=== PATIENT | male | born 1990 | race American Indian/Alaskan Native ===

== ENCOUNTER 2018-12-31 11:19 | Emergency (ER) | payer OTHER ==
[2018-12-31] MEDS ORDERED: SODIUM CHLORIDE 0.9% 1,000 ML IV STA (11:54)
[2018-12-31] MEDS ORDERED: ONDANSETRON 4 MG/2 ML VIAL IVP STA (11:54)
[2018-12-31] MEDS ORDERED: SODIUM CHLORIDE 0.9% 2,000 ML IV STA (11:54)
[2018-12-31] MEDS ORDERED: PANTOPRAZOLE 40 MG/10 ML VIAL IVP STA (11:54)
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
[2018-12-31 12:15] LABS: Basophils # (A) 0.1 k/uL (0-0.2); Basophils % (A) 1 %; Eosinophils # (A) 0.1 k/uL (0-0.7); Eosinophils % (A) 2 %; HCT 49.6 % (39.0-53.0); HGB 16.7 gm/dL (13.0-17.5); Lymphocytes # (A) 1.3 k/uL (1.0-4.8); Lymphocytes % (A) 17 %; MCH 32.1 pg (25.0-35.0); MCHC 33.6 g/dL (31.0-37.0); MCV 95.6 fL (80.0-100.0); Mean Platelet Volume 6.8; Monocytes # (A) 0.5 k/uL (0-1.0); Monocytes % (A) 7 %; Neutrophils # (A) 5.1 k/uL (1.3-7.7); Neutrophils % (A) 71 %; Platelet Count 261 k/uL (150-450); RBC 5.19 m/uL (4.30-5.90); WBC 7.3 k/uL (3.8-10.6)
[2018-12-31 12:21] LABS: Partial Thromboplastin Time 25.6 sec (22.0-30.0); Prothrombin Time 10.4 sec (9.0-12.0)
[2018-12-31 12:23] LABS: ALT 57 U/L (21-72); AST 43 U/L (17-59); Albumin 4.8 g/dL (3.5-5.0); Alcohol <10 mg/dL; Alkaline Phosphatase 64 U/L (38-126); Amylase 46 U/L (30-110); Anion Gap 12 mmol/L; Blood Urea Nitrogen 14 mg/dL (9-20); Calcium 9.8 mg/dL (8.4-10.2); Carbon Dioxide 24 mmol/L (22-30); Chloride 101 mmol/L (98-107); Glucose 81 mg/dL (74-99); Lipase 81 U/L (23-300); Potassium 4.6 mmol/L (3.5-5.1); Sodium 137 mmol/L (137-145); Total Protein 7.8 g/dL (6.3-8.2)
[2018-12-31] MEDS ORDERED: KETOROLAC 30 MG/ML 1 ML VIAL IVP STA (13:21)
[2018-12-31 13:35] LABS: Appearance,Urine Clear (Clear); Bilirubin,Urine Negative (Negative); Blood,Urine Negative (Negative); Color,Urine Light Yellow; Glucose,Urine (UA) Negative (Negative); Ketones,Urine 2+ (Negative); Leukocyte Esterase,Urine Negative (Negative); Nitrite,Urine Negative (Negative); PH, Urine 6.5 (5.0-8.0); Protein,Urine Negative (Negative); Specific Gravity,Urine 1.004 (1.001-1.035); Urobilinogen,Urine <2.0 mg/dL (<2.0)
[2018-12-31 13:44] LABS: Amphetamine Screen,Urine Detected (NotDetected); Barbiturate Screen,Urine Not Detected (NotDetected); Benzodiazepines Screen,Urine Not Detected (NotDetected); Cocaine Screen,Urine Not Detected (NotDetected); Methadone Screen, Urine Not Detected (NotDetected); Opiate Screen,Urine Not Detected (NotDetected); Oxycodone Screen, Urine Not Detected (NotDetected); Phencyclidine Screen,Urine Not Detected (NotDetected); Tricyclic Antidepressant,Urine Not Detected (NotDetected); Urn Cannabinoid Scrn Not Detected (NotDetected)
[2018-12-31] MEDS ORDERED: ACETAMINOPHEN TAB 500 MG TAB PO STA (14:23)
[2018-12-31] MEDS ORDERED: LORazepam 1 MG TAB PO STA (14:26)
[2018-12-31] MEDS ORDERED: chlordiazePOXIDE 25 MG CAP PO STA (14:26)
[2018-12-31 15:15] VITALS: BP 149/87; PULSE 85; RESP 25
[2018-12-31 15:26] VITALS: TEMP 98.7
== END 2018-12-31 15:27 | disposition home or self-care (01) ==
LOC: EC 11:19
DX: F10.10 Alcohol abuse, uncomplicated (principal); R11.2 Nausea with vomiting, unspecified; R82.5 Elevated urine levels of drugs, medicaments and biological substances; R10.9 Unspecified abdominal pain; F17.200 Nicotine dependence, unspecified, uncomplicated
CPT/HCPCS: 36415; 93005; 80053; 82150; 83690; 85025; 85610; 85730; 81003; 80306; 99284; 96374; 96375 ×2; 96361 ×3; G0480; J2405; J1885; C9113; 80320

== ENCOUNTER 2019-07-12 06:30 | Inpatient (IN) | payer OTHER ==
[2019-07-12] MEDS ORDERED: SODIUM CHLORIDE 0.9% 2,000 ML IV STA (06:50)
[2019-07-12] MEDS ORDERED: LORazepam 2 MG/ML INJ IV STA ×4 (06:55→09:15)
--- NOTE | 2019-07-12 06:56 | ED ---
Overdose HPI - General Source: patient, RN notes reviewed, old records reviewed Mode of arrival: ambulatory Limitations: no limitations <Kristine Bauer - Last Filed: 07/12/19 18:22> <Geovani Joy - Last Filed: 07/13/19 00:02> <Tomer Marie - Last Filed: 07/14/19 13:07> - General Chief Complaint: Overdose Stated Complaint: dizziness Time Seen by Provider: 07/12/19 06:41 - History of Present Illness Initial Comments: Patient is a 28-year-old male presents emergency department today with drug overdose and complaining of right-sided abdominal pain. Patient states she does not know exactly what drug he took possibly about results. Urine to emergency department today complaining of some dizziness as well. Patient reports that his right side abdominal pain started one hour ago. He does report that he is a chronic occult drinker. Patient states that he has had no recent fevers or chills. Patient is quite uncooperative, difficult for for complete medical history. (Kristine Bauer) - Related Data Home Medications Medication Instructions Recorded Confirmed No Known Home Medications 07/12/19 07/12/19 Allergies Allergy/AdvReac Type Severity Reaction Status Date / Time No Known Allergies Allergy Verified 07/12/19 07:52 Review of Systems ROS Other: All systems not noted in ROS Statement are negative. <Kristine Bauer - Last Filed: 07/12/19 18:22> ROS Other: All systems not noted in ROS Statement are negative. <Geovani Joy - Last Filed: 07/13/19 00:02> ROS Other: All systems not noted in ROS Statement are negative. <Tomer Marie - Last Filed: 07/14/19 13:07> ROS Statement: Those systems with pertinent positive or pertinent negative responses have been documented in the HPI. Past Medical History Past Medical History: Asthma History of Any Multi-Drug Resistant Organisms: None Reported Past Surgical History: No Surgical Hx Reported Past Psychological History: Anxiety, Depression Smoking Status: Current every day smoker Past Alcohol Use History: Abuse, Daily Past Drug Use History: Cocaine, Heroin, Marijuana, Methamphetamine, Prescription Drug Abuse <Kristine Bauer - Last Filed: 07/12/19 18:22> General Exam Limitations: no limitations General appearance: alert, in no apparent distress Head exam: Present: atraumatic, normocephalic, normal inspection Eye exam: Present: normal appearance, PERRL, EOMI. Absent: scleral icterus, conjunctival injection, periorbital swelling ENT exam: Present: normal exam, mucous membranes moist Neck exam: Present: normal inspection. Absent: tenderness, meningismus, lymphadenopathy Respiratory exam: Present: normal lung sounds bilaterally. Absent: respiratory distress, wheezes, rales, rhonchi, stridor Cardiovascular Exam: Present: regular rate, normal rhythm, normal heart sounds. Absent: systolic murmur, diastolic murmur, rubs, gallop, clicks GI/Abdominal exam: Present: soft, tenderness ( Pt reports Right upper quadrant tenderness, abdomen soft. Tenderness is distractable.), normal bowel sounds. Absent: distended, guarding, rebound, rigid Extremities exam: Present: normal inspection, full ROM, normal capillary refill, other (ankle tether noticed. ). Absent: tenderness, pedal edema, joint swelling, calf tenderness Back exam: Present: normal inspection Psychiatric exam: Present: normal mood, other (Patient is hallucinating, stating that he is talking to [place] in [place] people that are not room.). Absent: normal affect Skin exam: Present: warm, dry, intact, normal color. Absent: rash <Kristine Bauer - Last Filed: 07/12/19 18:22> - General Exam Comments Initial Comments: 28-year-old male, altered mental. (Kristine Bauer) Course <Kristine Bauer - Last Filed: 07/12/19 18:22> <Geovani Joy - Last Filed: 07/13/19 00:02> <Tomer Marie - Last Filed: 07/14/19 13:07> Vital Signs 07/12/19 07/12/19 07/12/19 06:36 16:12 23:43 Temperature 97.9 F 98.7 F Pulse Rate 89 98 79 Respiratory 20 16 18 Rate Blood Pressure 146/90 147/106 123/81 O2 Sat by Pulse 99 98 97 Oximetry 07/13/19 07/13/19 07/13/19 01:27 02:00 04:00 Temperature Pulse Rate 80 74 75 Respiratory 18 18 19 Rate Blood Pressure 116/71 125/91 137/89 O2 Sat by Pulse 97 98 99 Oximetry 07/13/19 07/13/19 07/13/19 05:58 08:05 19:45 Temperature 98.6 F 98.0 F Pulse Rate 76 92 89 Respiratory 18 16 16 Rate Blood Pressure 133/89 137/78 122/87 O2 Sat by Pulse 98 100 98 Oximetry 07/14/19 07:20 Temperature 97.9 F Pulse Rate 79 Respiratory 16 Rate Blood Pressure 109/74 O2 Sat by Pulse 98 Oximetry - Reevaluation(s) Reevaluation #1: 07/12/19 08:52 Patient is becoming increasingly agitated. Don't 0 floor. Up-and-down from bed. Fall risk. Patient will be sedated at this time with Benadryl and Haldol Ativan. (Kristine Bauer) 07/13/19 00:06 Patient is still awaiting psychiatric placement at this time. Patient remains alert and breathing comfortably in the ED. Patient was endorsed to Dr. Bowens secondary to ED shift change. Dr. Bowens to follow up on the patient's disposition. (Geovani Joy) Reevaluation #2: 07/12/19 08:54 Patient continues to hallucinate stating that his family members are here and talking about him. (Kristine Bauer) Reevaluation #3: 07/12/19 09:22 Patient is medically sedated this time. Belongings are placed in storage. Patient will be evaluated by EPS due to persistent hallucinations, erratic behavior. (Kristine Bauer) Reevaluation #4: 07/12/19 18:22 Patient is having was evaluated by EPS and he did state that it was an intentional overdose he plans to harm himself and feels hopeless. We'll admit the Patient to psych facility Patient will be held in the ER until transferred. (Kristine Bauer) Reevaluation #5: 07/14/19 13:04 The patient was resting comfortably throughout the morning. He was here because of overdose and depression and suicidal ideation. Patient voluntarily is signing in for inpatient treatment. (Tomer Marie) Medical Decision Making - Lab Data Result diagrams: 07/12/19 06:45 07/12/19 06:45 <Kristine Bauer - Last Filed: 07/12/19 18:22> - Lab Data Result diagrams: 07/12/19 06:45 07/12/19 06:45 <Geovani Joy - Last Filed: 07/13/19 00:02> - Lab Data Result diagrams: 07/12/19 06:45 07/12/19 06:45 <Tomer Marie - Last Filed: 07/14/19 13:07> - Medical Decision Making Patient is a 28-year-old male presents emergency department today he stated some right-sided abdominal pain, complaint of dizziness. Is difficult to obtain a history due to his mental state and hallucinations and agitation.. Patient was hallucinating in exam room stating that his family members are they're talking about him and nobody is here. Patient was given IV fluids labwork obtained. Patient's labwork was reviewed and unremarkable. Urine drug screen is positive for methamphetamines amphetamines and opiates. Patient is given 2 L bolus. Patient was in ER immediately increasingly agitated one point threatening states staff and concerned that he would be a fall risk. Patient was medically sedated given Ativan and Benadryl Haldol. He then was resting. Patient's case discussed with the EPS to evaluate the Patient Patient is more alert. Patient has been emergency department for 11 hours to 2 cm after medical sedation. Patient was evaluated by EPS and final disposition will be completed by Dr. Lino. (Kristine Bauer) 20:55- I (Dr. Geovani Joy) have seen and examined the patient myself, and I agree with ED KACEY Bauer' assessment and plan. Patient is now alert and responsive. Patient has reported to myself and the EPS nurse that he intentionally overdosed on illicit drugs early this morning in a suicidal attempt. Patient will not tell me exactly which drugs he took. Patient has been observed in the ED for over 14 hours now. Patient's EKG was reviewed and is unremarkable. Patient's labs are fairly unremarkable, other than a urine drug screen which is positive for opiates, methamphetamines and amphetamines. Patient has been medically cleared. A clinical certificate of commitment was completed myself. EPS nurse is searching for psychiatric placement for the patient at this time. (Geovani Joy) - Lab Data Lab Results 09/14/19 09/14/19 09/14/19 Range/Units 06:45 06:45 06:45 WBC 8.6 (3.8-10.6) k/uL RBC 5.58 (4.30-5.90) m/uL Hgb 17.2 (13.0-17.5) gm/dL Hct 49.5 (39.0-53.0) % MCV 88.8 (80.0-100.0) fL MCH 30.7 (25.0-35.0) pg MCHC 34.6 (31.0-37.0) g/dL RDW 14.9 (11.5-15.5) % Plt Count 321 (150-450) k/uL Neutrophils % 72 % Lymphocytes % 16 % Monocytes % 5 % Eosinophils % 5 % Basophils % 1 % Neutrophils # 6.2 (1.3-7.7) k/uL Lymphocytes # 1.4 (1.0-4.8) k/uL Monocytes # 0.4 (0-1.0) k/uL Eosinophils # 0.4 (0-0.7) k/uL Basophils # 0.1 (0-0.2) k/uL Sodium 138 (137-145) mmol/L Potassium 4.1 (3.5-5.1) mmol/L Chloride 99 (98-107) mmol/L Carbon Dioxide 27 (22-30) mmol/L Anion Gap 12 mmol/L BUN 14 (9-20) mg/dL Creatinine 0.79 (0.66-1.25) mg/dL Est GFR (CKD-EPI)AfAm >90 (>60 ml/min/1.73 sqM) Est GFR (CKD-EPI)NonAf >90 (>60 ml/min/1.73 sqM) Glucose 88 (74-99) mg/dL Calcium 9.5 (8.4-10.2) mg/dL Total Bilirubin 0.7 (0.2-1.3) mg/dL AST 24 (17-59) U/L ALT 18 L (21-72) U/L Alkaline Phosphatase 41 (38-126) U/L Total Protein 8.0 (6.3-8.2) g/dL Albumin 4.8 (3.5-5.0) g/dL Amylase 32 (30-110) U/L Lipase 74 (23-300) U/L Urine Color Light Yellow Urine Appearance Clear (Clear) Urine pH 6.5 (5.0-8.0) Ur Specific [place] 1.004 (1.001-1.035) Urine Protein Negative (Negative) Urine Glucose (UA) Negative (Negative) Urine Ketones Negative (Negative) Urine Blood Negative (Negative) Urine Nitrite Negative (Negative) Urine Bilirubin Negative (Negative) Urine Urobilinogen <2.0 (<2.0) mg/dL Ur Leukocyte Esterase Negative (Negative) Salicylates <1.0 mg/dL Urine Opiates Screen Detected H (NotDetected) Ur Oxycodone Screen Not Detected (NotDetected) Urine Methadone Screen Not Detected (NotDetected) Ur Propoxyphene Screen Not Detected (NotDetected) Acetaminophen <10.0 ug/mL Ur Barbiturates Screen Not Detected (NotDetected) U Tricyclic Antidepress Not Detected (NotDetected) Ur Phencyclidine Scrn Not Detected (NotDetected) Ur Amphetamines Screen Detected H (NotDetected) U Methamphetamines Scrn Detected H (NotDetected) U Benzodiazepines Scrn Not Detected (NotDetected) Urine Cocaine Screen Not Detected (NotDetected) U Marijuana (THC) Screen Not Detected (NotDetected) Serum Alcohol <10 mg/dL 07/12/19 06:57 EKG performed at 6:47 AM shows normal sinus rhythm rightward axis, borderline EKG. Ventricular rate of 71 bpm. TX interval is 126 ms. QRS duration is 88 ms. (Kristine Bauer) Disposition <Kristine Bauer - Last Filed: 07/12/19 18:22> <Geovani Joy - Last Filed: 07/13/19 00:02> <Tomer Marie - Last Filed: 07/14/19 13:07> Clinical Impression: Positive urine drug screen, Hallucination, Drug overdose, Depression Disposition: TRANSFER TO PSYCH HOSP/UNIT Condition: Stable Referrals: None,Stated [Primary Care Provider] - 1-2 days
[2019-07-12 07:03] LABS: Appearance,Urine Clear (Clear); Basophils # (A) 0.1 k/uL (0-0.2); Basophils % (A) 1 %; Bilirubin,Urine Negative (Negative); Blood,Urine Negative (Negative); Color,Urine Light Yellow; Eosinophils # (A) 0.4 k/uL (0-0.7); Eosinophils % (A) 5 %; Glucose,Urine (UA) Negative (Negative); HCT 49.5 % (39.0-53.0); HGB 17.2 gm/dL (13.0-17.5); Ketones,Urine Negative (Negative); Leukocyte Esterase,Urine Negative (Negative); Lymphocytes # (A) 1.4 k/uL (1.0-4.8); Lymphocytes % (A) 16 %; MCH 30.7 pg (25.0-35.0); MCHC 34.6 g/dL (31.0-37.0); MCV 88.8 fL (80.0-100.0); Mean Platelet Volume 6.9; Monocytes # (A) 0.4 k/uL (0-1.0); Monocytes % (A) 5 %; Neutrophils # (A) 6.2 k/uL (1.3-7.7); Neutrophils % (A) 72 %; Nitrite,Urine Negative (Negative); PH, Urine 6.5 (5.0-8.0); Platelet Count 321 k/uL (150-450); Protein,Urine Negative (Negative); RBC 5.58 m/uL (4.30-5.90); RDW 14.9 % (11.5-15.5); Specific Gravity,Urine 1.004 (1.001-1.035); Urobilinogen,Urine <2.0 mg/dL (<2.0); WBC 8.6 k/uL (3.8-10.6)
[2019-07-12 07:12] LABS: Acetaminophen <10.0 ug/mL; African American GFR (CKD) >90 (>60 ml/min/1.73 sqM); Albumin 4.8 g/dL (3.5-5.0); Alcohol <10 mg/dL; Amylase 32 U/L (30-110); Anion Gap 12 mmol/L; Calcium 9.5 mg/dL (8.4-10.2); Carbon Dioxide 27 mmol/L (22-30); Chloride 99 mmol/L (98-107); Glucose 88 mg/dL (74-99); Salicylate <1.0 mg/dL; Sodium 138 mmol/L (137-145); Total Bilirubin 0.7 mg/dL (0.2-1.3)
[2019-07-12 07:13] LABS: Potassium 4.1 mmol/L (3.5-5.1)
[2019-07-12 07:14] LABS: ALT 18 U/L (21-72); AST 24 U/L (17-59); Alkaline Phosphatase 41 U/L (38-126); Blood Urea Nitrogen 14 mg/dL (9-20)
[2019-07-12 07:26] LABS: Amphetamine Screen,Urine Detected (NotDetected); Barbiturate Screen,Urine Not Detected (NotDetected); Benzodiazepines Screen,Urine Not Detected (NotDetected); Cocaine Screen,Urine Not Detected (NotDetected); Methadone Screen, Urine Not Detected (NotDetected); Opiate Screen,Urine Detected (NotDetected); Oxycodone Screen, Urine Not Detected (NotDetected); Phencyclidine Screen,Urine Not Detected (NotDetected); Tricyclic Antidepressant,Urine Not Detected (NotDetected); Urn Cannabinoid Scrn Not Detected (NotDetected)
[2019-07-12] MEDS ORDERED: diphenhydrAMINE 50 MG/ML 1 ML VIAL IVP STA (08:49)
[2019-07-12] MEDS ORDERED: HALOPERIDOL LACTATE 5 MG/ML 1 ML VIAL IM STA (08:49)
[2019-07-13] MEDS ORDERED: IBUPROFEN 400 MG TAB PO STA (18:47)
[2019-07-14 16:09] VITALS: BMI 24.3
[2019-07-14] MEDS ORDERED: MAG HYDROX/AL HYDROX/SIMETH 30 ML CUP PO PRN (17:49)
[2019-07-14] MEDS ORDERED: ZIPRASIDONE 20 MG VIAL IM PRN (17:49)
[2019-07-14] MEDS ORDERED: MAGNESIUM HYDROXIDE 2,400 MG/10 ML CUP PO PRN (17:49)
[2019-07-14] MEDS ORDERED: ACETAMINOPHEN TAB 325 MG TAB PO PRN (17:49)
[2019-07-14] MEDS ORDERED: LORazepam 1 MG TAB PO PRN (17:49)
[2019-07-14] MEDS ORDERED: LORazepam 2 MG/ML INJ IM PRN (17:52)
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
[2019-07-14] MEDS ORDERED: ALBUTEROL NEBULIZED 2.5 MG/3 ML INHALATION PRN (22:47)
[2019-07-15 07:00] VITALS: BP 109/65; PULSE 66; RESP 18; TEMP 98.3
[2019-07-15] MEDS ORDERED: NICOTINE 14MG/24HR PATCH TRANSDERM SCH (09:00)
[2019-07-15] MEDS: LORATADINE 10 MG TAB PO SCH ×2 (09:40→09:41)
[2019-07-15] MEDS ORDERED: ALBUTEROL INHALER 60 PUFF/8 GM INHALER INHALATION PRN (10:18)
--- NOTE | 2019-07-15 11:40 | P.DS ---
Providers Date of admission: 07/14/19 14:21 Expected date of discharge: 07/15/19 Attending physician: Amilcar Arciniega Consults: 07/14/19 17:49 Consult Physician Routine Consulting Provider: Jenna Greene Consult Reason/Comments: H&P and medical Do you want consulting provider notified?: Yes Primary care physician: Stated None - Discharge Diagnosis(es) (1) Depression Current Visit: Yes Status: Acute Priority: Medium (2) Alcohol use disorder Current Visit: Yes Status: Acute Priority: Medium Hospital Course: IDENTIFYING DATA: This patient is a 28-year-old single male who was admitted to the mental health unit through the emergency room for suicidal ideation. HPI: Patient presented to the hospital July 12 reporting thoughts of wanting to harm himself and reported he had overdosed with illicit drugs. He was seen by the emergency room staff as well as a psychiatric nurse. A determination was made that he needed to be admitted to a mental health unit. The patient was not able to be transferred out of the hospital and this unit had no available beds. He was admitted to the mental health unit yesterday once a bed became available. Upon presentation this morning the patient states adamantly that he was never suicidal. He indicates in any statements that he made were because he was under the influence of substances. He presented with a drug screen positive for amphetamines, methamphetamines, opiates. He indicated that he was hallucinating and not thinking clearly. He reports no symptoms of depression. He indicates that they gave him Remeron in halfway for sleep but he doesn't really needs an antidepressant. He endorses no significant anxiety he is reporting no panic attacks. He is concerned about being in the hospital as he is supposed to be working and is supposed to meet with his chief analytics officer. He describes several examples of future oriented thinking. He indicates he will be staying with his aunt. He states that his children were temporarily taken away from their mother and his children are with his parents. He states he needs to maintain employment get his own place and participate in the care of his children. He reports no auditory or visual hallucinations or any specific delusions. He reports no history of hypomanic or manic episodes. He reports no ownership of firearms. PAST PSYCHIATRIC HISTORY: He indicates this is his first inpatient psychiatric admission, no history of suicide attempts. He states he's only been on Remeron in the past and trazodone for sleep. He is ordered to work with [employer] and sees a therapist weekly as part of his parole. PMH: None reported other than asthma which is controlled ALLERGIES: no Known drug ALLERGIES MEDICATIONS: None other than Remeron at bedtime in halfway CHEMICAL DEPENDENCY HISTORY: He has a history of alcohol use disorder he states he has been sober for over 6 months, as noted his urine drug screen was positive for opiates, amphetamine, methamphetamine, he indicates he was using marijuana as well. He is never been in inpatient chemical dependency treatment. After he was released from halfway he violated and went back to halfway for 6 more months and participated in chemical dependency treatment there. FAMILY PSYCHIATRIC HISTORY: Acute several family members have mental health symptoms but provides no diagnoses, no suicides in the family. FAMILY CHEMICAL DEPENDENCY HISTORY: Several family members known to have substance use issues he believes some distant family members via unintentional overdose SOCIAL HISTORY: The patient is 28 years old he single he has 2 children ages 7 and 9, a son and daughter respectively. His children are currently splitting the time between his mother and his parents. He indicates CPS is involved in evaluating their mother's ability to care for them. 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 He went as far as 10th grade and later earned a GED. He endorses no history of special education classes. No history of service. He has 2 brothers. He is originally from this area. Legal history includes incarceration for 5 years for assault and battery and also a DUI arrest he is on parole until September. Abuse history none reported. MENTAL STATUS EXAM: The patient is a male appearing his stated age. He has short dark hair is dressed in hospital gown. He has visible tattoos on his upper extremities. Eye contact is appropriate speech is fluent spontaneous nonpressured. He indicates his mood is good but he is anxious to get out of the hospital as he needs to return to work. He reports no suicidal ideation intent or plan he reports that he is not hopeless. He indicates he needs to complete his parole maintain employment and get his own residence. He reports no homicidal ideation intent or plan. He is reporting no auditory or visual hallucinations or any specific delusions. There is no observed evidence of psychosis. Thought process can be circumstantial but he demonstrates no tangential thinking loose associations or flight of ideas. He does not appear hypomanic or manic. Insight and judgment grossly intact. Affect appropriately expressive. He demonstrates no verbal or physical aggressiveness. He demonstrates no involuntary repetitive movements. He is oriented to person place and date. He is able to name the days of the week backwards. STRENGTHS/WEAKNESSES: His: Housing, employment weaknesses: Ongoing substance use INTELLECTUAL FUNCTIONING: Below average IMPRESSIONS: [] 1. Depression and specified rule out major depressive disorder, alcohol use disorder, rule out methamphetamine and opioid use disorders PLAN: The patient will be discharged mental health unit today. He has been in the hospital now since the . It appears his presenting symptoms were mediated by the use of methamphetamine opiates and possibly marijuana. At this time he reports no symptoms of psychosis he reports no suicidal or homicidal ideation he does not appear hypomanic or manic and he does not appear psychotic. He is able to attend to his activities of daily living and is following direc tion. He is demonstrating no agitated behavior. Social work will contact his family to gain collateral information. If they feel the patient is safe to return home we will discharge him today. He does not wish to have any medications prescribed today. We discussed using naltrexone to maintain sobriety from alcohol and opiates he does not wish to have that prescribed. He does not wish to be referred to inpatient chemical dependency treatment. He is instructed to abstain from any use of alcohol marijuana or illicit drugs a computed tomography scan precipitate mood and psychotic symptoms and elevate his safety risk. At this time there is no imminent safety risk he is appropriate for transition to outpatient care which will be arranged by social work. He is instructed to return to the hospital with any acute safety concerns. Patient Condition at Discharge: Stable Plan - Discharge Summary Discharge Rx Participant: No New Discharge Prescriptions: New Loratadine [Claritin] 5 mg PO DAILY tab Albuterol Inhaler [Ventolin Hfa Inhaler] 2 puff INHALATION RT-QID PRN puff PRN Reason: Shortness Of Breath Or Wheezing Discontinued Mirtazapine [Remeron] 30 mg PO HS Discharge Medication List Albuterol Inhaler [Ventolin Hfa Inhaler] 2 puff INHALATION RT-QID PRN puff 07/15/19 [Rx] Loratadine [Claritin] 5 mg PO DAILY tab 07/15/19 [Rx] Follow up Appointment(s)/Referral(s): None,Stated [Primary Care Provider] - 1-2 days
[2019-07-15 14:28] LABS: Hemoglobin A1C 5.6 % (4.0-6.0)
== END 2019-07-15 13:55 | disposition home or self-care (01) | DRG 881 ==
LOC: EC 06:30 → 3MHU 07-14 14:21
PROVIDERS: ADMIT Psychiatry & Neurology Psychiatry; ATTEND Psychiatry & Neurology Psychiatry
DX: F32.9 Major depressive disorder, single episode, unspecified (principal); J30.2 Other seasonal allergic rhinitis; R10.31 Right lower quadrant pain; F12.90 Cannabis use, unspecified, uncomplicated; F10.10 Alcohol abuse, uncomplicated; F14.11 Cocaine abuse, in remission; F15.90 Other stimulant use, unspecified, uncomplicated; F11.11 Opioid abuse, in remission; F19.11 Other psychoactive substance abuse, in remission; J45.20 Mild intermittent asthma, uncomplicated; T50.902A Poisoning by unspecified drugs, medicaments and biological substances, intentional self-harm, initial encounter; F41.9 Anxiety disorder, unspecified; F17.210 Nicotine dependence, cigarettes, uncomplicated; Z71.6 Tobacco abuse counseling; Z81.4 Family history of other substance abuse and dependence
CPT/HCPCS: 36415; 80053; 80061; 80306; 80320; 80329; 81003; 82075; 82150; 83036; 83520; 83690; 84443; 85025; 93005; 96361; 96372; 96374; 96375; 96376; 99285

== ENCOUNTER 2020-03-24 14:09 | Emergency (ER) | payer OTHER ==
[2020-03-24 14:28] VITALS: TEMP 98.7
[2020-03-24] MEDS ORDERED: SODIUM CHLORIDE 0.9% 1,000 ML IV ONE (14:31)
[2020-03-24] MEDS ORDERED: LORazepam 2 MG/ML INJ IV STA (14:32)
[2020-03-24] MEDS ORDERED: SODIUM CHLORIDE 0.9% 1,000 ML IV SCH (14:45)
[2020-03-24 14:50] LABS: Glucose,Whole Blood 84 mg/dL (75-99)
--- NOTE | 2020-03-24 15:03 | ED ---
Overdose HPI - General Chief Complaint: Overdose Stated Complaint: ETOH/overdose Time Seen by Provider: 03/24/20 14:16 Source: EMS Mode of arrival: EMS Limitations: altered mental status - History of Present Illness Initial Comments: 29-year-old male presents today for chief complaint of possible overdose. Patient states that he took acid today and smoked marijuana he states he is unsure if it was laced with something he states that he became very anxious paranoid and attempted to take Benadryl in order to reverse the symptoms of the acid. He states that he took 6, what he believes 25mg tablets of benadryl. Patient states he has had some vomiting. He states his heart was racing from the stuff he took and he became anxious and presented to the ER for evaluation, called EMS. Patient states he is just hungover and did drugs. He states he wants to go home. Patient denies trauma or known falls, assault. Pt slightly aggitated on arrival. HR elevated, BP stable. His pupils are found to be dilated, skin warm/dry. No active vomiting. Denies suicidal and homicidal ideations or plan. States it was recreational drug use. - Related Data Previous Rx's Medication Instructions Recorded Albuterol Inhaler (Mhu) [Ventolin 2 puff INHALATION RT-QID PRN puff 07/15/19 Hfa Inhaler (Mhu)] Loratadine [Claritin] 5 mg PO DAILY tab 07/15/19 Allergies Allergy/AdvReac Type Severity Reaction Status Date / Time No Known Allergies Allergy Verified 07/14/19 16:17 Review of Systems ROS Statement: Those systems with pertinent positive or pertinent negative responses have been documented in the HPI. ROS Other: All systems not noted in ROS Statement are negative. Past Medical History Past Medical History: Asthma History of Any Multi-Drug Resistant Organisms: None Reported Past Surgical History: No Surgical Hx Reported Past Anesthesia/Blood Transfusion Reactions: No Reported Reaction Past Psychological History: Anxiety, Depression Smoking Status: Current every day smoker Past Alcohol Use History: Abuse, Daily Past Drug Use History: Cocaine, Heroin, Marijuana, Methamphetamine, Prescription Drug Abuse General Exam - General Exam Comments Initial Comments: General: The patient is awake and alert, in no distress Eye: +5mm pupils are equal, round and reactive to light, extra-ocular movements are intact. No nystagmus. There is normal conjunctiva bilaterally. No signs of icterus. Ears, nose, mouth and throat: There are moist mucous membranes and no oral le sions. Neck: The neck is supple, there is no tenderness or JVD. Cardiovascular: There is a regular rate and rhythm. No murmur, rub or gallop is appreciated. Respiratory: Lungs are clear to auscultation, respirations are non-labored, breath sounds are equal. No wheezes, stridor, rales, or rhonchi. Gastrointestinal: Soft, non-distended, non-tender abdomen without masses or organomegaly noted. There is no rebound or guarding present. Musculoskeletal: Normal ROM, no tenderness. Strength 5/5. Sensation intact. Radial pulses equal bilaterally 2+. Neurological: A&O x 3. CN II-XII intact. There are no obvious motor or sensory deficits. Coordination appears grossly intact. Speech is normal. Skin: Skin is warm and dry and no rashes or lesions are noted. Psychiatric: Cooperative, slightly agitated does not appears altered, answering questions appropriately. Limitations: altered mental status Course Vital Signs 03/24/20 03/24/20 03/24/20 14:14 15:02 16:44 Temperature 98.7 F Pulse Rate 120 H 126 H 125 H Respiratory 17 18 18 Rate Blood Pressure 138/88 151/91 151/89 O2 Sat by Pulse 94 L 98 98 Oximetry - Reevaluation(s) Reevaluation #1: Patient walking halls without staggering, he is calmly asking to be discharged stating he was just high. He has no complaints. He refuses to stay. Given patient alcohol level increased, although he does not appears acutely intoxicated/altered a cab will be provided.. i discussed at length that patient should stay in the hospital he continues to refused. He is leaving against medical advice. 03/24/20 16:50 Reevaluation #2: Discussed case with Dr. Luu who witnessed patient walking [place] who is not staggering, calm, answering questions appropriately, requseting discharge he is agreeable to pt signing out AMA. 03/24/20 Medical Decision Making - Lab Data Result diagrams: 03/24/20 14:40 03/24/20 14:40 Lab Results 03/24/20 03/24/20 03/24/20 Range/Units 14:40 14:40 14:40 WBC 6.6 (3.8-10.6) k/uL RBC 4.95 (4.30-5.90) m/uL Hgb 16.3 (13.0-17.5) gm/dL Hct 48.2 (39.0-53.0) % MCV 97.4 (80.0-100.0) fL MCH 32.9 (25.0-35.0) pg MCHC 33.8 (31.0-37.0) g/dL RDW 14.1 (11.5-15.5) % Plt Count 295 (150-450) k/uL Neutrophils % 62 % Lymphocytes % 27 % Monocytes % 6 % Eosinophils % 3 % Basophils % 0 % Neutrophils # 4.1 (1.3-7.7) k/uL Lymphocytes # 1.8 (1.0-4.8) k/uL Monocytes # 0.4 (0-1.0) k/uL Eosinophils # 0.2 (0-0.7) k/uL Basophils # 0.0 (0-0.2) k/uL PT 11.3 (9.0-12.0) sec INR 1.1 (<1.2) APTT 22.6 (22.0-30.0) sec Sodium 137 (137-145) mmol/L Potassium 4.0 (3.5-5.1) mmol/L Chloride 103 (98-107) mmol/L Carbon Dioxide 19 L (22-30) mmol/L Anion Gap 15 mmol/L BUN 8 L (9-20) mg/dL Creatinine 0.90 (0.66-1.25) mg/dL Est GFR (CKD-EPI)AfAm >90 (>60 ml/min/1.73 sqM) Est GFR (CKD-EPI)NonAf >90 (>60 ml/min/1.73 sqM) Glucose 83 (74-99) mg/dL POC Glucose (mg/dL) (75-99) mg/dL POC Glu Pet Handler ID Calcium 8.7 (8.4-10.2) mg/dL Total Bilirubin 0.6 (0.2-1.3) mg/dL AST 45 (17-59) U/L ALT 46 (4-49) U/L Alkaline Phosphatase 68 (38-126) U/L Creatine Kinase 232 H (55-170) U/L Troponin I (0.000-0.034) ng/mL Total Protein 7.6 (6.3-8.2) g/dL Albumin 4.6 (3.5-5.0) g/dL Urine Color Urine Appearance (Clear) Urine pH (5.0-8.0) Ur Specific [place] (1.001-1.035) Urine Protein (Negative) Urine Glucose (UA) (Negative) Urine Ketones (Negative) Urine Blood (Negative) Urine Nitrite (Negative) Urine Bilirubin (Negative) Urine Urobilinogen (<2.0) mg/dL Ur Leukocyte Esterase (Negative) Urine RBC (0-5) /hpf Urine WBC (0-5) /hpf Hyaline Casts (0-2) /lpf Urine Mucus (None) /hpf Urine Opiates Screen (NotDetected) Ur Oxycodone Screen (NotDetected) Urine Methadone Screen (NotDetected) Ur Propoxyphene Screen (NotDetected) Ur Barbiturates Screen (NotDetected) U Tricyclic Antidepress (NotDetected) Ur Phencyclidine Scrn (NotDetected) Ur Amphetamines Screen (NotDetected) U Methamphetamines Scrn (NotDetected) U Benzodiazepines Scrn (NotDetected) Urine Cocaine Screen (NotDetected) U Marijuana (THC) Screen (NotDetected) Serum Alcohol 136 mg/dL 03/24/20 03/24/20 03/24/20 Range/Units 14:40 14:49 15:58 WBC (3.8-10.6) k/uL RBC (4.30-5.90) m/uL Hgb (13.0-17.5) gm/dL Hct (39.0-53.0) % MCV (80.0-100.0) fL MCH (25.0-35.0) pg MCHC (31.0-37.0) g/dL RDW (11.5-15.5) % Plt Count (150-450) k/uL Neutrophils % % Lymphocytes % % Monocytes % % Eosinophils % % Basophils % % Neutrophils # (1.3-7.7) k/uL Lymphocytes # (1.0-4.8) k/uL Monocytes # (0-1.0) k/uL Eosinophils # (0-0.7) k/uL Basophils # (0-0.2) k/uL PT (9.0-12.0) sec INR (<1.2) APTT (22.0-30.0) sec Sodium (137-145) mmol/L Potassium (3.5-5.1) mmol/L Chloride (98-107) mmol/L Carbon Dioxide (22-30) mmol/L Anion Gap mmol/L BUN (9-20) mg/dL Creatinine (0.66-1.25) mg/dL Est GFR (CKD-EPI)AfAm (>60 ml/min/1.73 sqM) Est GFR (CKD-EPI)NonAf (>60 ml/min/1.73 sqM) Glucose (74-99) mg/dL POC Glucose (mg/dL) 84 (75-99) mg/dL POC Glu Pet Handler ID Nori Mansfield Calcium (8.4-10.2) mg/dL Total Bilirubin (0.2-1.3) mg/dL AST (17-59) U/L ALT (4-49) U/L Alkaline Phosphatase (38-126) U/L Creatine Kinase (55-170) U/L Troponin I <0.012 (0.000-0.034) ng/mL Total Protein (6.3-8.2) g/dL Albumin (3.5-5.0) g/dL Urine Color Yellow Urine Appearance Clear (Clear) Urine pH 6.0 (5.0-8.0) Ur Specific [place] 1.025 (1.001-1.035) Urine Protein 1+ H (Negative) Urine Glucose (UA) Negative (Negative) Urine Ketones 2+ H (Negative) Urine Blood Negative (Negative) Urine Nitrite Negative (Negative) Urine Bilirubin Negative (Negative) Urine Urobilinogen 2.0 (<2.0) mg/dL Ur Leukocyte Esterase Negative (Negative) Urine RBC <1 (0-5) /hpf Urine WBC 1 (0-5) /hpf Hyaline Casts 6 H (0-2) /lpf Urine Mucus Occasional H (None) /hpf Urine Opiates Screen Not Detected (NotDetected) Ur Oxycodone Screen Not Detected (NotDetected) Urine Methadone Screen Not Detected (NotDetected) Ur Propoxyphene Screen Not Detected (NotDetected) Ur Barbiturates Screen Not Detected (NotDetected) U Tricyclic Antidepress Not Detected (NotDetected) Ur Phencyclidine Scrn Not Detected (NotDetected) Ur Amphetamines Screen Detected H (NotDetected) U Methamphetamines Scrn Not Detected (NotDetected) U Benzodiazepines Scrn Detected H (NotDetected) Urine Cocaine Screen Not Detected (NotDetected) U Marijuana (THC) Screen Detected H (NotDetected) Serum Alcohol mg/dL Disposition Clinical Impression: Drug abuse, Alcohol use Disposition: Left Against Medical Advice Condition: Undetermined Instructions (If sedation given, give patient instructions): Adult Overdose (ED) Additional Instructions: Please use medication as discussed. Please follow-up with family doctor in the next 2 days. Please return to emergency room if the symptoms increase or worsen or for any other concerns. Is patient prescribed a controlled substance at d/c from ED?: No Referrals: None,Stated [Primary Care Provider] - 1-2 days [facility] [NON-STAFF] - 1-2 days Time of Disposition: 16:30
[2020-03-24 15:04] VITALS: RESP 18
[2020-03-24 15:17] LABS: Basophils % (A) 0 %; Eosinophils # (A) 0.2 k/uL (0-0.7); Eosinophils % (A) 3 %; HCT 48.2 % (39.0-53.0); HGB 16.3 gm/dL (13.0-17.5); Lymphocytes # (A) 1.8 k/uL (1.0-4.8); Lymphocytes % (A) 27 %; MCH 32.9 pg (25.0-35.0); MCHC 33.8 g/dL (31.0-37.0); MCV 97.4 fL (80.0-100.0); Mean Platelet Volume 6.7; Monocytes # (A) 0.4 k/uL (0-1.0); Monocytes % (A) 6 %; Neutrophils # (A) 4.1 k/uL (1.3-7.7); Neutrophils % (A) 62 %; Platelet Count 295 k/uL (150-450); RBC 4.95 m/uL (4.30-5.90); RDW 14.1 % (11.5-15.5); WBC 6.6 k/uL (3.8-10.6)
[2020-03-24 15:22] LABS: ALT 46 U/L (4-49); AST 45 U/L (17-59); African American GFR (CKD) >90 (>60 ml/min/1.73 sqM); Albumin 4.6 g/dL (3.5-5.0); Alkaline Phosphatase 68 U/L (38-126); Anion Gap 15 mmol/L; Blood Urea Nitrogen 8 mg/dL (9-20); Calcium 8.7 mg/dL (8.4-10.2); Carbon Dioxide 19 mmol/L (22-30); Chloride 103 mmol/L (98-107); Creatine Kinase 232 U/L (55-170); Glucose 83 mg/dL (74-99); Non-African American GFR(CKD) >90 (>60 ml/min/1.73 sqM); Sodium 137 mmol/L (137-145); Total Bilirubin 0.6 mg/dL (0.2-1.3); Total Protein 7.6 g/dL (6.3-8.2)
[2020-03-24 15:24] LABS: Alcohol 136 mg/dL; INR 1.1 (<1.2); Partial Thromboplastin Time 22.6 sec (22.0-30.0); Prothrombin Time 11.3 sec (9.0-12.0)
--- NOTE | 2020-03-24 15:45 | CT ---
EXAMINATION TYPE: CT brain gabriele zhang DATE OF EXAM: 03/24/2020 COMPARISON: None HISTORY: overdose, ams CT DLP: 1455.[address] Brain: Unenhanced CT of the brain was performed. The ventricles, basal cisterns and sulci overlying the cerebral convexities demonstrate a normal appe arance. There is no evidence for intracranial hemorrhage or sulcal effacement. No mass effects are seen. If symptoms persist consider MRI. Osseous calvarium is intact. IMPRESSION: No acute intracranial process CT Cervical Spine: Unenhanced CT of the cervical spine was performed with bone and soft tissue window settings submitted . Coronal and sagittal reconstruction is obtained. There is normal alignment and prevertebral soft tissues. I do not see evidence for fracture or sublu xation. No significant degenerative changes are present. The lung apices are clear. IMPRESSION: No evidence for acute fracture or subluxation of the cervical spine.
[2020-03-24 16:20] LABS: Appearance,Urine Clear (Clear); Bilirubin,Urine Negative (Negative); Blood,Urine Negative (Negative); Color,Urine Yellow; Glucose,Urine (UA) Negative (Negative); Hyaline Casts,Urine 6 /lpf (0-2); Ketones,Urine 2+ (Negative); Leukocyte Esterase,Urine Negative (Negative); Mucus,Urine Occasional /hpf; Nitrite,Urine Negative (Negative); Protein,Urine 1+ (Negative); RBC,Urine <1 /hpf (0-5); Specific Gravity,Urine 1.025 (1.001-1.035); WBC,Urine 1 /hpf (0-5)
--- NOTE | 2020-03-24 16:22 | XR ---
EXAMINATION TYPE: XR chest 2V DATE OF EXAM: 03/24/2020 COMPARISON: 05/11/2006 HISTORY: Chest pain TECHNIQUE: Frontal and lateral views of the chest are obtained. FINDINGS: There is no focal air space opacity. No evidence for pneumothorax. No pleural effusion. The cardiac silhouette size is within normal limits. The osseous structures are grossly intact. IMPRESSION: 1. No acute cardiopulmonary process.
[2020-03-24 16:27] LABS: Amphetamine Screen,Urine Detected (NotDetected); Barbiturate Screen,Urine Not Detected (NotDetected); Benzodiazepines Screen,Urine Detected (NotDetected); Cocaine Screen,Urine Not Detected (NotDetected); Methadone Screen, Urine Not Detected (NotDetected); Opiate Screen,Urine Not Detected (NotDetected); Phencyclidine Screen,Urine Not Detected (NotDetected); Tricyclic Antidepressant,Urine Not Detected (NotDetected); Urn Cannabinoid Scrn Detected (NotDetected)
[2020-03-24 16:28] LABS: Oxycodone Screen, Urine Not Detected (NotDetected)
[2020-03-24 16:45] VITALS: BP 151/89; PULSE 125
== END 2020-03-24 17:04 | disposition left against medical advice (07) ==
LOC: EC 14:09
DX: F19.10 Other psychoactive substance abuse, uncomplicated (principal); F10.10 Alcohol abuse, uncomplicated; F12.90 Cannabis use, unspecified, uncomplicated; T45.0X1A Poisoning by antiallergic and antiemetic drugs, accidental (unintentional), initial encounter; Y90.9 Presence of alcohol in blood, level not specified; F17.200 Nicotine dependence, unspecified, uncomplicated
CPT/HCPCS: 36415; 93005; 80053; 82550; 84484; 85025; 85610; 85730; 81001; 80306; 71046; 72125; 70450; 99285; 96374; 96361; G0480; J2060; 80320

== ENCOUNTER 2020-08-01 16:44 | Emergency (ER) | payer OTHER ==
[2020-08-01 16:51] VITALS: TEMP 98.3
[2020-08-01] MEDS ORDERED: SODIUM CHLORIDE 0.9% 1,000 ML IV ONE ×2 (16:58)
[2020-08-01] MEDS ORDERED: SODIUM CHLORIDE 0.9% 1,000 ML IV STA (16:58)
--- NOTE | 2020-08-01 17:00 | ED ---
General Adult HPI - General Chief complaint: Overdose Stated complaint: unconscious Time Seen by Provider: 08/01/20 16:50 Source: EMS Mode of arrival: EMS - History of Present Illness Initial comments: Patient is a 29-year-old male with unknown past medical history presents emerg ency department unresponsive. According to EMS the patient was found unresponsive at a house where there was on number of people around. No one could provide a history. The patient had been reportedly drinking. Unknown if there is any drug use. He was found down on the ground. EMS gave the patient 2 mg of intranasal Narcan and the patient began to have spontaneous respirations at 4/m. They've been obtained and IV and gave him an additional 1 mg approximately 2 minutes before bringing him into the emergency department. There is no signs of trauma. Patient cannot provide a history - Related Data Previous Rx's Medication Instructions Recorded Albuterol Inhaler (Mhu) [Ventolin 2 puff INHALATION RT-QID PRN puff 07/15/19 Hfa Inhaler (Mhu)] Loratadine [Claritin] 5 mg PO DAILY tab 07/15/19 Allergies Allergy/AdvReac Type Severity Reaction Status Date / Time No Known Allergies Allergy Verified 07/14/19 16:17 Review of Systems ROS Statement: Those systems with pertinent positive or pertinent negative responses have been documented in the HPI. ROS Other: All systems not noted in ROS Statement are negative. Past Medical History Past Medical History: Asthma History of Any Multi-Drug Resistant Organisms: None Reported Past Surgical History: No Surgical Hx Reported Past Anesthesia/Blood Transfusion Reactions: No Reported Reaction Past Psychological History: Anxiety, Depression Past Alcohol Use History: Abuse, Daily Past Drug Use History: Cocaine, Heroin, Marijuana, Methamphetamine, Prescription Drug Abuse General Exam General appearance: obtunded Head exam: Present: other (swelling to the left side of the patients face - left cheek and lip. No bruising or ecchymosis. ) Eye exam: Present: normal appearance, EOMI. Absent: scleral icterus, conjunctival injection, periorbital swelling Pupils: Present: miosis (2 mm, minimally responsive upon presentation) ENT exam: Present: normal exam, mucous membranes moist Neck exam: Present: normal inspection. Absent: tenderness, meningismus, lymphadenopathy Respiratory exam: Present: normal lung sounds bilaterally. Absent: respiratory distress, wheezes, rales, rhonchi, stridor Cardiovascular Exam: Present: normal rhythm, tachycardia GI/Abdominal exam: Present: soft, normal bowel sounds. Absent: distended, tenderness, guarding, rebound, rigid Neurological exam: Present: altered Skin exam: Present: warm, diaphoretic Course Vital Signs 08/01/20 08/01/20 16:47 17:02 Temperature 98.3 F Pulse Rate 124 H 118 H Respiratory 12 14 Rate Blood Pressure 140/100 146/97 O2 Sat by Pulse 97 99 Oximetry EKG Findings - EKG Comments: EKG Findings:: EKG demonstrates a sinus tachycardia with a ventricular rate of 125. AK interval 132. QRS 86. QTC of 47. No acute ST segment elevations or depressions concerning for ischemic changes. Medical Decision Making - Medical Decision Making Upon arrival the patient is placed into trauma bay 2. A thorough physical exam was performed. The patient does become arousable. He does have swelling noted to the left side of his face. Patient reports that he got drunk and fell. Reports to drinking daily. Denies using any other drugs. Peripheral IV is established care patient was given a 2 L bolus of normal saline. Patient sent for CT of his brain, cervical spine and facial bones. Chest x-rays performed. Laboratory studies are remarkable for an elevated AST and ALP. CK is 388. Urinalysis is positive for amphetamines and methamphetamines. Serum alcohol [address] demonstrates nondisplaced fracture right side of the nasal bone with soft tissue swelling. Head and cervical spine CT demonstrates normal unenhanced head CT. Negative CT of the cervical spine chest x-ray demonstrates no active cardiac coronary disease. The patient is reevaluated. He does become arousable. He ambulates around the room with difficulty. Patient refuses to answer most quesioning. States he got drunk and passed out. He denies any pain. Patient's and does present to the emergency room. He is demanding to leave at this time. I discussed the risks of leaving with alcohol intoxication and head trauma. Patient is argumentative and requesting to leave. His aunt does agreed to take responsibility of the patient being discharged home. I instructed that someone stay with him to ensure he does not become sedated again. He understood this. Patient is to stop drinking alcohol and abusing drugs. Return to the emergency room for any new or worsening symptoms. patient was discharged home in stable condition - Lab Data Result diagrams: 08/01/20 17:01 10/04/20 17:01 Lab Results 08/01/20 08/01/20 08/01/20 Range/Units 17:01 17:01 17:01 WBC 7.3 (3.8-10.6) k/uL RBC 5.48 (4.30-5.90) m/uL Hgb 17.3 (13.0-17.5) gm/dL Hct 53.7 H (39.0-53.0) % MCV 98.0 (80.0-100.0) fL MCH 31.6 (25.0-35.0) pg MCHC 32.2 (31.0-37.0) g/dL RDW 12.6 (11.5-15.5) % Plt Count 309 (150-450) k/uL Neutrophils % 43 % Lymphocytes % 42 % Monocytes % 5 % Eosinophils % 6 % Basophils % 2 % Neutrophils # 3.2 (1.3-7.7) k/uL Lymphocytes # 3.1 (1.0-4.8) k/uL Monocytes # 0.4 (0-1.0) k/uL Eosinophils # 0.4 (0-0.7) k/uL Basophils # 0.1 (0-0.2) k/uL PT 10.5 (9.0-12.0) sec INR 1.0 (<1.2) APTT 23.3 (22.0-30.0) sec Sodium (137-145) mmol/L Potassium (3.5-5.1) mmol/L Chloride (98-107) mmol/L Carbon Dioxide (22-30) mmol/L Anion Gap mmol/L BUN (9-20) mg/dL Creatinine (0.66-1.25) mg/dL Est GFR (CKD-EPI)AfAm (>60 ml/min/1.73 sqM) Est GFR (CKD-EPI)NonAf (>60 ml/min/1.73 sqM) Glucose (74-99) mg/dL Calcium (8.4-10.2) mg/dL Total Bilirubin (0.2-1.3) mg/dL AST (17-59) U/L ALT (4-49) U/L Alkaline Phosphatase (38-126) U/L Creatine Kinase (55-170) U/L Total Protein (6.3-8.2) g/dL Albumin (3.5-5.0) g/dL Urine Color Light Yellow Urine Appearance Clear (Clear) Urine pH 6.5 (5.0-8.0) Ur Specific [place] 1.004 (1.001-1.035) Urine Protein Trace H (Negative) Urine Glucose (UA) Negative (Negative) Urine Ketones Negative (Negative) Urine Blood Negative (Negative) Urine Nitrite Negative (Negative) Urine Bilirubin Negative (Negative) Urine Urobilinogen <2.0 (<2.0) mg/dL Ur Leukocyte Esterase Negative (Negative) Salicylates mg/dL Urine Opiates Screen Not Detected (NotDetected) Ur Oxycodone Screen Not Detected (NotDetected) Urine Methadone Screen Not Detected (NotDetected) Ur Propoxyphene Screen Not Detected (NotDetected) Acetaminophen ug/mL Ur Barbiturates Screen Not Detected (NotDetected) U Tricyclic Antidepress Not Detected (NotDetected) Ur Phencyclidine Scrn Not Detected (NotDetected) Ur Amphetamines Screen Detected H (NotDetected) U Methamphetamines Scrn Detected H (NotDetected) U Benzodiazepines Scrn Not Detected (NotDetected) Urine Cocaine Screen Not Detected (NotDetected) U Marijuana (THC) Screen Not Detected (NotDetected) Serum Alcohol mg/dL 08/01/20 Range/Units 17:01 WBC (3.8-10.6) k/uL RBC (4.30-5.90) m/uL Hgb (13.0-17.5) gm/dL Hct (39.0-53.0) % MCV (80.0-100.0) fL MCH (25.0-35.0) pg MCHC (31.0-37.0) g/dL RDW (11.5-15.5) % Plt Count (150-450) k/uL Neutrophils % % Lymphocytes % % Monocytes % % Eosinophils % % Basophils % % Neutrophils # (1.3-7.7) k/uL Lymphocytes # (1.0-4.8) k/uL Monocytes # (0-1.0) k/uL Eosinophils # (0-0.7) k/uL Basophils # (0-0.2) k/uL PT (9.0-12.0) sec INR (<1.2) APTT (22.0-30.0) sec Sodium 137 (137-145) mmol/L Potassium 3.8 (3.5-5.1) mmol/L Chloride 101 (98-107) mmol/L Carbon Dioxide 23 (22-30) mmol/L Anion Gap 13 mmol/L BUN 7 L (9-20) mg/dL Creatinine 1.15 (0.66-1.25) mg/dL Est GFR (CKD-EPI)AfAm >90 (>60 ml/min/1.73 sqM) Est GFR (CKD-EPI)NonAf 87 (>60 ml/min/1.73 sqM) Glucose 205 H (74-99) mg/dL Calcium 8.6 (8.4-10.2) mg/dL Total Bilirubin 0.6 (0.2-1.3) mg/dL AST 234 H (17-59) U/L ALT 166 H (4-49) U/L Alkaline Phosphatase 76 (38-126) U/L Creatine Kinase 388 H (55-170) U/L Total Protein 7.9 (6.3-8.2) g/dL Albumin 4.9 (3.5-5.0) g/dL Urine Color Urine Appearance (Clear) Urine pH (5.0-8.0) Ur Specific [place] (1.001-1.035) Urine Protein (Negative) Urine Glucose (UA) (Negative) Urine Ketones (Negative) Urine Blood (Negative) Urine Nitrite (Negative) Urine Bilirubin (Negative) Urine Urobilinogen (<2.0) mg/dL Ur Leukocyte Esterase (Negative) Salicylates <1.0 mg/dL Urine Opiates Screen (NotDetected) Ur Oxycodone Screen (NotDetected) Urine Methadone Screen (NotDetected) Ur Propoxyphene Screen (NotDetected) Acetaminophen <10.0 ug/mL Ur Barbiturates Screen (NotDetected) U Tricyclic Antidepress (NotDetected) Ur Phencyclidine Scrn (NotDetected) Ur Amphetamines Screen (NotDetected) U Methamphetamines Scrn (NotDetected) U Benzodiazepines Scrn (NotDetected) Urine Cocaine Screen (NotDetected) U Marijuana (THC) Screen (NotDetected) Serum Alcohol 220 H* mg/dL Disposition Clinical Impression: Positive urine drug screen, Drug overdose, Alcohol use disorder, Nasal bone fracture Disposition: HOME SELF-CARE Condition: Stable Instructions (If sedation given, give patient instructions): Alcohol Intoxication (ED), Adult Overdose (ED) Additional Instructions: We recommend you stop taking alcohol. Return to the emergency room for any new or worsening symptoms Is patient prescribed a controlled substance at d/c from ED?: No Referrals: None,Stated [Primary Care Provider] - 1-2 days Time of Disposition: 18:30
[2020-08-01 17:03] VITALS: BP 146/97; PULSE 118; RESP 14
[2020-08-01 17:18] LABS: Basophils # (A) 0.1 k/uL (0-0.2); Basophils % (A) 2 %; Eosinophils # (A) 0.4 k/uL (0-0.7); Eosinophils % (A) 6 %; HCT 53.7 % (39.0-53.0); HGB 17.3 gm/dL (13.0-17.5); Lymphocytes # (A) 3.1 k/uL (1.0-4.8); Lymphocytes % (A) 42 %; MCH 31.6 pg (25.0-35.0); MCHC 32.2 g/dL (31.0-37.0); Mean Platelet Volume 6.8; Monocytes # (A) 0.4 k/uL (0-1.0); Monocytes % (A) 5 %; Neutrophils # (A) 3.2 k/uL (1.3-7.7); Neutrophils % (A) 43 %; Platelet Count 309 k/uL (150-450); RBC 5.48 m/uL (4.30-5.90); RDW 12.6 % (11.5-15.5); WBC 7.3 k/uL (3.8-10.6)
[2020-08-01 17:25] LABS: ALT 166 U/L (4-49); AST 234 U/L (17-59); Acetaminophen <10.0 ug/mL; African American GFR (CKD) >90 (>60 ml/min/1.73 sqM); Albumin 4.9 g/dL (3.5-5.0); Alkaline Phosphatase 76 U/L (38-126); Anion Gap 13 mmol/L; Blood Urea Nitrogen 7 mg/dL (9-20); Calcium 8.6 mg/dL (8.4-10.2); Carbon Dioxide 23 mmol/L (22-30); Chloride 101 mmol/L (98-107); Creatine Kinase 388 U/L (55-170); Glucose 205 mg/dL (74-99); Non-African American GFR(CKD) 87 (>60 ml/min/1.73 sqM); Potassium 3.8 mmol/L (3.5-5.1); Salicylate <1.0 mg/dL; Sodium 137 mmol/L (137-145); Total Bilirubin 0.6 mg/dL (0.2-1.3); Total Protein 7.9 g/dL (6.3-8.2)
[2020-08-01 17:28] LABS: Partial Thromboplastin Time 23.3 sec (22.0-30.0); Prothrombin Time 10.5 sec (9.0-12.0)
[2020-08-01 17:29] LABS: Alcohol 220 mg/dL
--- NOTE | 2020-08-01 17:43 | XR ---
EXAMINATION TYPE: XR chest 1V portable DATE OF EXAM: 08/01/2020 COMPARISON: 03/24/2020 HISTORY: Altered mental status TECHNIQUE: FINDINGS: There is no heart failure nor confluent pneumonic infiltrate. Heart is normal. Costophrenic angles are clear. Bony thorax is intact. IMPRESSION: No active cardiopulmonary disease. No change.
[2020-08-01 17:44] LABS: Appearance,Urine Clear (Clear); Bilirubin,Urine Negative (Negative); Blood,Urine Negative (Negative); Color,Urine Light Yellow; Glucose,Urine (UA) Negative (Negative); Ketones,Urine Negative (Negative); Leukocyte Esterase,Urine Negative (Negative); Nitrite,Urine Negative (Negative); PH, Urine 6.5 (5.0-8.0); Protein,Urine Trace (Negative); Specific Gravity,Urine 1.004 (1.001-1.035); Urobilinogen,Urine <2.0 mg/dL (<2.0)
[2020-08-01 17:55] LABS: Amphetamine Screen,Urine Detected (NotDetected); Barbiturate Screen,Urine Not Detected (NotDetected); Benzodiazepines Screen,Urine Not Detected (NotDetected); Cocaine Screen,Urine Not Detected (NotDetected); Methadone Screen, Urine Not Detected (NotDetected); Opiate Screen,Urine Not Detected (NotDetected); Oxycodone Screen, Urine Not Detected (NotDetected); Phencyclidine Screen,Urine Not Detected (NotDetected); Tricyclic Antidepressant,Urine Not Detected (NotDetected); Urn Cannabinoid Scrn Not Detected (NotDetected)
--- NOTE | 2020-08-01 18:15 | CT ---
EXAMINATION TYPE: CT brain cspine wo con DATE OF EXAM: 08/01/2020 COMPARISON: 03/24/2020 HISTORY: Left sided facial swelling. CT DLP: 1250.8 mGycm Automated exposure control for dose reduction was used. Ventricles and sulci appear normal. There is no mass effect nor midline shift. There is no sign of in tracranial hemorrhage. There is no evidence of cerebral edema. Cervical vertebra show some mild straightening. Posterior elements are intact. Disc spaces are normal . Facet joints appear normal. Prevertebral soft tissues appear normal. There is normal aeration of th e mastoid sinuses. Occipital bone is intact. There is no evidence of cervical spine fracture. IMPRESSION: Normal unenhanced head CT scan. No change. Negative cervical spine CT scan. No change.
--- NOTE | 2020-08-01 18:18 | CT ---
EXAMINATION TYPE: CT facial bones wo con DATE OF EXAM: 08/01/2020 COMPARISON: None HISTORY: Left sided facial swelling. CT DLP: 1250.8 mGycm Automated exposure control for dose reduction was used. Images were obtained from the bottom of the mandible to the top of the frontal sinuses with no contra st. The mandibular ring is intact. Temporomandibular joints appear normal. Zygomatic arches appear normal . There is mild mucosal thickening in the right maxillary sinus. The maxilla is intact. There is step deformity of the nasal bone on the right lateral aspect. There is mild soft tissue swelling anterior to the right side of the nasal bone. There is no evidence of a blowout fracture. There is no evidenc e of retro-orbital mass. Orbital margins are intact. The globes are symmetric. IMPRESSION: Nondisplaced fracture right side of the nasal bone with soft tissue swelling. Mild mucosal thickening right maxillary sinus probably due to sinusitis.
== END 2020-08-01 18:48 | disposition home or self-care (01) ==
LOC: EC 16:44
DX: S02.2XXA Fracture of nasal bones, initial encounter for closed fracture (principal); R00.0 Tachycardia, unspecified; H57.03 Miosis; F10.10 Alcohol abuse, uncomplicated; F19.10 Other psychoactive substance abuse, uncomplicated; Y90.8 Blood alcohol level of 240 mg/100 ml or more
CPT/HCPCS: 36415; 93005; 80053; 82550; 85025; 85610; 85730; 81003; 80306; 83520; 71045; 72125; 70486; 70450; 99285; 96360; G0480 ×2; 80320; 80329

== ENCOUNTER 2020-08-07 17:09 | Observation (INO) | payer OTHER ==
[2020-08-07] MEDS ORDERED: SODIUM CHLORIDE 0.9% 1,000 ML IV STA (17:47)
[2020-08-07] MEDS ORDERED: LORazepam 2 MG/ML INJ IV STA (18:25)
[2020-08-07 18:31] LABS: Basophils # (A) 0.1 k/uL (0-0.2); Basophils % (A) 1 %; Eosinophils # (A) 0.3 k/uL (0-0.7); Eosinophils % (A) 4 %; HCT 53.7 % (39.0-53.0); HGB 18.1 gm/dL (13.0-17.5); Lymphocytes # (A) 1.9 k/uL (1.0-4.8); Lymphocytes % (A) 28 %; MCH 33.6 pg (25.0-35.0); MCHC 33.7 g/dL (31.0-37.0); MCV 99.7 fL (80.0-100.0); Mean Platelet Volume 6.8; Monocytes # (A) 0.5 k/uL (0-1.0); Monocytes % (A) 7 %; Neutrophils # (A) 3.9 k/uL (1.3-7.7); Neutrophils % (A) 58 %; Platelet Count 266 k/uL (150-450); RBC 5.39 m/uL (4.30-5.90); RDW 12.5 % (11.5-15.5); WBC 6.9 k/uL (3.8-10.6)
[2020-08-07 18:32] LABS: Appearance,Urine Clear (Clear); Bilirubin,Urine Negative (Negative); Blood,Urine Negative (Negative); Color,Urine Colorless; Glucose,Urine (UA) Negative (Negative); Ketones,Urine Negative (Negative); Leukocyte Esterase,Urine Negative (Negative); Nitrite,Urine Negative (Negative); Protein,Urine Negative (Negative); Specific Gravity,Urine 1.001 (1.001-1.035); Urobilinogen,Urine <2.0 mg/dL (<2.0)
[2020-08-07 18:40] LABS: Amphetamine Screen,Urine Not Detected (NotDetected); Barbiturate Screen,Urine Not Detected (NotDetected); Benzodiazepines Screen,Urine Not Detected (NotDetected); Cocaine Screen,Urine Not Detected (NotDetected); Methadone Screen, Urine Not Detected (NotDetected); Opiate Screen,Urine Not Detected (NotDetected); Oxycodone Screen, Urine Not Detected (NotDetected); Phencyclidine Screen,Urine Not Detected (NotDetected); Tricyclic Antidepressant,Urine Not Detected (NotDetected); Urn Cannabinoid Scrn Not Detected (NotDetected)
[2020-08-07 19:10] LABS: ALT 123 U/L (4-49); AST 88 U/L (17-59); African American GFR (CKD) >90 (>60 ml/min/1.73 sqM); Albumin 4.6 g/dL (3.5-5.0); Alkaline Phosphatase 68 U/L (38-126); Anion Gap 16 mmol/L; Blood Urea Nitrogen 8 mg/dL (9-20); Calcium 9.2 mg/dL (8.4-10.2); Carbon Dioxide 20 mmol/L (22-30); Chloride 106 mmol/L (98-107); Glucose 90 mg/dL (74-99); Magnesium 2.5 mg/dL (1.6-2.3); Non-African American GFR(CKD) >90 (>60 ml/min/1.73 sqM); Sodium 142 mmol/L (137-145); Total Bilirubin 0.8 mg/dL (0.2-1.3); Total Protein 7.7 g/dL (6.3-8.2)
[2020-08-07 19:21] LABS: Alcohol 354 mg/dL
[2020-08-07] MEDS ORDERED: NALOXONE 0.4 MG/ML 1 ML VIAL IV PRN (19:37)
--- NOTE | 2020-08-07 19:37 | ED ---
Alcohol HPI - General Chief Complaint: Alcohol Stated Complaint: ETOH Time Seen by Provider: 08/07/20 17:10 Source: patient, police Mode of arrival: ambulatory Limitations: no limitations - History of Present Illness Initial Comments: 29-year-old male with past history of daily alcohol abuse and polysubstance abuse who presents to the emergency department accompanied by [place] police for alcohol intoxication. The patient was at a neighbor's house. He was being disruptive and belligerence. [place] were called to the house to picker packer the patient where they found him minimally responsive secondary to alcohol intoxication. Patient does have a known history of daily alcohol abuse. He does arrive to our facility visibly intoxicated. Denies sustaining any trauma. Denies using any drugs today. It is reporting to left distal clavicular pain. Denies drink alcohol in an attempt to harm himself. States he drinks daily because he is an alcoholic. The remainder of the HPI is limited because the patient's current condition - Related Data Previous Rx's Medication Instructions Recorded Albuterol Inhaler [Ventolin Hfa 2 puff INHALATION RT-QID PRN #1 08/09/20 Inhaler] inhaler Budesonide-Formot 160-4.5 Mcg 2 puff INHALATION RT-BID #1 inhaler 08/09/20 [Symbicort 160-4.5 Mcg Inhaler] Thiamine [Vitamin B-1] 100 mg PO BID-W/MEALS #30 tab 08/09/20 chlordiazePOXIDE HCl [Librium] 25 mg PO QID 3 Days #12 capsule 08/09/20 Allergies Allergy/AdvReac Type Severity Reaction Status Date / Time No Known Allergies Allergy Verified 08/08/20 16:56 Review of Systems ROS Statement: Those systems with pertinent positive or pertinent negative responses have been documented in the HPI. ROS Other: All systems not noted in ROS Statement are negative. Past Medical History Past Medical History: Asthma History of Any Multi-Drug Resistant Organisms: None Reported Past Surgical History: No Surgical Hx Reported Past Anesthesia/Blood Transfusion Reactions: No Reported Reaction Past Psychological History: Anxiety, Depression Smoking Status: Current every day smoker Past Alcohol Use History: Abuse, Daily Past Drug Use History: Cocaine, Heroin, Marijuana, Methamphetamine, Prescription Drug Abuse General Exam Limitations: no limitations General appearance: alert, appears intoxicated Head exam: Present: atraumatic, normocephalic, normal inspection Eye exam: Present: normal appearance, PERRL, EOMI. Absent: scleral icterus, conjunctival injection, periorbital swelling ENT exam: Present: normal exam, mucous membranes moist Neck exam: Present: normal inspection. Absent: tenderness, meningismus, lymphadenopathy Respiratory exam: Present: normal lung sounds bilaterally. Absent: respiratory distress, wheezes, rales, rhonchi, stridor Cardiovascular Exam: Present: regular rate, normal rhythm, normal heart sounds. Absent: systolic murmur, diastolic murmur, rubs, gallop, clicks GI/Abdominal exam: Present: soft, normal bowel sounds. Absent: distended, tenderness, guarding, rebound, rigid Extremities exam: Present: normal inspection, full ROM, normal capillary refill. Absent: tenderness, pedal edema, joint swelling, calf tenderness Back exam: Present: normal inspection Neurological exam: Present: alert, altered, CN II-XII intact Psychiatric exam: Present: normal affect, normal mood Skin exam: Present: warm, dry, intact, normal color. Absent: rash Course Vital Signs 08/07/20 08/07/20 08/07/20 17:12 18:15 20:16 Temperature 97.7 F Pulse Rate 93 99 Respiratory 16 18 16 Rate Blood Pressure 134/91 124/89 O2 Sat by Pulse 100 100 Oximetry Medical Decision Making - Medical Decision Making On arrival the patient is placed into room 13. A thorough history and physical exam was performed. Peripheral IV is established the patient is given a liter bolus of normal saline followed by 150 mL per hour. After he says were conducted. Alcohol is elevated at 354. Urine drug screen is negative. Patient did go for an x-ray of his left shoulder and clavicle because of his reported pain which some streaks no acute fractures. Because of the patient's significant alcohol intoxication I did recommend overnight observation for which the patient did agree to. I discussed the case with Héctor from [facility] accepted admission. Patient was then transferred to floor in stable condition - Lab Data Result diagrams: 08/07/20 18:08/09/20 06:06 Lab Results 08/07/20 08/07/20 08/07/20 Range/Units 18:22 18:22 18:22 WBC 6.9 (3.8-10.6) k/uL RBC 5.39 (4.30-5.90) m/uL Hgb 18.1 H (13.0-17.5) gm/dL Hct 53.7 H (39.0-53.0) % MCV 99.7 (80.0-100.0) fL MCH 33.6 (25.0-35.0) pg MCHC 33.7 (31.0-37.0) g/dL RDW 12.5 (11.5-15.5) % Plt Count 266 (150-450) k/uL Neutrophils % 58 % Lymphocytes % 28 % Monocytes % 7 % Eosinophils % 4 % Basophils % 1 % Neutrophils # 3.9 (1.3-7.7) k/uL Lymphocytes # 1.9 (1.0-4.8) k/uL Monocytes # 0.5 (0-1.0) k/uL Eosinophils # 0.3 (0-0.7) k/uL Basophils # 0.1 (0-0.2) k/uL Sodium 142 (137-145) mmol/L Potassium 4.0 (3.5-5.1) mmol/L Chloride 106 (98-107) mmol/L Carbon Dioxide 20 L (22-30) mmol/L Anion Gap 16 mmol/L BUN 8 L (9-20) mg/dL Creatinine 0.69 (0.66-1.25) mg/dL Est GFR (CKD-EPI)AfAm >90 (>60 ml/min/1.73 sqM) Est GFR (CKD-EPI)NonAf >90 (>60 ml/min/1.73 sqM) Glucose 90 (74-99) mg/dL Calcium 9.2 (8.4-10.2) mg/dL Magnesium 2.5 H (1.6-2.3) mg/dL Total Bilirubin 0.8 (0.2-1.3) mg/dL AST 88 H (17-59) U/L ALT 123 H (4-49) U/L Alkaline Phosphatase 68 (38-126) U/L Total Protein 7.7 (6.3-8.2) g/dL Albumin 4.6 (3.5-5.0) g/dL Urine Color Colorless Urine Appearance Clear (Clear) Urine pH 6.0 (5.0-8.0) Ur Specific [place] 1.001 (1.001-1.035) Urine Protein Negative (Negative) Urine Glucose (UA) Negative (Negative) Urine Ketones Negative (Negative) Urine Blood Negative (Negative) Urine Nitrite Negative (Negative) Urine Bilirubin Negative (Negative) Urine Urobilinogen <2.0 (<2.0) mg/dL Ur Leukocyte Esterase Negative (Negative) Urine Opiates Screen Not Detected (NotDetected) Ur Oxycodone Screen Not Detected (NotDetected) Urine Methadone Screen Not Detected (NotDetected) Ur Propoxyphene Screen Not Detected (NotDetected) Ur Barbiturates Screen Not Detected (NotDetected) U Tricyclic Antidepress Not Detected (NotDetected) Ur Phencyclidine Scrn Not Detected (NotDetected) Ur Amphetamines Screen Not Detected (NotDetected) U Methamphetamines Scrn Not Detected (NotDetected) U Benzodiazepines Scrn Not Detected (NotDetected) Urine Cocaine Screen Not Detected (NotDetected) U Marijuana (THC) Screen Not Detected (NotDetected) Serum Alcohol 354 H* mg/dL Disposition Clinical Impression: Alcoholic intoxication Disposition: [facility] Condition: Serious Is patient prescribed a controlled substance at d/c from ED?: No Decision to Admit Reason: Admit from EC Decision Date: 08/07/20 Decision Time: 19:37
[2020-08-07] MEDS ORDERED: THIAMINE 100 MG/ML 2 ML VIAL IM STA (19:38)
[2020-08-07] MEDS ORDERED: LORazepam 2 MG/ML INJ IV PRN ×2 (19:38)
[2020-08-07] MEDS: SODIUM CHLORIDE 0.9% 1,000 ML IV SCH ×2 (20:12→23:30)
--- NOTE | 2020-08-07 20:47 | XR ---
EXAMINATION TYPE: XR clavicle LT DATE OF EXAM: 08/07/2020 COMPARISON: NONE HISTORY: Pain TECHNIQUE: 2 views FINDINGS: I see no fracture nor dislocation. Left clavicle is intact. IMPRESSION: Negative left clavicle exam.
--- NOTE | 2020-08-07 20:48 | XR ---
EXAMINATION TYPE: XR shoulder complete LT DATE OF EXAM: 08/07/2020 COMPARISON: NONE HISTORY: Pain TECHNIQUE: 3 views FINDINGS: The glenohumeral joint is intact. I see no fracture nor dislocation. Joint spaces are sheryl l. IMPRESSION: Negative left shoulder exam.
[2020-08-08] MEDS: THIAMINE 100 MG TAB PO SCH ×2 (09:30→17:28)
[2020-08-08] MEDS: SODIUM CHLORIDE 0.9% 1,000 ML IV SCH ×2 (09:34→12:08)
[2020-08-08] MEDS: LORazepam 2 MG/ML INJ IV PRN ×3 (09:35→17:28)
[2020-08-08 11:54] LABS: African American GFR (CKD) 135.2 (60.0-200.0); Albumin 4.3 g/dL (3.80-4.90); Albumin/Globulin Ratio 1.72 (1.60-3.17); BUN/Creat Ratio 12.22 Ratio (12.00-20.00); Calcium 9.1 mg/dL (8.7-10.3); Globulin 2.5 g/dL (1.6-3.3); Non-African American GFR(CKD) 116.6 (60.0-200.0); Potassium 4.3 mmol/L (3.5-5.5); Total Protein 6.8 g/dL (6.2-8.2)
[2020-08-08] MEDS: IPRATROPIUM-ALBUTEROL 3 ML NEB INHALATION SCH ×3 (12:05→19:41)
[2020-08-08] MEDS: PANTOPRAZOLE 40 MG/10 ML VIAL IVP SCH (12:07)
--- NOTE | 2020-08-08 12:27 | P.HPIM ---
History of Present Illness H&P Date: 08/08/20 29-year-old male with known history of alcohol abuse, polysubstance abuse brought to the emergency room after he was found to be minimally responsive, emergency services were called and patient was brought to Hospital significantly intoxicated. Patient does admit to daily alcohol use, states he drinks average 10 beers a day and liquor on top of that sometimes. Urine drug screen was obtained, no other substances other than alcohol, denies drug use. Does have elevated transaminases, denies history of IV drug abuse or hepatitis. Left clavicle x-ray was obtained she is complaining of pain, this was negative for fracture. On evaluation today patient is alert, oriented and appropriate. Patient states that he does want to stop drinking, and is willing to stay in the hospital to go through withdrawals And then go to rehab. Patient denies suicidal or homicidal ideation, in his current capacity there is no indication that he is a danger to himself or others. His a pack per day smoker, history of asthma, bilateral expiratory wheezing noted physical exam, and he reports productive cough with yellow sputum production. Review of Systems Review Of Systems: Constitutional: No fever, no chills, no night sweats. EENT: No headache. No blurred vision or double vision, No epistaxis. No sore throat. Lungs: Cough with yellow sputum production, wheeze Cardiovascular: No chest pain, no lower extremity edema. No palpitations. Abdominal: No abdominal pain. No nausea, vomiting. Genitourinary: No dysuria, increased frequency, urgency. No urinary retention. Musculoskeletal: No myalgias. No muscle weakness, Integumentary: No wounds, no lesions. No rash or pruritus. No unusual bruising. Neurologic: No aphasia. No facial droop. No change in mentation. . Psychiatric: No suicidal ideation Past Medical History Past Medical History: Asthma History of Any Multi-Drug Resistant Organisms: None Reported Past Surgical History: No Surgical Hx Reported Past Anesthesia/Blood Transfusion Reactions: No Reported Reaction Past Psychological History: Anxiety, Depression Smoking Status: Current every day smoker Past Alcohol Use History: Abuse, Daily Past Drug Use History: Cocaine, Heroin, Marijuana, Methamphetamine, Prescription Drug Abuse Medications and Allergies Home Medications Medication Instructions Recorded Confirmed Type Albuterol Inhaler (Mhu) [Ventolin 2 puff INHALATION RT-QID PRN puff 07/15/19 Rx Hfa Inhaler (Mhu)] Loratadine [Claritin] 5 mg PO DAILY tab 07/15/19 Rx Allergies Allergy/AdvReac Type Severity Reaction Status Date / Time No Known Allergies Allergy Verified 08/07/20 17:15 Physical Exam Vitals: Vital Signs Temp Pulse Pulse Resp BP BP Pulse Ox 08/08/20 00:20 98.8 F 93 20 114/63 96 08/07/20 21:05 98.5 F 84 16 104/57 96 08/07/20 20:16 99 16 124/89 100 08/07/20 18:15 18 08/07/20 17:12 97.7 F 93 16 134/91 100 Intake and Output 08/07/20 08/08/20 08/08/20 22:59 06:59 14:59 Other: # Voids 0 1 Weight 77.111 kg Gen: This is a [ ] HEENT: Head is atraumatic, normocephalic. Pupils equal, round. Sclerae is anicteric. NECK: Supple. No JVD. No lymphadenopathy. No thyromegaly. LUNGS: Good air entry, expiratory wheeze to auscultation bilaterally No intercostal retractions. HEART: Regular rate and rhythm. No murmur. ABDOMEN: Soft. Bowel sounds are present. No masses. No tenderness. EXTREMITIES: No pedal edema. No calf tenderness. NEUROLOGICAL: Patient is awake, alert and oriented x3. Cranial nerves 2 through 12 are grossly intact. Results CBC & Chem 7: 08/07/20 18:22 08/08/20 08:11 Labs: Abnormal Lab Results - Last 24 Hours (Table) 08/07/20 08/07/20 08/08/20 Range/Units 18:22 18:22 08:11 Hgb 18.1 H (13.0-17.5) gm/dL Hct 53.7 H (39.0-53.0) % Carbon Dioxide 20 L (22-30) mmol/L BUN 8 L (9-20) mg/dL Glucose 119 H (70-110) mg/dL Magnesium 2.5 H (1.6-2.3) mg/dL AST 88 H 93 H (17-59) U/L ALT 123 H 113 H (4-49) U/L Serum Alcohol 354 H* mg/dL Thrombosis Risk Factor Assmnt - Choose All That Apply Any of the Below Risk Factors Present?: No Other Risk Factors: No Other congenital or acquired thrombophilia - If yes, enter type in comment: No Thrombosis Risk Factor Assessment Level: Very Low Risk Assessment and Plan Assessment: -Alcohol abuse with acute alcohol intoxication: Patient is currently alert and oriented, verbalized wishes to stop drinking and attend rehab, he is agreeable to stay in Hospital to go through withdrawals with plan to go to rehab. [place] Protocol. Given patient's young age is possible that he may not go through alcohol withdrawals, if no symptoms of withdrawal next 24 hours he can be discharged and go to alcohol rehab. Denies Suicidal or homicidal ideation, his mentation is intact and he may leave on his own accord if he so chooses History of polysubstance abuse: UDA negative for substance other than alcohol, denies use of other substance -Transaminitis: Possible alcoholic hepatitis, Denies history of IV drug abuse, we'll check hepatitis panel. -Asthma exacerbation: DuoNeb and Pulmicort inhalations -Nicotine dependence: Smoking cessation counseling provided
[2020-08-08 13:57] LABS: Hepatitis B Core IgM Non-Reactive (Non-Reactive)
[2020-08-08 13:58] LABS: Hepatitis A Antibody IgM Non-Reactive (Non-Reactive); Hepatitis B Surface Antigen Non-Reactive (Non-Reactive); Hepatitis C IgG Antibody Non-Reactive (Non-Reactive)
[2020-08-08] MEDS: SYMBICORT 160-4.5 MCG INHALER INHALATION SCH (19:41)
[2020-08-09] MEDS: SODIUM CHLORIDE 0.9% 1,000 ML IV SCH ×2 (00:41→12:19)
[2020-08-09] MEDS: THIAMINE 100 MG TAB PO SCH (07:51)
[2020-08-09] MEDS: PANTOPRAZOLE 40 MG/10 ML VIAL IVP SCH (07:51)
[2020-08-09] MEDS: LORazepam 2 MG/ML INJ IV PRN (07:56)
[2020-08-09] MEDS: IPRATROPIUM-ALBUTEROL 3 ML NEB INHALATION SCH ×3 (08:29→15:50)
[2020-08-09] MEDS: SYMBICORT 160-4.5 MCG INHALER INHALATION SCH (08:29)
[2020-08-09 10:55] LABS: African American GFR (CKD) 141.9 (60.0-200.0); Albumin 4.3 g/dL (3.80-4.90); Albumin/Globulin Ratio 1.79 (1.60-3.17); Anion Gap 6.2 mmol/L (4.00-12.00); Calcium 9.5 mg/dL (8.7-10.3); Carbon Dioxide 25.8 mmol/L (21.6-31.8); Globulin 2.4 g/dL (1.6-3.3); Non-African American GFR(CKD) 122.4 (60.0-200.0); Total Bilirubin 1.4 mg/dL (0.2-1.2); Total Protein 6.7 g/dL (6.2-8.2)
[2020-08-09 14:51] VITALS: BP 128/78; PULSE 67; RESP 18; TEMP 98.1
--- NOTE | 2020-08-09 16:02 | P.DS ---
Providers Date of admission: 08/07/20 19:37 Expected date of discharge: 08/09/20 Attending physician: Mariana Venegas Primary care physician: [facility] Hospital Course: 29-year-old male with known history of alcohol abuse, polysubstance abuse brought to the emergency room after he was found to be minimally responsive, emergency services were called and patient was brought to Hospital significantly intoxicated. Patient does admit to daily alcohol use, states he drinks average 10 beers a day and liquor on top of that sometimes. Urine drug screen was obtained, no other substances other than alcohol, denies drug use. Does have elevated transaminases, denies history of IV drug abuse or hepatitis. Left clavicle x-ray was obtained she is complaining of pain, this was negative for fracture. On evaluation today patient is alert, oriented and appropriate. Patient states that he does want to stop drinking, and is willing to stay in the hospital to go through withdrawals And then go to rehab. Patient denies suicidal or homicidal ideation, in his current capacity there is no indication that he is a danger to himself or others. His a pack per day smoker, history of asthma, bilateral expiratory wheezing noted physical exam, and he reports productive cough with yellow sputum production. 08/09/2020 patient seen on follow-up, having only minimal withdrawal symptoms. Patient states he plans on going to [place] for alcohol withdrawal. He received 1 dose of Ativan today. Patient will be discharged due to his only minimal withdrawal symptoms, he'll be given prescription for Librium for withdrawal symptoms. Review Of Systems: Constitutional: No fever, no chills, no night sweats. EENT: No headache. No blurred vision or double vision, No epistaxis. No sore throat. Lungs: Cough with yellow sputum production, wheeze Cardiovascular: No chest pain, no lower extremity edema. No palpitations. Abdominal: No abdominal pain. No nausea, vomiting. Musculoskeletal: No myalgias. No muscle weakness, Neurologic: No aphasia. No facial droop. No change in mentation. . HEENT: Head is atraumatic, normocephalic. Pupils equal, round. Sclerae is anicteric. NECK: Supple. No JVD. No lymphadenopathy. No thyromegaly. LUNGS: Good air entry, expiratory wheeze to auscultation bilaterally No intercostal retractions. HEART: Regular rate and rhythm. No murmur. ABDOMEN: Soft. Bowel sounds are present. No masses. No tenderness. EXTREMITIES: No pedal edema. No calf tenderness. NEUROLOGICAL: Patient is awake, alert and oriented x3. Cranial nerves 2 through 12 are grossly intact. Assessment: -Alcohol abuse with acute alcohol intoxication: having only minimal alcohol withdrawal symptoms, required 1 dose of IV Ativan today, otherwise doing well, plans to go to alcohol rehab upon discharge. He'll be given prescription for Librium for withdrawal symptoms, patient took Crees to not use Librium and drinks simultaneously. History of polysubstance abuse: UDA negative for substance other than alcohol, denies use of other substance -Transaminitis: Possible alcoholic hepatitis. Viral hepatitis panel negative -Asthma exacerbation: DuoNeb and Pulmicort inhalations -Nicotine dependence: Smoking cessation counseling provided Patient Condition at Discharge: Serious Plan - Discharge Summary Discharge Rx Participant: No New Discharge Prescriptions: New chlordiazePOXIDE HCl [Librium] 25 mg PO QID 3 Days #12 capsule Budesonide-Formot 160-4.5 Mcg [Symbicort 160-4.5 Mcg Inhaler] 2 puff INHALATION RT-BID #1 inhaler Thiamine [Vitamin B-1] 100 mg PO BID-W/MEALS #30 tab Albuterol Inhaler [Ventolin Hfa Inhaler] 2 puff INHALATION RT-QID PRN #1 inhaler PRN Reason: Shortness Of Breath Or Wheezing Discharge Medication List Albuterol Inhaler [Ventolin Hfa Inhaler] 2 puff INHALATION RT-QID PRN #1 inhaler 08/09/20 [Rx] Budesonide-Formot 160-4.5 Mcg [Symbicort 160-4.5 Mcg Inhaler] 2 puff INHALATION RT-BID #1 inhaler 08/09/20 [Rx] Thiamine [Vitamin B-1] 100 mg PO BID-W/MEALS #30 tab 08/09/20 [Rx] chlordiazePOXIDE HCl [Librium] 25 mg PO QID 3 Days #12 capsule 08/09/20 [Rx] Follow up Appointment(s)/Referral(s): Tomer Morales MD [Primary Care Provider] - 3 Days (Office closed at time of discharge. Please call to schedule appointment ) Patient Instructions/Handouts: Alcohol Intoxication (DC), Abuse of Alcohol (DC), Alcohol Withdrawal (DC) Activity/Diet/Wound Care/Special Instructions: [facility] access line: [phone] Call for phone screen for treatment. Discharge Disposition: HOME SELF-CARE
[2020-08-10] MEDS ORDERED: PANTOPRAZOLE 40 MG TABLET PO SCH (09:00)
== END 2020-08-09 16:16 | disposition home or self-care (01) ==
LOC: EC 17:09 → 4SSUR 19:37
PROVIDERS: ADMIT Hospitalist; ATTEND Hospitalist
DX: F10.229 Alcohol dependence with intoxication, unspecified (principal); F10.239 Alcohol dependence with withdrawal, unspecified; Y90.8 Blood alcohol level of 240 mg/100 ml or more; F19.21 Other psychoactive substance dependence, in remission; R74.01 Elevation of levels of liver transaminase levels; F17.210 Nicotine dependence, cigarettes, uncomplicated; J45.909 Unspecified asthma, uncomplicated; Z79.51 Long term (current) use of inhaled steroids; F41.9 Anxiety disorder, unspecified; F32.9 Major depressive disorder, single episode, unspecified; Z79.899 Other long term (current) drug therapy
CPT/HCPCS: 96376 ×2; 96361 ×4; 96375; 82075; 96372; 96374; 99285; 36415; 80053 ×3; 80074; 83735; 85025; 81003; 80306; 73030; 73000; G0378 ×3; G0480; J2060 ×3; J3411; C9113 ×2; 80320

== ENCOUNTER 2020-09-08 05:16 | Inpatient (IN) | payer OTHER ==
--- NOTE | 2020-09-08 05:35 | ED ---
Overdose HPI - General Stated Complaint: Overdose Time Seen by Provider: 09/08/20 05:32 - History of Present Illness Initial Comments: this patient is 30-year-old man brought to have evaluation for suspected overdose. The patient states that tonight he was trying to get high and he took3 boxes of Coricidin cough medication. He states that he has previously used dextromethorphan because it causes some hallucinations. Patient states also that he is a daily drinker usually over 12 drinks per day. He has had withdrawalpreviously when he has tried to quit. Patient denies having any trauma tonight. He is feeling shaky and sweaty currently. MD Complaint: accidental overdose -: hour(s) Context: Accidental Overdose: wanted to get high Associated Symptoms: hallucinations Treatments Prior to Arrival: none - Related Data Previous Rx's Medication Instructions Recorded Albuterol Inhaler [Ventolin Hfa 2 puff INHALATION RT-QID PRN #1 08/09/20 Inhaler] inhaler Budesonide-Formot 160-4.5 Mcg 2 puff INHALATION RT-BID #1 inhaler 08/09/20 [Symbicort 160-4.5 Mcg Inhaler] Thiamine [Vitamin B-1] 100 mg PO BID-W/MEALS #30 tab 08/09/20 chlordiazePOXIDE HCl [Librium] 25 mg PO QID 3 Days #12 capsule 08/09/20 Allergies Allergy/AdvReac Type Severity Reaction Status Date / Time No Known Allergies Allergy Verified 09/08/20 05:35 Review of Systems ROS Statement: Those systems with pertinent positive or pertinent negative responses have been documented in the HPI. ROS Other: All systems not noted in ROS Statement are negative. Constitutional: Denies: fever, chills Respiratory: Denies: cough, dyspnea Cardiovascular: Reports: chest pain, palpitations. Denies: orthopnea, edema, syncope Gastrointestinal: Reports: nausea. Denies: abdominal pain, vomiting, diarrhea Genitourinary: Denies: dysuria, hematuria Musculoskeletal: Denies: back pain Skin: Denies: rash Neurological: Denies: headache Past Medical History Past Medical History: Asthma History of Any Multi-Drug Resistant Organisms: None Reported Past Surgical History: No Surgical Hx Reported Past Anesthesia/Blood Transfusion Reactions: No Reported Reaction Past Psychological History: Anxiety, Depression Smoking Status: Current every day smoker Past Alcohol Use History: Abuse, Daily Past Drug Use History: Cocaine, Heroin, Marijuana, Methamphetamine, Prescription Drug Abuse General Exam General appearance: alert, in no apparent distress Head exam: Present: atraumatic, normocephalic Eye exam: Present: normal appearance. Absent: scleral icterus, conjunctival injection ENT exam: Present: normal oropharynx Neck exam: Present: normal inspection Respiratory exam: Present: normal lung sounds bilaterally. Absent: respiratory distress, wheezes, rales, rhonchi, stridor Cardiovascular Exam: Present: regular rate, normal rhythm, normal heart sounds. Absent: systolic murmur, diastolic murmur, rubs, gallop GI/Abdominal exam: Present: soft. Absent: distended, tenderness, guarding, rebound, rigid, mass Extremities exam: Present: normal inspection, normal capillary refill. Absent: pedal edema, calf tenderness Back exam: Present: normal inspection. Absent: CVA tenderness (R), CVA tenderness (L) Neurological exam: Present: alert, oriented X3. Absent: motor sensory deficit Psychiatric exam: Absent: depressed, suicidal ideation Skin exam: Present: warm, intact, normal color, diaphoretic. Absent: rash Course Vital Signs 09/08/20 09/08/20 09/08/20 05:24 06:34 07:50 Temperature 98.4 F Pulse Rate 75 82 80 Respiratory 18 18 16 Rate Blood Pressure 169/105 166/98 149/90 O2 Sat by Pulse 98 95 97 Oximetry Medical Decision Making - Lab Data Result diagrams: 09/08/20 05:48 09/08/20 05:48 Lab Results 09/08/20 09/08/20 Range/Units 05:48 05:48 WBC 9.3 (3.8-10.6) k/uL RBC 5.03 (4.30-5.90) m/uL Hgb 16.8 (13.0-17.5) gm/dL Hct 48.7 (39.0-53.0) % MCV 96.9 (80.0-100.0) fL MCH 33.4 (25.0-35.0) pg MCHC 34.4 (31.0-37.0) g/dL RDW 12.5 (11.5-15.5) % Plt Count 262 (150-450) k/uL MPV 6.8 Neutrophils % 82 % Lymphocytes % 11 % Monocytes % 4 % Eosinophils % 2 % Basophils % 0 % Neutrophils # 7.7 (1.3-7.7) k/uL Lymphocytes # 1.0 (1.0-4.8) k/uL Monocytes # 0.3 (0-1.0) k/uL Eosinophils # 0.1 (0-0.7) k/uL Basophils # 0.0 (0-0.2) k/uL Sodium 137 (137-145) mmol/L Potassium 3.7 (3.5-5.1) mmol/L Chloride 103 (98-107) mmol/L Carbon Dioxide 23 (22-30) mmol/L Anion Gap 11 mmol/L BUN 9 (9-20) mg/dL Creatinine 0.71 (0.66-1.25) mg/dL Est GFR (CKD-EPI)AfAm >90 (>60 ml/min/1.73 sqM) Est GFR (CKD-EPI)NonAf >90 (>60 ml/min/1.73 sqM) Glucose 103 H (74-99) mg/dL Calcium 8.8 (8.4-10.2) mg/dL Total Bilirubin 0.7 (0.2-1.3) mg/dL AST 66 H (17-59) U/L ALT 85 H (4-49) U/L Alkaline Phosphatase 66 (38-126) U/L Total Protein 7.5 (6.3-8.2) g/dL Albumin 4.4 (3.5-5.0) g/dL Salicylates <1.0 mg/dL Acetaminophen <10.0 ug/mL Serum Alcohol 15 mg/dL - EKG Data -: EKG Interpreted by Ri EKG shows normal: sinus rhythm, axis (normal), intervals (normal), QRS complexes (normal), ST-T waves (normal) Rate: normal (ate 75 bpm) Disposition Clinical Impression: Drug overdose, Alcohol withdrawal Disposition: ADMITTED IP TO THIS [facility] Condition: Fair Referrals: Tomer Morales MD [Primary Care Provider] - 1-2 days
[2020-09-08] MEDS ORDERED: SODIUM CHLORIDE 0.9% 1,000 ML IV ONE (05:53)
[2020-09-08] MEDS ORDERED: THIAMINE 100 MG/ML 2 ML VIAL IM STA (05:57)
[2020-09-08] MEDS ORDERED: LORazepam 2 MG/ML INJ IV PRN (05:57)
[2020-09-08 06:06] LABS: Basophils % (A) 0 %; Eosinophils # (A) 0.1 k/uL (0-0.7); Eosinophils % (A) 2 %; HCT 48.7 % (39.0-53.0); HGB 16.8 gm/dL (13.0-17.5); Lymphocytes % (A) 11 %; MCH 33.4 pg (25.0-35.0); MCHC 34.4 g/dL (31.0-37.0); MCV 96.9 fL (80.0-100.0); Mean Platelet Volume 6.8; Monocytes # (A) 0.3 k/uL (0-1.0); Monocytes % (A) 4 %; Neutrophils # (A) 7.7 k/uL (1.3-7.7); Neutrophils % (A) 82 %; Platelet Count 262 k/uL (150-450); RBC 5.03 m/uL (4.30-5.90); RDW 12.5 % (11.5-15.5); WBC 9.3 k/uL (3.8-10.6)
[2020-09-08 06:14] LABS: ALT 85 U/L (4-49); AST 66 U/L (17-59); Acetaminophen <10.0 ug/mL; African American GFR (CKD) >90 (>60 ml/min/1.73 sqM); Albumin 4.4 g/dL (3.5-5.0); Alcohol 15 mg/dL; Alkaline Phosphatase 66 U/L (38-126); Anion Gap 11 mmol/L; Blood Urea Nitrogen 9 mg/dL (9-20); Calcium 8.8 mg/dL (8.4-10.2); Carbon Dioxide 23 mmol/L (22-30); Chloride 103 mmol/L (98-107); Glucose 103 mg/dL (74-99); Non-African American GFR(CKD) >90 (>60 ml/min/1.73 sqM); Potassium 3.7 mmol/L (3.5-5.1); Salicylate <1.0 mg/dL; Sodium 137 mmol/L (137-145); Total Bilirubin 0.7 mg/dL (0.2-1.3); Total Protein 7.5 g/dL (6.3-8.2)
[2020-09-08] MEDS: LORazepam 2 MG/ML INJ IV PRN ×6 (06:33→20:44)
[2020-09-08] MEDS ORDERED: SODIUM CHLORIDE 0.9% 1,000 ML IV STA (06:35)
[2020-09-08] MEDS: SODIUM CHLORIDE 0.9% 1,000 ML IV SCH ×3 (06:36→18:13)
[2020-09-08 07:51] VITALS: RESP 16
[2020-09-08] MEDS ORDERED: ONDANSETRON 4 MG/2 ML VIAL IVP PRN (07:58)
[2020-09-08] MEDS ORDERED: NALOXONE 0.4 MG/ML 1 ML VIAL IV PRN (07:58)
[2020-09-08 08:01] LABS: Amphetamine Screen,Urine Not Detected (NotDetected); Barbiturate Screen,Urine Not Detected (NotDetected); Benzodiazepines Screen,Urine Not Detected (NotDetected); Cocaine Screen,Urine Not Detected (NotDetected); Methadone Screen, Urine Not Detected (NotDetected); Opiate Screen,Urine Not Detected (NotDetected); Oxycodone Screen, Urine Not Detected (NotDetected); Phencyclidine Screen,Urine Not Detected (NotDetected); Tricyclic Antidepressant,Urine Not Detected (NotDetected); Urn Cannabinoid Scrn Not Detected (NotDetected)
[2020-09-08] MEDS ORDERED: ALBUTEROL NEBULIZED 2.5 MG/3 ML INHALATION PRN (13:29)
[2020-09-08 14:25] VITALS: TEMP 98.1
[2020-09-08] MEDS ORDERED: predniSONE 20 MG TAB PO STA (14:43)
--- NOTE | 2020-09-08 14:45 | P.HPIM ---
History of Present Illness 30-year-old man brought to have evaluation for suspected overdose. The patient states that tonight he was trying to get high and he took3 boxes of Coricidin cough medication which has chlorpheniramine which is and anticollagen medi cations patient took over 15 pills. He states that he has previously used dextromethorphan because it causes some hallucinations. Patient states also that he is a daily drinker usually over 12 drinks per day. He has had withdrawalpreviously when he has tried to quit. Patient denies having any tr auma tonight. Patient is clinically doing well now is complaining of lightheadedness. Patient the doesn't have any QT prolongation. Patient can use to drink alcohol was admitted in the past for alcohol withdrawals. Patient sees this time his going to quit alcohol. A she denied any depression or suicidal ideation patient states he took this medication to get high. Review of Systems REVIEW OF SYSTEMS: CONSTITUTIONAL: No fever, no malaise, no fatigue. HEENT: No recent visual problems or hearing problems. Denied any sore throat. CARDIOVASCULAR: No chest pain, orthopnea, PND, no palpitations, no syncope. PULMONARY: No shortness of breath, no cough, no hemoptysis. GASTROINTESTINAL: No diarrhea, no nausea, no vomiting, no abdominal pain. NEUROLOGICAL: No headaches, no weakness, no numbness. HEMATOLOGICAL: Denies any bleeding or petechiae. GENITOURINARY: Denies any burning micturition, frequency, or urgency. MUSCULOSKELETAL/RHEUMATOLOGICAL: Denies any joint pain, swelling, or any muscle pain. ENDOCRINE: Denies any polyuria or polydipsia. The rest of the 14-point review of systems is negative. Past Medical History Past Medical History: Asthma Additional Past Medical History / Comment(s): ALCOHOLIC History of Any Multi-Drug Resistant Organisms: None Reported Past Surgical History: No Surgical Hx Reported Past Anesthesia/Blood Transfusion Reactions: No Reported Reaction Past Psychological History: Anxiety, Depression Smoking Status: Current every day smoker Past Alcohol Use History: Abuse, Daily Past Drug Use History: Cocaine, Heroin, Marijuana, Methamphetamine, Prescription Drug Abuse Medications and Allergies Home Medications Medication Instructions Recorded Confirmed Type Albuterol Inhaler [Ventolin Hfa 2 puff INHALATION RT-QID PRN #1 08/09/20 09/08/20 Rx Inhaler] inhaler Budesonide-Formot 160-4.5 Mcg 2 puff INHALATION RT-BID #1 inhaler 08/09/20 09/08/20 Rx [Symbicort 160-4.5 Mcg Inhaler] Thiamine [Vitamin B-1] 100 mg PO BID-W/MEALS #30 tab 08/09/20 09/08/20 Rx chlordiazePOXIDE HCl [Librium] See Taper PO DAILY 09/08/20 09/08/20 History Allergies Allergy/AdvReac Type Severity Reaction Status Date / Time No Known Allergies Allergy Verified 09/08/20 09:24 Physical Exam Vitals: Vital Signs Temp Pulse Resp BP Pulse Ox 09/08/20 14:24 98.1 F 79 16 154/84 97 09/08/20 10:23 75 16 150/98 96 09/08/20 07:50 80 16 149/90 97 09/08/20 06:34 82 18 166/98 95 09/08/20 05:24 98.4 F 75 18 169/105 98 Intake and Output 09/07/20 09/08/20 09/08/20 22:59 06:59 14:59 Other: Weight 77.111 kg PHYSICAL EXAMINATION: GENERAL: The patient is alert and oriented x3, not in any acute distress. Well developed, well nourished. HEENT: Pupils are round and equally reacting to light. EOMI. No scleral icterus. No conjunctival pallor. Normocephalic, atraumatic. No pharyngeal erythema. No thyromegaly. CARDIOVASCULAR: S1 and S2 present. No murmurs, rubs, or gallops. PULMONARY: Significant expiratory wheezing on exam ABDOMEN: Soft, nontender, nondistended, normoactive bowel sounds. No palpable organomegaly. MUSCULOSKELETAL: No joint swelling or deformity. EXTREMITIES: No cyanosis, clubbing, or pedal edema. NEUROLOGICAL: Gross neurological examination did not reveal any focal deficits. SKIN: No rashes. Results CBC & Chem 7: 09/08/20 05:48 09/08/20 05:48 Labs: Abnormal Lab Results - Last 24 Hours (Table) 09/08/20 Range/Units 05:48 Glucose 103 H (74-99) mg/dL AST 66 H (17-59) U/L ALT 85 H (4-49) U/L Assessment and Plan Plan: Overdose on anticholinergic medication: Patient will be monitored on telemetry for any cardiotoxicity on neurotoxicity overnight. Patient is bit lightheaded at this time. -Asthma/COPD with acute exacerbation patient will be started given 1 dose of low-dose of oral prednisone along with inhalational treatments with albuterol and inhaled steroids. -Nicotine abuse: Counseling was provided Alcohol abuse patient is presently on Ativan all call withdrawal precautions can you with thiamine multivitamin supplementation -History of polysubstance abuse in the past DVT prophylaxis: Early ambulation. GI prophylaxis Protonix
[2020-09-08] MEDS ORDERED: THIAMINE 100 MG TAB PO SCH ×2 (17:30)
[2020-09-08 18:22] VITALS: BP 151/87; PULSE 73
[2020-09-08] MEDS ORDERED: SYMBICORT 160-4.5 MCG INHALER INHALATION SCH (20:00)
== END 2020-09-09 03:33 | disposition left against medical advice (07) | DRG 918 ==
LOC: EC 05:16 → 4SSUR 07:58
PROVIDERS: ADMIT Hospitalist; ATTEND Hospitalist
DX: T44.3X1A Poisoning by other parasympatholytics [anticholinergics and antimuscarinics] and spasmolytics, accidental (unintentional), initial encounter (principal); R44.3 Hallucinations, unspecified; F10.239 Alcohol dependence with withdrawal, unspecified; J44.1 Chronic obstructive pulmonary disease with (acute) exacerbation; Z71.6 Tobacco abuse counseling; F17.210 Nicotine dependence, cigarettes, uncomplicated; F32.9 Major depressive disorder, single episode, unspecified; F41.9 Anxiety disorder, unspecified; Z79.51 Long term (current) use of inhaled steroids; Z79.899 Other long term (current) drug therapy; J45.909 Unspecified asthma, uncomplicated; F15.11 Other stimulant abuse, in remission; F11.11 Opioid abuse, in remission; F12.11 Cannabis abuse, in remission; F14.11 Cocaine abuse, in remission
CPT/HCPCS: 36415; 80053; 80306; 80320; 80329; 82075; 83520; 85025; 93005; 94640; 96361; 96372; 96374; 99285

== ENCOUNTER 2020-10-06 07:31 | Emergency (ER) | payer OTHER ==
[2020-10-06 07:36] VITALS: RESP 18
[2020-10-06] MEDS ORDERED: DIPH,PERTUS(ACELL)TETVAC-LF 0.5 ML VIAL IM ONE (08:01)
[2020-10-06 08:28] LABS: Basophils # (A) 0.1 k/uL (0-0.2); Basophils % (A) 1 %; Eosinophils # (A) 0.4 k/uL (0-0.7); Eosinophils % (A) 6 %; HCT 51.7 % (39.0-53.0); HGB 17.9 gm/dL (13.0-17.5); Lymphocytes # (A) 1.9 k/uL (1.0-4.8); Lymphocytes % (A) 31 %; MCH 33.7 pg (25.0-35.0); MCHC 34.7 g/dL (31.0-37.0); MCV 97.1 fL (80.0-100.0); Mean Platelet Volume 6.8; Monocytes # (A) 0.4 k/uL (0-1.0); Monocytes % (A) 6 %; Neutrophils # (A) 3.4 k/uL (1.3-7.7); Neutrophils % (A) 54 %; Platelet Count 270 k/uL (150-450); RBC 5.32 m/uL (4.30-5.90); RDW 12.9 % (11.5-15.5); WBC 6.2 k/uL (3.8-10.6)
[2020-10-06] MEDS ORDERED: HYDROmorphone 1 MG/ML 1 ML SYRINGE IVP STA (08:34)
[2020-10-06 08:36] LABS: ALT 68 U/L (4-49); AST 57 U/L (17-59); African American GFR (CKD) >90 (>60 ml/min/1.73 sqM); Albumin 4.5 g/dL (3.5-5.0); Alkaline Phosphatase 70 U/L (38-126); Anion Gap 12 mmol/L; Blood Urea Nitrogen 7 mg/dL (9-20); Calcium 8.9 mg/dL (8.4-10.2); Carbon Dioxide 26 mmol/L (22-30); Chloride 104 mmol/L (98-107); Creatine Kinase 151 U/L (55-170); Glucose 126 mg/dL (74-99); Non-African American GFR(CKD) >90 (>60 ml/min/1.73 sqM); Potassium 3.9 mmol/L (3.5-5.1); Sodium 142 mmol/L (137-145); Total Bilirubin 0.6 mg/dL (0.2-1.3); Total Protein 7.7 g/dL (6.3-8.2)
[2020-10-06] MEDS ORDERED: IPRATROPIUM-ALBUTEROL 3 ML NEB INHALATION STA (08:38)
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
[2020-10-06 08:41] LABS: Alcohol 155 mg/dL
[2020-10-06 08:58] LABS: INR 0.9 (<1.2); Partial Thromboplastin Time 24.7 sec (22.0-30.0); Prothrombin Time 9.9 sec (9.0-12.0)
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
[2020-10-06 09:26] LABS: Appearance,Urine Clear (Clear); Bilirubin,Urine Negative (Negative); Blood,Urine Negative (Negative); Color,Urine Yellow; Glucose,Urine (UA) Negative (Negative); Ketones,Urine Negative (Negative); Leukocyte Esterase,Urine Negative (Negative); Mucus,Urine Moderate /hpf; Nitrite,Urine Negative (Negative); Protein,Urine 1+ (Negative); RBC,Urine 1 /hpf (0-5); Specific Gravity,Urine 1.018 (1.001-1.035); WBC,Urine 1 /hpf (0-5)
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
[2020-10-06 09:33] LABS: Amphetamine Screen,Urine Not Detected (NotDetected); Barbiturate Screen,Urine Not Detected (NotDetected); Benzodiazepines Screen,Urine Not Detected (NotDetected); Cocaine Screen,Urine Not Detected (NotDetected); Methadone Screen, Urine Not Detected (NotDetected); Opiate Screen,Urine Not Detected (NotDetected); Oxycodone Screen, Urine Not Detected (NotDetected); Phencyclidine Screen,Urine Not Detected (NotDetected); Tricyclic Antidepressant,Urine Not Detected (NotDetected); Urn Cannabinoid Scrn Detected (NotDetected)
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
[2020-10-06] MEDS ORDERED: KETOROLAC 15 MG/ML 1 ML VIAL IVP STA (10:44)
[2020-10-06] MEDS ORDERED: ORPHENADRINE 30 MG/ML 2 ML VIAL IVP STA (10:45)
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
[2020-10-06 11:25] VITALS: BP 134/86; PULSE 92; TEMP 98.5
== END 2020-10-06 11:25 | disposition home or self-care (01) ==
LOC: EC 07:31
DX: S20.211A Contusion of right front wall of thorax, initial encounter (principal); S01.81XA Laceration without foreign body of other part of head, initial encounter; S01.01XA Laceration without foreign body of scalp, initial encounter; J45.901 Unspecified asthma with (acute) exacerbation; F10.129 Alcohol abuse with intoxication, unspecified; M94.0 Chondrocostal junction syndrome [Tietze]; Y90.9 Presence of alcohol in blood, level not specified; F17.200 Nicotine dependence, unspecified, uncomplicated; Z23 Encounter for immunization; Y04.8XXA Assault by other bodily force, initial encounter
CPT/HCPCS: 36415; 94640; 93005; 86900; 86901; 80053; 82550; 83605; 84484; 85025; 85610; 85730; 86850; 81001; 80306; 71045; 72125; 70450; 71260; 74177; 90715; 99284; 96374; 96375 ×2; 90471; G0480; J2360; J1170; J1885; Q9967; 80320

== ENCOUNTER 2021-01-28 12:10 | Inpatient (IN) | payer MEDICAID, OTHER ==
--- NOTE | 2021-01-28 13:09 | ED ---
Psych HPI - General Chief Complaint: Psychiatric Symptoms Stated Complaint: Mental Health Time Seen by Provider: 01/28/21 12:37 Source: patient Mode of arrival: ambulatory - History of Present Illness Initial Comments: 30-year-old male presents to the emergency department for psychiatric evaluation. Patient reports suicidal ideation with no exact plan. Patient states he is a daily drinker of about 10 drinks per day. States he drank last night and smoke meth. Patient reports he "does not feel right". Patient states he needs medication to calm down. Patient states she has been evaluated in this emergency department and been admitted before. Denies other complaints. - Related Data Home Medications Medication Instructions Recorded Confirmed No Known Home Medications 01/28/21 01/28/21 Allergies Allergy/AdvReac Type Severity Reaction Status Date / Time No Known Allergies Allergy Verified 01/28/21 13:56 Review of Systems ROS Statement: Those systems with pertinent positive or pertinent negative responses have been documented in the HPI. ROS Other: All systems not noted in ROS Statement are negative. Past Medical History Past Medical History: Asthma Additional Past Medical History / Comment(s): ALCOHOLIC History of Any Multi-Drug Resistant Organisms: None Reported Past Surgical History: No Surgical Hx Reported Past Anesthesia/Blood Transfusion Reactions: No Reported Reaction Past Psychological History: Anxiety, Depression Smoking Status: Current every day smoker Past Alcohol Use History: Abuse, Daily Past Drug Use History: Cocaine, Heroin, Marijuana, Methamphetamine, Prescription Drug Abuse General Exam Limitations: no limitations General appearance: alert, in no apparent distress Head exam: Present: atraumatic, normocephalic, normal inspection Eye exam: Present: normal appearance, PERRL, EOMI Pupils: Present: normal accommodation ENT exam: Present: normal exam, normal oropharynx, mucous membranes moist Neck exam: Present: normal inspection, full ROM. Absent: tenderness Respiratory exam: Present: normal lung sounds bilaterally. Absent: respiratory distress Cardiovascular Exam: Present: regular rate, normal rhythm, normal heart sounds GI/Abdominal exam: Present: soft. Absent: distended, tenderness, guarding, rebound Extremities exam: Present: normal inspection, full ROM, normal capillary refill. Absent: tenderness, pedal edema, joint swelling Back exam: Present: normal inspection, full ROM. Absent: tenderness Neurological exam: Present: alert, oriented X3 Psychiatric exam: Present: anxious, flat affect, suicidal ideation Skin exam: Present: warm, dry, intact, normal color Course Vital Signs 01/28/21 12:29 Temperature 98.4 F Pulse Rate 95 Respiratory 16 Rate Blood Pressure 152/101 O2 Sat by Pulse 99 Oximetry Medical Decision Making - Medical Decision Making 30-year-old male presents to emergency department for psychiatric evaluation. Patient is having suicidal ideations with no plans. Urine drug screen positive for amphetamines. Breath alcohol is 0. Patient was given Ativan and Benadryl here. He was nauseous given Zofran as well. EPS evaluation patient will be admitted for further psychiatric management. Case discussed with Dr. Marie. - Lab Data Lab Results 01/28/21 Range/Units 13:07 Urine Opiates Screen Not Detected (NotDetected) Ur Oxycodone Screen Not Detected (NotDetected) Urine Methadone Screen Not Detected (NotDetected) Ur Propoxyphene Screen Not Detected (NotDetected) Ur Barbiturates Screen Not Detected (NotDetected) U Tricyclic Antidepress Not Detected (NotDetected) Ur Phencyclidine Scrn Not Detected (NotDetected) Ur Amphetamines Screen Detected H (NotDetected) U Methamphetamines Scrn Not Detected (NotDetected) U Benzodiazepines Scrn Not Detected (NotDetected) Urine Cocaine Screen Not Detected (NotDetected) U Marijuana (THC) Screen Not Detected (NotDetected) Disposition Clinical Impression: Adjustment reaction of adult life Disposition: ADMITTED IP TO THIS [facility] Condition: Fair Is patient prescribed a controlled substance at d/c from ED?: No Referrals: None,Stated [Primary Care Provider] - 1-2 days Time of Disposition: 17:02
[2021-01-28] MEDS ORDERED: LORazepam 1 MG TAB PO STA (13:25)
[2021-01-28 13:45] LABS: Amphetamine Screen,Urine Detected (NotDetected); Barbiturate Screen,Urine Not Detected (NotDetected); Benzodiazepines Screen,Urine Not Detected (NotDetected); Cocaine Screen,Urine Not Detected (NotDetected); Methadone Screen, Urine Not Detected (NotDetected); Opiate Screen,Urine Not Detected (NotDetected); Oxycodone Screen, Urine Not Detected (NotDetected); Phencyclidine Screen,Urine Not Detected (NotDetected); Tricyclic Antidepressant,Urine Not Detected (NotDetected); Urn Cannabinoid Scrn Not Detected (NotDetected)
[2021-01-28] MEDS ORDERED: ONDANSETRON 4 MG/2 ML VIAL IM STA (14:39)
[2021-01-28] MEDS ORDERED: diphenhydrAMINE 50 MG/ML 1 ML VIAL IM STA (14:39)
[2021-01-28] MEDS ORDERED: MAG HYDROX/AL HYDROX/SIMETH 30 ML CUP PO PRN (17:38)
[2021-01-28] MEDS ORDERED: ACETAMINOPHEN TAB 325 MG TAB PO PRN (17:38)
[2021-01-28] MEDS ORDERED: MAGNESIUM HYDROXIDE 2,400 MG/10 ML CUP PO PRN (17:38)
[2021-01-28] MEDS ORDERED: LORazepam 2 MG/ML INJ IM PRN (17:44)
[2021-01-28] MEDS ORDERED: HALOPERIDOL LACTATE 5 MG/ML 1 ML VIAL IM PRN (17:58)
[2021-01-28] MEDS: LORazepam 1 MG TAB PO PRN (18:58)
[2021-01-28] MEDS: chlordiazePOXIDE 25 MG CAP PO PRN (18:59)
[2021-01-28] MEDS ORDERED: HALOPERIDOL LACTATE 5 MG/ML 1 ML VIAL IM SCH (22:00)
--- NOTE | 2021-01-29 02:25 | P.PN ---
Progress Note - Text Progress Note Date: 01/28/21 notified of consultation , however, patient heavily medicated and has been sleeping since 193 please notify sound when patient more awake and appropriate for evaluation
[2021-01-29] MEDS: NICOTINE 14MG/24HR PATCH TRANSDERM SCH (08:52)
[2021-01-29] MEDS: THIAMINE 100 MG TAB PO SCH (08:52)
[2021-01-29] MEDS: chlordiazePOXIDE 25 MG CAP PO PRN (08:52)
[2021-01-29 12:00] LABS: Basophils % (A) 1 %; Eosinophils # (A) 0.4 k/uL (0-0.7); Eosinophils % (A) 5 %; HCT 52.5 % (39.0-53.0); HGB 18.3 gm/dL (13.0-17.5); Lymphocytes # (A) 1.4 k/uL (1.0-4.8); Lymphocytes % (A) 21 %; MCH 32.6 pg (25.0-35.0); MCHC 34.9 g/dL (31.0-37.0); MCV 93.6 fL (80.0-100.0); Monocytes # (A) 0.3 k/uL (0-1.0); Monocytes % (A) 5 %; Neutrophils # (A) 4.6 k/uL (1.3-7.7); Neutrophils % (A) 67 %; Platelet Count 259 k/uL (150-450); RBC 5.61 m/uL (4.30-5.90); RDW 12.2 % (11.5-15.5); WBC 6.8 k/uL (3.8-10.6)
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
[2021-01-29] MEDS: LORazepam 1 MG TAB PO PRN (13:36)
[2021-01-29 19:21] LABS: Hemoglobin A1C 5.7 % (4.0-6.0)
[2021-01-30] MEDS: LORazepam 1 MG TAB PO PRN ×3 (08:06→21:00)
[2021-01-30] MEDS: ARIPiprazole 10 MG TAB PO SCH (08:06)
[2021-01-30] MEDS: THIAMINE 100 MG TAB PO SCH (08:06)
[2021-01-30] MEDS: ESCITALOPRAM 10 MG TAB PO SCH (08:06)
[2021-01-30] MEDS: NICOTINE 14MG/24HR PATCH TRANSDERM SCH (08:06)
[2021-01-30 09:02] LABS: ALT 26 U/L (4-49); AST 31 U/L (17-59); African American GFR (CKD) >90 (>60 ml/min/1.73 sqM); Albumin 4.3 g/dL (3.5-5.0); Alkaline Phosphatase 50 U/L (38-126); Anion Gap 9 mmol/L; Blood Urea Nitrogen 24 mg/dL (9-20); Calcium 9.5 mg/dL (8.4-10.2); Carbon Dioxide 26 mmol/L (22-30); Chloride 105 mmol/L (98-107); Cholesterol 186 mg/dL (<200); Glucose 99 mg/dL (74-99); HDL Cholesterol 39 mg/dL (40-60); LDL Cholesterol,Calculated 131 mg/dL (0-99); Non-African American GFR(CKD) >90 (>60 ml/min/1.73 sqM); Potassium 4.8 mmol/L (3.5-5.1); Sodium 140 mmol/L (137-145); Total Protein 7.4 g/dL (6.3-8.2); Triglycerides 78 mg/dL (<150)
[2021-01-30 11:25] VITALS: BP 130/91; PULSE 95; RESP 16
--- NOTE | 2021-01-30 12:31 | P.PN ---
Progress Note - Text Progress Note Date: 01/30/21 At the time of admission this patient stated he had a bad relapse with alcohol and drugs. He stated he was drinking too much and he needs to go to rehab. He did not name any drugs that he was abusing.This patient stated he has depression and anxiety. He stated when he is depressed he feels sad, doesn't want to do anything, feels tired, cannot sleep and he just lays around and drinks alcohol. He stated that when he has anxiety attacks he would start sweating and panicking and cannot talk straight. I met with this patient again today in his room. He is still laying in the bed and does not want to wake up. He is covered under his sheets. He has been taking his medication but has not been participating in unit activities. This patient has not shown much of any progress as yet. He will be maintained in the milieu and will continue to be encouraged to participate in unit activities.
[2021-01-30 14:21] VITALS: TEMP 97.3
[2021-01-30] MEDS: chlordiazePOXIDE 25 MG CAP PO PRN (21:00)
[2021-01-31] MEDS ORDERED: ESCITALOPRAM 10 MG TAB PO STA ×2 (09:25→09:43)
[2021-01-31] MEDS: ESCITALOPRAM 10 MG TAB PO SCH (09:31)
[2021-01-31] MEDS: ARIPiprazole 10 MG TAB PO SCH (09:32)
[2021-01-31] MEDS: THIAMINE 100 MG TAB PO SCH (09:32)
[2021-01-31] MEDS: NICOTINE 14MG/24HR PATCH TRANSDERM SCH (09:32)
[2021-01-31] MEDS: LORazepam 1 MG TAB PO PRN (09:33)
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
== END 2021-01-31 11:50 | disposition home or self-care (01) | DRG 881 ==
LOC: EC 12:10 → 3MHU 17:19
PROVIDERS: ADMIT Psychiatry & Neurology Psychiatry; ATTEND Psychiatry & Neurology Psychiatry
DX: F32.9 Major depressive disorder, single episode, unspecified (principal); F10.239 Alcohol dependence with withdrawal, unspecified; F43.20 Adjustment disorder, unspecified; F17.200 Nicotine dependence, unspecified, uncomplicated; F29 Unspecified psychosis not due to a substance or known physiological condition; F15.90 Other stimulant use, unspecified, uncomplicated; F41.0 Panic disorder [episodic paroxysmal anxiety]; F41.1 Generalized anxiety disorder; F43.10 Post-traumatic stress disorder, unspecified; J45.909 Unspecified asthma, uncomplicated; Z79.899 Other long term (current) drug therapy
CPT/HCPCS: 80053; 80061; 80306; 82075; 83036; 84443; 85025; 87635; 96372; 99285

== ENCOUNTER 2022-09-09 10:05 | Observation (INO) | payer OTHER ==
[2022-09-09] MEDS ORDERED: LORazepam 2 MG/ML INJ IV STA (10:47)
[2022-09-09] MEDS ORDERED: SODIUM CHLORIDE 0.9% 1,000 ML IV STA (10:47)
[2022-09-09] MEDS ORDERED: THIAMINE 100 MG/ML 2 ML VIAL IM STA (10:47)
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
[2022-09-09 11:21] LABS: Basophils % (A) 0 %; Eosinophils # (A) 0.1 k/uL (0-0.7); Eosinophils % (A) 2 %; HCT 50.9 % (39.0-53.0); HGB 17.9 gm/dL (13.0-17.5); Lymphocytes # (A) 0.9 k/uL (1.0-4.8); Lymphocytes % (A) 21 %; MCH 33.5 pg (25.0-35.0); MCHC 35.1 g/dL (31.0-37.0); MCV 95.4 fL (80.0-100.0); Mean Platelet Volume 7.5; Monocytes # (A) 0.3 k/uL (0-1.0); Monocytes % (A) 7 %; Neutrophils % (A) 68 %; Platelet Count 168 k/uL (150-450); RBC 5.33 m/uL (4.30-5.90); RDW 12.1 % (11.5-15.5); WBC 4.4 k/uL (3.8-10.6)
[2022-09-09 11:32] LABS: ALT 79 U/L (4-49); AST 91 U/L (17-59); African American GFR (CKD) >90 (>60 ml/min/1.73 sqM); Albumin 5.1 g/dL (3.5-5.0); Alcohol <10 mg/dL; Alkaline Phosphatase 66 U/L (38-126); Anion Gap 14 mmol/L; Blood Urea Nitrogen 10 mg/dL (9-20); Calcium 9.3 mg/dL (8.4-10.2); Carbon Dioxide 25 mmol/L (22-30); Chloride 95 mmol/L (98-107); Glucose 89 mg/dL (74-99); Magnesium 1.9 mg/dL (1.6-2.3); Non-African American GFR(CKD) >90 (>60 ml/min/1.73 sqM); Potassium 3.7 mmol/L (3.5-5.1); Sodium 134 mmol/L (137-145); Total Bilirubin 1.3 mg/dL (0.2-1.3)
[2022-09-09 12:04] LABS: Amphetamine Screen,Urine Not Detected (NotDetected); Barbiturate Screen,Urine Not Detected (NotDetected); Benzodiazepines Screen,Urine Not Detected (NotDetected); Cocaine Screen,Urine Not Detected (NotDetected); Methadone Screen, Urine Not Detected (NotDetected); Opiate Screen,Urine Not Detected (NotDetected); Oxycodone Screen, Urine Not Detected (NotDetected); Phencyclidine Screen,Urine Not Detected (NotDetected); Tricyclic Antidepressant,Urine Not Detected (NotDetected); Urn Cannabinoid Scrn Detected (NotDetected)
[2022-09-09] MEDS ORDERED: LORazepam 1 MG TAB PO PRN ×2 (12:59)
[2022-09-09] MEDS ORDERED: LORazepam 2 MG/ML INJ IV PRN ×4 (12:59)
[2022-09-09] MEDS ORDERED: LORazepam 0.5 MG TAB PO PRN (12:59)
[2022-09-09] MEDS ORDERED: NALOXONE 0.4 MG/ML 1 ML VIAL IV PRN (13:01)
[2022-09-09] MEDS ORDERED: ONDANSETRON 4 MG/2 ML VIAL IVP PRN (13:01)
[2022-09-09 14:23] VITALS: RESP 16
--- NOTE | 2022-09-09 14:39 | XR ---
EXAMINATION TYPE: XR chest 2V DATE OF EXAM: 09/09/2022 COMPARISON: 10/06/2020 HISTORY: Chest pain TECHNIQUE: 2 views FINDINGS: Heart and mediastinum are normal. Lungs are clear. Diaphragm is normal. Bony thorax appears normal. There are chest leads. IMPRESSION: Normal chest. No change.
[2022-09-09] MEDS: SODIUM CHLORIDE 0.9% 1,000 ML IV SCH (14:50)
[2022-09-09 15:46] LABS: Appearance,Urine Clear (Clear); Bilirubin,Urine Negative (Negative); Blood,Urine Negative (Negative); Color,Urine Light Yellow; Glucose,Urine (UA) Negative (Negative); Ketones,Urine 1+ (Negative); Leukocyte Esterase,Urine Negative (Negative); Nitrite,Urine Negative (Negative); Protein,Urine Negative (Negative); Specific Gravity,Urine 1.007 (1.001-1.035); Urobilinogen,Urine <2.0 mg/dL (<2.0)
--- NOTE | 2022-09-09 15:59 | P.HPIM ---
History of Present Illness H&P Date: 09/09/22 Patient is a 32-year-old male with a history of alcohol abuse, illicit drug use, and tobacco dependency who presented to the hospital with complaints of depression and alcohol withdrawal. In the ER he underwent an extensive evaluation. He was mildly hypertensive on arrival with a blood pressure of 160/105. Initial laboratory analysis was remarkable for an AST of 91, ALT 79, albumin 5.1, sodium 134, and marijuana in his urine drug screen. His initial CIWA was 17 requiring IV Ativan. Arrangements were made for observation. Patient seen and examined at bedside. He reports that he has been drinking 1/5+10 beers daily for the last several months. He stopped drinking approx imately 1.5 days ago. He reports he presented to the hospital because he was slightly nauseated and tremulous as well as feeling anxious and depressed. He reports he tried to stop drinking once in the past and had a withdrawal seizure began drinking again. He never sought medical attention for that seizure. He reports that 2 days ago he was seen at [facility] for an overdose requiring CPR. That is when he decided to stop drinking. He states he was doing a lot of what he thought was cocaine but it was fentanyl and that led to the overdose. He does complain of some rib pain from the CPR. He states that his nausea and tremulousness are better but he is still feeling anxious. He is requesting to talk to somebody from the mental health unit. Pertinent positives and negatives as discussed in HPI, a complete review of systems was performed and all other systems are negative. Vital signs reviewed General: nontoxic, no distress, appears at stated age Derm: warm, dry Head: atraumatic, normocephalic, symmetric Eyes: EOMI, no lid lag, anicteric sclera, pupils equal round reactive to light ENT: Nose and ears atraumatic, no thrush, no pharyngeal erythema Neck: No thyromegaly, no cervical lymphadenopathy, trachea midline, supple Mouth: no lip lesion, mucus membranes moist Cardiovascular: S1S2 reg, no murmur, positive posterior tibial pulse bilateral, no edema, capillary refill less than 2 seconds, chest wall tender to palpation Lungs: clear to auscultation bilateral, no rhonchi, no rales, no wheeze, no accessory muscle use Abdominal: soft, nontender to palpation, no guarding, no appreciable organomegaly, normal bowel sounds Ext: no gross muscle atrophy, muscle strength 5 out of 5 in all 4 extremities, no contractures Neuro: CN II-XII grossly intact, light touch intact all 4 extremities, finger to nose within normal limits, Psych: Alert, oriented, appropriate affect Assessment/Plan: Alcohol withdrawal Illicit drug use - CIWA - Librium - Thiamine - Folic acid - seizure precautions Depression - psych consult in AM if ETOH withdraw symptoms are stable Rib pain due to recent CPR Transaminitis - likely du to ETOH - repeat in AM Attempt to get records from [facility] due to recent overdose requiring CPR. The patient is admitted with an anticipated less than 2 midnight stay for evaluation of ETOH abuse. CODE STATUS:full by default DVT prophylaxis: scds Discussed with: patient, nursing Anticipated discharge date: in AM Anticipated discharge place: home vs MHU A total of 45 minutes was spent on the care of this complex patient more than 50% of the time was spent in counseling and care coordination. Past Medical History Past Medical History: Asthma Additional Past Medical History / Comment(s): ALCOHOLIC History of Any Multi-Drug Resistant Organisms: None Reported Past Surgical History: No Surgical Hx Reported Past Anesthesia/Blood Transfusion Reactions: No Reported Reaction Past Psychological History: Anxiety, Depression Smoking Status: Current every day smoker Past Alcohol Use History: Abuse, Daily Past Drug Use History: Cocaine, Heroin, Marijuana, Methamphetamine, Prescription Drug Abuse - Past Family History family Additional Family Medical History / Comment(s): no family hx of coronary artery disease Medications and Allergies Home Medications Medication Instructions Recorded Confirmed Type Albuterol Inhaler [Ventolin Hfa 1 - 2 puff INHALATION RT-Q6H PRN 09/09/22 09/09/22 History Inhaler] Allergies Allergy/AdvReac Type Severity Reaction Status Date / Time No Known Allergies Allergy Verified 09/09/22 15:09 Physical Exam Osteopathic Statement: *. No significant issues noted on an osteopathic structural exam other than those noted in the History and Physical/Consult. Vitals: Vital Signs Temp Pulse Resp BP Pulse Ox 09/09/22 15:39 86 16 150/89 98 09/09/22 15:00 69 20 150/89 98 09/09/22 14:00 70 16 158/96 99 09/09/22 13:00 68 16 155/90 99 09/09/22 11:33 72 18 152/92 98 09/09/22 11:07 86 16 165/110 97 09/09/22 10:13 98 F 74 20 160/105 99 Intake and Output 09/09/22 09/09/22 09/09/22 06:59 14:59 22:59 Other: Weight 74.843 kg Results CBC & Chem 7: 09/09/22 11:00 09/09/22 11:00 Labs: Abnormal Lab Results - Last 24 Hours (Table) 09/09/22 09/09/22 09/09/22 Range/Units 11:00 11:00 11:00 Hgb 17.9 H (13.0-17.5) gm/dL Lymphocytes # 0.9 L (1.0-4.8) k/uL Sodium 134 L (137-145) mmol/L Chloride 95 L (98-107) mmol/L AST 91 H (17-59) U/L ALT 79 H (4-49) U/L Albumin 5.1 H (3.5-5.0) g/dL Urine Ketones (Negative) U Marijuana (THC) Screen Detected H (NotDetected) 09/09/22 Range/Units 11:34 Hgb (13.0-17.5) gm/dL Lymphocytes # (1.0-4.8) k/uL Sodium (137-145) mmol/L Chloride (98-107) mmol/L AST (17-59) U/L ALT (4-49) U/L Albumin (3.5-5.0) g/dL Urine Ketones 1+ H (Negative) U Marijuana (THC) Screen (NotDetected)
[2022-09-09] MEDS: chlordiazePOXIDE 25 MG CAP PO SCH ×2 (16:31→22:19)
[2022-09-09] MEDS ORDERED: LORazepam 1 MG/0.5 ML VIAL IV PRN ×4 (18:48→18:49)
[2022-09-09] MEDS: FAMOTIDINE 20 MG TAB PO SCH (20:39)
[2022-09-09] MEDS ORDERED: IPRATROPIUM-ALBUTEROL 3 ML NEB INHALATION PRN (22:53)
[2022-09-09] MEDS ORDERED: BENZONATATE 100 MG CAP PO PRN (22:53)
[2022-09-10] MEDS: NICOTINE 21MG/24HR PATCH TRANSDERM SCH ×2 (04:50→08:43)
[2022-09-10] MEDS: SODIUM CHLORIDE 0.9% 1,000 ML IV SCH (06:49)
[2022-09-10] MEDS: FAMOTIDINE 20 MG TAB PO SCH (08:43)
[2022-09-10] MEDS: chlordiazePOXIDE 25 MG CAP PO SCH (08:43)
[2022-09-10 08:57] VITALS: BP 138/90; PULSE 75; TEMP 97.7
[2022-09-10] MEDS ORDERED: FOLIC ACID 1 MG TAB PO SCH (09:00)
[2022-09-10] MEDS ORDERED: THIAMINE 100 MG TAB PO SCH (09:00)
[2022-09-10] MEDS ORDERED: MULTIVITAMINS, THERA 1 EACH TAB PO SCH (09:00)
--- NOTE | 2022-09-10 14:10 | P.PN ---
Subjective Progress Note Date: 09/10/22 Patient is a 32-year-old male with a history of alcohol abuse, illicit drug use, and tobacco dependency who presented to the hospital with complaints of depression and alcohol withdrawal. In the ER he underwent an extensive evaluation. He was mildly hypertensive on arrival with a blood pressure of 160/105. Initial laboratory analysis was remarkable for an AST of 91, ALT 79, albumin 5.1, sodium 134, and marijuana in his urine drug screen. His initial CIWA was 17 requiring IV Ativan. Arrangements were made for observation. He reports that 2 days ago he was seen at [facility] for an overdose requiring CPR. He states he was doing a lot of what he thought was cocaine but it was fentanyl and that led to the overdose. Apparently, he told psychiatry that he was actively suicidal. Patient was seen and examined. No acute events overnight. Patient states that he wants to go home. He denies any suicidal or homicidal ideation. He denies any auditory or visual hallucinations. He reports a productive cough that is chronic in nature. General: nontoxic, no distress, appears at stated age Derm: warm, dry Head: atraumatic, normocephalic, symmetric Eyes: EOMI, no lid lag, anicteric sclera ENT: Nose and ears atraumatic, no thrush, no pharyngeal erythema Neck: No thyromegaly, no cervical lymphadenopathy, trachea midline, supple Mouth: no lip lesion, mucus membranes moist Cardiovascular: S1S2 reg, no murmur, no edema, capillary refill less than 2 seconds Lungs: clear to auscultation bilateral, no rhonchi, no rales, no wheeze, no accessory muscle use Ext: no gross muscle atrophy, muscle strength 5 out of 5 in all 4 extremities, no contractures Neuro: No focal neurologic deficits Psych: Alert, oriented, appropriate affect #Alcohol withdrawal #Illicit drug use - CIWA protocol with Ativan as needed - Librium - Thiamine - Folic acid - Seizure precautions #Depression #Suicidal ideation - One-to-one sitter in place - Suicide precaution - Psychiatry consulted #Transaminitis - Likely due to ETOH - Continue to monitor Objective - Vital Signs Vital signs: Vital Signs Temp 97.7 F 09/10/22 07:35 Pulse 75 09/10/22 08:00 Resp 16 09/10/22 08:00 BP 138/90 09/10/22 07:35 Pulse Ox 98 09/10/22 07:35 FiO2 Intake & Output 09/09/22 09/10/22 09/10/22 18:59 06:59 18:59 Intake Total 1805 700 Balance 1805 700 Weight 74.843 kg Intake: Oral 1805 700 Other: # Voids 2 - Labs CBC & Chem 7: 09/09/22 11:00 09/09/22 11:00 Labs: Abnormal Lab Results - Last 24 Hours (Table) 09/09/22 Range/Units 11:34 Urine Ketones 1+ H (Negative)
--- NOTE | 2022-09-10 15:22 | P.DS ---
Providers Date of admission: 09/09/22 13:01 Expected date of discharge: 09/10/22 Attending physician: Jocelyn Goode MD Consults: 09/09/22 13:01 Consult Physician Routine Consulting Provider: Maria Isabel Garcia Consult Reason/Comments: Depression and suicidal ideation Do you want consulting provider notified?: Yes Primary care physician: Stated None Hospital Course: Patient is a 32-year-old male with a history of alcohol abuse, illicit drug use, and tobacco dependency who presented to the hospital with complaints of depression and alcohol withdrawal. In the ER he underwent an extensive evaluation. He was mildly hypertensive on arrival with a blood pressure of 160/105. Initial laboratory analysis was remarkable for an AST of 91, ALT 79, albumin 5.1, sodium 134, and marijuana in his urine drug screen. His initial CIWA was 17 requiring IV Ativan. Arrangements were made for observation. He reports that 2 days ago he was seen at [facility] for an overdose requiring CPR. He states he was doing a lot of what he thought was cocaine but it was fentanyl and that led to the overdose. Apparently, he told psychiatry that he was actively suicidal. Patient was seen and examined. No acute events overnight. Patient states that he wants to go home. He denies any suicidal or homicidal ideation. He denies any auditory or visual hallucinations. He reports a productive cough that is chronic in nature. EPS nurse evaluated the patient and cleared the patient for discharge. He will be prescribed Remron and Effexor on discharge. Patient advised to quit drinking alcohol and illicit substances. He is to follow up with [facility] in the outpatient setting. Pertinent studies include CXR. General: nontoxic, no distress, appears at stated age Derm: warm, dry Head: atraumatic, normocephalic, symmetric Eyes: EOMI, no lid lag, anicteric sclera ENT: Nose and ears atraumatic, no thrush, no pharyngeal erythema Neck: No thyromegaly, no cervical lymphadenopathy, trachea midline, supple Mouth: no lip lesion, mucus membranes moist Cardiovascular: S1S2 reg, no murmur, no edema, capillary refill less than 2 seconds Lungs: clear to auscultation bilateral, no rhonchi, no rales, no wheeze, no accessory muscle use Ext: no gross muscle atrophy, muscle strength 5 out of 5 in all 4 extremities, no contractures Neuro: No focal neurologic deficits Psych: Alert, oriented, appropriate affect Discharge Diagnosis: #Alcohol withdrawal #Illicit drug use #Depression #Suicidal ideation #Transaminitis Patient Condition at Discharge: Stable Plan - Discharge Summary Discharge Rx Participant: No New Discharge Prescriptions: New Venlafaxine HCl ER [Effexor XR] 37.5 mg PO DAILY #30 cap Famotidine [Pepcid] 20 mg PO BID tab Mirtazapine [Remeron] 15 mg PO HS #30 tab Thiamine [Vitamin B-1] 100 mg PO DAILY tab Folic Acid 1 mg PO DAILY tab Continue Albuterol Inhaler [Ventolin Hfa Inhaler] 1 - 2 puff INHALATION RT-Q6H PRN #1 each PRN Reason: Shortness Of Breath Discharge Medication List Albuterol Inhaler [Ventolin Hfa Inhaler] 1 - 2 puff INHALATION RT-Q6H PRN #1 each 09/10/22 [Rx] Famotidine [Pepcid] 20 mg PO BID tab 09/10/22 [Rx] Folic Acid 1 mg PO DAILY tab 09/10/22 [Rx] Mirtazapine [Remeron] 15 mg PO HS #30 tab 09/10/22 [Rx] Thiamine [Vitamin B-1] 100 mg PO DAILY tab 09/10/22 [Rx] Venlafaxine HCl ER [Effexor XR] 37.5 mg PO DAILY #30 cap 09/10/22 [Rx] Follow up Appointment(s)/Referral(s): None,Stated [Primary Care Provider] - 1-2 days
[2022-09-10] MEDS ORDERED: MIRTAZAPINE 15 MG TAB PO SCH (21:00)
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
[2022-09-11] MEDS ORDERED: VENLAFAXINE HCL ER 37.5 MG CAP PO SCH (09:00)
== END 2022-09-10 15:55 | disposition home or self-care (01) ==
LOC: EC 10:05 → 5NMEDONC 13:01 → 4SSUR 13:11 → 6NMEDSUR 14:27
PROVIDERS: ADMIT Family Medicine; ATTEND Family Medicine
DX: F10.239 Alcohol dependence with withdrawal, unspecified (principal); F32.A Depression, unspecified; R07.89 Other chest pain; R74.01 Elevation of levels of liver transaminase levels; F14.10 Cocaine abuse, uncomplicated; F11.10 Opioid abuse, uncomplicated; F12.10 Cannabis abuse, uncomplicated; F41.0 Panic disorder [episodic paroxysmal anxiety]; F43.10 Post-traumatic stress disorder, unspecified; F15.10 Other stimulant abuse, uncomplicated; J45.909 Unspecified asthma, uncomplicated; F17.200 Nicotine dependence, unspecified, uncomplicated; Z20.822 Contact with and (suspected) exposure to COVID-19; Z79.899 Other long term (current) drug therapy; Z91.51 Personal history of suicidal behavior; Y90.0 Blood alcohol level of less than 20 mg/100 ml
CPT/HCPCS: 82075; 96361; 96372; 96374; 99285; 36415; 94640; 80053; 83735; 85025; 85610; 81003; 80306; 87635; 71046; G0378 ×3; G0480; S4990; J2060; J3411; 80320

== ENCOUNTER 2022-10-11 08:57 | Emergency (ER) | payer OTHER ==
[2022-10-11 09:02] VITALS: TEMP 98.9
--- NOTE | 2022-10-11 10:27 | XR ---
EXAMINATION TYPE: XR chest 2V DATE OF EXAM: 10/11/2022 COMPARISON: Chest x-ray September 09, 2022 HISTORY: Cough. TECHNIQUE: Frontal and lateral views of the chest are obtained. FINDINGS: There is no suspicious focal air space opacity, pleural effusion, or pneumothorax seen. T he cardiac silhouette size is stable and within normal limits. The osseous structures are intact. IMPRESSION: No acute pulmonary process.
[2022-10-11] MEDS ORDERED: dexAMETHasone 4 MG TAB PO STA (10:49)
[2022-10-11] MEDS ORDERED: KETOROLAC 15 MG/ML 1 ML VIAL IVP STA (10:49)
--- NOTE | 2022-10-11 10:52 | ED ---
General Adult HPI - General Chief complaint: Upper Respiratory Infection Stated complaint: SOB Time Seen by Provider: 10/11/22 10:40 Source: patient, RN notes reviewed, old records reviewed Mode of arrival: ambulatory Limitations: no limitations - History of Present Illness Initial comments: Patient is a 32-year-old male who presents emergency Department complaining of upper respiratory illness symptoms for the last 5-7 days. He has been having cough, congestion, generalized body aches. Endorses subjective fevers. He currently is at [facility] for alcohol rehab. States others at the facility have similar complaints. Unknown what is causing it. Presents for further evaluation at this time. Denies chest pain, nausea, vomiting, diarrhea. No other acute complaints at this time. - Related Data Previous Rx's Medication Instructions Recorded Albuterol Inhaler [Ventolin Hfa 1 - 2 puff INHALATION RT-Q6H PRN 09/10/22 Inhaler] #1 each Famotidine [Pepcid] 20 mg PO BID tab 09/10/22 Folic Acid 1 mg PO DAILY tab 09/10/22 Mirtazapine [Remeron] 15 mg PO HS #30 tab 09/10/22 Thiamine [Vitamin B-1] 100 mg PO DAILY tab 09/10/22 Venlafaxine HCl ER [Effexor XR] 37.5 mg PO DAILY #30 cap 09/10/22 dexAMETHasone [Decadron] 4 mg PO DAILY 3 Days #3 tab 10/11/22 guaiFENesin 400 mg PO BID 14 Days #7 tab 10/11/22 Allergies Allergy/AdvReac Type Severity Reaction Status Date / Time No Known Allergies Allergy Verified 10/11/22 09:02 Review of Systems ROS Statement: Those systems with pertinent positive or pertinent negative responses have been documented in the HPI. Review of Systems: CONST: Denies fever EYES: Denies blurry vision ENT: Endorses nasal congestion C/V: Denies Chest pain RESP: Endorses cough GI: Denies abdominal pain : Denies dysuria SKIN: Denies rash. MSK: Denies joint pain. NEURO: Denies headache ROS Other: All systems not noted in ROS Statement are negative. Past Medical History Past Medical History: Asthma Additional Past Medical History / Comment(s): ALCOHOLIC History of Any Multi-Drug Resistant Organisms: None Reported Past Surgical History: No Surgical Hx Reported Past Anesthesia/Blood Transfusion Reactions: No Reported Reaction Past Psychological History: Anxiety, Depression Smoking Status: Current every day smoker Past Alcohol Use History: Abuse, Daily Past Drug Use History: Cocaine, Heroin, Marijuana, Methamphetamine, Prescription Drug Abuse - Past Family History family Additional Family Medical History / Comment(s): no family hx of coronary artery disease General Exam - General Exam Comments Initial Comments: General: Appears in no acute distress. HEAD: Normal with no signs of head trauma. EYES: EOMI, Conjunctiva normal. ENT: Hearing grossly intact. Moist mucous membranes. RESPIRATORY: Clear breath sounds bilaterally. No wheezes, rales, or rhonchi. No hypoxia. No increased work of breathing. C/V: Regular rate and rhythm. Peripheral pulses 2+ intact throughout. S1 and S2 auscultated. ABD: Nondistended EXT: No obvious deformity. SKIN: No rashes or lesions observed on exposed skin. NEURO: Alert and oriented 4. Limitations: no limitations Course Vital Signs 10/11/22 09:01 Temperature 98.9 F Pulse Rate 90 Respiratory 20 Rate Blood Pressure 97/65 O2 Sat by Pulse 97 Oximetry Medical Decision Making - Medical Decision Making Based on the patient's presentation and physical exam, I'm concerned for upper respiratory infection for the patient. Vital signs are within acceptable limits. Workup was started in triage which includes viral swabs, chest x-ray. This was remarkable for positive influenza A, negative for influenza B, RSV, Covid. Chest x-ray as interpreted by myself reveals no evidence of acute cardiopulmonary process, infiltrate. At this point, I evaluated the patient. I treated him of the results of his workup. He expressed understanding. He'll be symptomatically treated with Decadron as well as a home prescription for guaifenesin. He was in agreement this plan. He is not a candidate for Tamiflu at this time as he is symptomatic for the last 5-7 days. He expressed understanding. Does not appear dehydrated. Patient will be discharged home at this time.Discussed attempts at quarantine until 24 hours fever free. I will provide the patient with a prescription for guaifenesin, . I instructed the patient to follow up with their PCP in the next 1-3 days. I explained that the patient should return to the emergency department if they experience any worsening symptoms. Strict return precautions were discussed with the patient. The patient expressed understanding of these instructions. I answered all questions that the patient had. The patient was discharged home in good condition with their prescriptions and follow up information. - Lab Data Lab Results 10/11/22 Range/Units 09:05 Influenza Type A (PCR) Detected A (Not Detectd) Influenza Type B (PCR) Not Detected (Not Detectd) RSV (PCR) Not Detected (Not Detectd) SARS-CoV-2 (PCR) Not Detected (Not Detectd) Disposition Clinical Impression: Influenza A Disposition: HOME SELF-CARE Condition: Good Instructions (If sedation given, give patient instructions): Influenza (DC) Prescriptions: dexAMETHasone [Decadron] 4 mg PO DAILY 3 Days #3 tab guaiFENesin 400 mg PO BID 14 Days #7 tab Is patient prescribed a controlled substance at d/c from ED?: No Referrals: None,Stated [Primary Care Provider] - 1-2 days Time of Disposition: 10:50
[2022-10-11 11:33] VITALS: BP 108/67; PULSE 89; RESP 18
== END 2022-10-11 11:36 | disposition home or self-care (01) ==
LOC: EC 08:57
DX: J10.1 Influenza due to other identified influenza virus with other respiratory manifestations (principal); J45.909 Unspecified asthma, uncomplicated; F41.9 Anxiety disorder, unspecified; F32.A Depression, unspecified; F12.90 Cannabis use, unspecified, uncomplicated; F11.90 Opioid use, unspecified, uncomplicated; F14.90 Cocaine use, unspecified, uncomplicated; F15.10 Other stimulant abuse, uncomplicated; F17.200 Nicotine dependence, unspecified, uncomplicated; Z79.899 Other long term (current) drug therapy; Z20.822 Contact with and (suspected) exposure to COVID-19
CPT/HCPCS: 87636; 71046; 99285; 96374; J8540; J1885

== ENCOUNTER 2023-02-19 11:04 | Observation (INO) | payer OTHER ==
--- NOTE | 2023-02-19 11:42 | ED ---
Alcohol HPI - General Chief Complaint: Nausea/Vomiting/Diarrhea Stated Complaint: Alcohol WD/Chest Pain Time Seen by Provider: 02/19/23 11:30 Source: patient, police, RN notes reviewed Mode of arrival: ambulatory Limitations: no limitations - History of Present Illness Initial Comments: Patient is a 32-year-old male presenting to the emergency room with aoc director combat plans officer escort for nausea and vomiting along with pins and needles concerning for beginning signs of alcohol withdrawal. He has history of known EtOH abuse with previous alcohol withdrawal seizures. He drinks approximately two 5ths per day with his last drink just prior to his police black pickler around noon yesterday, 02/18/23. He also reports some occasional shortness of breath and pleuritic chest pain. He denies any typical chest pain, headache, dizziness, fevers or chills. In addition to his EtOH abuse he has a past medical history significant for asthma. - Related Data Home Medications Medication Instructions Recorded Confirmed No Known Home Medications 02/19/23 02/19/23 Allergies Allergy/AdvReac Type Severity Reaction Status Date / Time No Known Allergies Allergy Verified 02/19/23 13:31 Review of Systems ROS Statement: Those systems with pertinent positive or pertinent negative responses have been documented in the HPI. ROS Other: All systems not noted in ROS Statement are negative. Past Medical History Past Medical History: Asthma Additional Past Medical History / Comment(s): ALCOHOLIC, withdrawal seizures History of Any Multi-Drug Resistant Organisms: None Reported Past Surgical History: No Surgical Hx Reported Past Anesthesia/Blood Transfusion Reactions: No Reported Reaction Past Psychological History: Anxiety, Depression Smoking Status: Current every day smoker Past Alcohol Use History: Abuse, Daily Past Drug Use History: Cocaine, Heroin, Marijuana, Methamphetamine, Prescription Drug Abuse - Past Family History family Additional Family Medical History / Comment(s): no family hx of coronary artery disease General Exam - General Exam Comments Initial Comments: GENERAL: No acute distress, well developed, well nourished. HEENT: Normocephalic, atraumatic. Pupils equal, round, reactive to light. Moist mucous membranes. LUNGS: No respiratory distress. Clear to auscultation, no adventitious sounds, no use of accessory muscles. HEART: Regular rate and rhythm without murmur, rub, or gallop. ABDOMEN: Normal bowel sounds. Soft, non-tender, non-distended. BACK: Normal inspection. EXTREMITIES: No edema. No tenderness. Moves all extremities. NEUROLOGIC: Alert & oriented x 3. CN II-XII grossly intact. No evidence of trem or noted. PSYCHIATRIC: Normal affect and behavior. DERMATOLOGIC: Skin intact, without rashes or lesions noted. Limitations: no limitations Course Vital Signs 02/19/23 11:25 Temperature 99.6 F Pulse Rate 72 Respiratory 20 Rate Blood Pressure 172/94 O2 Sat by Pulse 100 Oximetry Medical Decision Making - Medical Decision Making Was pt. sent in by a medical professional or institution (KACEY Sharpe, TAX ACCOUNTING MANAGER, urgent care, hospital, or custodial...) When possible be specific @ -Yes, [facility] Did you speak to anyone other than the patient for history (EMS, parent, family, police, friend...)? What history was obtained from this source @ -Yes, aoc director combat plans officer escorting him for care availability at long term. Did you review nursing and triage notes (agree or disagree)? Why? @ -I reviewed and agree with nursing and triage notes Were old charts reviewed (outside hosp., previous admission, EMS record, old EKG, old radiological studies, urgent care reports/EKG's, custodial records)? Report findings @ -Yes, records sent with patient from [facility] reviewed Differential Diagnosis (chest pain, altered mental status, abdominal pain women, abdominal pain men, vaginal bleeding, weakness, fever, dyspnea, syncope, headache, dizziness, GI bleed, back pain, seizure, CVA, palpatations, mental health, musculoskeletal)? @ -not applicable EKG interpreted by me (3pts min.). @ -None done X-rays interpreted by me (1pt min.). @ -None done CT interpreted by me (1pt min.). @ -None done U/S interpreted by me (1pt. min.). @ -None done What testing was considered but not performed or refused? (CT, X-rays, U/S, labs)? Why? @ -None What meds were considered but not given or refused? Why? @ -None Did you discuss the management of the patient with other professionals (professionals i.e. KACEY Sharpe, TAX ACCOUNTING MANAGER, lab, RT, psych nurse, pediatric social worker, business services associate, teacher, motorized squad commanding officer, leather case finisher)? Give summary @ -No Was smoking cessation discussed for >3mins.? @ -No Was critical care preformed (if so, how long)? @ -No Were there social determinants of health that impacted care today? How? (Homelessness, low income, unemployed, alcoholism, drug addiction, transportation, low edu. Level, literacy, decrease access to med. care, long term, rehab)? @ -Currently in long term with known alcoholism. Was there de-escalation of care discussed even if they declined (Discuss DNR or withdrawal of care, Hospice)? DNR status @ -No What co-morbidities impacted this encounter? (DM, HTN, Smoking, COPD, CAD, Cancer, CVA, ARF, Chemo, Hep., AIDS, mental health diagnosis, sleep apnea, morbid obesity)? @ -EtOH Was patient admitted / discharged? Hospital course, mention meds given and route, prescriptions, significant lab abnormalities, going to OR and other pertinent info. @ -32-year-old male presenting to the emergency room with aoc director combat plans officer escort for nausea and vomiting along with pins and needles concerning for beginning signs of alcohol withdrawal. Known EtOH abuse with previous alcohol withdrawal seizures drinks approximately 2 5ths per day. Will start EtOH workup with urine drug screen, serum alcohol level, CBC, CMP, magnesium and phosphorus levels. Will give IV fluids, obtain Ciwa scale and place ciwa protocol. Discussed with patient and aoc director combat plans officer at bedtime given amount of drinking last drink timeframe and previous severe withdrawal symptoms will probably admit patient for alcohol withdrawal. Laboratory study results show normal CBC, INR elevated 1.2, PT normal. CMP demonstrates Low 7 creatinine 0.62, calcium, magnesium, phosphorus and potassium are normal, bilirubin elevated at 2.0, AST elevated 116, ALT elevated 95 amylase and lipase normal, alkaline phosphatase normal chloride and sodium both low sodium 130. Chloride 95 urine drug screen positive for amphetamines and methamphetamines serum alcohol level negative. Symptoms of jitteriness, pins and needles and nausea improved with IV Ativan. Repeat ciwa scale remains elevated at 10. With his previous seizures with alcohol withdrawals and current CIWA will plan for alcohol withdrawal admission. Spoke with Dr. Piper with [facility] regarding patient's presentation and workup. She is accepting of admission for alcohol withdrawal. Will admit patient in stable condition to the medical surgical unit for [facility] for further evaluation and treatment of alcohol. Undiagnosed new problem with uncertain prognosis? @ -No Drug Therapy requiring intensive monitoring for toxicity (Heparin, Nitro, Insulin, Cardizem)? @ -No Were any procedures done? @ -No Diagnosis/symptom? @ -Alcohol withdrawal Acute, or Chronic, or Acute on Chronic? @ -Acute Uncomplicated (without systemic symptoms) or Complicated (systemic symptoms)? @ -Complicated Side effects of treatment? @ -No Exacerbation, Progression, or Severe Exacerbation? @ -No Poses a threat to life or bodily function? How? (Chest pain, [place], [place], pneumonia, PE, COPD, DKA, ARF, appy, cholecystitis, CVA, Diverticulitis, Homicidal, Suicidal, threat to staff... and all critical care pts) @ -Yes, risk for electrolyte imbalance and seizures. Case discussed with Dr. Salazar. - Lab Data Result diagrams: 02/19/23 11:51 02/19/23 11:51 Lab Results 02/19/23 02/19/23 02/19/23 Range/Units 11:51 11:51 11:51 WBC 6.8 (3.8-10.6) k/uL RBC 4.87 (4.30-5.90) m/uL Hgb 16.6 (13.0-17.5) gm/dL Hct 48.6 (39.0-53.0) % MCV 99.8 (80.0-100.0) fL MCH 34.1 (25.0-35.0) pg MCHC 34.2 (31.0-37.0) g/dL RDW 12.2 (11.5-15.5) % Plt Count 241 (150-450) k/uL MPV 7.2 Neutrophils % 65 % Lymphocytes % 19 % Monocytes % 7 % Eosinophils % 6 % Basophils % 1 % Neutrophils # 4.4 (1.3-7.7) k/uL Lymphocytes # 1.3 (1.0-4.8) k/uL Monocytes # 0.5 (0-1.0) k/uL Eosinophils # 0.4 (0-0.7) k/uL Basophils # 0.0 (0-0.2) k/uL PT 11.9 (9.0-12.0) sec INR 1.2 H (<1.2) Sodium (137-145) mmol/L Potassium (3.5-5.1) mmol/L Chloride (98-107) mmol/L Carbon Dioxide (22-30) mmol/L Anion Gap mmol/L BUN (9-20) mg/dL Creatinine (0.66-1.25) mg/dL Est GFR (CKD-EPI)AfAm (>60 ml/min/1.73 sqM) Est GFR (CKD-EPI)NonAf (>60 ml/min/1.73 sqM) Glucose (74-99) mg/dL Calcium (8.4-10.2) mg/dL Phosphorus (2.5-4.5) mg/dL Magnesium (1.6-2.3) mg/dL Total Bilirubin (0.2-1.3) mg/dL AST (17-59) U/L ALT (4-49) U/L Alkaline Phosphatase (38-126) U/L Total Protein (6.3-8.2) g/dL Albumin (3.5-5.0) g/dL Amylase (30-110) U/L Lipase (23-300) U/L Urine Opiates Screen Not Detected (NotDetected) Ur Oxycodone Screen Not Detected (NotDetected) Urine Methadone Screen Not Detected (NotDetected) Ur Propoxyphene Screen Not Detected (NotDetected) Ur Barbiturates Screen Not Detected (NotDetected) U Tricyclic Antidepress Not Detected (NotDetected) Ur Phencyclidine Scrn Not Detected (NotDetected) Ur Amphetamines Screen Detected H (NotDetected) U Methamphetamines Scrn Detected H (NotDetected) U Benzodiazepines Scrn Not Detected (NotDetected) Urine Cocaine Screen Not Detected (NotDetected) U Marijuana (THC) Screen Not Detected (NotDetected) Serum Alcohol mg/dL 02/19/23 Range/Units 11:51 WBC (3.8-10.6) k/uL RBC (4.30-5.90) m/uL Hgb (13.0-17.5) gm/dL Hct (39.0-53.0) % MCV (80.0-100.0) fL MCH (25.0-35.0) pg MCHC (31.0-37.0) g/dL RDW (11.5-15.5) % Plt Count (150-450) k/uL MPV Neutrophils % % Lymphocytes % % Monocytes % % Eosinophils % % Basophils % % Neutrophils # (1.3-7.7) k/uL Lymphocytes # (1.0-4.8) k/uL Monocytes # (0-1.0) k/uL Eosinophils # (0-0.7) k/uL Basophils # (0-0.2) k/uL PT (9.0-12.0) sec INR (<1.2) Sodium 133 L (137-145) mmol/L Potassium 4.1 (3.5-5.1) mmol/L Chloride 95 L (98-107) mmol/L Carbon Dioxide 22 (22-30) mmol/L Anion Gap 16 mmol/L BUN 7 L (9-20) mg/dL Creatinine 0.62 L (0.66-1.25) mg/dL Est GFR (CKD-EPI)AfAm >90 (>60 ml/min/1.73 sqM) Est GFR (CKD-EPI)NonAf >90 (>60 ml/min/1.73 sqM) Glucose 78 (74-99) mg/dL Calcium 9.4 (8.4-10.2) mg/dL Phosphorus 4.3 (2.5-4.5) mg/dL Magnesium 2.1 (1.6-2.3) mg/dL Total Bilirubin 2.0 H (0.2-1.3) mg/dL AST 116 H (17-59) U/L ALT 95 H (4-49) U/L Alkaline Phosphatase 71 (38-126) U/L Total Protein 8.1 (6.3-8.2) g/dL Albumin 4.9 (3.5-5.0) g/dL Amylase 67 (30-110) U/L Lipase 265 (23-300) U/L Urine Opiates Screen (NotDetected) Ur Oxycodone Screen (NotDetected) Urine Methadone Screen (NotDetected) Ur Propoxyphene Screen (NotDetected) Ur Barbiturates Screen (NotDetected) U Tricyclic Antidepress (NotDetected) Ur Phencyclidine Scrn (NotDetected) Ur Amphetamines Screen (NotDetected) U Methamphetamines Scrn (NotDetected) U Benzodiazepines Scrn (NotDetected) Urine Cocaine Screen (NotDetected) U Marijuana (THC) Screen (NotDetected) Serum Alcohol <10 mg/dL Disposition Clinical Impression: Alcohol withdrawal Disposition: ADMITTED IP TO THIS HOSP Condition: Stable Referrals: None,Stated [Primary Care Provider] - 1-2 days Time of Disposition: 15:25
[2023-02-19] MEDS ORDERED: SODIUM CHLORIDE 0.9% 1,000 ML IV STA (12:01)
[2023-02-19] MEDS ORDERED: THIAMINE 100 MG/ML 2 ML VIAL IM STA (12:02)
[2023-02-19 12:11] LABS: Basophils % (A) 1 %; Eosinophils # (A) 0.4 k/uL (0-0.7); Eosinophils % (A) 6 %; HCT 48.6 % (39.0-53.0); HGB 16.6 gm/dL (13.0-17.5); Lymphocytes # (A) 1.3 k/uL (1.0-4.8); Lymphocytes % (A) 19 %; MCH 34.1 pg (25.0-35.0); MCHC 34.2 g/dL (31.0-37.0); MCV 99.8 fL (80.0-100.0); Mean Platelet Volume 7.2; Monocytes # (A) 0.5 k/uL (0-1.0); Monocytes % (A) 7 %; Neutrophils # (A) 4.4 k/uL (1.3-7.7); Neutrophils % (A) 65 %; Platelet Count 241 k/uL (150-450); RBC 4.87 m/uL (4.30-5.90); RDW 12.2 % (11.5-15.5); WBC 6.8 k/uL (3.8-10.6)
[2023-02-19 12:16] LABS: INR 1.2 (<1.2); Prothrombin Time 11.9 sec (9.0-12.0)
[2023-02-19] MEDS: LORazepam 2 MG/ML INJ IV PRN ×2 (12:19→14:37)
[2023-02-19 12:34] LABS: Amphetamine Screen,Urine Detected (NotDetected); Barbiturate Screen,Urine Not Detected (NotDetected); Benzodiazepines Screen,Urine Not Detected (NotDetected); Cocaine Screen,Urine Not Detected (NotDetected); Methadone Screen, Urine Not Detected (NotDetected); Opiate Screen,Urine Not Detected (NotDetected); Oxycodone Screen, Urine Not Detected (NotDetected); Phencyclidine Screen,Urine Not Detected (NotDetected); Tricyclic Antidepressant,Urine Not Detected (NotDetected); Urn Cannabinoid Scrn Not Detected (NotDetected)
[2023-02-19 12:40] LABS: ALT 95 U/L (4-49); AST 116 U/L (17-59); African American GFR (CKD) >90 (>60 ml/min/1.73 sqM); Albumin 4.9 g/dL (3.5-5.0); Alcohol <10 mg/dL; Alkaline Phosphatase 71 U/L (38-126); Amylase 67 U/L (30-110); Anion Gap 16 mmol/L; Blood Urea Nitrogen 7 mg/dL (9-20); Calcium 9.4 mg/dL (8.4-10.2); Carbon Dioxide 22 mmol/L (22-30); Chloride 95 mmol/L (98-107); Glucose 78 mg/dL (74-99); Lipase 265 U/L (23-300); Magnesium 2.1 mg/dL (1.6-2.3); Non-African American GFR(CKD) >90 (>60 ml/min/1.73 sqM); Phosphorus 4.3 mg/dL (2.5-4.5); Potassium 4.1 mmol/L (3.5-5.1); Sodium 133 mmol/L (137-145); Total Protein 8.1 g/dL (6.3-8.2)
[2023-02-19] MEDS ORDERED: NALOXONE 0.4 MG/ML 1 ML VIAL IV PRN (15:48)
[2023-02-19] MEDS ORDERED: bisacodyL 5 MG TABLET.DR PO PRN (16:27)
[2023-02-19] MEDS ORDERED: IBUPROFEN 400 MG TAB PO PRN (16:27)
[2023-02-19] MEDS ORDERED: CALCIUM CARBONATE 500 MG CHEWABLE PO PRN (16:27)
[2023-02-19] MEDS ORDERED: NICOTINE GUM (POLACRILEX) 2 MG GUM BUCCAL PRN (16:27)
[2023-02-19] MEDS ORDERED: ACETAMINOPHEN TAB 325 MG TAB PO PRN (16:27)
[2023-02-19] MEDS ORDERED: MELATONIN 3 MG TABLET PO PRN (16:27)
[2023-02-19] MEDS ORDERED: ONDANSETRON 4 MG/2 ML VIAL IVP PRN (16:27)
[2023-02-19] MEDS ORDERED: ALBUTEROL NEBULIZED 2.5 MG/3 ML INHALATION PRN (16:29)
--- NOTE | 2023-02-19 16:41 | P.HPIM ---
History of Present Illness H&P Date: 02/19/23 Chief Complaint: alcohol withdrawal Patient is a 32-year-old male with a history of alcohol dependency, tobacco abuse, asthma, and possible prior seizure withdrawal who [facility] due to concerns of alcohol withdrawal. [facility] is [facility] and was having some signs of alcohol withdrawal and there were unable to obtain Valium and therefore sent him to the emergency department. On arrival to the ER he was slightly hypertensive with a blood pressure of 172/94. Laboratory analysis was remarkable for INR 1.2, sodium 133, total bilirubin 2, AST 116, ALT 95, urine drug screen was positive for methamphetamines. His CIWA score was 10 and due to the [facility] not being able to obtain Valium and arrangements were made for observation. Patient seen and examined at bedside. He reports that his last drink was probably 24-48 hours ago. He has been incarcerated since that time. He reports that he was drinking 2/5 daily prior to incarceration. He reports that he was nauseated yesterday and having some vomiting but that has since resolved. He does report that he feels tremulous, hot, diaphoretic. He reports that he isn't drinking for quite some time about stopping. I last admitted him in August 2022 for this same complaint and he reports that he has been drinking as much if not more since that time. He also had reported history of alcohol withdrawal seizure, however he did not medical attention when he felt he had a seizure the last time. He just suspects he had a seizure. He initially denied illicit substance abuse, when I told him his urine was positive for methamphetamine he states he might have done that last week but d oes not do methamphetamine on a regular basis. Vital signs reviewed General: nontoxic, no distress, appears at stated age Derm: warm, dry Eyes: EOMI, no lid lag, anicteric sclera, pupils equal round reactive to light ENT: Nose and ears atraumatic, no thrush, no pharyngeal erythema Cardiovascular: S1S2 reg, no murmur, positive posterior tibial pulse bilateral, no edema, capillary refill less than 2 seconds Lungs: clear to auscultation bilateral, no rhonchi, no rales, no wheeze, no accessory muscle use Abdominal: soft, nontender to palpation, no guarding, no appreciable organomegaly, normal bowel sounds Ext: no gross muscle atrophy, no contractures Neuro: CN II-XII grossly intact, No focal neuro deficits Psych: Alert, oriented, appropriate affect Assessment: Alcohol dependency with withdrawal Tobacco dependency Transaminitis with elevated bili and INR, likely related to ETOH Mild intermittent asthma without exacerbation Imaging: None obtained Data Review: On arrival to the ER he was slightly hypertensive with a blood pressure of 172/94. Laboratory analysis was remarkable for INR 1.2, sodium 133, total bilirubin 2, AST 116, ALT 95, urine drug screen was positive for methamphetamines. Plan:- - PLace patient in observation on general medical floor with tele - CIWA protocol, Thiamine 100 mg twice daily, folic acid 1 mg daily, add valium 5 mg TID oral - Nicotine patch 21 mg and nicotine gum 2 mg q 2 hours prn nicotine withdrawal - fall precuations - seizure precautions - Repeat CMP and INR in the morning. - outpatient follow-up for possible hepartic steatosis or cirrhosis related to drinking The patient is placed in observation with an anticipated less than 2 midnight stay for evaluation of Alcohol withdrawal. DVT prophylaxis: SCDs Anticipated discharge date: Pending clinical course Anticipated discharge place: Pending clinical course This dictation was prepared using [employer] voice recognition software. Though every attempt is made to correct errors during during dictation some may still exist. Past Medical History Past Medical History: Asthma Additional Past Medical History / Comment(s): ALCOHOLIC, withdrawal seizures History of Any Multi-Drug Resistant Organisms: None Reported Past Surgical History: No Surgical Hx Reported Past Anesthesia/Blood Transfusion Reactions: No Reported Reaction Past Psychological History: Anxiety, Depression Smoking Status: Current every day smoker Past Alcohol Use History: Abuse, Daily Past Drug Use History: Cocaine, Heroin, Marijuana, Methamphetamine, Prescription Drug Abuse - Past Family History family Additional Family Medical History / Comment(s): no family hx of coronary artery disease Medications and Allergies Home Medications Medication Instructions Recorded Confirmed Type No Known Home Medications 02/19/23 02/19/23 History Allergies Allergy/AdvReac Type Severity Reaction Status Date / Time No Known Allergies Allergy Verified 02/19/23 13:31 Physical Exam Osteopathic Statement: *. No significant issues noted on an osteopathic structural exam other than those noted in the History and Physical/Consult. Vitals: Vital Signs Temp Pulse Resp BP Pulse Ox 02/19/23 11:25 99.6 F 72 20 172/94 100 Intake and Output 02/19/23 02/19/2302/19/23 06:59 14:59 22:59 Other: Weight 77.111 kg Results CBC & Chem 7: 02/19/23 11:51 02/19/23 11:51 Labs: Abnormal Lab Results - Last 24 Hours (Table) 02/19/23 02/19/23 02/19/23 Range/Units 11:51 11:51 11:51 INR 1.2 H (<1.2) Sodium 133 L (137-145) mmol/L Chloride 95 L (98-107) mmol/L BUN 7 L (9-20) mg/dL Creatinine 0.62 L (0.66-1.25) mg/dL Total Bilirubin 2.0 H (0.2-1.3) mg/dL AST 116 H (17-59) U/L ALT 95 H (4-49) U/L Ur Amphetamines Screen Detected H (NotDetected) U Methamphetamines Scrn Detected H (NotDetected)
[2023-02-19] MEDS: NICOTINE 21MG/24HR PATCH TRANSDERM SCH ×2 (18:16→18:30)
[2023-02-19] MEDS: diazePAM 5 MG TAB PO SCH ×2 (18:16→22:05)
[2023-02-19] MEDS: SODIUM CHLORIDE 0.9% 1,000 ML IV SCH (18:36)
[2023-02-20] MEDS: SODIUM CHLORIDE 0.9% 1,000 ML IV SCH (06:03)
[2023-02-20] MEDS: NICOTINE 21MG/24HR PATCH TRANSDERM SCH (07:23)
[2023-02-20 07:53] VITALS: RESP 22
[2023-02-20] MEDS ORDERED: LORazepam 2 MG/ML INJ IV PRN ×2 (07:54)
[2023-02-20] MEDS: diazePAM 5 MG TAB PO SCH (08:07)
[2023-02-20] MEDS ORDERED: THIAMINE 100 MG TAB PO SCH (09:00)
[2023-02-20] MEDS ORDERED: FOLIC ACID 1 MG TAB PO SCH (09:00)
[2023-02-20 11:03] LABS: HCT 43.9 % (39.6-50.0); HGB 14.9 g/dL (13.0-17.0); MCH 33.7 pg (27.0-32.0); MCHC 33.9 g/dL (32.0-37.0); MCV 99.3 fL (80.0-97.0); Mean Platelet Volume 9.2 fL (9.5-12.2); NRBC Per 100 WBC 0 /100 WBCS (0.0-0.0); Platelet Count 201 X 10*3/uL (140-440); RBC 4.42 X 10*6/uL (4.40-5.60); RDW 12.3 % (11.5-14.5)
[2023-02-20 11:25] LABS: INR 0.95 (0.90-1.11); Prothrombin Time 10.8 sec (9.9-11.9)
[2023-02-20 11:31] LABS: African American GFR (CKD) 134.9 (60.0-200.0); Albumin 3.9 g/dL (3.8-4.9); Albumin/Globulin Ratio 1.75 (1.60-3.17); Anion Gap 9.1 mmol/L (10.00-18.00); BUN/Creat Ratio 12.79 Ratio (12.00-20.00); Calcium 8.8 mg/dL (8.7-10.3); Carbon Dioxide 26.7 mmol/L (20.0-27.5); Globulin 2.2 g/dL (1.6-3.3); Non-African American GFR(CKD) 116.4 (60.0-200.0); Potassium 4.5 mmol/L (3.5-5.5); Total Bilirubin 0.7 mg/dL (0.30-1.20); Total Protein 6.2 g/dL (6.2-8.2)
[2023-02-20 12:00] VITALS: BP 119/69; PULSE 70; TEMP 98
--- NOTE | 2023-02-20 13:01 | P.DS ---
Providers Date of admission: 02/19/23 15:42 Expected date of discharge: 02/20/23 Attending physician: Rachel Alexandra DO Primary care physician: Stated None Hospital Course: Discharge Diagnosis: Alcohol dependency with withdrawal Tobacco dependency Transaminitis with elevated bili and INR, likely related to ETOH Mild intermittent asthma without exacerbation Chest pain, non cardiac Hospital Course: Patient is a 32-year-old male with a history of alcohol dependency, tobacco abuse, asthma, and possible prior seizure withdrawal who presented from the [facility] living due to concerns of alcohol withdrawal. [facility] is [facility] and was having some signs of alcohol withdrawal and there were unable to obtain Valium and therefore sent him to the emergency department. On arrival to the ER he was slightly hypertensive with a blood pressure of 172/94. Laboratory analysis was remarkable for INR 1.2, sodium 133, total bilirubin 2, AST 116, ALT 95, urine drug screen was positive for methamphetamines. His CIWA score was 10 and due to the senior living not being able to obtain Valium and arrangements were made for observation. After Valium was started he required 1 dose of IV Ativan. He did not require any IV Ativan greater than 24 hours. He was determined stable for discharge. He then started complaining of some chest pain with radiation down his left arm. EKG was obtained which was nonischemic. He had a troponin that was negative, repeat troponin 3 hours later remained negative. He was determined stable for discharge back to senior living. Patient seen and examined at bedside. Complains of some left-sided chest pain with numbness down his left arm. He states that he is overall feeling better his nausea, diaphoresis, and other symptoms have improved significantly. Vital signs reviewed and stable. General: nontoxic, no distress, appears at stated age Derm: warm, dry Head: atraumatic, normocephalic, symmetric Eyes: EOMI, no lid lag, anicteric sclera Mouth: no lip lesion, mucus membranes moist Cardiovascular: S1S2 reg, no murmur, positive posterior tibial pulse bilateral, Lungs: CTA bilateral, no rhonchi, no rales , no accessory muscle use Abdominal: soft, nontender to palpation, no guarding, no appreciable organomegaly Ext: no gross muscle atrophy, no edema, no contractures Neuro: CN II-XI grossly intact, no focal neuro deficits Psych: Alert, oriented, appropriate affect A total of 37 minutes of time were spent preparing this complex discharge summary. Patient was discharged on 02/20/23. This dictation was prepared using [employer] voice recognition software. Though every attempt is made to correct errors during during dictation some may still exist. Patient Condition at Discharge: Stable Plan - Discharge Summary Discharge Rx Participant: No New Discharge Prescriptions: New Folic Acid 1 mg PO DAILY tab diazePAM [Valium] 5 mg PO DIRECTED tab Albuterol Nebulized [Ventolin Nebulized] 2.5 mg INHALATION RT-QID PRN ml PRN Reason: Shortness Of Breath Or Wheezing Thiamine [Vitamin B-1] 100 mg PO DAILY tab Discharge Medication List Albuterol Nebulized [Ventolin Nebulized] 2.5 mg INHALATION RT-QID PRN ml 02/20/23 [Rx] Folic Acid 1 mg PO DAILY tab 02/20/23 [Rx] Thiamine [Vitamin B-1] 100 mg PO DAILY tab 02/20/23 [Rx] diazePAM [Valium] 5 mg PO DIRECTED tab 02/20/23 [Rx] Follow up Appointment(s)/Referral(s): None,Stated [Primary Care Provider] - 1-2 days Patient Instructions/Handouts: Seizure/Epilepsy Discharge Instructions & Follow-Up Discharge/Stand Alone Forms: AA Meetings [place] Resources, Outpatient Counseling, Inp Substance Abuse Facilities Discharge Disposition: DC/TRANSFER COURT/LAW
== END 2023-02-20 15:07 | disposition home or self-care (01) ==
LOC: EC 11:04 → INTOOBSV 15:42 → 5NMEDONC 15:42
PROVIDERS: ADMIT Internal Medicine; ATTEND Internal Medicine
DX: F10.239 Alcohol dependence with withdrawal, unspecified (principal); R07.89 Other chest pain; J45.20 Mild intermittent asthma, uncomplicated; R20.2 Paresthesia of skin; R74.01 Elevation of levels of liver transaminase levels; R03.0 Elevated blood-pressure reading, without diagnosis of hypertension; F32.A Depression, unspecified; F41.9 Anxiety disorder, unspecified; F17.200 Nicotine dependence, unspecified, uncomplicated; Z87.898 Personal history of other specified conditions; Z86.69 Personal history of other diseases of the nervous system and sense organs
CPT/HCPCS: 96361 ×2; 96376; 96372; 96374; 99285; 36415; 80053 ×2; 82150; 83690; 83735; 84100; 84484; 85025; 85027; 85610 ×2; 80306; 80320; G0378 ×2; J2060; J3411

== ENCOUNTER 2023-12-26 14:53 | Inpatient (IN) | payer OTHER ==
--- NOTE | 2023-12-26 15:06 | ED ---
Chest Pain HPI - General Source: patient, RN notes reviewed Mode of arrival: ambulatory Limitations: no limitations <Nic Almanzar - Last Filed: 12/26/23 15:05> <Joel Saez - Last Filed: 01/02/24 09:24> - General Chief Complaint: Chest Pain Stated Complaint: chest pain Time Seen by Provider: 12/26/23 15:01 - History of Present Illness Initial Comments: 33-year-old male presents emergency department chief complaint of chest pain. Patient states he had severe chest pain this morning which has resolved now be cause he states he drank a large amount of beer and liquor. He states he is an alcoholic and drinks at least 6-12 beers a day along with 1/5 of alcohol. Patient states he has severe withdrawal symptoms when he does withdrawal. He states he has to drink most of the day so he does not withdraw denies any abdominal pain. Patient has no shortness of breath no fevers or chills. (Nic Almanzar) - Related Data Previous Rx's Medication Instructions Recorded Metoprolol Tartrate [Lopressor] 12.5 mg PO TID tab 12/28/23 Nicotine 21Mg/24Hr Patch [Habitrol] 1 patch TRANSDERM DAILY patch 12/28/23 Pantoprazole [Protonix] 40 mg PO AC-BID tab 12/28/23 Thiamine [Vitamin B-1] 100 mg PO DAILY tab 12/28/23 diazePAM [Valium] 2 mg PO Q8HR 1 Days #3 tab 12/28/23 diazePAM [Valium] 3 mg PO Q8H #2 tab 12/28/23 Allergies Allergy/AdvReac Type Severity Reaction Status Date / Time No Known Allergies Allergy Verified 12/28/23 21:07 Review of Systems ROS Other: All systems not noted in ROS Statement are negative. <Nic Almanzar - Last Filed: 12/26/23 15:05> ROS Other: All systems not noted in ROS Statement are negative. Constitutional: Denies: fever, chills Respiratory: Denies: cough, dyspnea Cardiovascular: Denies: chest pain, palpitations, edema Gastrointestinal: Reports: nausea, vomiting (Yesterday). Denies: diarrhea, melena, hematochezia Genitourinary: Denies: dysuria, hematuria Musculoskeletal: Denies: back pain Skin: Denies: rash Neurological: Denies: headache, weakness Psychiatric: Reports: anxiety, homicidal thoughts, suicidal thoughts <NadjaJoel - Last Filed: 01/02/24 09:24> ROS Statement: Those systems with pertinent positive or pertinent negative responses have been documented in the HPI. Past Medical History Past Medical History: Asthma, Seizure Disorder Additional Past Medical History / Comment(s): ALCOHOLIC, withdrawal seizures History of Any Multi-Drug Resistant Organisms: None Reported Past Surgical History: No Surgical Hx Reported Past Anesthesia/Blood Transfusion Reactions: No Reported Reaction Past Psychological History: Anxiety, Depression Smoking Status: Current every day smoker Past Alcohol Use History: Abuse, Daily Past Drug Use History: Cocaine, Heroin, Marijuana, Methamphetamine, Prescription Drug Abuse - Past Family History family Additional Family Medical History / Comment(s): no family hx of coronary artery disease <Nic Almanzar Chanelle - Last Filed: 12/26/23 15:05> General Exam Limitations: no limitations <Nic Almanzar Chanelle - Last Filed: 12/26/23 15:05> Limitations: no limitations General appearance: alert, in no apparent distress Head exam: Present: atraumatic, normocephalic Eye exam: Present: normal appearance. Absent: scleral icterus, conjunctival injection Neck exam: Present: normal inspection Respiratory exam: Present: normal lung sounds bilaterally. Absent: respiratory distress, wheezes, rales, rhonchi, stridor, accessory muscle use Cardiovascular Exam: Present: normal rhythm, tachycardia, normal heart sounds. Absent: systolic murmur, diastolic murmur, rubs, gallop GI/Abdominal exam: Present: soft. Absent: distended, tenderness, guarding, rebound, rigid, mass Extremities exam: Present: normal inspection, normal capillary refill. Absent: pedal edema, calf tenderness Back exam: Present: normal inspection. Absent: CVA tenderness (R), CVA ten derness (L) Neurological exam: Present: alert Skin exam: Present: warm, dry, intact, normal color. Absent: rash <NadjaJoel - Last Filed: 01/02/24 09:24> - General Exam Comments Initial Comments: Visual Physical Exam Vital signs reviewed General: Well-appearing, nontoxic, no acute distress. Head: Normocephalic, atraumatic Eyes: PERRLA, EOMI ENT: Airway patent Chest: Nonlabored breathing Skin: No visual rash, normal skin tone Neuro: Alert and oriented 3 Musculoskeletal: No gross abnormalities (Nic Almanzar) Course Vital Signs 12/26/23 12/26/23 12/26/23 14:56 17:39 18:02 Temperature 98.4 F Pulse Rate 102 H 101 H Pulse Rate [ 90 Fiber Locking Supervisor ] Respiratory 18 18 Rate Blood Pressure 145/102 O2 Sat by Pulse 98 Oximetry 12/26/23 21:42 Temperature 98 F Pulse Rate 122 H Pulse Rate [ Fiber Locking Supervisor ] Respiratory 20 Rate Blood Pressure 142/75 O2 Sat by Pulse 97 Oximetry Chest Pain MDM <Nic Almanzar - Last Filed: 12/26/23 15:05> <Joel Saez - Last Filed: 01/02/24 09:24> - MDM I completed the quick note portion of this chart signed Nic Almanzar PA-C (Nic Almanzar) Was pt. sent in by a medical professional or institution (KACEY Sharpe, CORRESPONDENCE COORDINATOR, urgent care, hospital, or jail...) When possible be specific @ -[No] Did you speak to anyone other than the patient for history (EMS, parent, family, police, friend...)? What history was obtained from this source @ -[No] Did you review nursing and triage notes (agree or disagree)? Why? @ -[I reviewed and agree with nursing and triage notes] Were old charts reviewed (outside hosp., previous admission, EMS record, old EKG, old radiological studies, urgent care reports/EKG's, jail records)? Report findings @ -[No old charts were reviewed] Differential Diagnosis (chest pain, altered mental status, abdominal pain women, abdominal pain men, vaginal bleeding, weakness, fever, dyspnea, syncope, headache, dizziness, GI bleed, back pain, seizure, CVA, palpatations, mental health, musculoskeletal)? @ -Differential Mental Health Depression, anxiety, bipolar, psychosis, schizophrenia, borderline personality, situational depression, adjustment disorder, behavioral disorder, brain tumor, malingering, substance abuse, encephalopathy, medication reaction, dementia, hypothyroidism, degenerative neurologic disorder, lupus.... This is not meant to be all-inclusive list EKG interpreted by me (3pts min.). @ -[As above] X-rays interpreted by me (1pt min.). @ -[None done] CT interpreted by me (1pt min.). @ -[None done] U/S interpreted by me (1pt. min.). @ -[None done] What testing was considered but not performed or refused? (CT, X-rays, U/S, labs)? Why? @ -[None] What meds were considered but not given or refused? Why? @ -[None] Did you discuss the management of the patient with other professionals (professionals i.e. , PA, CORRESPONDENCE COORDINATOR, lab, RT, psych nurse, director social service, security system administrator, teacher, defence force senior officer, mattress spring encaser)? Give summary @ -[Case D/W admitting physician, will have admission for CIWA coverage. Was smoking cessation discussed for >3mins.? @ -[No] Was critical care preformed (if so, how long)? @ -[No] Were there social determinants of health that impacted care today? How? (Homelessness, low income, unemployed, alcoholism, drug addiction, transportation, low edu. Level, literacy, decrease access to med. care, longterm, rehab)? @ -[No] Was there de-escalation of care discussed even if they declined (Discuss DNR or withdrawal of care, Hospice)? DNR status @ -[No] What co-morbidities impacted this encounter? (DM, HTN, Smoking, COPD, CAD, Cancer, CVA, ARF, Chemo, Hep., AIDS, mental health diagnosis, sleep apnea, morbid obesity)? @ -[None] Was patient admitted / discharged? Hospital course, mention meds given and route, prescriptions, significant lab abnormalities, going to OR and other pertinent info. @ -As above Undiagnosed new problem with uncertain prognosis? @ -[No] Drug Therapy requiring intensive monitoring for toxicity (Heparin, Nitro, Insulin, Cardizem)? @ -[No] Were any procedures done? @ -[No] Diagnosis/symptom? @ -[Acute alcohol withdrawal Acute, or Chronic, or Acute on Chronic? @ -[acute Uncomplicated (without systemic symptoms) or Complicated (systemic symptoms)? @ -[uncomplicated Side effects of treatment? @ -[No] Exacerbation, Progression, or Severe Exacerbation? @ -[No] Poses a threat to life or bodily function? How? (Chest pain, [place], [place], pneumonia, PE, COPD, DKA, ARF, appy, cholecystitis, CVA, Diverticulitis, Homicidal, Suicidal, threat to staff... and all critical care pts) @ -[yes (Joel Saez) Disposition <Nic Almanzar - Last Filed: 12/26/23 15:05> Is patient prescribed a controlled substance at d/c from ED?: No <Joel Saez - Last Filed: 01/02/24 09:24> Clinical Impression: Alcoholic intoxication, Alcohol withdrawal Disposition: ADMITTED IP TO THIS HOSP Condition: Serious
[2023-12-26 15:30] LABS: Basophils # (A) 0.1 k/uL (0-0.2); Basophils % (A) 1 %; Eosinophils # (A) 0.1 k/uL (0-0.7); Eosinophils % (A) 1 %; HCT 53.4 % (39.0-53.0); HGB 17.5 gm/dL (13.0-17.5); Lymphocytes # (A) 2.8 k/uL (1.0-4.8); Lymphocytes % (A) 32 %; MCH 32.5 pg (25.0-35.0); MCHC 32.7 g/dL (31.0-37.0); MCV 99.1 fL (80.0-100.0); Mean Platelet Volume 7.1; Monocytes # (A) 0.6 k/uL (0-1.0); Monocytes % (A) 6 %; Neutrophils # (A) 4.9 k/uL (1.3-7.7); Neutrophils % (A) 57 %; Platelet Count 217 k/uL (150-450); RBC 5.39 m/uL (4.30-5.90); RDW 12.7 % (11.5-15.5); WBC 8.6 k/uL (3.8-10.6)
[2023-12-26 15:35] LABS: INR 0.9 (<1.2); Partial Thromboplastin Time 24.5 sec (22.0-30.0); Prothrombin Time 10.4 sec (10.0-12.5)
[2023-12-26 15:49] LABS: ALT 57 U/L (4-49); AST 65 U/L (17-59); African American GFR (CKD) >90 (>60 ml/min/1.73 sqM); Albumin 4.4 g/dL (3.5-5.0); Alkaline Phosphatase 66 U/L (38-126); Anion Gap 13 mmol/L; Blood Urea Nitrogen 9 mg/dL (9-20); Calcium 8.5 mg/dL (8.4-10.2); Carbon Dioxide 20 mmol/L (22-30); Chloride 102 mmol/L (98-107); Glucose 106 mg/dL (74-99); Lipase 227 U/L (23-300); Magnesium 2.1 mg/dL (1.6-2.3); Non-African American GFR(CKD) >90 (>60 ml/min/1.73 sqM); Potassium 4.1 mmol/L (3.5-5.1); Sodium 135 mmol/L (137-145); Total Protein 6.8 g/dL (6.3-8.2)
[2023-12-26 16:00] LABS: Alcohol 337 mg/dL
--- NOTE | 2023-12-26 16:04 | XR ---
EXAMINATION TYPE: XR chest 2V DATE OF EXAM: 12/26/2023 COMPARISON: 10/11/2022 INDICATION: Chest pain TECHNIQUE: Frontal and lateral views of the chest are obtained. FINDINGS: The heart size is normal. The pulmonary vasculature is normal. The lungs are clear. IMPRESSION: 1. No acute pulmonary process.
[2023-12-26] MEDS: SODIUM CHLORIDE 0.9% 1,000 ML IV ONE (18:00)
[2023-12-26] MEDS: LORazepam 2 MG/ML INJ IV STA (18:00)
[2023-12-26] MEDS: chlordiazePOXIDE 25 MG CAP PO STA (18:01)
[2023-12-26] MEDS ORDERED: MAG HYDROX/AL HYDROX/SIMETH 30 ML CUP PO PRN (18:52)
[2023-12-26] MEDS ORDERED: NALOXONE 0.4 MG/ML 1 ML VIAL IV PRN (18:52)
[2023-12-26] MEDS: chlordiazePOXIDE 25 MG CAP PO PRN (19:55)
[2023-12-26] MEDS ORDERED: LORazepam 2 MG/ML INJ IV PRN ×2 (20:55)
[2023-12-26] MEDS: THIAMINE 100 MG/ML 2 ML VIAL IM STA (21:47)
[2023-12-26] MEDS: FAMOTIDINE 20 MG TAB PO SCH (21:47)
[2023-12-26] MEDS: SODIUM CHLORIDE 0.9% 1,000 ML IV SCH (21:50)
[2023-12-26] MEDS: LORazepam 2 MG/ML INJ IV PRN (22:43)
[2023-12-27] MEDS: METOPROLOL TARTRATE 12.5 MG TAB PO SCH (00:18)
[2023-12-27] MEDS: ONDANSETRON 4 MG/2 ML VIAL IVP PRN (00:18)
[2023-12-27] MEDS: LORazepam 2 MG/ML INJ IV PRN (05:28)
[2023-12-27] MEDS: THIAMINE 100 MG TAB PO SCH (08:05)
--- NOTE | 2023-12-27 09:15 | P.CRDCN ---
History of Present Illness History of present illness: HISTORY OF PRESENT ILLNESS: This is a 33-year-old male with a past medical history significant for asthma, alcohol abuse, anxiety, depression, nicotine dependence, and former polysubstanc e abuse. Patient does not follow with a global vp creative + content marketing. We have been asked to see the patient in consultation for chest pain. Patient examined at the bedside. Patient states yesterday he began to have pain in the middle of his chest with radiation into his left arm. He denied any shortness of breath. He states that he started drinking due to the pain. The patient presented to the hospital for further evaluation. He was found to be acutely intoxicated with a serum alcohol level of 337. The patient reports that he does not follow with a PCP or global vp creative + content marketing. He states that he is currently homeless. He reports daily alcohol use. He also reports nicotine dependence and occasional marijuana use. He denies any other drug use at this time. DIAGNOSTICS: - EKG reveals sinus mechanism with no signs of acute ischemia. - Chest xray negative for acute process. - Laboratory data: WBC 8.6. Hemoglobin 17.5. Platelet count 217. Sodium 135. Potassium 4.1. BUN 9. Creatinine 0.70. Magnesium 2.1. AST 65. ALT 57. Troponin negative x 1. Serum alcohol 337. - Current home cardiac medications include none. REVIEW OF SYSTEMS: At the time of my exam: CONSTITUTIONAL: Denies fever or chills. HEENT: Denies blurred vision, vision changes, or eye pain. Denies hemoptysis CARDIOVASCULAR: Denies chest pain. Denies orthopnea. Denies PND. Denies palpitations RESPIRATORY: Denies shortness of breath. GASTROINTESTINAL: Denies abdominal pain. Denies nausea or vomiting. HEMATOLOGIC: Denies bleeding disorders. GENITOURINARY: Denies any blood in urine. SKIN: Denies pruitis. Denies rash. PHYSICAL EXAM: VITAL SIGNS: Reviewed. GENERAL: Well-developed in no acute distress. HEENT: Head is normocephalic. Pupils are equal, round. Sclerae anicteric. Mucous membranes of the mouth are moist. Neck supple. No JVD or thyromegaly LUNGS: Respirations even and unlabored. Lungs with mild wheezing noted HEART: Regular rate and rhythm. S1 and S2 heard. ABDOMEN: Soft. Nondistended. Nontender. EXTREMITIES: Normal range of motion. No clubbing or cyanosis. Peripheral pulses intact. No lower extremity edema NEUROLOGIC: Awake and alert. Oriented x 3. ASSESSMENT: Chest pain, atypical, troponin negative x 1 Acute alcohol intoxication History of alcohol abuse History of asthma Anxiety Depression Nicotine dependence Marijuana use Former polysubstance abuse Homelessness PLAN: Obtain an additional troponin level Obtain 2D echo to assess cardiac structure and function No plans for inpatient stress testing at this time We will plan for outpatient stress testing when patient is sober Recommend smoking cessation Abstinence from alcohol and marijuana recommended Further recommendations pending patient course Nurse practitioner note has been reviewed by physician. Signing provider agrees with the documented findings, assessment, and plan of care documented by SHOT LIGHTER as a scribe. Past Medical History Past Medical History: Asthma, Seizure Disorder Additional Past Medical History / Comment(s): ALCOHOLIC, withdrawal seizures History of Any Multi-Drug Resistant Organisms: None Reported Past Surgical History: No Surgical Hx Reported Past Anesthesia/Blood Transfusion Reactions: No Reported Reaction Past Psychological History: Anxiety, Depression Smoking Status: Current every day smoker Past Alcohol Use History: Abuse, Daily Additional Past Alcohol Use History / Comment(s): Patient states he drinks a couple beers a day. Past Drug Use History: Cocaine, Heroin, Marijuana, Methamphetamine, Prescription Drug Abuse Additional Drug Use History / Comment(s): . - Past Family History family Additional Family Medical History / Comment(s): no family hx of coronary artery disease Medications and Allergies Home Medications Medication Instructions Recorded Confirmed Type No Known Home Medications 12/26/23 12/26/23 History Allergies Allergy/AdvReac Type Severity Reaction Status Date / Time No Known Allergies Allergy Verified 12/26/23 17:55 Physical Exam Vitals: Vital Signs Temp Pulse Pulse Pulse Resp BP BP 12/27/23 07:38 98.4 F 87 19 115/70 12/27/23 02:00 98.4 F 90 16 133/77 12/26/23 22:45 98.2 F 125 H 20 120/70 12/26/23 21:42 98 F 122 H 20 142/75 12/26/23 18:02 101 H 18 12/26/23 17:39 90 12/26/23 14:56 98.4 F 102 H 18 145/102 Pulse Ox 12/27/23 07:38 97 12/27/23 02:00 93 L 12/26/23 22:45 93 L 12/26/23 21:42 97 12/26/23 18:02 12/26/23 17:39 12/26/23 14:56 98 Intake and Output 12/26/23 12/27/23 12/27/23 22:59 06:59 14:59 Other: # Voids 1 Weight 88.451 kg Results 12/26/23 15:10 12/26/23 15:10 Cardiac Enzymes 12/26/23 12/26/23 Range/Units 15:10 15:10 AST 65 H (17-59) U/L Troponin I <0.012 (0.000-0.034) ng/mL Coagulation 12/26/23 Range/Units 15:10 PT 10.4 (10.0-12.5) sec APTT 24.5 (22.0-30.0) sec CBC 12/26/23 Range/Units 15:10 WBC 8.6 (3.8-10.6) k/uL RBC 5.39 (4.30-5.90) m/uL Hgb 17.5 (13.0-17.5) gm/dL Hct 53.4 H (39.0-53.0) % Plt Count 217 (150-450) k/uL Comprehensive Metabolic Panel 12/26/23 Range/Units 15:10 Sodium 135 L (137-145) mmol/L Potassium 4.1 (3.5-5.1) mmol/L Chloride 102 (98-107) mmol/L Carbon Dioxide 20 L (22-30) mmol/L BUN 9 (9-20) mg/dL Creatinine 0.70 (0.66-1.25) mg/dL Glucose 106 H (74-99) mg/dL Calcium 8.5 (8.4-10.2) mg/dL AST 65 H (17-59) U/L ALT 57 H (4-49) U/L Alkaline Phosphatase 66 (38-126) U/L Total Protein 6.8 (6.3-8.2) g/dL Albumin 4.4 (3.5-5.0) g/dL Current Medications Generic Name Dose Route Start Last Admin Trade Name Freq PRN Reason Stop Dose Admin Al Hydroxide/Mg Hydroxide 15 ml 12/26/23 18:52 Mag Hydrox/Al Hydrox/Simeth 30 Ml Cup PO Q6HR PRN Indigestion Chlordiazepoxide HCl 50 mg 12/26/23 20:55 12/27/23 02:01 Chlordiazepoxide 25 Mg Cap PO 50 mg Q4HR PRN Administration Ciwa 6 To 7 Famotidine 20 mg 12/26/23 21:00 12/27/23 08:05 Famotidine 20 Mg Tab PO 20 mg BID RUSSEL Administration Sodium Chloride 1,000 mls @ 75 mls/hr 12/26/23 19:00 12/27/23 08:06 Saline 0.9% IV 75 mls/hr .[id number] RUSSEL Administration Lorazepam 2 mg 12/26/23 20:55 Lorazepam 2 Mg/Ml Inj IV 12/28/23 20:55 Q10M PRN CIWA 16 or higher Lorazepam 1 mg 12/26/23 20:55 12/27/23 08:05 Lorazepam 2 Mg/Ml Inj IV 1 mg Q2HR PRN Administration CIWA 8 or 9 Lorazepam 1 mg 12/26/23 20:55 12/26/23 22:43 Lorazepam 2 Mg/Ml Inj IV 1 mg Q1HR PRN Administration CIWA 10 to 15 Lorazepam 2 mg 12/26/23 20:55 Lorazepam 2 Mg/Ml Inj IV Q6HR PRN Seizures Metoprolol Tartrate 12.5 mg 12/26/23 23:45 12/27/23 08:05 Metoprolol Tartrate 12.5 Mg Tab PO 12.5 mg TID RUSSEL Administration Naloxone HCl 0.2 mg 12/26/23 18:52 Naloxone 0.4 Mg/Ml 1 Ml Vial IV Q2M PRN Opioid Reversal Ondansetron HCl 4 mg 12/26/23 23:31 12/27/23 05:29 Ondansetron 4 Mg/2 Ml Vial IVP 4 mg Q6HR PRN Administration Nausea And Vomiting Thiamine HCl 100 mg 12/27/23 09:00 12/27/23 08:05 Thiamine 100 Mg Tab PO 100 mg DAILY RUSSEL Administration Intake and Output 12/26/23 12/27/23 12/27/23 22:59 06:59 14:59 Other: # Voids 1 Weight 88.451 kg 12/26/23 15:10 12/26/23 15:10
--- NOTE | 2023-12-27 10:57 | CA ---
Transthoracic Echo Report Name: Beau Morrow Age: 33 Gender: M : 1990 Exam Date: 12/27/2023 09:27 Exam Location: [place] [facility] Ht (in): 70 Wt (lb): 195 Ordering Physician: Shasha Montano Attending/Referring Phys: [id number], Dusty Mobile Home Servicer Ana Loera RCS Procedure CPT: Indications: LV function, CP Cardiac Hx: Technical Quality: Fair Contrast 1: Total Dose (mL): Contrast 2: Total Dose (mL): MEASUREMENTS (Male / Female) Normal Values 2D ECHO LV Diastolic Diameter PLAX 5.6 cm 4.2 - 5.9 / 3.9 - 5.3 cm LV Systolic Diameter PLAX 4.4 cm IVS Diastolic Thickness 0.7 cm 0.6 - 1.0 / 0.6 - 0.9 cm LVPW Diastolic Thickness 0.6 cm 0.6 - 1.0 / 0.6 - 0.9 cm LV Relative Wall Thickness 0.2 LVOT Diameter 2.4 cm Aortic Root Diameter 3.1 cm LV Diastolic Volume MOD BP 103.7 cm??? 67 - 155 / 56 - 104 cm??? LV Systolic Volume MOD BP 42.8 cm??? 22 - 58 / 19 - 49 cm??? LV Ejection Fraction MOD BP 58.8 % >= 55 % LV Cardiac Index MOD BP 2314.1 cm???/min???m??? LV Diastolic Volume MOD 4C 101.3 cm??? LV Systolic Volume MOD 4C 36.0 cm??? LV Ejection Fraction MOD 4C 64.5 % LV Cardiac Index MOD 4C 2478.8 cm???/min???m??? LV Diastolic Length 4C 9.3 cm LV Systolic Length 4C 7.5 cm LV Diastolic Volume MOD 2C 101.6 cm??? LV Systolic Volume MOD 2C 48.4 cm??? LV Ejection Fraction MOD 2C 52.4 % LV Cardiac Index MOD 2C 2022.3 cm???/min???m??? LV Diastolic Length 2C 9.8 cm LV Systolic Length 2C 7.9 cm Ascending Aorta Diameter 3.0 cm DOPPLER AV Peak Velocity 146.5 cm/s AV Peak Gradient 8.6 mmHg AV Mean Velocity 94.6 cm/s AV Mean Gradient 4.1 mmHg AV Velocity Time Integral 25.3 cm LVOT Peak Velocity 107.9 cm/s LVOT Peak Gradient 4.7 mmHg LVOT Velocity Time Integral 21.1 cm LVOT Stroke Volume 94.8 cm??? LVOT Stroke Volume Index 45.9 ml/m??? LVOT Cardiac Index 3597.9 cm???/min???m??? AV Area Cont Eq vti 3.7 cm??? AV Area Cont Eq pk 3.3 cm??? Mitral E Point Velocity 71.8 cm/s Mitral A Point Velocity 55.9 cm/s Mitral E to A Ratio 1.3 MV Deceleration Time 229.7 ms MV E' Velocity 8.9 cm/s Mitral E to MV E' Ratio 8.0 PV Peak Velocity 88.7 cm/s PV Peak Gradient 3.1 mmHg FINDINGS Left Ventricle Left ventricular ejection fraction is estimated at 55-60 %. Left ventricular cavity size normal. Left ventricular wall thickness normal. No obvious regional wall motion abnormalities. Right Ventricle Normal right ventricular size and function. Unable to determine right ventricular systolic pressure. Right Atrium Normal right atrial size. Left Atrium Normal left atrial size. Mitral Valve Structurally normal mitral valve. No mitral stenosis, regurgitation or prolapse. Aortic Valve Trileaflet aortic valve. No aortic valve stenosis or regurgitation. Tricuspid Valve Structurally normal tricuspid valve. No tricuspid stenosis, regurgitation or prolapse. Pulmonic Valve Structurally normal pulmonic valve. No pulmonic stenosis. No pulmonic regurgitation. Pericardium No pericardial effusion. Aorta Normal size aortic root and proximal ascending aorta. CONCLUSIONS Normal LV systolic function Previewed by: Dr. Kolton Ortiz MD (Electronically Signed) Final Date: 27 December 2023 10:56
[2023-12-27] MEDS: NICOTINE 21MG/24HR PATCH TRANSDERM SCH (12:36)
[2023-12-27] MEDS: diazePAM 5 MG TAB PO SCH (12:36)
[2023-12-27] MEDS: ENOXAPARIN 40 MG/0.4 ML SYRINGE SQ SCH (12:36)
--- NOTE | 2023-12-27 15:01 | P.HPIM ---
History of Present Illness H&P Date: 12/27/23 Chief Complaint: Chest pain This is a 33-year-old patient, who was following with Dr. Tomer Morales. Has not seen him for some time. Patient drinks 1/5 of alcohol a day. For several years. Also smokes a pack a day. Lives with friends. Currently not employed. Patient's last drink was yesterday. He started complaining of plain across the chest. Also started having withdrawals. Tremors anxiety. This morning vomited x 5. Also patient feels depressed suicidal. Put on a CIWA scale. Admitted. Has a sitter. Still feels depressed Review of systems: GEN.: Tired EYES: None HEENT: None NECK: None RESPIRATORY: None CARDIOVASCULAR: As above e GASTROINTESTINAL: N vomited x 5 GENITOURINARY: None MUSCULOSKELETAL: None LYMPHATICS: None HEMATOLOGICAL: None PSYCHIATRY: Depressed suicidal e NEUROLOGICAL: Tremors e Protonix Social history: Lives with friends. Smokes a pack a day for a long time. Average drinks about 1/5 of alcohol a day. Used to previously work in a factory. Physical examination: VITAL SIGNS: 98.4, 87, 19, 1 one 5 x 70, 97% room air GENERAL: [BMI 28, sitting on bed awake very anxious. EYES: Pupils equal. Conjunctiva sheryl l. HEENT: External appearance of nose and ears normal, oral cavity grossly normal. NECK: JVD not raised; masses not palpable. HEART: First and second heart sounds are normal; no edema. LUNGS: Respiratory rate normal; decreased breath sounds some wheezing n. ABDOMEN: Soft, nontender, liver spleen not palpable, no masses palpable. PSYCH: Alert and oriented x3; mood and affect anxious l. MUSCULOSKELETAL:No Clubbing/cyanosis;muscles-grossly intact NEUROLOGICAL: Cranial nerves grossly intact; no facial asymmetry, power and sensation grossly intact. Some tremors LYMPHATICS: No lymph nodes palpable in the axilla and neck INVESTIGATIONS, reviewed in the clinical context: December 26: White count 8.6 hemoglobin 17.5 platelets 217 sodium 135 potassium 4.1 creatinine 0.7 AST 65 ALT 57 Troponin I less than 0.012 Serum alcohol 337 EKG tracing personally reviewed by me-normal sinus rhythm Chest x-ray film personally reviewed by me-no infiltrates Assessment and plan: -Acute alcohol withdrawal syndrome Patient's last drink was yesterday. Valium 5 mg every 8. Lopressor 12.5 p.o. 3 times daily to cut back on sympathetic drive -Alcohol use disorder Thiamine -Alcoholic hepatitis -Anterior chest wall pain. Cardiology consulted -Patient vomited 3-4 times this morning. Possibly acute on chronic gastritis from alcohol PPI -Chronic nicotine dependence cigarette smoker Nicotine patch -Depression and anxiety with suicidal ideation Sitter Consult psychiatry Past Medical History Past Medical History: Asthma, Seizure Disorder Additional Past Medical History / Comment(s): ALCOHOLIC, withdrawal seizures History of Any Multi-Drug Resistant Organisms: None Reported Past Surgical History: No Surgical Hx Reported Past Anesthesia/Blood Transfusion Reactions: No Reported Reaction Past Psychological History: Anxiety, Depression Smoking Status: Current every day smoker Past Alcohol Use History: Abuse, Daily Additional Past Alcohol Use History / Comment(s): Patient states he drinks a couple beers a day. Past Drug Use History: Cocaine, Heroin, Marijuana, Methamphetamine, Prescription Drug Abuse Additional Drug Use History / Comment(s): . - Past Family History family Additional Family Medical History / Comment(s): no family hx of coronary artery disease Medications and Allergies Home Medications Medication Instructions Recorded Confirmed Type No Known Home Medications 12/26/23 12/26/23 History Allergies Allergy/AdvReac Type Severity Reaction Status Date / Time No Known Allergies Allergy Verified 12/26/23 17:55 Physical Exam Vitals: Vital Signs Temp Pulse Pulse Pulse Resp BP BP 12/27/23 07:38 98.4 F 87 19 115/70 12/27/23 02:00 98.4 F 90 16 133/77 12/26/23 22:45 98.2 F 125 H 20 120/70 12/26/23 21:42 98 F 122 H 20 142/75 12/26/23 18:02 101 H 18 12/26/23 17:39 90 12/26/23 14:56 98.4 F 102 H 18 145/102 Pulse Ox 12/27/23 07:38 97 12/27/23 02:00 93 L 12/26/23 22:45 93 L 12/26/23 21:42 97 12/26/23 18:02 12/26/23 17:39 12/26/23 14:56 98 Intake and Output 12/26/23 12/27/23 12/27/23 22:59 06:59 14:59 Other: # Voids 1 Weight 88.451 kg Results CBC & Chem 7: 12/26/23 15:10 12/26/23 15:10 Labs: Abnormal Lab Results - Last 24 Hours (Table) 12/26/23 12/26/23 Range/Units 15:10 15:10 Hct 53.4 H (39.0-53.0) % Sodium 135 L (137-145) mmol/L Carbon Dioxide 20 L (22-30) mmol/L Glucose 106 H (74-99) mg/dL AST 65 H (17-59) U/L ALT 57 H (4-49) U/L Serum Alcohol 337 H* mg/dL Thrombosis Risk Factor Assmnt - Choose All That Apply Any of the Below Risk Factors Present?: Yes Each Factor Represents 1 point: Obesity (BMI >25) Thrombosis Risk Factor Assessment Total Risk Factor Score: 1 Thrombosis Risk Factor Assessment Level: Low Risk
[2023-12-27] MEDS: PANTOPRAZOLE 40 MG TABLET PO SCH (16:54)
[2023-12-28] MEDS: diazePAM 2 MG TAB PO SCH (11:52)
--- NOTE | 2023-12-28 13:49 | PN ---
PROGRESS NOTE SUBJECTIVE: This is a 33-year-old gentleman who is admitted to hospital with alcohol intoxication. We were consulted for chest pain. Chest pain was atypical. The patient yesterday was going through alcohol withdrawal. This morning, he appears better, more alert, awake, he is able to get around. Echocardiogram shows normal LV function. OBJECTIVE: GENERAL: Today, comfortable at rest. VITAL SIGNS: Stable. CHEST: Reveals good air entry bilaterally. HEART: Reveals first and second heart sounds. No gallop, no murmur. EXTREMITIES: Did not reveal any edema. Peripheral pulses are felt. ASSESSMENT AND PLAN: 1. Atypical chest pain. 2. Alcohol intoxication. No further cardiac workup at this time. We are going to see him on a p.r.n. basis. He will follow up with us in the office once he is sober and we may consider an outpatient stress test. NATALIIA / ALEXSANDER: [id number] /
--- NOTE | 2023-12-28 13:58 | P.CN ---
Psychiatric Consult - . Consult date: 12/28/23 Consult:: 12/28/23 13:32 IDENTIFYING DATA: This patient is a 33-year-old male, is currently homeless, staying with friends at times, he is unemployed, single and has 2 kids. REASON FOR REFERRAL: Psychiatry was consulted for suicidal ideations and depression HISTORY OF PRESENT ILLNESS: The patient presented to the hospital on 12/26 complaining of chest pain, also claims that he was drinking significant amount of alcohol including beer and liquor. His blood alcohol level was 337. Patient's LFTs were mildly elevated. He claims that he had a history of severe withdrawals, was having tremors and anxiety. Patient was endorsing suicidal ideations, he has a sitter. Patient was seen today by financial underwriter at the bedside. Patient claims that he recently got out [facility] about 1 and half months ago. States that he has been struggling with homelessness and also has been drinking more heavily recently. States that he has been drinking over 1/5 of liquor a day plus several beers. States that he does have a severe history of withdrawa ls. Claims that he was charged with an assault and also attempting to witnessed hamper. He states that he was in [facility] about 1-1/2 months. States that he has been feeling more depressed and anxious lately. Claims that he ran out of his medications previously. States that he has been having on and off troubles with sleep, poor appetite. Claims that he is having suicidal thoughts or thoughts, was fairly vague about his plan and claims that he may have thoughts of hurting others that might come after him. At this time he is denying any current auditory or visual hallucinations. denies any paranoia or delusions. Patients admits to using alcohol as noted above, smokes cigarettes. PAST PSYCHIATRIC HISTORY: Patient has a a history of depression, anxiety, alcohol abuse. Patient was previously on Lexapro 20 mg daily and Abilify 10 mg daily for mood stabilization. Patient was last psychiatrically hospitalized in January 2021 on the mental health unit. Patient denies any psychiatric outpatient follow-up. Claims that he has had multiple suicide attempts and self harming behaviors in the past. States that he attempted to overdose on drugs several times. Past Medical History: Asthma, Seizure Disorder Additional Past Medical History / Comment(s): ALCOHOLIC, withdrawal seizures History of Any Multi-Drug Resistant Organisms: None Reported Past Surgical History: No Surgical Hx Reported Past Anesthesia/Blood Transfusion Reactions: No Reported Reaction Past Psychological History: Anxiety, Depression Smoking Status: Current every day smoker Past Alcohol Use History: Abuse, Daily Past Drug Use History: Cocaine, Heroin, Marijuana, Methamphetamine, Prescription Drug Abuse ALLERGIES: as per EMR. CHEMICAL DEPENDENCY HISTORY: as per HPI. FAMILY PSYCHIATRIC/SUBSTANCE USE HISTORY: Claims that both of his parents have some form of mental illness his mother has depression and he knows. SOCIAL HISTORY: Patient was born and raised in [place]. Claims that he completed his GED. 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 Currently unemployed. He was just [facility] about 1-[facility]/2 months ago. He is currently single, homeless, has 2 kids. MENTAL STATUS EXAM: General Appearance: Patient appears to be have several tattoos, disheveled appearance, stated age is alert, attempts to be cooperative. Patient appears to have poor hygiene and grooming wearing hospital gown with poor eye contact. Behavior: Patient is calmly lying in bed without any agitated behavior. Vague, evasive Speech: Patient's speech is fluent and nonpressured. [place], soft tone Mood/Affect: Patient reports their mood is "depressed and anxious", affect is congruent and constricted Suicidality/Homicidality: Patient denies having any suicidal or homicidal ideation intent or plan. Perceptions: Patient denies any visual hallucinations and denies any auditory hallucinations Though content/process: There is no evidence of any delusional thought content and thought process is linear and goal-directed. [place], focused on his symptoms. Hopeless. Memory and concentration: AOX3, grossly intact for the purposes of this session. Can spell "WORLD" backwards Judgment and insight: Poor IMPRESSIONS: Major depressive disorder, severe without psychotic features Alcohol use disorder, currently in withdrawal Nicotine dependence PLAN: -At this time patient DOES meet criteria for inpatient psychiatric admission. -Would recommend the following medication changes/additions: Can continue Valium every 8 hours with plan to taper for alcohol withdrawal. Will start low-dose of Lexapro 5 mg daily for mood/anxiety with plan to titrate up, Abilify 5 mg daily with plan to increase for mood stabilization, trazodone 100 mg nightly as needed for insomnia. -CIWA protocol with PRN Ativan for alcohol withdrawal. Continue to monitor vital signs. -Continue 1:1 sitter for safety until patient is safely transferred to the mental health unit -Cannot leave AMA at this time. Patient will need a petition and certification if attempting to leave AMA. -When medically stable, patient is eligible for transfer to a psych bed when available. -Communicated plan to patient's nurse -Psychiatry will sign off at this time -Please contact with any questions. 12/28/23 13:52
[2023-12-28] MEDS ORDERED: traZODone HCL 100 MG TAB PO PRN (14:15)
[2023-12-28 15:22] VITALS: BP 124/73; PULSE 69; RESP 16; TEMP 98.7
--- NOTE | 2023-12-28 22:00 | P.DS ---
Providers Date of admission: 12/26/23 18:53 Expected date of discharge: 12/28/23 Attending physician: Darrius Mahmood MD Consults: 12/27/23 06:00 Consult Physician Routine Consulting Provider: Darron Singleton Consult Reason/Comments: chest pain. Do you want consulting provider notified?: Yes, Notify in am 12/27/23 12:15 Consult Physician Routine Consulting Provider: Darrius Mahmood Consult Reason/Comments: suicidal, depressed Do you want consulting provider notified?: Yes Primary care physician: [facility] Course: Chief Complaint: Chest pain This is a 33-year-old patient, who was following with Dr. Tomer Morales. Has not seen him for some time. Patient drinks 1/5 of alcohol a day. For several years. Also smokes a pack a day. Lives with friends. Currently not employed. Patient's last drink was yesterday. He started complaining of plain across the chest. Also started having withdrawals. Tremors anxiety. This morning vomited x 5. Also patient feels depressed suicidal. Put on a CIWA scale. Admitted. Has a sitter. Still feels depressed December 27: Patient doing much better. Did tolerate breakfast and lunch. Sitter at the bedside. Valium cut back to 3 mg every 8 for today. Will get 2 mg every [address] Mahmood from psychiatry. Patient be accepted to psychiatry floor 3 W. No nausea vomiting. Discussed with patient. Social history: Lives with friends. Smokes a pack a day for a long time. Average drinks about 1/5 of alcohol a day. Used to previously work in a factory. Physical examination: VITAL SIGNS: 98.7, 69, 16, 124 x 73, 98% room air GENERAL: [BMI 28, doing much better EYES: Pupils equal. Conjunctiva sheryl l. HEENT: External appearance of nose and ears normal, oral cavity grossly normal. NECK: JVD not raised; masses not palpable. HEART: First and second heart sounds are normal; no edema. LUNGS: Respiratory rate normal; decreased breath sounds some wheezing n. ABDOMEN: Soft, nontender, liver spleen not palpable, no masses palpable. PSYCH: Alert and oriented x3; mood and affect anxious l. NEUROLOGICAL: Cranial nerves grossly intact; no facial asymmetry, power and sensation grossly intact. Tremors better INVESTIGATIONS, reviewed in the clinical context: COVID-19: Not detected December 26: White count 8.6 hemoglobin 17.5 platelets 217 sodium 135 potassium 4.1 creatinine 0.7 AST 65 ALT 57 Troponin I less than 0.012 Serum alcohol 337 EKG tracing personally reviewed by me-normal sinus rhythm Chest x-ray film personally reviewed by me-no infiltrates Assessment and plan: -Acute alcohol withdrawal syndrome: Better Patient's last drink was today before coming in. Add back Valium 3 mg every 8 for today then 2 mg 3 times a day for 1 more day.. Lopressor 12.5 p.o. 3 times daily to cut back on sympathetic drive -Alcohol use disorder Thiamine -Alcoholic hepatitis -Anterior chest wall pain. Cardiology consulted - acute on chronic gastritis from alcohol PPI -Chronic nicotine dependence cigarette smoker Nicotine patch -Depression and anxiety with suicidal ideation Sitter Excepted to 3 [address]. psychiatry floor Disposition: Patient stable to be transferred to for psychiatry floor Past Medical History Past Medical History: Asthma, Seizure Disorder Additional Past Medical History / Comment(s): ALCOHOLIC, withdrawal seizures History of Any Multi-Drug Resistant Organisms: None Reported Past Surgical History: No Surgical Hx Reported Past Anesthesia/Blood Transfusion Reactions: No Reported Reaction Past Psychological History: Anxiety, Depression Smoking Status: Current every day smoker Past Alcohol Use History: Abuse, Daily Additional Past Alcohol Use History / Comment(s): Patient states he drinks a couple beers a day. Past Drug Use History: Cocaine, Heroin, Marijuana, Methamphetamine, Prescription Drug Abuse Additional Drug Use History / Comment(s): . Plan - Discharge Summary New Discharge Prescriptions: New Metoprolol Tartrate [Lopressor] 12.5 mg PO TID tab Pantoprazole [Protonix] 40 mg PO AC-BID tab diazePAM [Valium] 3 mg PO Q8H #2 tab Thiamine [Vitamin B-1] 100 mg PO DAILY tab Nicotine 21Mg/24Hr Patch [Habitrol] 1 patch TRANSDERM DAILY patch diazePAM [Valium] 2 mg PO Q8HR 1 Days #3 tab Discharge Medication List Metoprolol Tartrate [Lopressor] 12.5 mg PO TID tab 12/28/23 [Rx] Nicotine 21Mg/24Hr Patch [Habitrol] 1 patch TRANSDERM DAILY patch 12/28/23 [Rx] Pantoprazole [Protonix] 40 mg PO AC-BID tab 12/28/23 [Rx] Thiamine [Vitamin B-1] 100 mg PO DAILY tab 12/28/23 [Rx] diazePAM [Valium] 2 mg PO Q8HR 1 Days #3 tab 12/28/23 [Rx] diazePAM [Valium] 3 mg PO Q8H #2 tab 12/28/23 [Rx] Follow up Appointment(s)/Referral(s): Tomer Morales MD [Primary Care Provider] - 1-2 days Kolton Ortiz MD [STAFF PHYSICIAN] - 2 Weeks Discharge/Stand Alone Forms: AA Meetings [facility], Outpatient Counseling, Inp Substance Abuse Facilities Discharge Disposition: TRANSFER TO PSYCH HOSP/UNIT
[2023-12-29] MEDS ORDERED: ESCITALOPRAM 10 MG TAB PO SCH (09:00)
[2023-12-29] MEDS ORDERED: ARIPiprazole 5 MG TAB PO SCH (09:00)
== END 2023-12-28 22:26 | DRG 773 ==
LOC: EC 14:53 → 4SSUR 18:53 → 3MHU 12-28 21:01 → 4SSUR 12-28 21:04
PROVIDERS: ADMIT Hospitalist; ATTEND Psychiatry & Neurology Psychiatry
DX: F10.229 Alcohol dependence with intoxication, unspecified (principal); R45.851 Suicidal ideations; F32.2 Major depressive disorder, single episode, severe without psychotic features; K70.10 Alcoholic hepatitis without ascites; F11.11 Opioid abuse, in remission; F10.239 Alcohol dependence with withdrawal, unspecified; F14.11 Cocaine abuse, in remission; F15.11 Other stimulant abuse, in remission; K29.20 Alcoholic gastritis without bleeding; J45.909 Unspecified asthma, uncomplicated; Z11.52 Encounter for screening for COVID-19; Y90.8 Blood alcohol level of 240 mg/100 ml or more; R07.89 Other chest pain; F41.9 Anxiety disorder, unspecified; R25.1 Tremor, unspecified; F17.210 Nicotine dependence, cigarettes, uncomplicated; Z71.6 Tobacco abuse counseling; Z56.0 Unemployment, unspecified; Z59.00 Homelessness unspecified; Z71.51 Drug abuse counseling and surveillance of drug abuser; Z71.41 Alcohol abuse counseling and surveillance of alcoholic
CPT/HCPCS: 36415; 71046; 80053; 80320; 83690; 83735; 84484; 85025; 85610; 85730; 87635; 93005; 93306; 96361; 96372; 96374; 99285

== ENCOUNTER 2023-12-28 21:00 | Inpatient (IN) | payer MEDICAID, OTHER ==
[2023-12-28] MEDS ORDERED: LORazepam 2 MG/ML INJ IM PRN (21:07)
[2023-12-28] MEDS ORDERED: ACETAMINOPHEN TAB 325 MG TAB PO PRN (21:07)
[2023-12-28] MEDS ORDERED: MAG HYDROX/AL HYDROX/SIMETH 355 ML BOTTLE PO PRN (21:07)
[2023-12-28] MEDS ORDERED: HALOPERIDOL LACTATE 5 MG/ML 1 ML VIAL IM PRN (21:07)
[2023-12-28] MEDS ORDERED: MAGNESIUM HYDROXIDE 2,400 MG/30 ML CUP PO PRN (21:07)
[2023-12-28] MEDS ORDERED: diazePAM 5 MG TAB PO SCH (22:00)
[2023-12-28] MEDS: METOPROLOL TARTRATE 12.5 MG TAB PO SCH (22:49)
[2023-12-28] MEDS: diazePAM 2 MG TAB PO SCH (22:49)
[2023-12-28] MEDS: LORazepam 1 MG TAB PO PRN (23:10)
[2023-12-29] MEDS: LORazepam 1 MG TAB PO PRN (03:01)
[2023-12-29] MEDS: PANTOPRAZOLE 40 MG TABLET PO SCH (08:27)
[2023-12-29] MEDS: FOLIC ACID 1 MG TAB PO SCH (08:27)
[2023-12-29] MEDS: NICOTINE 21MG/24HR PATCH TRANSDERM SCH (08:27)
[2023-12-29] MEDS: THIAMINE 100 MG TAB PO SCH (08:27)
[2023-12-29] MEDS: MULTIVITAMINS, THERA 1 EACH TAB PO SCH (08:27)
[2023-12-29] MEDS ORDERED: NICOTINE 21MG/24HR PATCH TRANSDERM SCH (09:00)
[2023-12-29] MEDS ORDERED: THIAMINE 100 MG TAB PO SCH (09:00)
[2023-12-29] MEDS: diazePAM 2 MG TAB PO SCH (12:56)
[2023-12-29 13:11] LABS: ALT 77 U/L (4-49); AST 90 U/L (17-59); Albumin 4.4 g/dL (3.5-5.0); Alkaline Phosphatase 54 U/L (38-126); Bilirubin, Delta 0.2 mg/dL (0.0-0.2); Bilirubin,Unconjugated 0.9 mg/dL (0.0-1.1); Total Bilirubin 1.1 mg/dL (0.2-1.3); Total Protein 6.9 g/dL (6.3-8.2)
--- NOTE | 2023-12-29 14:41 | P.CONS ---
History of Present Illness - Reason for Consult Consult date: 12/29/23 Medical management Requesting physician: Darrius Mahmood - Chief Complaint Depression - History of Present Illness This is a 33-year-old patient, who was following with Dr. Tomer Morales. Has not seen him for some time. Patient drinks 1/5 of alcohol a day. For several years. Also smokes a pack a day. Lives with friends. Currently not employed. Admitted to the medical floor on December 26. With alcohol withdrawals. Vomiting. Gastritis. Depression. Was treated with Valium CIWA scale PPIs. Seen by psychiatry. Accepted to psychiatry floor. Today patient is feeling much better. Did take a shower. Did tolerate a diet. No nausea vomiting. On tapering dose of Valium. Review of systems: GEN.: Less tired EYES: None HEENT: None NECK: None RESPIRATORY: None CARDIOVASCULAR: None GASTROINTESTINAL: None GENITOURINARY: None MUSCULOSKELETAL: None LYMPHATICS: None HEMATOLOGICAL: None PSYCHIATRY: Depressed NEUROLOGICAL: Tremors improved Social history: Lives with friends. Smokes a pack a day for a long time. Average drinks about 1/5 of alcohol a day. Used to previously work in a factory. Physical examination: VITAL SIGNS: 98.1, 896, 18, 11/26/1977, 98% room air GENERAL: 26.6, more comfortable EYES: Pupils equal. Conjunctiva sheryl l. HEENT: External appearance of nose and ears normal, oral cavity grossly normal. NECK: JVD not raised; masses not palpable. HEART: First and second heart sounds are normal; no edema. LUNGS: Respiratory rate normal; decreased breath sounds ABDOMEN: Soft, nontender, liver spleen not palpable, no masses palpable. PSYCH: Alert and oriented x3; mood and affect less anxious MUSCULOSKELETAL:No Clubbing/cyanosis;muscles-grossly intact NEUROLOGICAL: Cranial nerves grossly intact; no facial asymmetry, power and sensation grossly intact. Tremors improved LYMPHATICS: No lymph nodes palpable in the axilla and neck INVESTIGATIONS, reviewed in the clinical context: December 28: AST 90 ALT 77 COVID-19: Not detected December 26: White count 8.6 hemoglobin 17.5 platelets 217 sodium 135 potassium 4.1 creatinine 0.7 AST 65 ALT 57 Troponin I less than 0.012 Serum alcohol 337 EKG tracing personally reviewed by me-normal sinus rhythm Chest x-ray film personally reviewed by me-no infiltrates Assessment and plan: -Acute alcohol withdrawal syndrome: Improving Patient's last drink was today before coming in. Valium 2 mg 3 times a day today. And 1 mg 3 times a day for tomorrow then stop. . Lopressor 12.5 p.o. 3 times daily to cut back on sympathetic drive-DC after tomorrow -Alcohol use disorder Thiamine -Alcoholic hepatitis -Anterior chest wall pain. Cardiology consulted - acute on chronic gastritis from alcohol PPI -Chronic nicotine dependence cigarette smoker Nicotine patch -Depression and anxiety with suicidal ideation Being followed by psychiatry -Full code Discussed at length with the patient. Counseled. Thank you Past Medical History Past Medical History: Asthma, Seizure Disorder Additional Past Medical History / Comment(s): alcohol withdrawal seizures History of Any Multi-Drug Resistant Organisms: None Reported Past Surgical History: No Surgical Hx Reported Past Anesthesia/Blood Transfusion Reactions: No Reported Reaction Smoking Status: Current every day smoker - Past Family History Mother History Unknown: Yes family Additional Family Medical History / Comment(s): no family hx of coronary artery disease Medications and Allergies Home Medications Medication Instructions Recorded Confirmed Type Metoprolol Tartrate [Lopressor] 12.5 mg PO TID tab 12/28/23 12/28/23 Rx Nicotine 21Mg/24Hr Patch [Habitrol] 1 patch TRANSDERM DAILY patch 12/28/23 12/28/23 Rx Pantoprazole [Protonix] 40 mg PO AC-BID tab 12/28/23 12/28/23 Rx Thiamine [Vitamin B-1] 100 mg PO DAILY tab 12/28/23 12/28/23 Rx diazePAM [Valium] 2 mg PO Q8HR 1 Days #3 tab 12/28/23 12/28/23 Rx diazePAM [Valium] 3 mg PO Q8H #2 tab 12/28/23 12/28/23 Rx Allergies Allergy/AdvReac Type Severity Reaction Status Date / Time No Known Allergies Allergy Verified 12/28/23 21:07 Physical Exam Vitals: Vital Signs Temp Pulse Resp BP Pulse Ox 12/29/23 08:29 96 129/80 12/28/23 23:34 98.1 F 72 18 126/89 98 Intake and Output 12/28/23 12/29/23 12/29/23 22:59 06:59 14:59 Other: Weight 84.056 kg 84.056 kg Results Labs: Abnormal Lab Results - Last 24 Hours (Table) 12/29/23 Range/Units 12:30 AST 90 H (17-59) U/L ALT 77 H (4-49) U/L
--- NOTE | 2023-12-29 20:20 | P.HP ---
Psychiatric H&P - . H&P Date: 12/29/23 History & Physical: IDENTIFYING DATA: Patient is a 33 year old male with history of depression and severe alcohol use disorder. HPI: Patient presented to the hospital on 12/26/23 and was admitted to the medical floor with alcohol withdrawal and treated with a Valium taper. He was seen by Dr. Mahmood as a psychiatry consult on 12/28/23. Per Dr. Mahmood's note from 12/28/23: "he patient presented to the hospital on 12/26 complaining of chest pain, also claims that he was drinking significant amount of alcohol including beer and liquor. His blood alcohol level was 337. Patient's LFTs were mildly elevated. He claims that he had a history of severe withdrawals, was having tremors and anxiety. Patient was endorsing suicidal ideations, he has a sitter. Patient was seen today by proposal writer at the bedside. Patient claims that he recently got out of [facility] about 1 and half months ago. States that he has been struggling with homelessness and also has been drinking more heavily recently. States that he has been drinking over 1/5 of liquor a day plus several beers. States that he does have a severe history of withdrawals. Claims that he was charged with an assault and also attempting to witnessed hamper. He states that he was in [facility] for about 1-1/2 months. States that he has been feeling more depressed and anxious lately. Claims that he ran out of his medications previously. States that he has been having on and off troubles with sleep, poor appetite. Claims that he is having suicidal thoughts or thoughts, was fairly vague about his plan and claims that he may have thoughts of hurting others that might come after him. At this time he is denying any current auditory or visual hallucinations. denies any paranoia or delusions. Patients admits to using alcohol as noted above, smokes cigarettes." Per Dr. Mahmood consult note from 12/28/23, patient was to start low-dose of Lexapro 5 mg daily for mood/anxiety with plan to titrate up, Abilify 5 mg daily with plan to increase for mood stabilization, trazodone 100 mg nightly as needed for insomnia, yesterday however it appears these medications were not started while on the medical floor so will start these today. On my assessment today, he reports feeling tired/grawgy from the withdrawl and Valium taper. He reports depressed mood, anxiety, racing thoughts, restless sleep. He reports he was having thoughts of suicide on admission to the [facility] unit but not currently.He reports poor quality sleep, variable appetite, anhedonia, excessive guilt, low concentration. He denies any suicidal or homicidal ideation, intent or plan. At this time, he reports hearing voices, feels the government implanted a chip in his brain "I know it because I can hear those fuckers". He reports he has heard voices on/off for years. No overt features of brenda observed. Patient admits to using to using substances as above. PAST PSYCHIATRIC HISTORY: Patient has a a history of depression, anxiety, alcohol abuse. Patient was previously on Lexapro 20 mg daily and Abilify 10 mg daily for mood stabilization. Patient was last psychiatrically hospitalized in January 2021 on the [facility]. Patient denies any psychiatric outpatient follow-up. Claims that he has had multiple suicide attempts and self harming behaviors in the past. States that he attempted to overdose on drugs several times. PMH: Past Medical History: Asthma, Seizure Disorder Additional Past Medical History / Comment(s): ALCOHOLIC, withdrawal seizures History of Any Multi-Drug Resistant Organisms: None Reported Past Surgical History: No Surgical Hx Reported Past Anesthesia/Blood Transfusion Reactions: No Reported Reaction Past Psychological History: Anxiety, Depression Smoking Status: Current every day smoker Past Alcohol Use History: Abuse, Daily Past Drug Use History: Cocaine, Heroin, Marijuana, Methamphetamine, Prescription Drug Abuse ALLERGIES: as per EMR CHEMICAL DEPENDENCY HISTORY: as per HPI FAMILY PSYCHIATRIC/SUBSTANCE USE HISTORY: Claims that both of his parents have some form of mental illness his mother has depression and he knows. SOCIAL HISTORY: Patient was born and raised in [place]. Claims that he completed his GED. 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 Currently unemployed. He was just released from [facility] about 1-1/2 months ago. He is currently single, homeless, has 2 kids. MENTAL STATUS EXAM: General Appearance: Patient appears to be stated age, dressed in casual attire, unshaven, fair hygiene and grooming. Behavior: Patient is seated without any agitated behavior, somewhat restless. Speech: Patient's speech is fluent and non-pressured. Mood/Affect: Patient reports their mood is depressed/anxious, affect is congruent and constricted. Suicidality/Homicidality: Patient denies having any homicidal ideation intent or plan. Denies any suicidal ideations intent or plan currently. Perceptions: Patient denies any visual hallucinations. Reports auditory hallucinations. Though content/process: There is evidence of paranoid/bizarre delusional thought content and thought process is linear. Memory and concentration: AOX3, grossly intact for the purposes of this session. Judgment and insight: poor STRENGTHS/WEAKNESSES: strength is that patient is resilient. Weakness is that patient has poor judgment and is impulsive. INTELLECT: Average IMPRESSIONS: Major depressive disorder, recurrent, severe with psychotic features Rule out Schizoaffective disorder, depressive type Rule out substance-induced psychosis Alcohol use disorder, severe Alcohol withdrawal - resolving Tobacco use disorder PLAN: -Patient is admitted under voluntary status to [facility] for stabilization of psychiatric symptoms and safety. Patient has signed adult voluntary form and is placed in patient's chart. -Medications: Start Lexapro 10 mg daily for depression/anxiety. Start Abilify 5 mg daily for psychosis. Start Trazodone 100 mg QHS PRN for insomnia. Continue Valium taper as ordered. -Ativan and Haldol PRN for agitation/aggression -Started thiamine, MVM for etoh use -CIWA protocol with Ativan PRN for ETOH withdrawal -Patient was counselled on substance abuse and desired to cut back on use. He wants to return to [facility] on discharge. -Patient was informed of the risks, benefits and side effects of the medication and patient verbally consented to taking the medications. Patient signed med consent form and was placed in chart. -Internal Medicine consult to perform medical evaluation and physical. -NRT - nicotine patch -SW on board for discharge planning. Encourage patient to participate in groups to work on coping skills. Allergies Allergy/AdvReac Type Severity Reaction Status Date / Time No Known Allergies Allergy Verified 12/28/23 21:07 Vital Signs Temp 98.1 F 12/28/23 23:34 Pulse 96 12/29/23 08:29 Resp 18 12/28/23 23:34 BP 129/80 12/29/23 08:29 Pulse Ox 98 12/28/23 23:34 FiO2 Intake & Output 12/28/23 12/29/23 12/29/23 18:59 06:59 18:59 Weight 84.056 kg Laboratory Last Values Total Bilirubin 1.1 mg/dL (0.2-1.3) 12/29/23 12:30 Conjugated Bilirubin 0.0 mg/dL (0.0-0.3) 12/29/23 12:30 Unconjugated Bilirubin 0.9 mg/dL (0.0-1.1) 12/29/23 12:30 Delta Bilirubin 0.2 mg/dL (0.0-0.2) 12/29/23 12:30 AST 90 U/L (17-59) H 12/29/23 12:30 ALT 77 U/L (4-49) H 12/29/23 12:30 Alkaline Phosphatase 54 U/L (38-126) 12/29/23 12:30 Total Protein 6.9 g/dL (6.3-8.2) 12/29/23 12:30 Albumin 4.4 g/dL (3.5-5.0) 12/29/23 12:30 12/29/23 16:10 12/29/23 19:53 12/29/23 20:06 12/29/23 20:13
[2023-12-29] MEDS: ESCITALOPRAM 10 MG TAB PO SCH (20:52)
[2023-12-29] MEDS: ARIPiprazole 5 MG TAB PO SCH (20:52)
[2023-12-29 23:29] LABS: LDL Cholesterol,Calculated 127.2 mg/dL (0.0-131.0)
[2023-12-30] MEDS: diazePAM 2 MG TAB PO SCH (08:55)
[2023-12-30] MEDS: IBUPROFEN 600 MG TAB PO PRN (12:29)
[2023-12-30] MEDS: traZODone HCL 100 MG TAB PO PRN (20:53)
--- NOTE | 2023-12-30 22:21 | P.PN ---
Progress Note - Text Progress Note Date: 12/30/23 Interval history: Patient was seen resting in bed today and was directable and agreeable to speak with typewriters functional tester. He appears to display occasional attention seeking and medication seeking behaviors. He reports alcohol withdrawal symptoms and concerns about his Valium taper ending today, however objectively he does not appear in alcohol withdrawal. Vitals reviewed and are normal, providing further objective he is not in alcohol withdrawal. He claims auditory hallucinations that are hard to make out and visual hallucinations of spots as part of his alcohol withdrawal, but objectively does not appear to be attending to internal stimuli.At this time patient denies any suicidal or homicidal ideation, intent or plan. Denies any auditory or visual hallucinations. Patient denies any side effects from the medications and has been compliant with meds. Mental status exam: General Appearance: Patient appears to be stated age, dressed in casual attire, unshaven, fair hygiene and grooming. Behavior: Patient is laying down without any agitated behavior. Some attention seeking and medication seeking behaviors noted. Speech: Patient's speech is fluent and non-pressured. Mood/Affect: Patient reports their mood is anxious, affect is mood-incongruent and euthymic. Suicidality/Homicidality: Patient denies having any homicidal ideation intent or plan. Denies any suicidal ideation, intent or plan currently. Perceptions: Claims auditory hallucinations that are hard to make out and visual hallucinations of spots as part of his alcohol withdrawal, but objectively does not appear to be attending to internal stimuli. Though content/process: There is evidence of paranoid/bizarre delusional thought content and thought process is linear. Memory and concentration: AOX3, grossly intact for the purposes of this session. Judgment and insight: poor Assessment/Plan: Continue with current diagnosis. Patient continues to meet criteria for inpatient psychiatric admission for symptom stabilization and safety. Patient will be maintained on current psychotropic medication regimen. Monitor for medication compliance and for any psychotropic medication side effects. Will continue to monitor ongoing response to treatment. Encouraged participation in milieu.
[2023-12-31] MEDS: LORazepam 1 MG TAB PO PRN (08:32)
[2023-12-31] MEDS: haloperidoL 5 MG TAB PO PRN (08:32)
--- NOTE | 2023-12-31 12:22 | P.PN ---
Subjective Progress Note Date: 12/31/23 Principal diagnosis: Adjustment disorder with depressed mood Mood disorder unspecified Alcohol use disorder unspecified Patient Name: Beau Morrow Date of : 89 Patient Status: Inpatient Attending Provider: Darrius Mahmood Date: 01/2024 Subjective data: Patient was briefly seen in the hallway in case is reviewed in the staff meeting: Staff is reported that the patient continues to have difficulty with the withdrawal symptoms and may be drug seeking Has not admitted to any suicidal or homicidal ideations or intent or any plan I denied any side effects from his medications Mental status exam: General Appearance: Patient appears to be stated age, dressed in casual attire, unshaven, fair hygiene and grooming. Behavior: Patient is laying down without any agitated behavior. Some attention seeking and medication seeking behaviors noted. Speech: Patient's speech is fluent and non-pressured. Mood/Affect: Patient reports their mood is anxious, affect is mood-incongruent and euthymic. Suicidality/Homicidality: Patient denies having any homicidal ideation intent or plan. Denies any suicidal ideation, intent or plan currently. Perceptions: Claims auditory hallucinations that are hard to make out and visual hallucinations of spots as part of his alcohol withdrawal, but objectively does not appear to be attending to internal stimuli. Though content/process: There is evidence of paranoid/bizarre delusional thought content and thought process is linear. Memory and concentration: AOX3, grossly intact for the purposes of this session. Judgment and insight: poor Assessment/Plan: Continue with current diagnosis. Patient continues to meet criteria for inpatient psychiatric admission for symptom stabilization and safety. Patient will be maintained on current psychotropic medication regimen. Monitor for medication compliance and for any psychotropic medication side effects. Will continue to monitor ongoing response to treatment. Encouraged participation in [facility]. Nathaniel Lawson M.D. Objective - Vital Signs Vital signs: Vital Signs Temp 98.1 F 12/31/23 06:00 Pulse 67 12/31/23 06:00 Resp 18 12/31/23 06:00 BP 128/86 12/31/23 06:00 Pulse Ox 99 12/31/23 06:00 FiO2 Intake & Output 12/30/23 12/31/23 12/31/23 18:59 06:59 18:59 Weight 84.4 kg
[2024-01-01] MEDS: NICOTINE GUM (POLACRILEX) 2 MG GUM BUCCAL PRN (10:31)
--- NOTE | 2024-01-01 12:23 | P.PN ---
Subjective Progress Note Date: 01/01/24 Principal diagnosis: Adjustment disorder with depressed mood Mood disorder unspecified Alcohol use disorder unspecified Patient Name: Beau Morrow Date of : 89 Patient Status: Inpatient Attending Provider: Darrius Mahmood Date: 01/2024 Active Medications Generic Name Dose Route Start Last Admin Trade Name Freq PRN Reason Stop Dose Admin Acetaminophen 650 mg 12/28/23 21:07 Acetaminophen Tab 325 Mg Tab PO Q4HR PRN Mild Pain (Scale 1 to 3) Al Hydroxide/Mg Hydroxide 30 ml 12/28/23 21:07 Mag Hydrox/Al Hydrox/Simeth 355 Ml Bottle PO Q4HR PRN GI Upset Aripiprazole 5 mg 12/29/23 20:15 01/01/24 07:59 Aripiprazole 5 Mg Tab PO 5 mg DAILY RUSSEL Administration Escitalopram Oxalate 10 mg 12/29/23 20:15 01/01/24 07:59 Escitalopram 10 Mg Tab PO 10 mg DAILY RUSSEL Administration Folic Acid 1 mg 12/29/23 09:00 01/01/24 07:59 Folic Acid 1 Mg Tab PO 1 mg DAILY RUSSEL Administration Haloperidol 5 mg 12/28/23 21:07 12/31/23 08:32 Haloperidol 5 Mg Tab PO 5 mg Q6HR PRN Administration Agitation Haloperidol Lactate 5 mg 12/28/23 21:07 Haloperidol Lactate 5 Mg/Ml 1 Ml Vial IM Q6HR PRN Severe Agitation Ibuprofen 600 mg 12/28/23 21:07 12/30/23 12:29 Ibuprofen 600 Mg Tab PO 600 mg Q6HR PRN Administration Moderate Pain (Scale 4 to 6) Lorazepam 1 mg 12/28/23 21:07 12/31/23 17:54 Lorazepam 1 Mg Tab PO 1 mg Q6HR PRN Administration Anxiety Lorazepam 1 mg 12/28/23 21:07 Lorazepam 2 Mg/Ml Inj IM Q6HR PRN Severe Agitation Lorazepam 1 mg 12/28/23 21:07 12/29/23 03:01 Lorazepam 1 Mg Tab PO 1 mg Q4HR PRN Administration CIWA 8 or 9 Lorazepam 2 mg 12/28/23 21:07 01/01/24 08:00 Lorazepam 1 Mg Tab PO 2 mg Q4HR PRN Administration Ciwa greater than 10 Magnesium Hydroxide 2,400 mg 12/28/23 21:07 Magnesium Hydroxide 2,400 Mg/30 Ml Cup PO DAILY PRN Constipation Multivitamins 1 each 12/29/23 09:00 01/01/24 07:59 Multivitamins, Thera 1 Each Tab PO 1 each DAILY RUSSEL Administration Nicotine 1 patch 12/29/23 09:00 01/01/24 09:31 Nicotine 21mg/24hr Patch TRANSDERM 1 patch DAILY RUSSEL Administration Nicotine Polacrilex 2 mg 01/01/24 09:32 01/01/24 10:31 Nicotine Gum (Polacrilex) 2 Mg Gum BUCCAL 2 mg Q2HR PRN Administration Nicotine Cravings Pantoprazole Sodium 40 mg 12/29/23 07:30 01/01/24 07:59 Pantoprazole 40 Mg Tablet PO 40 mg AC-BID RUSSEL Administration Thiamine HCl 100 mg 12/29/23 09:00 01/01/24 07:59 Thiamine 100 Mg Tab PO 100 mg DAILY RUSSEL Administration Trazodone HCl 100 mg 12/29/23 20:14 12/31/23 22:31 Trazodone Hcl 100 Mg Tab PO 100 mg HS PRN Administration Insomnia Subjective data: Patient was briefly seen in the hallway in case is reviewed in the staff meeting: Staff is reported that the patient continues to have difficulty with the withdrawal symptoms and may be drug seeking Has not admitted to any suicidal or homicidal ideations or intent or any plan I denied any side effects from his medications Patient does not seem to be exhibiting any withdrawal symptoms but has continued transfer the when necessary Ativan Seen today patient mainly assess for his time for his placement into a substance use program patient is being prepared for a possible three quarters program for substance use Mental status exam: General Appearance: Patient appears to be stated age, dressed in casual attire, unshaven, fair hygiene and grooming. Behavior: Patient is laying down without any agitated behavior. Some attention seeking and medication seeking behaviors noted. Speech: Patient's speech is fluent and non-pressured. Mood/Affect: Patient reports their mood is anxious, affect is mood-incongruent and euthymic. Suicidality/Homicidality: Patient denies having any homicidal ideation intent or plan. Denies any suicidal ideation, intent or plan currently. Perceptions: Claims auditory hallucinations that are hard to make out and visual hallucinations of spots as part of his alcohol withdrawal, but objectively does not appear to be attending to internal stimuli. Though content/process: There is evidence of paranoid/bizarre delusional thought content and thought process is linear. Memory and concentration: AOX3, grossly intact for the purposes of this session. Judgment and insight: poor Assessment/Plan: We'll discontinue the lorazepam and we'll start gabapentin 300 mg 3 times a day to start with titrate to response Continue with current diagnosis. Patient continues to meet criteria for inpatient psychiatric admission for symptom stabilization and safety. Patient will be maintained on current psychotropic medication regimen. Monitor for medication compliance and for any psychotropic medication side effects. Will continue to monitor ongoing response to treatment. Encouraged participation in milieu. Nathaniel Lawson M.D. Objective - Vital Signs Vital signs: Vital Signs Temp 98.1 F 12/31/23 06:00 Pulse 88 01/01/24 08:01 Resp 18 12/31/23 06:00 BP 110/69 01/01/24 08:01 Pulse Ox 99 12/31/23 06:00 FiO2
[2024-01-01] MEDS: GABAPENTIN 300 MG CAP PO SCH (15:19)
--- NOTE | 2024-01-02 09:23 | P.PN ---
Subjective Progress Note Date: 01/02/24 Principal diagnosis: Adjustment disorder with depressed mood Mood disorder unspecified Alcohol use disorder unspecified Patient Name: Beau Morrow Date of : 89 Patient Status: Inpatient Attending Provider: Darrius Mahmood Date: 03/2024 Active Medications Generic Name Dose Route Start Last Admin Trade Name Freq PRN Reason Stop Dose Admin Acetaminophen 650 mg 12/28/23 21:07 Acetaminophen Tab 325 Mg Tab PO Q4HR PRN Mild Pain (Scale 1 to 3) Al Hydroxide/Mg Hydroxide 30 ml 12/28/23 21:07 Mag Hydrox/Al Hydrox/Simeth 355 Ml Bottle PO Q4HR PRN GI Upset Aripiprazole 5 mg 12/29/23 20:15 01/01/24 07:59 Aripiprazole 5 Mg Tab PO 5 mg DAILY RUSSEL Administration Escitalopram Oxalate 10 mg 12/29/23 20:15 01/01/24 07:59 Escitalopram 10 Mg Tab PO 10 mg DAILY RUSSEL Administration Folic Acid 1 mg 12/29/23 09:00 01/01/24 07:59 Folic Acid 1 Mg Tab PO 1 mg DAILY RUSSEL Administration Haloperidol 5 mg 12/28/23 21:07 12/31/23 08:32 Haloperidol 5 Mg Tab PO 5 mg Q6HR PRN Administration Agitation Haloperidol Lactate 5 mg 12/28/23 21:07 Haloperidol Lactate 5 Mg/Ml 1 Ml Vial IM Q6HR PRN Severe Agitation Ibuprofen 600 mg 12/28/23 21:07 12/30/23 12:29 Ibuprofen 600 Mg Tab PO 600 mg Q6HR PRN Administration Moderate Pain (Scale 4 to 6) Lorazepam 1 mg 12/28/23 21:07 12/31/23 17:54 Lorazepam 1 Mg Tab PO 1 mg Q6HR PRN Administration Anxiety Lorazepam 1 mg 12/28/23 21:07 Lorazepam 2 Mg/Ml Inj IM Q6HR PRN Severe Agitation Lorazepam 1 mg 12/28/23 21:07 12/29/23 03:01 Lorazepam 1 Mg Tab PO 1 mg Q4HR PRN Administration CIWA 8 or 9 Lorazepam 2 mg 12/28/23 21:07 01/01/24 08:00 Lorazepam 1 Mg Tab PO 2 mg Q4HR PRN Administration Ciwa greater than 10 Magnesium Hydroxide 2,400 mg 12/28/23 21:07 Magnesium Hydroxide 2,400 Mg/30 Ml Cup PO DAILY PRN Constipation Multivitamins 1 each 12/29/23 09:00 01/01/24 07:59 Multivitamins, Thera 1 Each Tab PO 1 each DAILY RUSSEL Administration Nicotine 1 patch 12/29/23 09:00 01/01/24 09:31 Nicotine 21mg/24hr Patch TRANSDERM 1 patch DAILY RUSSEL Administration Nicotine Polacrilex 2 mg 01/01/24 09:32 01/01/24 10:31 Nicotine Gum (Polacrilex) 2 Mg Gum BUCCAL 2 mg Q2HR PRN Administration Nicotine Cravings Pantoprazole Sodium 40 mg 12/29/23 07:30 01/01/24 07:59 Pantoprazole 40 Mg Tablet PO 40 mg AC-BID RUSSEL Administration Thiamine HCl 100 mg 12/29/23 09:00 01/01/24 07:59 Thiamine 100 Mg Tab PO 100 mg DAILY RUSSEL Administration Trazodone HCl 100 mg 12/29/23 20:14 12/31/23 22:31 Trazodone Hcl 100 Mg Tab PO 100 mg HS PRN Administration Insomnia Subjective data: Patient reports this copy writer and asked as to why his lorazepam was discontinued patient then asked as to why he was not slowly tapered Patient however denied any withdrawal symptoms He gives some arguments with seem to accept that the dosage where already lowered quite a bit and that it was time for him to be switched on to something that would be less addicting Patient was reminded that he is also on gabapentin which also has similar effect on the withdrawals as well as protection against seizures Patient initially seemed to accept and then switched on his discussion 2 when he was going to be able to go to his treatment program Overall remains redirectable and shows no signs of any agitation or aggression at this time and remains cooperative Mental status exam: General Appearance: Patient appears to be stated age, dressed in casual attire, unshaven, fair hygiene and grooming. Behavior: Patient is laying down without any agitated behavior. Some attention seeking and medication seeking behaviors noted. Speech: Patient's speech is fluent and non-pressured. Mood/Affect: Patient reports their mood is anxious, affect is mood-incongruent and euthymic. Suicidality/Homicidality: Patient denies having any homicidal ideation intent or plan. Denies any suicidal ideation, intent or plan currently. Perceptions: Claims auditory hallucinations that are hard to make out and visual hallucinations of spots as part of his alcohol withdrawal, but objectively does not appear to be attending to internal stimuli. Though content/process: There is evidence of paranoid/bizarre delusional thought content and thought process is linear. Memory and concentration: AOX3, grossly intact for the purposes of this session. Judgment and insight: poor Assessment/Plan: We'll discontinue the lorazepam and we'll start gabapentin 300 mg 3 times a day to start with titrate to response Continue with current diagnosis. Patient continues to meet criteria for inpatient psychiatric admission for symptom stabilization and safety. Patient will be maintained on current psychotropic medication regimen. Monitor for medication compliance and for any psychotropic medication side effects. Will continue to monitor ongoing response to treatment. Encouraged participation in [facility]. Nathaniel Lawson M.D. Objective - Vital Signs Vital signs: Vital Signs Temp 97.8 F 01/02/24 07:05 Pulse 65 01/02/24 07:05 Resp 14 01/02/24 07:05 BP 122/66 01/02/24 07:05 Pulse Ox 97 01/02/24 07:05 FiO2
[2024-01-02] MEDS: BENZOCAINE/MENTHOL LOZENG 1 EACH LOZENGE MUCOUS MEM PRN (10:54)
--- NOTE | 2024-01-02 15:02 | P.DS ---
Providers Date of admission: 12/28/23 22:05 Attending physician: Darrius Mahmood MD Consults: 12/28/23 21:07 Consult Physician Routine Consulting Provider: Shyam Person Consult Reason/Comments: H & P W/MEDICATION/MEDICAL MANAGEMENT Do you want consulting provider notified?: Yes Primary care physician: Tomer Morales - Discharge Diagnosis(es) (1) Alcohol use disorder Current Visit: No Status: Acute Priority: Medium (2) Depression Current Visit: No Status: Acute Priority: Medium (3) Depressive disorder Current Visit: No Status: Chronic Priority: Low Plan - Discharge Summary Discharge Rx Participant: No New Discharge Prescriptions: No Action Metoprolol Tartrate [Lopressor] 12.5 mg PO TID tab Pantoprazole [Protonix] 40 mg PO AC-BID tab diazePAM [Valium] 3 mg PO Q8H #2 tab Thiamine [Vitamin B-1] 100 mg PO DAILY tab Nicotine 21Mg/24Hr Patch [Habitrol] 1 patch TRANSDERM DAILY patch diazePAM [Valium] 2 mg PO Q8HR 1 Days #3 tab Discharge Medication List Metoprolol Tartrate [Lopressor] 12.5 mg PO TID tab 12/28/23 [Rx] Nicotine 21Mg/24Hr Patch [Habitrol] 1 patch TRANSDERM DAILY patch 12/28/23 [Rx] Pantoprazole [Protonix] 40 mg PO AC-BID tab 12/28/23 [Rx] Thiamine [Vitamin B-1] 100 mg PO DAILY tab 12/28/23 [Rx] diazePAM [Valium] 2 mg PO Q8HR 1 Days #3 tab 12/28/23 [Rx] diazePAM [Valium] 3 mg PO Q8H #2 tab 12/28/23 [Rx] Follow up Appointment(s)/Referral(s): [facility] [Outside] - 01/03/24 10:30 am (Intake) Activity/Diet/Wound Care/Special Instructions: Avoid the use of street drugs and alcohol. Take all medications as prescribed. When you are in need of refills on your medications, please contact your medical provider and/or outpatient psychiatrist/provider to have this done. Please go to your scheduled outpatient appointment for aftercare treatment. If symptoms return or become worse, call the crisis line at and/or go to the nearest emergency room for evaluation. National Suicide Hotline 987.
[2024-01-03 07:19] VITALS: BP 117/66; PULSE 76; RESP 16; TEMP 97.2
== END 2024-01-03 09:20 | disposition other institution (70) | DRG 773 ==
LOC: 3MHU 22:05
PROVIDERS: ADMIT Psychiatry & Neurology Psychiatry; ATTEND Psychiatry & Neurology Psychiatry
DX: F10.239 Alcohol dependence with withdrawal, unspecified (principal); R45.851 Suicidal ideations; F33.3 Major depressive disorder, recurrent, severe with psychotic symptoms; K70.10 Alcoholic hepatitis without ascites; K29.20 Alcoholic gastritis without bleeding; J45.909 Unspecified asthma, uncomplicated; F14.11 Cocaine abuse, in remission; F11.11 Opioid abuse, in remission; F12.11 Cannabis abuse, in remission; F15.11 Other stimulant abuse, in remission; Y90.8 Blood alcohol level of 240 mg/100 ml or more; Z28.310 Unvaccinated for COVID-19; F41.9 Anxiety disorder, unspecified; G47.00 Insomnia, unspecified; K59.00 Constipation, unspecified; F43.21 Adjustment disorder with depressed mood; F17.210 Nicotine dependence, cigarettes, uncomplicated; Z71.6 Tobacco abuse counseling; Z79.899 Other long term (current) drug therapy; Z56.0 Unemployment, unspecified; Z59.00 Homelessness unspecified; Z76.5 Malingerer [conscious simulation]; Z81.8 Family history of other mental and behavioral disorders
CPT/HCPCS: 80061; 80076; 83036

== ENCOUNTER 2024-01-04 00:48 | Emergency (ER) | payer OTHER ==
--- NOTE | 2024-01-04 01:06 | ED ---
Chest Pain HPI - General Chief Complaint: Chest Pain Stated Complaint: Chest pain Source: patient, EMS Mode of arrival: EMS Limitations: no limitations - History of Present Illness Initial Comments: Is a 33-year-old male who presents to the emergency department today via ambulance from [facility]. Patient reports that he is at [facility] for alcohol withdrawal he states that he was having some discomfort in his chest and shoulders his neck and kind of everywhere, he discussed this with caregivers [facility] and they advised him to come to the ER for evaluation. Patient states that it was a very severe pain or very concerning he just wanted some Tylenol and he does not feel like he needs to be at the hospital. - Related Data Previous Rx's Medication Instructions Recorded Pantoprazole [Protonix] 40 mg PO AC-BID tab 12/28/23 Thiamine [Vitamin B-1] 100 mg PO DAILY tab 12/28/23 ARIPiprazole [Abilify] 5 mg PO DAILY 30 Days #30 tab 01/02/24 Escitalopram [Lexapro] 10 mg PO DAILY 30 Days #30 tab 01/02/24 Gabapentin [Neurontin] 300 mg PO TID 30 Days #90 cap 01/02/24 Metoprolol Tartrate [Lopressor] 12.5 mg PO TID 30 Days #90 tab 01/02/24 Allergies Allergy/AdvReac Type Severity Reaction Status Date / Time No Known Allergies Allergy Verified 01/04/24 00:54 Review of Systems ROS Statement: Those systems with pertinent positive or pertinent negative responses have been documented in the HPI. ROS Other: All systems not noted in ROS Statement are negative. EKG Findings - EKG Comments: EKG Findings:: EKG interpreted by me, EKG obtained due to complaint of chest pain, EKG obtained at 1:01 AM, rate of 66 rhythm is sinus normal axis, normal intervals, ME 147 QRS 92 QTc [address] elevations or depressions no evidence of ischemia infarction or arrhythmia. Past Medical History Past Medical History: Asthma, Seizure Disorder Additional Past Medical History / Comment(s): ALCOHOLIC, withdrawal seizures History of Any Multi-Drug Resistant Organisms: None Reported Past Surgical History: No Surgical Hx Reported Past Anesthesia/Blood Transfusion Reactions: No Reported Reaction Past Psychological History: Anxiety, Depression Smoking Status: Current every day smoker Past Alcohol Use History: Abuse, Daily Past Drug Use History: None Reported - Past Family History family Additional Family Medical History / Comment(s): no family hx of coronary artery disease General Exam Limitations: no limitations General appearance: alert, in no apparent distress Head exam: Present: atraumatic, normocephalic Eye exam: Present: normal appearance, PERRL ENT exam: Present: normal exam Respiratory exam: Present: normal lung sounds bilaterally. Absent: respiratory distress Cardiovascular Exam: Present: regular rate, normal rhythm GI/Abdominal exam: Present: soft. Absent: distended Rectal exam: Present: deferred Extremities exam: Present: normal inspection Neurological exam: Present: alert, oriented X3 Psychiatric exam: Present: normal affect Course Vital Signs 01/04/24 01/04/24 00:51 03:15 Temperature 98.4 F 98.3 F Pulse Rate 79 66 Respiratory 18 18 Rate Blood Pressure 139/89 135/87 O2 Sat by Pulse 98 98 Oximetry Chest Pain MDM - MDM Was pt. sent in by a medical professional or institution (, PA, BAKERY DEMONSTRATOR, urgent care, hospital, or fdc...) When possible be specific @ -No Did you speak to anyone other than the patient for history (EMS, parent, family, police, friend...)? What history was obtained from this source @ -EMS Did you review nursing and triage notes (agree or disagree)? Why? @ -I reviewed and agree with nursing and triage notes Were old charts reviewed (outside hosp., previous admission, EMS record, old EKG, old radiological studies, urgent care reports/EKG's, fdc records)? Report findings @ -No old charts were reviewed Differential Diagnosis (chest pain, altered mental status, abdominal pain women, abdominal pain men, vaginal bleeding, weakness, fever, dyspnea, syncope, headache, dizziness, GI bleed, back pain, seizure, CVA, palpatations, mental health)? @ -Differential Chest Pain: Stable Angina, Unstable Angina, STEMI, NSTEMI Aortic Dissection, Pneumothorax, Musculoskeletal, Esophageal Spasm GERD, Cholecystitis, Pancreatitis, Zoster, this is not meant to be an all-inclusive list. EKG interpreted by me (3pts min.). @ -As above X-rays interpreted by me (1pt min.). @ -No focal consolidations no pneumothorax no widened mediastinum CT interpreted by me (1pt min.). @ -None done U/S interpreted by me (1pt. min.). @ -None done What testing was considered but not performed or refused? (CT, X-rays, U/S, labs)? Why? @ -None What meds were considered but not given or refused? Why? @ -Patient received aspirin prior to arrival Did you discuss the management of the patient with other professionals (professionals i.e. , PA, BAKERY DEMONSTRATOR, lab, RT, psych nurse, clinical social worker, [place], teacher, sales and service officer, family independence case manager)? Give summary @ -No Was smoking cessation discussed for >3mins.? @ -No Was critical care preformed (if so, how long)? @ -No Were there social determinants of health that impacted care today? How? (Homelessness, low income, unemployed, alcoholism, drug addiction, transportation, low edu. Level, literacy, decrease access to med. care, snf, rehab)? @ -Alcoholism Was there de-escalation of care discussed even if they declined (Discuss DNR or withdrawal of care, Hospice)? DNR status @ -No What co-morbidities impacted this encounter? (DM, HTN, Smoking, COPD, CAD, Cancer, CVA, ARF, Chemo, Hep., AIDS, mental health diagnosis, sleep apnea, morbid obesity)? @ -None Was patient admitted / discharged? Hospital course, mention meds given and route, prescriptions, significant lab abnormalities, going to OR and other pertinent info. @ -Discharged The patient was seen and evaluated, patient reports mild chest pressure throughout his entire chest and shoulders. Not concerning to the patient however he was transferred here by staff at [facility]. EKG was nonischemic chest x-ray was unremarkable and troponin was negative. Patient remained asymptomatic ambulatory around the ER comfortable plan for discharge back to [facility]. Undiagnosed new problem with uncertain prognosis? @ -No Drug Therapy requiring intensive monitoring for toxicity (Heparin, Nitro, Insulin, Cardizem)? @ -No Were any procedures done? @ -No Diagnosis/symptom? @ -Atypical chest pain Acute, or Chronic, or Acute on Chronic? @ -Default Uncomplicated (without systemic symptoms) or Complicated (systemic symptoms)? @ -Default Side effects of treatment? @ -No Exacerbation, Progression, or Severe Exacerbation? @ -No Poses a threat to life or bodily function? How? (Chest pain, USA, OR, pneumonia, PE, COPD, DKA, ARF, appy, cholecystitis, CVA, Diverticulitis, Homicidal, Suicidal, threat to staff... and all critical care pts) @ -Unlikely Disposition Clinical Impression: Atypical chest pain Disposition: HOME SELF-CARE Condition: Stable Is patient prescribed a controlled substance at d/c from ED?: No Referrals: Marine Alfonso [Director Medical Affairs] - 1-2 days
[2024-01-04 01:25] VITALS: RESP 18
[2024-01-04 01:37] LABS: Basophils # (A) 0.1 k/uL (0-0.2); Basophils % (A) 1 %; Eosinophils # (A) 0.4 k/uL (0-0.7); Eosinophils % (A) 4 %; HGB 15.4 gm/dL (13.0-17.5); Lymphocytes # (A) 2.9 k/uL (1.0-4.8); Lymphocytes % (A) 31 %; MCH 34.1 pg (25.0-35.0); MCHC 34.3 g/dL (31.0-37.0); MCV 99.4 fL (80.0-100.0); Mean Platelet Volume 7.5; Monocytes # (A) 0.7 k/uL (0-1.0); Monocytes % (A) 8 %; Neutrophils % (A) 53 %; Platelet Count 326 k/uL (150-450); RBC 4.53 m/uL (4.30-5.90); WBC 9.4 k/uL (3.8-10.6)
[2024-01-04 01:44] LABS: Partial Thromboplastin Time 23.6 sec (22.0-30.0); Prothrombin Time 10.6 sec (10.0-12.5)
[2024-01-04 01:51] LABS: Chloride 106 mmol/L (98-107)
[2024-01-04 01:52] LABS: ALT 142 U/L (4-49); AST 71 U/L (17-59); African American GFR (CKD) >90 (>60 ml/min/1.73 sqM); Alkaline Phosphatase 52 U/L (38-126); Anion Gap 6 mmol/L; Blood Urea Nitrogen 17 mg/dL (9-20); Calcium 9.1 mg/dL (8.4-10.2); Carbon Dioxide 26 mmol/L (22-30); Glucose 94 mg/dL (74-99); Lipase 208 U/L (23-300); Magnesium 2.1 mg/dL (1.6-2.3); Non-African American GFR(CKD) >90 (>60 ml/min/1.73 sqM); Sodium 138 mmol/L (137-145); Total Bilirubin 0.4 mg/dL (0.2-1.3); Total Protein 6.5 g/dL (6.3-8.2)
[2024-01-04 02:01] LABS: NT-Pro-B-Type Natriuretic Pept <20 pg/mL
[2024-01-04 02:30] LABS: Amphetamine Screen,Urine Not Detected (NotDetected); Barbiturate Screen,Urine Not Detected (NotDetected); Benzodiazepines Screen,Urine Detected (NotDetected); Cocaine Screen,Urine Not Detected (NotDetected); Methadone Screen, Urine Not Detected (NotDetected); Opiate Screen,Urine Not Detected (NotDetected); Oxycodone Screen, Urine Not Detected (NotDetected); Phencyclidine Screen,Urine Not Detected (NotDetected); Tricyclic Antidepressant,Urine Not Detected (NotDetected); Urn Cannabinoid Scrn Not Detected (NotDetected)
--- NOTE | 2024-01-04 02:36 | XR ---
EXAM: XR Chest, 2 Views CLINICAL HISTORY: ITS.REASON XR Reason: Chest Pain TECHNIQUE: Frontal and lateral views of the chest. COMPARISON: No relevant prior studies available. FINDINGS: Lungs: No consolidation or mass. Pleural space: No effusion. Heart: No cardiomegaly. Bones/joints: No acute findings. IMPRESSION: No acute cardiopulmonary process.
[2024-01-04 03:30] VITALS: BP 135/87; PULSE 66; TEMP 98.3
== END 2024-01-04 03:05 | disposition home or self-care (01) ==
LOC: EC 00:48
DX: R07.89 Other chest pain (principal); J45.909 Unspecified asthma, uncomplicated; F17.200 Nicotine dependence, unspecified, uncomplicated; Z86.59 Personal history of other mental and behavioral disorders
CPT/HCPCS: 36415; 71046; 80053; 80306; 83690; 83735; 83880; 84484; 85025; 85610; 85730; 93005; 99285

== ENCOUNTER 2024-09-08 03:44 | Inpatient (IN) | payer OTHER ==
[2024-09-08] MEDS: SODIUM CHLORIDE 0.9% 1,000 ML IV ONE (04:35)
[2024-09-08] MEDS: LORazepam 2 MG/ML INJ IV PRN ×2 (04:39→10:10)
--- NOTE | 2024-09-08 04:42 | ED ---
General Adult HPI - General Chief complaint: Recheck/Abnormal Lab/Rx Stated complaint: ETOH Time Seen by Provider: 09/08/24 04:17 Source: patient Mode of arrival: ambulatory - History of Present Illness Initial comments: Patient is a 34-year-old man who presents with complaint that he believes he is starting to have withdrawal from alcohol. Patient states that he drinks usually 1/5 of alcohol per day. Last drink was yesterday. The patient is feeling very shaky and anxious. He states he has had previous DTs with seizures when he stopped drinking before. -: hour(s) Severity scale (1-10): 0 Consistency: constant Improves with: none Worsens with: none Associated Symptoms: nausea/vomiting Treatments Prior to Arrival: none - Related Data Previous Rx's Medication Instructions Recorded ARIPiprazole [Abilify] 5 mg PO DAILY #90 tab 09/13/24 Sertraline [Zoloft] 50 mg PO DAILY #90 tab 09/13/24 Thiamine [Vitamin B-1] 100 mg PO DAILY #90 tab 09/13/24 Allergies Allergy/AdvReac Type Severity Reaction Status Date / Time No Known Allergies Allergy Verified 09/16/24 16:40 Review of Systems ROS Statement: Those systems with pertinent positive or pertinent negative responses have been documented in the HPI. ROS Other: All systems not noted in ROS Statement are negative. Constitutional: Denies: fever, chills Eyes: Denies: vision change Respiratory: Denies: cough, dyspnea Cardiovascular: Reports: palpitations. Denies: chest pain, edema Gastrointestinal: Reports: nausea, vomiting. Denies: abdominal pain, diarrhea, hematemesis Genitourinary: Denies: dysuria, hematuria Musculoskeletal: Denies: back pain Skin: Denies: rash Neurological: Denies: headache, weakness, numbness Psychiatric: Reports: anxiety Past Medical History Past Medical History: Asthma, Seizure Disorder Additional Past Medical History / Comment(s): ALCOHOLIC, withdrawal seizures History of Any Multi-Drug Resistant Organisms: None Reported Past Surgical History: No Surgical Hx Reported Past Anesthesia/Blood Transfusion Reactions: No Reported Reaction Past Psychological History: Anxiety, Depression Smoking Status: Current every day smoker Past Alcohol Use History: Abuse, Daily Past Drug Use History: None Reported - Past Family History Mother History Unknown: Yes family Additional Family Medical History / Comment(s): no family hx of coronary artery disease General Exam General appearance: alert, in no apparent distress, anxious Head exam: Present: atraumatic, normocephalic Eye exam: Present: normal appearance. Absent: scleral icterus, conjunctival injection Neck exam: Present: normal inspection, full ROM Respiratory exam: Present: normal lung sounds bilaterally. Absent: respiratory distress, wheezes, rales, rhonchi, stridor, accessory muscle use Cardiovascular Exam: Present: regular rate, normal rhythm, normal heart sounds. Absent: systolic murmur, diastolic murmur, rubs, gallop GI/Abdominal exam: Present: soft. Absent: distended, tenderness, guarding, rebound, rigid, mass Extremities exam: Present: normal inspection, normal capillary refill. Absent: pedal edema, calf tenderness Back exam: Present: normal inspection. Absent: CVA tenderness (R), CVA tenderness (L) Neurological exam: Present: alert Skin exam: Present: warm, dry, intact, normal color. Absent: rash Course Vital Signs 09/08/24 09/08/24 09/08/24 03:51 04:43 05:00 Temperature 97.9 F Pulse Rate 92 Pulse Rate [ Bilateral] Respiratory 20 19 17 Rate Blood Pressure 159/106 153/107 153/107 Blood Pressure [Left Arm Supine] O2 Sat by Pulse 97 96 Oximetry 09/08/24 09/08/24 09/08/24 05:44 06:00 08:24 Temperature 98.2 F Pulse Rate 92 Pulse Rate [ 87 Bilateral] Respiratory 20 19 15 Rate Blood Pressure 147/104 147/104 Blood Pressure 129/87 [Left Arm Supine] O2 Sat by Pulse 99 97 98 Oximetry Medical Decision Making - Medical Decision Making Was pt. sent in by a medical professional or institution (, PA, COURT SUPERVISOR, urgent care, hospital, or assisted...) When possible be specific @ -[No] Did you speak to anyone other than the patient for history (EMS, parent, family, police, friend...)? What history was obtained from this source @ -[No] Did you review nursing and triage notes (agree or disagree)? Why? @ -[I reviewed and agree with nursing and triage notes] Were old charts reviewed (outside hosp., previous admission, EMS record, old EKG, old radiological studies, urgent care reports/EKG's, assisted records)? Report findings @ -[No old charts were reviewed] Differential Diagnosis (chest pain, altered mental status, abdominal pain women, abdominal pain men, vaginal bleeding, weakness, fever, dyspnea, syncope, headache, dizziness, GI bleed, back pain, seizure, CVA, palpatations, mental h ealth, musculoskeletal)? @ -[Differential Mental Health Depression, anxiety, bipolar, psychosis, schizophrenia, borderline personality, situational depression, adjustment disorder, behavioral disorder, brain tumor, malingering, substance abuse, encephalopathy, medication reaction, dementia, hypothyroidism, degenerative neurologic disorder, lupus.... This is not meant to be all-inclusive list EKG interpreted by me (3pts min.). @ -[As above] X-rays interpreted by me (1pt min.). @ -[None done] CT interpreted by me (1pt min.). @ -[None done] U/S interpreted by me (1pt. min.). @ -[None done] What testing was considered but not performed or refused? (CT, X-rays, U/S, labs)? Why? @ -[None] What meds were considered but not given or refused? Why? @ -[None] Did you discuss the management of the patient with other professionals (professionals i.e. , PA, COURT SUPERVISOR, lab, RT, psych nurse, social services, truckman, teacher, chief media officer, rn field case manager)? Give summary @ -[No] Was smoking cessation discussed for >3mins.? @ -[No] Was critical care preformed (if so, how long)? @ -[No] Were there social determinants of health that impacted care today? How? (Homelessness, low income, unemployed, alcoholism, drug addiction, transportation, low edu. Level, literacy, decrease access to med. care, fci, rehab)? @ -[No] Was there de-escalation of care discussed even if they declined (Discuss DNR or withdrawal of care, Hospice)? DNR status @ -[No] What co-morbidities impacted this encounter? (DM, HTN, Smoking, COPD, CAD, Cancer, CVA, ARF, Chemo, Hep., AIDS, mental health diagnosis, sleep apnea, morbid obesity)? @ -[None] Was patient admitted / discharged? Hospital course, mention meds given and route, prescriptions, significant lab abnormalities, going to OR and other pertinent info. @ -[Patient is 34-year-old man who presents with complaint that he feels he is developing withdrawal and has had severe withdrawal before. The patient on exam does appear tremulous and is hypertensive and does appear to be having significant withdrawal symptoms and signs. Will be admitted admitted for benzodiazepine therapy. Undiagnosed new problem with uncertain prognosis? @ -[No] Drug Therapy requiring intensive monitoring for toxicity (Heparin, Nitro, Insulin, Cardizem)? @ -[No] Were any procedures done? @ -[No] Diagnosis/symptom? @ -[Acute alcohol withdrawal Mild hyponatremia Acute, or Chronic, or Acute on Chronic? @ -[Acute Uncomplicated (without systemic symptoms) or Complicated (systemic symptoms)? @ -[Uncomplicated Side effects of treatment? @ -[No] Exacerbation, Progression, or Severe Exacerbation? @ -[No] Poses a threat to life or bodily function? How? (Chest pain, USA, MS, pneumonia, PE, COPD, DKA, ARF, appy, cholecystitis, CVA, Diverticulitis, Homicidal, Suicidal, threat to staff... and all critical care pts) @ -[Yes there is significant morbidity and mortality associated with delirium tremens. - Lab Data Result diagrams: 09/11/24 03:22 09/11/24 03:22 Lab Results 09/08/24 09/08/24 09/09/24 Range/Units 04:36 05:20 02:35 WBC 9.8 5.7 (3.8-10.6) k/uL RBC 5.78 5.32 (4.30-5.90) m/uL Hgb 17.8 H 16.1 (13.0-17.5) gm/dL Hct 51.9 50.1 (39.0-53.0) % MCV 89.9 94.2 (80.0-100.0) fL MCH 30.7 30.3 (25.0-35.0) pg MCHC 34.2 32.2 (31.0-37.0) g/dL RDW 13.5 13.5 (11.5-15.5) % Plt Count 273 253 (150-450) k/uL MPV 6.9 6.6 Neutrophils % 74 % Lymphocytes % 18 % Monocytes % 4 % Eosinophils % 3 % Basophils % 0 % Neutrophils # 7.2 (1.3-7.7) k/uL Lymphocytes # 1.7 (1.0-4.8) k/uL Monocytes # 0.4 (0-1.0) k/uL Eosinophils # 0.3 (0-0.7) k/uL Basophils # 0.0 (0-0.2) k/uL Sodium 131 L (137-145) mmol/L Potassium 4.2 (3.5-5.1) mmol/L Chloride 101 (98-107) mmol/L Carbon Dioxide 26 (22-30) mmol/L Anion Gap 4 mmol/L BUN 5 L (9-20) mg/dL Creatinine 0.62 L (0.66-1.25) mg/dL Est GFR (CKD-EPI)AfAm >90 (>60 ml/min/1.73 sqM) Est GFR (CKD-EPI)NonAf >90 (>60 ml/min/1.73 sqM) Glucose 100 H (74-99) mg/dL Calcium 8.8 (8.4-10.2) mg/dL Magnesium 1.7 (1.6-2.3) mg/dL Total Bilirubin 0.8 (0.2-1.3) mg/dL AST 32 (17-59) U/L ALT 21 (4-49) U/L Alkaline Phosphatase 67 (38-126) U/L Total Protein 7.2 (6.3-8.2) g/dL Albumin 4.2 (3.5-5.0) g/dL Serum Alcohol <10 mg/dL 09/09/24 Range/Units 02:35 WBC (3.8-10.6) k/uL RBC (4.30-5.90) m/uL Hgb (13.0-17.5) gm/dL Hct (39.0-53.0) % MCV (80.0-100.0) fL MCH (25.0-35.0) pg MCHC (31.0-37.0) g/dL RDW (11.5-15.5) % Plt Count (150-450) k/uL MPV Neutrophils % % Lymphocytes % % Monocytes % % Eosinophils % % Basophils % % Neutrophils # (1.3-7.7) k/uL Lymphocytes # (1.0-4.8) k/uL Monocytes # (0-1.0) k/uL Eosinophils # (0-0.7) k/uL Basophils # (0-0.2) k/uL Sodium 137 (137-145) mmol/L Potassium 4.5 (3.5-5.1) mmol/L Chloride 107 (98-107) mmol/L Carbon Dioxide 27 (22-30) mmol/L Anion Gap 3 mmol/L BUN 11 (9-20) mg/dL Creatinine 0.69 (0.66-1.25) mg/dL Est GFR (CKD-EPI)AfAm >90 (>60 ml/min/1.73 sqM) Est GFR (CKD-EPI)NonAf >90 (>60 ml/min/1.73 sqM) Glucose 103 H (74-99) mg/dL Calcium 8.8 (8.4-10.2) mg/dL Magnesium 2.2 (1.6-2.3) mg/dL Total Bilirubin 0.8 (0.2-1.3) mg/dL AST 24 (17-59) U/L ALT 19 (4-49) U/L Alkaline Phosphatase 65 (38-126) U/L Total Protein 6.7 (6.3-8.2) g/dL Albumin 3.9 (3.5-5.0) g/dL Serum Alcohol mg/dL Disposition Clinical Impression: Alcohol withdrawal, Hyponatremia Disposition: ADMITTED IP TO THIS HOSP Condition: Fair Is patient prescribed a controlled substance at d/c from ED?: No
[2024-09-08 04:46] LABS: Basophils % (A) 0 %; Eosinophils # (A) 0.3 k/uL (0-0.7); Eosinophils % (A) 3 %; HCT 51.9 % (39.0-53.0); HGB 17.8 gm/dL (13.0-17.5); Lymphocytes # (A) 1.7 k/uL (1.0-4.8); Lymphocytes % (A) 18 %; MCH 30.7 pg (25.0-35.0); MCHC 34.2 g/dL (31.0-37.0); MCV 89.9 fL (80.0-100.0); Mean Platelet Volume 6.9; Monocytes # (A) 0.4 k/uL (0-1.0); Monocytes % (A) 4 %; Neutrophils # (A) 7.2 k/uL (1.3-7.7); Neutrophils % (A) 74 %; Platelet Count 273 k/uL (150-450); RBC 5.78 m/uL (4.30-5.90); RDW 13.5 % (11.5-15.5); WBC 9.8 k/uL (3.8-10.6)
[2024-09-08] MEDS: chlordiazePOXIDE 25 MG CAP PO PRN (05:07)
[2024-09-08 05:45] LABS: ALT 21 U/L (4-49); African American GFR (CKD) >90 (>60 ml/min/1.73 sqM); Albumin 4.2 g/dL (3.5-5.0); Alcohol <10 mg/dL; Anion Gap 4 mmol/L; Blood Urea Nitrogen 5 mg/dL (9-20); Calcium 8.8 mg/dL (8.4-10.2); Carbon Dioxide 26 mmol/L (22-30); Chloride 101 mmol/L (98-107); Glucose 100 mg/dL (74-99); Non-African American GFR(CKD) >90 (>60 ml/min/1.73 sqM); Sodium 131 mmol/L (137-145); Total Bilirubin 0.8 mg/dL (0.2-1.3); Total Protein 7.2 g/dL (6.3-8.2)
[2024-09-08 06:08] LABS: AST 32 U/L (17-59); Alkaline Phosphatase 67 U/L (38-126); Magnesium 1.7 mg/dL (1.6-2.3); Potassium 4.2 mmol/L (3.5-5.1)
[2024-09-08] MEDS ORDERED: MAG HYDROX/AL HYDROX/SIMETH 30 ML CUP PO PRN (06:29)
[2024-09-08] MEDS ORDERED: ONDANSETRON 4 MG/2 ML VIAL IVP PRN (06:29)
[2024-09-08] MEDS ORDERED: NALOXONE 0.4 MG/ML 1 ML VIAL IV PRN (06:29)
[2024-09-08] MEDS: SODIUM CHLORIDE 0.9% 1,000 ML IV SCH (06:37)
[2024-09-08] MEDS: FOLIC ACID 1 MG TAB PO SCH (09:56)
[2024-09-08] MEDS: ENOXAPARIN 40 MG/0.4 ML SYRINGE SQ SCH (09:56)
[2024-09-08] MEDS: MULTIVITAMINS, THERA 1 EACH TAB PO SCH (09:56)
[2024-09-08] MEDS: MAGNESIUM SULFATE-D5W PMX 1 GM in DEXTROSE/WATER 1 100ML.BAG IVPB SCH (09:57)
[2024-09-08] MEDS: NICOTINE 21MG/24HR PATCH TRANSDERM SCH (09:57)
--- NOTE | 2024-09-08 10:43 | P.HPIM ---
History of Present Illness H&P Date: 09/08/24 History of Presenting Illness: Patient is a 34-year-old male with a past medical history of daily alcohol abuse, alcohol withdrawal seizures, anxiety with depression, and nicotine dependence. He presented to the emergency department with a chief complaint of alcohol withdraw. Patient reports drinking approximately 1/5 of liquor daily for the past 12 years and reports last drink was yesterday. He reports he is trying to stop drinking, but states he knows he is not able to do so independently as he is already experiencing severe anxiety, tremors, and nausea. Reports history of previous DTs with withdrawal seizures but denies previous ICU hospitalization. Patient denies having any other complaints at this time including headache, lightheadedness, dizziness, changes in vision or hearing, chest pain, palpitations, shortness of breath, cough or congestion, vomiting or abdominal pain, or experiencing any numbness/tingling/weakness in his extremi ties. Upon arrival to our facility patient underwent evaluation in the emergency department. Vital signs upon arrival show blood pressure 159/106, heart rate 92, respiratory rate 20, temp 97.9 F, and SpO2 of 97% on room air. Labs completed and reviewed. CBC showing elevated hemoglobin of 17.8 otherwise normal findings. BMP showing hyponatremia with sodium of 131 and blood glucose of 100. Magnesium was slightly low at 1.7. Liver profile normal findings. Serum alcohol was negative at less than 10. Patient admitted under services for medical assisted detox. Review of systems: Pertinent positives and negatives as discussed in HPI, a complete review of systems was performed and all other systems are negative. Physical exam: Vital signs reviewed and stable. General: Nontoxic, no distress and appears stated age. Derm: Skin warm and dry, normal coloration for ethnicity. Head: Atraumatic, normocephalic and symmetric. Eyes: EOM's intact, no lid lag, and anicteric sclera Mouth: no lip lesions, mucus membranes moist Cardiovascular: regular rate and rhythm with normal S1S2, no murmur, positive posterior tibial pulses bilaterally, and cap refill < 2 seconds. Lungs: Respirations even, regular, and unlabored on room air. Lungs CTA bilaterally, no rhonchi, no rales, no wheezing, and no accessory muscle usage. Abdominal: soft, nontender to palpation, no guarding, no appreciable organomegal y Ext: ROM intact. No gross muscle atrophy, no edema, no contractures. Mild tremors noted. Neuro: Speech clear, face symmetrical and CN II-XII grossly intact with no noted focal neuro deficits Psych: Alert and oriented to person, place, time, and situation. Appropriate and pleasant affect. Assessment and Plan of Care: Alcohol withdraw in active alcoholic History of alcohol withdrawal seizures and DTs Hypomagnesemia Nicotine dependence Anxiety and depression -Order placed for monitoring of CIWA scores and patient to be medicated with Ativan 0.5 mg every 4 hours as needed for CIWA score of 4-5, Ativan 1 mg every 4 hours for CIWA score of 6-7, Ativan 2 mg every 3 hours CIWA score of 8-9, and Ativan 2 mg every 2 hours forr CIWA score of 10 or greater. -Continuous IV hydration 0.9% normal saline at 100 cc/h. -Thiamine 100 mg daily, and Multivitamin daily, and Folate 1 mg daily -Seizure and fall precautions in place. -Magnesium was 1.7 orders placed for magnesium sulfate 2 g IVPB. Continue close monitoring of electrolytes and replace as needed. -Telemetry monitoring. Data and imaging reviewed: As stated above in HPI. CODE STATUS: Full code DVT prophylaxis: Lovenox Anticipated discharge date: Pending clinical course Anticipated discharge place: Home versus inpatient drug and alcohol rehabilitation facility Patient was seen independently by Nurse Practitioner. This document was prepared using [employer] dictation software. Please allow for errors in pin drafting machine tender while rare they do occur. Kadeem Shanks NP rendered care for this patient independently, reviewed the findi ngs and plan as documented in the note above and agree with plan. I did not physically speak with or examine the patient on this date. Past Medical History Past Medical History: Asthma, Seizure Disorder Additional Past Medical History / Comment(s): ALCOHOLIC, withdrawal seizures History of Any Multi-Drug Resistant Organisms: None Reported Past Surgical History: No Surgical Hx Reported Past Anesthesia/Blood Transfusion Reactions: No Reported Reaction Past Psychological History: Anxiety, Depression Smoking Status: Current every day smoker Past Alcohol Use History: Abuse, Daily Past Drug Use History: None Reported - Past Family History Mother History Unknown: Yes family Additional Family Medical History / Comment(s): no family hx of coronary artery disease Medications and Allergies Home Medications Medication Instructions Recorded Confirmed Type No Known Home Medications 09/08/24 09/08/24 History Allergies Allergy/AdvReac Type Severity Reaction Status Date / Time No Known Allergies Allergy Verified 09/08/24 07:42 Physical Exam Vitals: Vital Signs Temp Pulse Pulse Resp BP BP Pulse Ox 09/08/24 08:24 98.2 F 87 15 129/87 98 09/08/24 06:00 19 147/104 97 09/08/24 05:44 92 20 147/104 99 09/08/24 05:00 17 153/107 96 09/08/24 04:43 19 153/107 09/08/24 03:51 97.9 F 92 20 159/106 97 Intake and Output 09/07/24 09/08/24 09/08/24 22:59 06:59 14:59 Intake Total 1960 Output Total 2250 Balance -290 Intake: Intake, IV Titration 1000 Amount Sodium Chloride 0.9% 1, 1000 000 ml @ 999 mls/hr IV . Q1H1M ONE Rx#:[id number] Oral 960 Output: Urine 2250 Other: Weight 81.647 kg Results CBC & Chem 7: 09/08/24 04:36 09/08/24 05:20 Labs: Abnormal Lab Results - Last 24 Hours (Table) 09/08/24 09/08/24 Range/Units 04:36 05:20 Hgb 17.8 H (13.0-17.5) gm/dL Sodium 131 L (137-145) mmol/L BUN 5 L (9-20) mg/dL Creatinine 0.62 L (0.66-1.25) mg/dL Glucose 100 H (74-99) mg/dL
[2024-09-08] MEDS: LORazepam 1 MG TAB PO PRN (13:40)
[2024-09-09] MEDS: LORazepam 2 MG/ML INJ IV PRN (02:43)
[2024-09-09 02:47] LABS: HCT 50.1 % (39.0-53.0); HGB 16.1 gm/dL (13.0-17.5); MCH 30.3 pg (25.0-35.0); MCHC 32.2 g/dL (31.0-37.0); MCV 94.2 fL (80.0-100.0); Mean Platelet Volume 6.6; Platelet Count 253 k/uL (150-450); RBC 5.32 m/uL (4.30-5.90); RDW 13.5 % (11.5-15.5); WBC 5.7 k/uL (3.8-10.6)
[2024-09-09 03:03] LABS: ALT 19 U/L (4-49); AST 24 U/L (17-59); African American GFR (CKD) >90 (>60 ml/min/1.73 sqM); Albumin 3.9 g/dL (3.5-5.0); Alkaline Phosphatase 65 U/L (38-126); Anion Gap 3 mmol/L; Blood Urea Nitrogen 11 mg/dL (9-20); Calcium 8.8 mg/dL (8.4-10.2); Carbon Dioxide 27 mmol/L (22-30); Chloride 107 mmol/L (98-107); Glucose 103 mg/dL (74-99); Magnesium 2.2 mg/dL (1.6-2.3); Non-African American GFR(CKD) >90 (>60 ml/min/1.73 sqM); Potassium 4.5 mmol/L (3.5-5.1); Sodium 137 mmol/L (137-145); Total Bilirubin 0.8 mg/dL (0.2-1.3); Total Protein 6.7 g/dL (6.3-8.2)
[2024-09-09] MEDS: THIAMINE 100 MG TAB PO SCH (08:44)
--- NOTE | 2024-09-09 11:11 | P.PN ---
Subjective Progress Note Date: 09/09/24 Hospital Course: Patient is a 34-year-old male with a past medical history of daily alcohol abuse, alcohol withdrawal seizures, anxiety with depression, and nicotine dependence. He presented to the emergency department with a chief complaint of alcohol withdraw. Patient reports drinking approximately 1/5 of liquor daily for the past 12 years and reports last drink was yesterday. He reports he is trying to stop drinking, but states he knows he is not able to do so independently as he is already experiencing severe anxiety, tremors, and nausea. Reports history of previous DTs with withdrawal seizures but denies previous ICU hospitalization. Patient denies having any other complaints at this time including headache, lightheadedness, dizziness, changes in vision or hearing, chest pain, palpitations, shortness of breath, cough or congestion, vomiting or abdominal pain, or experiencing any numbness/tingling/weakness in his extremities. Upon arrival to our facility patient underwent evaluation in the emergency department. Vital signs upon arrival show blood pressure 159/106, heart rate 92, respiratory rate 20, temp 97.9 F, and SpO2 of 97% on room air. Labs completed and reviewed. CBC showing elevated hemoglobin of 17.8 otherwise normal findings. BMP showing hyponatremia with sodium of 131 and blood glucose of 100. Magnesium was slightly low at 1.7. Liver profile normal findings. Serum alcohol was negative at less than 10. Patient admitted under our services for medical assisted detox. Secondary to recurrent CIWA scores greater than 16, admission changed from observation to inpatient. Physical exam: Patient seen and fully evaluated at bedside. Patient reports feeling mildly anxious and slightly tremulous. He denies any other complaints including headache, lightheadedness, dizziness, chest pain, palpitations, shortness of breath or experiencing any numbness/tingling/weakness. He denies diaphoresis or sweating throughout the night. He reports previously experiencing nausea but currently denies. Patient denies any other complaints including suicidal or homicidal ideations. Per nursing report patient's mother did call stating patient has been expressing suicidal and homicidal ideations and is coming to the emergency department to petition patient at this time. Again patient currently denies having any suicidal or homicidal ideations and denies having any visual/auditory/tactile hallucinations. Patient appears calm and has been cooperative throughout hospitalization. He denies drug use, but does admit to drinking 1/5 of alcohol daily. Vital signs reviewed and stable. General: Nontoxic, no distress and appears stated age. Derm: Skin warm and dry, normal coloration for ethnicity. Head: Atraumatic, normocephalic and symmetric. Eyes: EOM's intact, no lid lag, and anicteric sclera Mouth: no lip lesions, mucus membranes moist Cardiovascular: regular rate and rhythm with normal S1S2, no murmur, positive posterior tibial pulses bilaterally, and cap refill < 2 seconds. Lungs: Respirations even, regular, and unlabored on room air. Lungs CTA bilaterally, no rhonchi, no rales, no wheezing, and no accessory muscle usage. Abdominal: soft, nontender to palpation, no guarding, no appreciable organomegaly Ext: ROM intact. No gross muscle atrophy, no edema, no contractures. Mild tremors noted. Neuro: Speech clear, face symmetrical and CN II-XII grossly intact with no noted focal neuro deficits Psych: Alert and oriented to person, place, time, and situation. Appropriate and pleasant affect. Assessment and Plan of Care: Alcohol withdraw in active alcoholic History of alcohol withdrawal seizures and DTs Hypomagnesemia Nicotine dependence Anxiety and depression -Continue monitoring of CIWA scores and patient to be medicated with Ativan 0.5 mg every 4 hours as needed for CIWA score of 4-5, Ativan 1 mg every 4 hours for CIWA score of 6-7, Ativan 2 mg every 3 hours CIWA score of 8-9, and Ativan 2 mg every 2 hours forr CIWA score of 10 or greater. Patient has received a total of 9 mg of Ativan over the past 24 hours. . -Continuous IV hydration 0.9% normal saline at 100 cc/h. -Thiamine 100 mg daily, and Multivitamin daily, and Folate 1 mg daily -Seizure and fall precautions in place. -Hypomagnesemia resolved. Repeat morning magnesium 2.2. -Continue close monitoring of electrolytes and replace as needed. -Telemetry monitoring. Data and imaging reviewed: Reviewed. CBC unremarkable. BMP normal findings. Blood glucose 103. Calcium 8.8. Magnesium 2.2. Liver profile normal findings. Vital signs reviewed. Blood pressure 103/72, heart rate 63, respiratory rate 16, temp 97.5 F, and SpO2 of 98% on room air Patient has received a total of 9 mg of Ativan over the past 24 hours and has had 2 recurrent CIWA scores greater than 16 admission changed from observation to inpatient at this time. CODE STATUS: Full code DVT prophylaxis: Lovenox Anticipated discharge date: Pending clinical course Anticipated discharge place: Home versus inpatient drug and alcohol rehabilitation facility Patient was seen independently by Nurse Practitioner. This document was prepared using [employer] dictation software. Please allow for errors in trim setter while rare they do occur. Kadeem Shanks MARINE GEOLOGIST rendered care for this patient independently, reviewed the findings and plan as documented in the note above and agree with plan. I did no t physically speak with or examine the patient on this date. Objective - Vital Signs Vital signs: Vital Signs Temp 98.2 F 09/09/24 02:00 Pulse 73 09/09/24 02:00 Resp 14 09/09/24 02:00 BP 106/67 09/09/24 02:00 Pulse Ox 98 09/09/24 02:00 FiO2 Intake & Output 09/08/24 09/09/24 09/09/24 18:59 06:59 18:59 Weight 81.647 kg - Labs CBC & Chem 7: 09/09/24 02:35 09/09/24 02:35 Labs: Abnormal Lab Results - Last 24 Hours (Table) 09/09/24 Range/Units 02:35 Glucose 103 H (74-99) mg/dL
[2024-09-09 12:10] LABS: Amphetamine Screen,Urine Detected (NotDetected); Barbiturate Screen,Urine Not Detected (NotDetected); Benzodiazepines Screen,Urine Detected (NotDetected); Cocaine Screen,Urine Not Detected (NotDetected); Methadone Screen, Urine Not Detected (NotDetected); Opiate Screen,Urine Not Detected (NotDetected); Oxycodone Screen, Urine Not Detected (NotDetected); Phencyclidine Screen,Urine Not Detected (NotDetected); Tricyclic Antidepressant,Urine Not Detected (NotDetected); Urn Cannabinoid Scrn Detected (NotDetected)
[2024-09-09] MEDS ORDERED: HALOPERIDOL LACTATE 5 MG/ML 1 ML VIAL IM PRN (14:37)
[2024-09-09] MEDS ORDERED: haloperidoL 5 MG TAB PO PRN (14:37)
--- NOTE | 2024-09-09 14:44 | P.CN ---
Psychiatric Consult - . Consult date: 09/09/24 Consult:: 09/09/24 14:00 IDENTIFYING DATA: This patient is a 34-year-old male, is currently homeless, staying with friends at times, he is unemployed, single and has 2 kids. REASON FOR REFERRAL: Family petitioned for suicidal thoughts HISTORY OF PRESENT ILLNESS: The patient presented to the hospital initially on 09/08 for alcohol withdrawal, apparently patient drinks 1/5 of liquor a day, his last drink was on 09/07. Apparently patient has a history of delirium tremens, severe withdrawals and also was fairly shaky and anxious. Patient's urine drug screen is positive for methamphetamines and feta means benzodiazepines and cocai ne. Blood alcohol level was negative. Patient's mother petitioned patient after concerned that he was being discharged. She stated in the petition the patient has been abusing several different drugs, not taking care of himself, endorsing suicidal thoughts, poor decision making. Patient was seen laying in bed agreeable to speak to brief writer, he appeared to be sweating a bit, mild tremors. He claims that he came into the hospital on his own. States that he was supposed to go to sober living however relapsed back on alcohol. Claims that he has been using other drugs however is fairly vague about how much she is using and what he is doing. Claims that he was hallucinating before coming into the hospital, states that he was mainly hearing voices, telling him to hurt himself and also believes that he was a failure, he claims that he was feeling very depressed, overwhelmed. He was also endorsing suicidal thoughts. He was fairly evasive about the suicidal thoughts and what he would do. He claims that he was out of group home for about 2 weeks now and claims that he has not been on his medications for about 8 months. He was last admitted to the psychiatric hospital/unit in December 2023. Claims that he is having anxiety, endorsing withdrawal symptoms. Sleep has been poor, appetite has been fair. He has poor decision making impulsive. At this time he is denying any homicidal ideations, denying any visual hallucinations. Not endorsing any paranoia. He is admitting to drinking as noted above, also smoking marijuana regularly, smoking cigarettes. PAST PSYCHIATRIC HISTORY: Patient has a a history of depression, anxiety, alcohol abuse and polysubstance abuse. Patient was previously on Lexapro 20 mg daily and Abilify 10 mg daily for mood stabilization in the past. Patient was last psychiatrically hospitalized in December 2023 on the mental health unit. Patient denies any psychiatric outpatient follow-up. Claims that he has had multiple suicide attempts and self harming behaviors in the past. States that he attempted to overdose on drugs several times. Past Medical History: Asthma, Seizure Disorder Additional Past Medical History / Comment(s): ALCOHOLIC, withdrawal seizures History of Any Multi-Drug Resistant Organisms: None Reported Past Surgical History: No Surgical Hx Reported Past Anesthesia/Blood Transfusion Reactions: No Reported Reaction Past Psychological History: Anxiety, Depression Smoking Status: Current every day smoker Past Alcohol Use History: Abuse, Daily Past Drug Use History: Cocaine, Heroin, Marijuana, Methamphetamine, Prescription Drug Abuse ALLERGIES: as per EMR. CHEMICAL DEPENDENCY HISTORY: as per HPI. FAMILY PSYCHIATRIC/SUBSTANCE USE HISTORY: Claims that both of his parents have some form of mental illness his mother has depression and he knows. SOCIAL HISTORY: Patient was born and raised in [place]. Claims that he completed his GED. 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 Currently unemployed. He was just released from group home 2 weeks ago ago. He is currently single, homeless, has 2 kids. MENTAL STATUS EXAM: General Appearance: Patient appears to be have several tattoos, disheveled appearance, stated age is alert, fairly evasive. Patient appears to have poor hygiene and grooming wearing hospital gown with poor eye contact. Behavior: Patient is calmly lying in bed without any agitated behavior. Vague, evasive Speech: Patient's speech is fluent and nonpressured. [place], irritable at times Mood/Affect: Patient reports their mood is "depressed and anxious", affect is congruent and constricted Suicidality/Homicidality: Patient denies having any homicidal ideation intent or plan. Was endorsing some suicidal thoughts, no plan Perceptions: Patient denies any visual hallucinations and denies any auditory hallucinations, claims that the auditory hallucinations have come down a bit since being admitted to the hospital Though content/process: There is no evidence of any delusional thought content and thought process is linear and goal-directed. [place], focused on his symptoms. Hopeless. Memory and concentration: AOX3, grossly intact for the purposes of this session. Can spell "WORLD" backwards Judgment and insight: Poor/impulsive IMPRESSIONS: Major depressive disorder, severe without psychotic features Alcohol use disorder, severe dependence, currently in withdrawal Cocaine abuse Cannabis use disorder Nicotine dependence PLAN: -At this time patient DOES meet criteria for inpatient psychiatric admission however due to patient's high risk for severe alcohol withdrawal and delirium tremens, will hold off on psychiatric admission for 24 to 48 hours. -Would recommend the following medication changes/additions: Scheduled Librium 25 mg 3 times daily for alcohol withdrawal. Start trazodone 50 mg nightly as needed for insomnia. -CIWA protocol with PRN Ativan for alcohol withdrawal. Continue to monitor vital signs. -Continue 1:1 sitter for safety until patient is safely transferred to the mental health unit -Cannot leave AMA at this time. Patient will need a petition and certification if attempting to leave AMA. -When medically stable, patient is eligible for transfer to a psych bed when available. -Communicated plan to patient's nurse -Psychiatry will sign off at this time -Please contact with any questions. 09/09/24 14:38
[2024-09-09] MEDS: chlordiazePOXIDE 25 MG CAP PO SCH (16:20)
[2024-09-09] MEDS: traZODone HCL 50 MG TAB PO PRN (19:45)
[2024-09-10 09:15] LABS: HCT 47.7 % (39.0-53.0); MCH 31.6 pg (25.0-35.0); MCHC 33.6 g/dL (31.0-37.0); Mean Platelet Volume 6.7; Platelet Count 232 k/uL (150-450); RBC 5.07 m/uL (4.30-5.90); RDW 13.3 % (11.5-15.5); WBC 6.4 k/uL (3.8-10.6)
[2024-09-10 09:41] LABS: ALT 23 U/L (4-49); AST 27 U/L (17-59); African American GFR (CKD) >90 (>60 ml/min/1.73 sqM); Albumin 3.9 g/dL (3.5-5.0); Alkaline Phosphatase 53 U/L (38-126); Anion Gap 10 mmol/L; Blood Urea Nitrogen 16 mg/dL (9-20); Calcium 8.9 mg/dL (8.4-10.2); Carbon Dioxide 23 mmol/L (22-30); Chloride 106 mmol/L (98-107); Glucose 105 mg/dL (74-99); Non-African American GFR(CKD) >90 (>60 ml/min/1.73 sqM); Potassium 3.9 mmol/L (3.5-5.1); Sodium 139 mmol/L (137-145); Total Bilirubin 0.6 mg/dL (0.2-1.3); Total Protein 6.7 g/dL (6.3-8.2)
--- NOTE | 2024-09-10 13:09 | P.PN ---
Subjective Progress Note Date: 09/10/24 Hospital Course: Patient is a 34-year-old male with a past medical history of daily alcohol abuse, alcohol withdrawal seizures, anxiety with depression, and nicotine dependence. He presented to the emergency department with a chief complaint of alcohol withdraw. Patient reports drinking approximately 1/5 of liquor daily for the past 12 years and reports last drink was yesterday. He reports he is trying to stop drinking, but states he knows he is not able to do so independently as he is already experiencing severe anxiety, tremors, and nausea. Reports history of previous DTs with withdrawal seizures but denies previous ICU hospitalization. Patient denies having any other complaints at this time including headache, lightheadedness, dizziness, changes in vision or hearing, chest pain, palpitations, shortness of breath, cough or congestion, vomiting or abdominal pain, or experiencing any numbness/tingling/weakness in his extremities. Upon arrival to our facility patient underwent evaluation in the emergency department. Vital signs upon arrival show blood pressure 159/106, heart rate 92, respiratory rate 20, temp 97.9 F, and SpO2 of 97% on room air. Labs completed and reviewed. CBC showing elevated hemoglobin of 17.8 otherwise normal findings. BMP showing hyponatremia with sodium of 131 and blood glucose of 100. Magnesium was slightly low at 1.7. Liver profile normal findings. Serum alcohol was negative at less than 10. Patient admitted under our services for medical assisted detox. Secondary to recurrent CIWA scores greater than 16, admission changed from observation to inpatient. Patient's mother presented to the hospital and filed petition on patient for reports of her son having suicidal and homicidal ideations along with auditory hallucinations and polysubstance abuse. Urine drug screen positive for marijuana, benzodiazepines, methamphetamines, and amphetamines. Patient has been receiving benzodiazepines during hospitalization. He denied drug use but again was positive for amphetamines methamphetamines and marijuana. Suicide precautions were placed and psychiatry was consulted. Physical exam: Patient seen and fully evaluated at bedside. He was sleeping and easily awoken via verbal stimuli. He reports his symptoms of withdrawal are improving. Sitter at bedside maintaining strict suicide precautions. Vital signs reviewed and stable. General: Nontoxic, no distress and appears stated age. Derm: Skin warm and dry, normal coloration for ethnicity. Head: Atraumatic, normocephalic and symmetric. Eyes: EOM's intact, no lid lag, and anicteric sclera Mouth: no lip lesions, mucus membranes moist Cardiovascular: regular rate and rhythm with normal S1S2, no murmur, positive posterior tibial pulses bilaterally, and cap refill < 2 seconds. Lungs: Respirations even, regular, and unlabored on room air. Lungs CTA bilaterally, no rhonchi, no rales, no wheezing, and no accessory muscle usage. Abdominal: soft, nontender to palpation, no guarding, no appreciable organomegaly Ext: ROM intact. No gross muscle atrophy, no edema, no contractures. Mild tremo rs noted. Neuro: Speech clear, face symmetrical and CN II-XII grossly intact with no noted focal neuro deficits Psych: Alert and oriented to person, place, time, and situation. Appropriate and pleasant affect. Assessment and Plan of Care: Alcohol withdraw in active alcoholic History of alcohol withdrawal seizures and DTs Hypomagnesemia Nicotine dependence Anxiety and depression -Continue monitoring of CIWA scores and patient to be medicated with Ativan 0.5 mg every 4 hours as needed for CIWA score of 4-5, Ativan 1 mg every 4 hours for CIWA score of 6-7, Ativan 2 mg every 3 hours CIWA score of 8-9, and Ativan 2 mg every 2 hours forr CIWA score of 10 or greater. Patient has received a total of 9 mg of Ativan over the past 24 hours. . -In addition to CIWA protocol patient was started on scheduled Librium 25 mg 3 times daily by psychiatrist. -Continuous IV hydration 0.9% normal saline at 100 cc/h. -Thiamine 100 mg daily, and Multivitamin daily, and Folate 1 mg daily -Seizure and fall precautions in place. -Hypomagnesemia resolved. Repeat morning magnesium 2.2. -Continue close monitoring of electrolytes and replace as needed. -Telemetry monitoring. Reports of suicidal/homicidal ideations Auditory hallucinations -Patient currently denies having any suicidal ideations but does report history of suicide attempts and admitting to having auditory hallucinations off and on in the past but currently denies having at time of exam. -Psychiatry following, stating patient does meet inpatient criteria upon discharge. -Maintain suicide precautions Data and imaging reviewed: Morning labs reviewed. CBC unremarkable. BMP normal findings. Blood glucose 105. Calcium 8.9. Magnesium 2.0. Urine drug screen positive for marijuana, benzodiazepines, methamphetamines, and amphetamines. Vital signs reviewed. Blood pressure 111/71, heart rate 57, respiratory rate 20, temp 98.1 F, and SpO2 of 95% on room air. Patient has received a total of 7 mg of Ativan over the past 24 hours and current CIWA score is 3. CODE STATUS: Full code DVT prophylaxis: Lovenox Anticipated discharge date: Pending clinical course, if patient's Ativan needed continues to decline and CIWA scores stay low will likely plan for discharge to inpatient psychiatric unit tomorrow. Anticipated discharge place: Home versus inpatient drug and alcohol rehabilitation facility Patient was seen independently by Nurse Practitioner. This document was prepared using [employer] dictation software. Please allow for errors in umbrella tipper machine while rare they do occur. Kadeem Shanks NP rendered care for this patient independently, reviewed the fin dings and plan as documented in the note above and agree with plan. I did not physically speak with or examine the patient on this date. Objective - Vital Signs Vital signs: Vital Signs Temp 98.5 F 09/09/24 20:00 Pulse 71 09/10/24 01:12 Resp 20 09/10/24 01:12 BP 143/92 09/10/24 01:12 Pulse Ox 98 09/10/24 01:12 FiO2 Intake & Output 09/09/24 09/10/24 09/10/24 18:59 06:59 18:59 Intake Total 450 Balance 450 Intake: Oral 450 Other: # Voids 3 2 - Labs CBC & Chem 7: 09/10/24 08:56 09/10/24 08:56 Labs: Abnormal Lab Results - Last 24 Hours (Table) 09/09/24 Range/Units 11:42 Ur Amphetamines Screen Detected H (NotDetected) U Methamphetamines Scrn Detected H (NotDetected) U Benzodiazepines Scrn Detected H (NotDetected) U Marijuana (THC) Screen Detected H (NotDetected)
[2024-09-10] MEDS: HALOPERIDOL LACTATE 5 MG/ML 1 ML VIAL IM STA ×2 (16:15→16:31)
[2024-09-10] MEDS: diphenhydrAMINE 50 MG/ML 1 ML VIAL IVP STA ×2 (16:15→16:31)
[2024-09-10] MEDS: LORazepam 2 MG/ML INJ IV STA ×2 (16:15→16:31)
[2024-09-11 08:50] LABS: HCT 43.1 % (39.6-50.0); HGB 14.1 g/dL (13.0-17.0); MCH 30.2 pg (27.0-32.0); MCHC 32.7 g/dL (32.0-37.0); MCV 92.3 FL (80.0-97.0); Mean Platelet Volume 9.2 FL (9.5-12.2); NRBC Per 100 WBC 0 X 10*3/uL (0.00-0.01); Platelet Count 213 X 10*3/uL (140-440); RBC 4.67 X 10*6/uL (4.40-5.60); RDW 13.9 % (11.5-14.5); WBC 6.72 X 10*3/uL (4.50-10.00)
[2024-09-11 09:00] LABS: ALT 32 U/L (10-49); AST 37 U/L (14-35); Albumin 3.7 g/dL (3.8-4.9); Albumin/Globulin Ratio 1.68 Ratio (1.60-3.17); Alkaline Phosphatase 62 U/L (41-126); BUN/Creat Ratio 20.71 Ratio (12.00-20.00); Blood Urea Nitrogen 14.5 mg/dL (9.0-27.0); Calcium 8.3 mg/dL (8.7-10.3); Carbon Dioxide 22.4 mmol/L (21.6-31.8); Chloride 108 mmol/L (96-109); Globulin 2.2 g/dL (1.6-3.3); Glucose 91 mg/dL (70-110); Potassium 3.9 mmol/L (3.5-5.5); Sodium 141 mmol/L (135-145); Total Bilirubin 0.3 mg/dL (0.3-1.2); Total Protein 5.9 g/dL (6.2-8.2)
[2024-09-11] MEDS: chlordiazePOXIDE 25 MG CAP PO SCH (09:00)
[2024-09-11] MEDS: hydrOXYzine pamoate 25 MG CAP PO PRN (13:24)
--- NOTE | 2024-09-11 13:39 | P.PN ---
Progress Note - Text Progress Note Date: 09/11/24 Interval history: Patient was seen today for psychiatric follow-up at the request of primary team. Patient's nurse states that patient is seeking Ativan and other benzodiazepines. She also claims that patient remains fixated on being discharged. Patient remains on a one-to-one sitter for potential elopement or risk of self-harm. Patient was seen today at the bedside eating his lunch. He was agreeable to speak to proposal writer. He states that his mother is a "meth head" and states that none of what she said in the petition is true. He is adamantly denying that he is suicidal, minimizing his drug use, very poor insight and judgment. He is minimizing his depression and anxiety at this time. Not reporting much withdrawal symptoms in terms of alcohol. Claims that he slept fairly last night. He was agreeable to try Zoloft and states that he wants to get on a "Abilify shot". At this time he is denying any suicidal homicidal ideations intent or plan. Denying any auditory or visual hallucinations. Continues to be fairly impulsive, demanding and irritable. MENTAL STATUS EXAM: General Appearance: Patient appears to be have several tattoos, disheveled appearance, stated age is alert, fairly evasive. Patient appears to have oddly improving hygiene and grooming wearing hospital gown with poor eye contact. Behavior: Patient is calmly lying in bed without any agitated behavior. Vague, evasive, minimizing Speech: Patient's speech is fluent and nonpressured. Franklin, irritable at times Mood/Affect: Patient reports their mood is "depressed and anxious", affect is congruent and constricted Suicidality/Homicidality: Patient denies having any homicidal ideation intent or plan. Was endorsing some suicidal thoughts, no plan Perceptions: Patient denies any visual hallucinations and denies any auditory hallucinations Though content/process: There is no evidence of any delusional thought content and thought process is linear and goal-directed. Franklin, focused on discharge, minimizing his need for treatment and being in the hospital. Memory and concentration: AOX3, grossly intact for the purposes of this session Judgment and insight: Poor/impulsive IMPRESSIONS: Major depressive disorder, severe without psychotic features Alcohol use disorder, severe dependence, currently in withdrawal Cocaine abuse Cannabis use disorder Nicotine dependence PLAN: -At this time patient DOES meet criteria for inpatient psychiatric admission however due to patient's high risk for severe alcohol withdrawal and delirium tremens, will hold off on psychiatric admission for 24 to 48 hours. -Would recommend the following medication changes/additions: Scheduled Librium 50 mg 3 times daily for alcohol withdrawal. Trazodone 50 mg nightly as needed for insomnia. vistaril 50 mg q8hr prn for anxiety. Add Zoloft 50 mg daily for mood/anxiety, Abilify 5 mg daily for mood stabilization/mood adjunct. Haldol as needed for agitation/aggression. -CIWA protocol with PRN Ativan for alcohol withdrawal. Continue to monitor vital signs. -Continue 1:1 sitter for safety until patient is safely transferred to the mental health unit -Cannot leave AMA at this time. Patient will need a petition and certification if attempting to leave AMA. -When medically stable, patient is eligible for transfer to a psych bed when available. -Communicated plan to patient's nurse -Psychiatry will sign off at this time -Please contact with any questions 09/09/24 14:38
--- NOTE | 2024-09-11 14:21 | P.PN ---
Subjective Progress Note Date: 09/11/24 Hospital Course: Patient is a 34-year-old male with a past medical history of daily alcohol abuse, alcohol withdrawal seizures, anxiety with depression, and nicotine dependence. He presented to the emergency department with a chief complaint of alcohol withdraw. Patient reports drinking approximately 1/5 of liquor daily for the past 12 years and reports last drink was yesterday. He reports he is trying to stop drinking, but states he knows he is not able to do so independently as he is already experiencing severe anxiety, tremors, and nausea. Reports history of previous DTs with withdrawal seizures but denies previous ICU hospitalization. Patient denies having any other complaints at this time including headache, lightheadedness, dizziness, changes in vision or hearing, chest pain, palpitations, shortness of breath, cough or congestion, vomiting or abdominal pain, or experiencing any numbness/tingling/weakness in his extremities. Upon arrival to our facility patient underwent evaluation in the emergency department. Vital signs upon arrival show blood pressure 159/106, heart rate 92, respiratory rate 20, temp 97.9 F, and SpO2 of 97% on room air. Labs completed and reviewed. CBC showing elevated hemoglobin of 17.8 otherwise normal findings. BMP showing hyponatremia with sodium of 131 and blood glucose of 100. Magnesium was slightly low at 1.7. Liver profile normal findings. Serum alcohol was negative at less than 10. Patient admitted under our services for medical assisted detox. Secondary to recurrent CIWA scores greater than 16, admission changed from observation to inpatient. Patient's mother presented to the hospital and filed petition on patient for reports of her son having suicidal and homicidal ideations along with auditory hallucinations and polysubstance abuse. Urine drug screen positive for marijuana, benzodiazepines, methamphetamines, and amphetamines. Patient has been receiving benzodiazepines during hospitalization. He denied drug use but again was positive for amphetamines methamphetamines and marijuana. Suicide precautions were placed and psychiatry was consulted. Physical exam: Patient seen and fully evaluated at bedside. He was resting comfortably at time of examination. Patient reports just feeling agitated over hospitalization. Patient requesting to speak with psychiatrist and notified patient that I did notify psychiatry that he would like to further discuss petition and hospitalization. Vital signs reviewed and stable. General: Nontoxic, no distress and appears stated age. Derm: Skin warm and dry, normal coloration for ethnicity. Head: Atraumatic, normocephalic and symmetric. Eyes: EOM's intact, no lid lag, and anicteric sclera Mouth: no lip lesions, mucus membranes moist Cardiovascular: regular rate and rhythm with normal S1S2, no murmur, positive posterior tibial pulses bilaterally, and cap refill < 2 seconds. Lungs: Respirations even, regular, and unlabored on room air. Lungs CTA bilaterally, no rhonchi, no rales, no wheezing, and no accessory muscle usage. Abdominal: soft, nontender to palpation, no guarding, no appreciable organomegaly Ext: ROM intact. No gross muscle atrophy, no edema, no contractures. Mild tremors noted. Neuro: Speech clear, face symmetrical and CN II-XII grossly intact with no noted focal neuro deficits Psych: Alert and oriented to person, place, time, and situation. Appropriate and pleasant affect. Assessment and Plan of Care: Alcohol withdraw in active alcoholic History of alcohol withdrawal seizures and DTs Hypomagnesemia Nicotine dependence Anxiety and depression -Continue monitoring of CIWA scores and patient to be medicated with Ativan 0.5 mg every 4 hours as needed for CIWA score of 4-5, Ativan 1 mg every 4 hours for CIWA score of 6-7, Ativan 2 mg every 3 hours CIWA score of 8-9, and Ativan 2 mg every 2 hours forr CIWA score of 10 or greater. Patient has received a total of 9 mg of Ativan over the past 24 hours. . -Scheduled Librium increased to 50 mg 3 times daily. -Continuous IV hydration 0.9% normal saline at 100 cc/h. -Thiamine 100 mg daily, and Multivitamin daily, and Folate 1 mg daily -Seizure and fall precautions in place. -Hypomagnesemia resolved. Repeat morning magnesium 2.2. -Continue close monitoring of electrolytes and replace as needed. -Telemetry monitoring. Reports of suicidal/homicidal ideations Auditory hallucinations -Psychiatry following, stating patient does meet inpatient criteria upon discharge. -Maintain suicide precautions Data and imaging reviewed: Morning labs reviewed. CBC unremarkable. BMP normal findings. Blood glucose 91. Magnesium 2.0. Liver profile showing slightly elevated AST of 37 otherwise normal findings. Urine drug screen positive for marijuana, benzodiazepines, methamphetamines, and amphetamines. Vital signs reviewed. Blood pressure 99/61, heart rate 60, respiratory rate 16, temp 97.6 F, and SpO2 of 98% on room air. Patient has received a total of 9 mg of Ativan over the past 24 hours and current CIWA score is 3. CODE STATUS: Full code DVT prophylaxis: Lovenox Anticipated discharge date: Pending clinical course, if patient's Ativan need declines and CIWA scores stay low will likely plan for discharge to inpatient psychiatric unit tomorrow. Anticipated discharge place: Inpatient psychiatric unit Patient was seen independently by Nurse Practitioner. This document was prepared using [employer] dictation software. Please allow for errors in paper conservator while rare they do occur. Kadeem Shanks NP rendered care for this patient independently, reviewed the findings and plan as documented in the note above and agree with plan. I did not physically speak with or examine the patient on this date. Objective - Vital Signs Vital signs: Vital Signs Temp 97.6 F 09/11/24 00:30 Pulse 55 L 09/11/24 00:30 Resp 14 09/11/24 00:30 BP 105/67 09/11/24 00:30 Pulse Ox 96 09/11/24 00:30 FiO2 Intake & Output 09/10/24 09/11/24 09/11/24 18:59 06:59 18:59 Intake Total 333 2410 Balance 333 2410 Intake: Oral 333 2410 Other: # Voids 4 - Labs CBC & Chem 7: 09/11/24 03:22 09/11/24 03:22 Labs: Abnormal Lab Results - Last 24 Hours (Table) 09/10/24 Range/Units 08:56 Glucose 105 H (74-99) mg/dL
[2024-09-11] MEDS: LORazepam 0.5 MG TAB PO PRN (15:19)
[2024-09-12] MEDS: SERTRALINE 50 MG TAB PO SCH (08:14)
[2024-09-12] MEDS: ARIPiprazole 5 MG TAB PO SCH (08:15)
--- NOTE | 2024-09-12 10:58 | P.PN ---
Subjective Progress Note Date: 09/12/24 Hospital Course: Patient is a 34-year-old male with a past medical history of daily alcohol abuse, alcohol withdrawal seizures, anxiety with depression, and nicotine dependence. He presented to the emergency department with a chief complaint of alcohol withdraw. Patient reports drinking approximately 1/5 of liquor daily for the past 12 years and reports last drink was yesterday. He reports he is trying to stop drinking, but states he knows he is not able to do so independently as he is already experiencing severe anxiety, tremors, and nausea. Reports history of previous DTs with withdrawal seizures but denies previous ICU hospitalization. Patient denies having any other complaints at this time including headache, lightheadedness, dizziness, changes in vision or hearing, chest pain, palpitations, shortness of breath, cough or congestion, vomiting or abdominal pain, or experiencing any numbness/tingling/weakness in his extremities. Upon arrival to our facility patient underwent evaluation in the emergency department. Vital signs upon arrival show blood pressure 159/106, heart rate 92, respiratory rate 20, temp 97.9 F, and SpO2 of 97% on room air. Labs completed and reviewed. CBC showing elevated hemoglobin of 17.8 otherwise normal findings. BMP showing hyponatremia with sodium of 131 and blood glucose of 100. Magnesium was slightly low at 1.7. Liver profile normal findings. Serum alcohol was negative at less than 10. Patient admitted under our services for medical assisted detox. Secondary to recurrent CIWA scores greater than 16, admission changed from observation to inpatient. Patient's mother presented to the hospital and filed petition on patient for reports of her son having suicidal and homicidal ideations along with auditory hallucinations and polysubstance abuse. Urine drug screen positive for marijuana, benzodiazepines, methamphetamines, and amphetamines. Patient has been receiving benzodiazepines during hospitalization. He denied drug use but again was positive for amphetamines methamphetamines and marijuana. Suicide precautions were placed and psychiatry was consulted. Patient seen this morning. He is lying in bed comfortably. He does not appear to be in withdrawal. 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 In the past 24 hours patient has received a total of 6.5 mg of Ativan -Continue with Librium 50 mg 3 times daily. -Continuous IV hydration 0.9% normal saline at 100 cc/h. -Thiamine 100 mg daily, and Multivitamin daily, and Folate 1 mg daily -Seizure and fall precautions in place. -Labs are unremarkable so no need to trend -Telemetry monitoring. Reports of suicidal/homicidal ideations Auditory hallucinations -I reviewed psychiatry note which states that patient does meet inpatient criteria upon discharge. Patient cannot leave AGAINST MEDICAL ADVICE. -Maintain suicide precautions Once patient is requiring minimal doses of Ativan then patient can be transferred to [facility] Objective - Vital Signs Vital signs: Vital Signs Temp 98.0 F 09/12/24 07:20 Pulse 62 09/12/24 07:20 Resp 20 09/12/24 07:20 BP 100/57 09/12/24 07:20 Pulse Ox 96 09/12/24 07:20 FiO2 Intake & Output 09/11/24 09/12/24 09/12/24 18:59 06:59 18:59 Other: # Voids 5 4 # Bowel Movements 1 - Labs CBC & Chem 7: 09/11/24 03:22 09/11/24 03:22
[2024-09-13 09:47] VITALS: BP 114/67; PULSE 73; RESP 17; TEMP 97.6
--- NOTE | 2024-09-13 11:29 | P.DS ---
Providers Date of admission: 09/09/24 11:03 Expected date of discharge: 09/13/24 Attending physician: Sunni Bae MD Consults: 09/09/24 10:42 Consult Physician Routine Consulting Provider: Darrius Mahmood Consult Reason/Comments: family petitioned for reports of suicidal and homicidal behaviors. Do you want consulting provider notified?: Yes Primary care physician: Stated None Hospital Course: Discharge Diagnosis: Alcohol withdrawal Alcohol dependence Hypomagnesemia Nicotine dependence Polysubstance dependence Anxiety/depression Suicidal/homicidal ideations Auditory hallucinations Hospital Course: Patient is a 34-year-old male with a past medical history of daily alcohol abuse, alcohol withdrawal seizures, anxiety with depression, and nicotine dependence. He presented to the emergency department with a chief complaint of alcohol withdraw. Patient reports drinking approximately 1/5 of liquor daily for the past 12 years and reports last drink was yesterday. He reports he is trying to stop drinking, but states he knows he is not able to do so independently as he is already experiencing severe anxiety, tremors, and nausea. Reports history of previous DTs with withdrawal seizures but denies previous ICU hospitalization. Patient denies having any other complaints at this time including headache, lightheadedness, dizziness, changes in vision or hearing, chest pain, palpitations, shortness of breath, cough or congestion, vomiting or abdominal pain, or experiencing any numbness/tingling/weakness in his extremities. Upon arrival to our facility patient underwent evaluation in the emergency department. Vital signs upon arrival show blood pressure 159/106, heart rate 92, respiratory rate 20, temp 97.9 F, and SpO2 of 97% on room air. Labs completed and reviewed. CBC showing elevated hemoglobin of 17.8 otherwise normal findings. BMP showing hyponatremia with sodium of 131 and blood glucose of 100. Magnesium was slightly low at 1.7. Liver profile normal findings. Serum alcohol was negative at less than 10. Patient admitted under our services for medical assisted detox. Secondary to recurrent CIWA scores greater than 16, admission changed from observation to inpatient. Patient's mother presented to the hospital and filed petition on patient for reports of her son having suicidal and homicidal ideations along with auditory hallucinations and polysubstance abuse. Urine drug screen positive for marijuana, benzodiazepines, methamphetamines, and amphetamines. Patient has been receiving benzodiazepines during hospitalization. He denied drug use but again was positive for amphetamines methamphetamines and marijuana. Suicide precautions were placed and psychiatry was consulted. Psychiatry evaluated patient. Patient is medically optimized, can be discharged to inpatient psychiatry. Patient seen and examined at bedside. Vital signs reviewed and stable. General: Nontoxic, no distress, appears at stated age Derm: Warm, dry Head: Atraumatic, normocephalic, symmetric Eyes: EOMI, no lid lag, anicteric sclera Mouth: No lip lesion, mucus membranes moist Cardiovascular: S1S2 reg, no murmur Lungs: CTA bilateral, no rhonchi, no rales, no accessory muscle use Abdominal: Soft, nontender to palpation, no guarding, no appreciable organomegaly Ext: No gross muscle atrophy, no edema, no contractures Neuro: CN II-XI grossly intact, no focal neuro deficits Psych: Alert, oriented, appropriate affect A total of 32 minutes of time were spent preparing this complex discharge summary. Patient was discharged on 09/13/2024 at 1043. Plan - Discharge Summary Discharge Rx Participant: Yes New Discharge Prescriptions: New ARIPiprazole [Abilify] 5 mg PO DAILY tab traZODone HCL [Desyrel] 50 mg PO HS PRN tab PRN Reason: Insomnia Folic Acid 1 mg PO DAILY tab Nicotine 21Mg/24Hr Patch [Habitrol] 1 patch TRANSDERM DAILY patch Thiamine [Vitamin B-1] 100 mg PO DAILY tab haloperidoL [Haldol] 5 mg PO Q6HR PRN tab PRN Reason: Agitation chlordiazePOXIDE HCl [Librium] 50 mg PO TID cap Multivitamins, Thera [Multivitamin (formulary)] 1 each PO DAILY tab hydrOXYzine pamoate [Vistaril] 50 mg PO Q8HR PRN cap PRN Reason: Anxiety Sertraline [Zoloft] 50 mg PO DAILY tab Discharge Medication List ARIPiprazole [Abilify] 5 mg PO DAILY tab 09/13/24 [Rx] Folic Acid 1 mg PO DAILY tab 09/13/24 [Rx] Multivitamins, Thera [Multivitamin (formulary)] 1 each PO DAILY tab 09/13/24 [Rx] Nicotine 21Mg/24Hr Patch [Habitrol] 1 patch TRANSDERM DAILY patch 09/13/24 [Rx] Sertraline [Zoloft] 50 mg PO DAILY tab 09/13/24 [Rx] Thiamine [Vitamin B-1] 100 mg PO DAILY tab 09/13/24 [Rx] chlordiazePOXIDE HCl [Librium] 50 mg PO TID cap 09/13/24 [Rx] haloperidoL [Haldol] 5 mg PO Q6HR PRN tab 09/13/24 [Rx] hydrOXYzine pamoate [Vistaril] 50 mg PO Q8HR PRN cap 09/13/24 [Rx] traZODone HCL [Desyrel] 50 mg PO HS PRN tab 09/13/24 [Rx] Follow up Appointment(s)/Referral(s): [facility] [NON-STAFF] - 1 Week [facility] [NON-STAFF] - 1 Week Discharge/Stand Alone Forms: AA Meetings [facility], Community Resources, Outpatient Counseling, Inp Substance Abuse Facilities, Personal Machine Package Sealer, Area PCPs Discharge Disposition: TRANSFER TO PSYCH HOSP/UNIT
[2024-09-13] MEDS: ACETAMINOPHEN TAB 325 MG TAB PO PRN (12:44)
== END 2024-09-13 15:24 | disposition home or self-care (01) | DRG 774 ==
LOC: EC 03:44 → 5NMEDONC 06:29 → 1SOBS 10:05 → OBSVTOIN 09-09 11:03 → 4SSUR 09-10 16:04
PROVIDERS: ADMIT Internal Medicine; ATTEND Internal Medicine
DX: F10.239 Alcohol dependence with withdrawal, unspecified (principal); F17.210 Nicotine dependence, cigarettes, uncomplicated; F32.2 Major depressive disorder, single episode, severe without psychotic features; F41.9 Anxiety disorder, unspecified; F14.10 Cocaine abuse, uncomplicated; E87.1 Hypo-osmolality and hyponatremia; E83.42 Hypomagnesemia; G40.909 Epilepsy, unspecified, not intractable, without status epilepticus; R45.850 Homicidal ideations; R45.851 Suicidal ideations; Z59.01 Sheltered homelessness; Z79.899 Other long term (current) drug therapy
CPT/HCPCS: 36415; 80053; 80306; 80320; 83735; 85025; 85027; 96361; 96365; 96372; 96375; 96376; 99285

== ENCOUNTER 2024-09-16 16:29 | Emergency (ER) | payer OTHER ==
[2024-09-16 16:44] VITALS: BP 142/88; PULSE 112; RESP 20; TEMP 98.6
--- NOTE | 2024-09-16 17:11 | ED ---
General Adult HPI - General Chief complaint: Chest Pain Stated complaint: CHEST PAIN Time Seen by Provider: 09/16/24 16:40 Source: patient, RN notes reviewed Mode of arrival: ambulatory Limitations: no limitations - History of Present Illness Initial comments: 34-year-old male presenting to the emergency department chief complaint of left-sided chest pain with radiation into his neck and arm that started a few hours prior to arrival. Patient appears to be severely intoxicated on discussion and states that he normally drinks up to 1/5 and 12 beers per day. Has a history of alcohol withdrawal - Related Data Previous Rx's Medication Instructions Recorded ARIPiprazole [Abilify] 5 mg PO DAILY #90 tab 09/13/24 Sertraline [Zoloft] 50 mg PO DAILY #90 tab 09/13/24 Thiamine [Vitamin B-1] 100 mg PO DAILY #90 tab 09/13/24 Allergies Allergy/AdvReac Type Severity Reaction Status Date / Time No Known Allergies Allergy Verified 09/16/24 16:40 Review of Systems ROS Statement: Those systems with pertinent positive or pertinent negative responses have been documented in the HPI. ROS Other: All systems not noted in ROS Statement are negative. Past Medical History Past Medical History: Asthma, Seizure Disorder Additional Past Medical History / Comment(s): ALCOHOLIC, withdrawal seizures History of Any Multi-Drug Resistant Organisms: None Reported Past Surgical History: No Surgical Hx Reported Past Anesthesia/Blood Transfusion Reactions: No Reported Reaction Past Psychological History: Anxiety, Depression Smoking Status: Current every day smoker Past Alcohol Use History: Abuse, Daily, Heavy Past Drug Use History: None Reported - Past Family History Mother History Unknown: Yes family Additional Family Medical History / Comment(s): no family hx of coronary artery disease General Exam - General Exam Comments Initial Comments: Visual Physical Exam Vital signs reviewed General: Well-appearing, nontoxic, no acute distress. Head: Normocephalic, atraumatic Eyes: PERRLA, EOMI ENT: Airway patent Chest: Nonlabored breathing Skin: No visual rash, normal skin tone Neuro: Alert and oriented 3 Musculoskeletal: No gross abnormalities Limitations: no limitations Course Vital Signs 09/16/24 16:40 Temperature 98.6 F Pulse Rate 112 H Respiratory 20 Rate Blood Pressure 142/88 O2 Sat by Pulse 95 Oximetry Medical Decision Making - Medical Decision Making I completed the quick note portion of this chart signed Myrna Stieler, PA-C Comprehensive medical decision making unable to be determined due to patient AGAINST MEDICAL ADVICE. Disposition Clinical Impression: Left against medical advice Disposition: LEFT AGAINST MEDICAL ADVICE Condition: Undetermined Referrals: Tomer Morales MD [Primary Care Provider] - 1-2 days
--- NOTE | 2024-09-16 17:47 | XR ---
EXAMINATION TYPE: XR chest 2V DATE OF EXAM: 09/16/2024 5:39 PM COMPARISON: Chest radiographs from 01/04/2024 CLINICAL INDICATION: Male, 34 years old with history of Chest Pain; TECHNIQUE: XR chest 2V Frontal and lateral views of the chest. FINDINGS: Lungs/Pleura: There is no evidence of pleural effusion, focal consolidation, or pneumothorax. Pulmonary vascularity: Unremarkable. Heart/mediastinum: Cardiomediastinal silhouette is unremarkable. Musculoskeletal: No acute osseous pathology. IMPRESSION: No acute cardiopulmonary disease/process. [facility] Jose A Mai, , 09/16/2024 5:45 PM
== END 2024-09-16 20:40 | disposition left against medical advice (07) ==
LOC: EC 16:29
DX: R07.89 Other chest pain (principal); F17.200 Nicotine dependence, unspecified, uncomplicated; Z53.29 Procedure and treatment not carried out because of patient's decision for other reasons
CPT/HCPCS: 71046; 93005; 99285

== ENCOUNTER 2024-09-29 03:50 | Observation (INO) | payer OTHER ==
--- NOTE | 2024-09-29 04:44 | ED ---
General Adult HPI - General Chief complaint: Chest Pain Stated complaint: Chest Pain Time Seen by Provider: 09/29/24 04:17 Source: patient Mode of arrival: EMS Limitations: no limitations - History of Present Illness Initial comments: Patient is a 34-year-old gentleman with a past medical history of CAD, prior MS, alcoholism, asthma, presenting today for alcohol withdrawal and chest pain. Patient states that he typically drinks 2 pints a day and last drink was last night at 6 PM. A few hours afterwards he began having sharp left-sided chest pain that is nonradiating. Rates as 5/10. He also endorses anxiety, tremors, visual and auditory hallucinations, tactile disturbances nausea, vomiting, nonbloody nonbilious emesis. Also endorses associated shortness of breath. Denies cough or hemoptysis. No history of prior PE/DVT. No recent travel, s urgery, hospitalizations. Denies illicit drug use, including cocaine. States he did have dizziness with syncopal episode earlier this evening as well but denies hitting his head at the time of loss of consciousness. Unsure how long he was unconscious for. Denies tongue biting or urinary incontinence during this episode. - Related Data Home Medications Medication Instructions Recorded Confirmed No Known Home Medications 09/29/24 09/29/24 Allergies Allergy/AdvReac Type Severity Reaction Status Date / Time No Known Allergies Allergy Verified 09/29/24 07:29 Review of Systems ROS Statement: Those systems with pertinent positive or pertinent negative responses have been documented in the HPI. ROS Other: All systems not noted in ROS Statement are negative. Past Medical History Past Medical History: Asthma, Myocardial Infarction (MS), Seizure Disorder Additional Past Medical History / Comment(s): ALCOHOLIC, withdrawal seizures History of Any Multi-Drug Resistant Organisms: None Reported Past Surgical History: No Surgical Hx Reported Past Anesthesia/Blood Transfusion Reactions: No Reported Reaction Past Psychological History: Anxiety, Depression Smoking Status: Current every day smoker Past Alcohol Use History: Abuse, Daily, Heavy Past Drug Use History: None Reported - Past Family History Mother History Unknown: Yes family Additional Family Medical History / Comment(s): no family hx of coronary artery disease General Exam - General Exam Comments Initial Comments: PE: CONSTITUTIONAL: No apparent distress,somewhat ill appearing SKIN: cool, damp, no jaundice, hives or petechiae EYES: Pupils are equally round, extraocular movements intact without nystagmus, clear conjunctiva, non-icteric sclera HENT: Normocephalic, atraumatic, dry mucus membranes, oropharynx clear without exudates NECK: , Full range of motion, normal appearance PULMONARY: Scant wheezes in the bilateral lung bases, no rhonchi, rales or crackles, no accessory muscle use or stridor, normal excursion, no increased work of breathing CARDIOVASCULAR: Tachycardia, regular rate and rhythm, normal S1 and S2. No appreciated murmurs, rubs or gallops. Strong radial pulses with intact distal perfusion. No lower extremity edema GASTROINTESTINAL: Soft, active bowel sounds throughout, non-tender, non- distended, no palpable masses, no rebound or guarding. No hepatosplenomegaly MUSCULOSKELETAL: Extremities have no gross deformity, no edema, redness, or swelling. No calf swelling NEUROLOGIC:_a/o x 3, GCS 15, normal mentation and speech. Moves all extremities x 4 without motor or sensory deficit PSYCHIATRIC: Anxious and restless mood and affect, thought process is clear and linear, does not appear to be responding to internal stimuli, slight tremor with hands outstretched, no tongue fasciculations Limitations: no limitations Course Vital Signs 09/29/24 09/29/24 09/29/24 03:52 05:39 05:43 Temperature 97.8 F Pulse Rate 109 H 98 95 Respiratory 16 Rate Blood Pressure 126/96 O2 Sat by Pulse 95 Oximetry 09/29/24 09/29/24 09/29/24 05:56 06:11 09:00 Temperature Pulse Rate 110 H 107 H 90 Respiratory 16 16 20 Rate Blood Pressure 159/94 131/76 137/87 O2 Sat by Pulse 95 97 98 Oximetry 09/29/24 09/29/24 09/29/24 14:50 15:26 19:36 Temperature 97.5 F L Pulse Rate 83 87 71 Respiratory 18 17 17 Rate Blood Pressure 133/81 122/77 120/77 O2 Sat by Pulse 96 96 Oximetry 09/29/24 09/29/24 09/29/24 20:28 20:34 21:33 Temperature 98.2 F Pulse Rate 75 77 96 Respiratory 18 Rate Blood Pressure 124/76 O2 Sat by Pulse 99 Oximetry EKG Findings - EKG Comments: EKG Findings:: Sinus tachycardia, rate 110 bpm, CO interval 124 ms, QRS duration 81 ms, QT/QTc 328/393 ms, normal axis, no ST elevations or depressions, no arrhythmia present Medical Decision Making - Medical Decision Making Was pt. sent in by a medical professional or institution (KACEY Sharpe, INTEL RECRUITER, urgent care, hospital, or detention...) When possible be specific @ -No Did you speak to anyone other than the patient for history (EMS, parent, family, police, friend...)? What history was obtained from this source @ -No Did you review nursing and triage notes (agree or disagree)? Why? @ -I reviewed and agree with nursing and triage notes Were old charts reviewed (outside hosp., previous admission, EMS record, old EKG, old radiological studies, urgent care reports/EKG's, detention records)? Report findings Medical records reviewed-patient recently admitted on 09/09/2024 discharged 09/13/2024 to the psychiatric unit of the hospital for suicidal thoughts Differential Diagnosis (chest pain, altered mental status, abdominal pain women, abdominal pain men, vaginal bleeding, weakness, fever, dyspnea, syncope, headache, dizziness, GI bleed, back pain, seizure, CVA, palpatations, mental health, musculoskeletal)? Differential diagnosis remains broad however considerations include ACS, pericarditis, pleuritis, costochondritis,, pancreatitis, electrolyte abnormality/malnutrition, valvular disease, seizure, anemia, hyperglycemia this is not an all-inclusive list EKG interpreted by me (3pts min.). @ -As above X-rays interpreted by me (1pt min.). @No cardiomegaly, gross consolidations or pleural effusions, no pneumothorax CT interpreted by me (1pt min.). @ -None done U/S interpreted by me (1pt. min.). @ -None done What testing was considered but not performed or refused? (CT, X-rays, U/S, labs )? Why? @ -None What meds were considered but not given or refused? Why? @IM thiamine was ordered given patient's history of alcoholism however per RN patient refused Did you discuss the management of the patient with other professionals (professionals i.e. KACEY Sharpe, INTEL RECRUITER, lab, RT, psych nurse, social work faculty member, building stonecutter, teacher, credit administration officer, rehabilitation caseworker)? Give summary @ -No Was smoking cessation discussed for >3mins.? @ -No Was critical care preformed (if so, how long)? @Yes, 35 minutes Were there social determinants of health that impacted care today? How? (Homelessness, low income, unemployed, alcoholism, drug addiction, transportation, low edu. Level, literacy, decrease access to med. care, custodial, rehab)? @ -Homelessness, alcoholism Was there de-escalation of care discussed even if they declined (Discuss DNR or withdrawal of care, Hospice)? @ -No What co-morbidities impacted this encounter? (DM, HTN, Smoking, COPD, CAD, Cancer, CVA, ARF, Chemo, Hep., AIDS, mental health diagnosis, sleep apnea, morbid obesity)? @Prior MS, asthma, alcoholism Was patient admitted / discharged? Hospital course, mention meds given and route, prescriptions, significant lab abnormalities, going to OR and other pertinent info. @Admission- This is a 34-year-old male with a past medical history of alcohol abuse, prior MS, seizure disorder, asthma, presenting today for symptoms of alcohol withdrawal and left-sided chest pain for 1 evening. Received 324 mg aspirin, sublingual nitroglycerin and Zofran prior to arrival patient states that this did not improve his pain. On my assessment patient is disheveled appearing, mildly ill-appearing, nontoxic in no acute distress. He is pacing around the room anxiously however is conversant and able to provide a history.with exception of mild tachycardia, vital signs within acceptable limits on arrival. Physical exam is otherwise significant for dry mucous membranes, scant wheezes to auscultation the bilateral lower lung landon, patient has no tongue fasciculations but does have a slight tremor with hands outstretched. Differential diagnosis as above, will plan for IV fluids, oral Valium, DuoNeb, folic acid, multivitamin thiamine, blood alcohol level, morphine Zofran for chest pain, BNP, CMP, lipase, magnesium level, troponin, chest x-ray, Phos level, CBC. Given patient significant risk factors, both regarding his chest pain and alcohol withdrawal symptoms, anticipate admission. [id number] glucose 62, patient provided with both p.o. juice and amp of D50. on recheck 159. On my reassessment patient appears more comfortable and endorses mild improvement in pain with morphine and DuoNeb however does continue to endorse chest pain and anxiety and request additional medications for this. I discussed with patient's that in order to prevent oversedation will plan to start with additional dose of morphine before giving additional benzodiazepines. Additional morphine was ordered however was informed by RN that upon going to administer morphine patient was sleeping comfortably so this was withheld at that time. Chest x-ray read as possible atelectasis in left lung base, possible early infiltrate. Labs significant for mild leukocytosis white blood cell count 10.9, glucose 58 however this has since been addressed, AG 22, CO2 14, suspect 2/2 alcoholic ketoacidosis vs ethanol use. Patient sitting comfortably my reassessment. Discussed with him plan for admission. Patient agreeable plan. Patient admitted to hospitalist, discussed w/ Kae GARCIA, accepted for admission. Undiagnosed new problem with uncertain prognosis in stable condition. @ -No Drug Therapy requiring intensive monitoring for toxicity (Heparin, Nitro, I nsulin, Cardizem)? @ -No Were any procedures done? @ -No Diagnosis/symptom? @ -Chest pain, alcohol withdrawal, hypoglycemia Acute, or Chronic, or Acute on Chronic? @Acute Uncomplicated (without systemic symptoms) or Complicated (systemic symptoms)? @Complicated Side effects of treatment? @ -No Exacerbation, Progression, or Severe Exacerbation? @ -No Poses a threat to life or bodily function? How? (Chest pain, USA, MS, pneumonia, PE, COPD, DKA, ARF, appy, cholecystitis, CVA, Diverticulitis, Homicidal, Suicidal, threat to staff... and all critical care pts) @Yes, all withdrawal remains untreated could progress to delirium tremens which is life-threatening, additionally the chest pain secondary to cardiac etiology could additionally be life-threatening if left unaddressed or unmonitored - Lab Data Result diagrams: 09/29/24 04:57 09/29/24 04:57 Lab Results 09/29/24 09/29/24 09/29/24 Range/Units 04:57 04:57 04:57 WBC 10.9 H (3.8-10.6) k/uL RBC 5.63 (4.30-5.90) m/uL Hgb 17.7 H (13.0-17.5) gm/dL Hct 52.4 (39.0-53.0) % MCV 93.1 (80.0-100.0) fL MCH 31.4 (25.0-35.0) pg MCHC 33.7 (31.0-37.0) g/dL RDW 13.5 (11.5-15.5) % Plt Count 355 (150-450) k/uL MPV 7.5 Neutrophils % 60 % Lymphocytes % 27 % Monocytes % 6 % Eosinophils % 5 % Basophils % 1 % Neutrophils # 6.5 (1.3-7.7) k/uL Lymphocytes # 2.9 (1.0-4.8) k/uL Monocytes # 0.6 (0-1.0) k/uL Eosinophils # 0.5 (0-0.7) k/uL Basophils # 0.1 (0-0.2) k/uL PT 11.2 (10.0-12.5) sec INR 1.0 (<1.2) APTT 23.8 (22.0-30.0) sec Sodium 136 L (137-145) mmol/L Potassium 4.3 (3.5-5.1) mmol/L Chloride 100 (98-107) mmol/L Carbon Dioxide 14 L (22-30) mmol/L Anion Gap 22 mmol/L BUN 11 (9-20) mg/dL Creatinine 0.75 (0.66-1.25) mg/dL Est GFR (CKD-EPI)AfAm >90 (>60 ml/min/1.73 sqM) Est GFR (CKD-EPI)NonAf >90 (>60 ml/min/1.73 sqM) Glucose 58 L (74-99) mg/dL POC Glucose (mg/dL) (70-110) mg/dL POC Glu Emotional Support Teacher ID Calcium 9.3 (8.4-10.2) mg/dL Phosphorus 5.1 H (2.5-4.5) mg/dL Magnesium 2.0 (1.6-2.3) mg/dL Total Bilirubin 0.8 (0.2-1.3) mg/dL AST 36 (17-59) U/L ALT 28 (4-49) U/L Alkaline Phosphatase 94 (38-126) U/L Troponin I (0.000-0.034) ng/mL NT-Pro-B Natriuret Pep <20 pg/mL Total Protein 8.2 (6.3-8.2) g/dL Albumin 5.0 (3.5-5.0) g/dL Lipase 62 (23-300) U/L Procalcitonin (0.02-0.50) ng/mL 09/29/24 09/29/24 09/29/24 Range/Units 04:57 04:57 05:08 WBC (3.8-10.6) k/uL RBC (4.30-5.90) m/uL Hgb (13.0-17.5) gm/dL Hct (39.0-53.0) % MCV (80.0-100.0) fL MCH (25.0-35.0) pg MCHC (31.0-37.0) g/dL RDW (11.5-15.5) % Plt Count (150-450) k/uL MPV Neutrophils % % Lymphocytes % % Monocytes % % Eosinophils % % Basophils % % Neutrophils # (1.3-7.7) k/uL Lymphocytes # (1.0-4.8) k/uL Monocytes # (0-1.0) k/uL Eosinophils # (0-0.7) k/uL Basophils # (0-0.2) k/uL PT (10.0-12.5) sec INR (<1.2) APTT (22.0-30.0) sec Sodium (137-145) mmol/L Potassium (3.5-5.1) mmol/L Chloride (98-107) mmol/L Carbon Dioxide (22-30) mmol/L Anion Gap mmol/L BUN (9-20) mg/dL Creatinine (0.66-1.25) mg/dL Est GFR (CKD-EPI)AfAm (>60 ml/min/1.73 sqM) Est GFR (CKD-EPI)NonAf (>60 ml/min/1.73 sqM) Glucose (74-99) mg/dL POC Glucose (mg/dL) 62 L (70-110) mg/dL POC Glu Emotional Support Teacher HELLEN Saini Debi Calcium (8.4-10.2) mg/dL Phosphorus (2.5-4.5) mg/dL Magnesium (1.6-2.3) mg/dL Total Bilirubin (0.2-1.3) mg/dL AST (17-59) U/L ALT (4-49) U/L Alkaline Phosphatase (38-126) U/L Troponin I <0.012 (0.000-0.034) ng/mL NT-Pro-B Natriuret Pep pg/mL Total Protein (6.3-8.2) g/dL Albumin (3.5-5.0) g/dL Lipase (23-300) U/L Procalcitonin 0.13 (0.02-0.50) ng/mL 09/29/24 Range/Units 05:48 WBC (3.8-10.6) k/uL RBC (4.30-5.90) m/uL Hgb (13.0-17.5) gm/dL Hct (39.0-53.0) % MCV (80.0-100.0) fL MCH (25.0-35.0) pg MCHC (31.0-37.0) g/dL RDW (11.5-15.5) % Plt Count (150-450) k/uL MPV Neutrophils % % Lymphocytes % % Monocytes % % Eosinophils % % Basophils % % Neutrophils # (1.3-7.7) k/uL Lymphocytes # (1.0-4.8) k/uL Monocytes # (0-1.0) k/uL Eosinophils # (0-0.7) k/uL Basophils # (0-0.2) k/uL PT (10.0-12.5) sec INR (<1.2) APTT (22.0-30.0) sec Sodium (137-145) mmol/L Potassium (3.5-5.1) mmol/L Chloride (98-107) mmol/L Carbon Dioxide (22-30) mmol/L Anion Gap mmol/L BUN (9-20) mg/dL Creatinine (0.66-1.25) mg/dL Est GFR (CKD-EPI)AfAm (>60 ml/min/1.73 sqM) Est GFR (CKD-EPI)NonAf (>60 ml/min/1.73 sqM) Glucose (74-99) mg/dL POC Glucose (mg/dL) 159 H (70-110) mg/dL POC Glu Emotional Support Teacher ID [place] Calcium (8.4-10.2) mg/dL Phosphorus (2.5-4.5) mg/dL Magnesium (1.6-2.3) mg/dL Total Bilirubin (0.2-1.3) mg/dL AST (17-59) U/L ALT (4-49) U/L Alkaline Phosphatase (38-126) U/L Troponin I (0.000-0.034) ng/mL NT-Pro-B Natriuret Pep pg/mL Total Protein (6.3-8.2) g/dL Albumin (3.5-5.0) g/dL Lipase (23-300) U/L Procalcitonin (0.02-0.50) ng/mL Disposition Clinical Impression: Alcohol withdrawal, Chest pain, Hypoglycemia Disposition: ADMITTED IP TO THIS HOSP Condition: Fair
[2024-09-29] MEDS: SODIUM CHLORIDE 0.9% 1,000 ML IV STA (04:49)
[2024-09-29] MEDS: diazePAM 5 MG TAB PO STA (04:50)
[2024-09-29] MEDS: ONDANSETRON 4 MG/2 ML VIAL IVP STA ×2 (04:50→06:17)
[2024-09-29] MEDS: MULTIVITAMINS, THERA 1 EACH TAB PO STA (04:51)
[2024-09-29] MEDS: MORPHINE SULFATE 4 MG/ML SYRINGE IVP STA ×2 (04:51→06:17)
[2024-09-29] MEDS: THIAMINE 100 MG/ML 2 ML VIAL IM STA (04:51)
[2024-09-29 05:08] LABS: Glucose,Whole Blood 62 mg/dL (70-110)
[2024-09-29] MEDS: FOLIC ACID 1 MG TAB PO STA (05:08)
[2024-09-29] MEDS: DEXTROSE 50% SYRINGE 50 ML IVP STA (05:23)
[2024-09-29 05:26] LABS: Basophils # (A) 0.1 k/uL (0-0.2); Basophils % (A) 1 %; Eosinophils # (A) 0.5 k/uL (0-0.7); Eosinophils % (A) 5 %; HCT 52.4 % (39.0-53.0); HGB 17.7 gm/dL (13.0-17.5); Lymphocytes # (A) 2.9 k/uL (1.0-4.8); Lymphocytes % (A) 27 %; MCH 31.4 pg (25.0-35.0); MCHC 33.7 g/dL (31.0-37.0); MCV 93.1 fL (80.0-100.0); Mean Platelet Volume 7.5; Monocytes # (A) 0.6 k/uL (0-1.0); Monocytes % (A) 6 %; Neutrophils # (A) 6.5 k/uL (1.3-7.7); Neutrophils % (A) 60 %; Platelet Count 355 k/uL (150-450); RBC 5.63 m/uL (4.30-5.90); RDW 13.5 % (11.5-15.5); WBC 10.9 k/uL (3.8-10.6)
[2024-09-29 05:28] LABS: Partial Thromboplastin Time 23.8 sec (22.0-30.0); Prothrombin Time 11.2 sec (10.0-12.5)
[2024-09-29 05:29] LABS: ALT 28 U/L (4-49); AST 36 U/L (17-59); African American GFR (CKD) >90 (>60 ml/min/1.73 sqM); Alkaline Phosphatase 94 U/L (38-126); Anion Gap 22 mmol/L; Blood Urea Nitrogen 11 mg/dL (9-20); Calcium 9.3 mg/dL (8.4-10.2); Carbon Dioxide 14 mmol/L (22-30); Chloride 100 mmol/L (98-107); Glucose 58 mg/dL (74-99); Lipase 62 U/L (23-300); Non-African American GFR(CKD) >90 (>60 ml/min/1.73 sqM); Phosphorus 5.1 mg/dL (2.5-4.5); Potassium 4.3 mmol/L (3.5-5.1); Sodium 136 mmol/L (137-145); Total Bilirubin 0.8 mg/dL (0.2-1.3); Total Protein 8.2 g/dL (6.3-8.2)
[2024-09-29 05:37] LABS: NT-Pro-B-Type Natriuretic Pept <20 pg/mL
[2024-09-29] MEDS: IPRATROPIUM-ALBUTEROL 3 ML NEB INHALATION STA (05:37)
[2024-09-29 05:49] LABS: Glucose,Whole Blood 159 mg/dL (70-110)
[2024-09-29] MEDS: LORazepam 2 MG/ML INJ IV STA (05:51)
--- NOTE | 2024-09-29 06:15 | XR ---
EXAM: XR Chest, 2 Views CLINICAL HISTORY: ITS.REASON XR Reason: Chest Pain TECHNIQUE: Frontal and lateral views of the chest. COMPARISON: 09/16/24 FINDINGS: Lungs: Slight increased opacity in the left mid to lower lung which may reflect atelectasis. Pleural space: Unremarkable. No pneumothorax. No pleural effusion. Heart: Unremarkable. No cardiomegaly. Mediastinum: Unremarkable. Normal mediastinal contour. Bones/joints: Unremarkable. No acute fracture. Tubes, lines and devices: Overlying chest leads obscure portion of the chest. IMPRESSION: Possible mild atelectasis in the left lung base. Follow-up to exclude early infiltrate as indicated
[2024-09-29] MEDS: cefTRIAXone IN SWFI 1,000 MG/10 ML SYRINGE IVP STA (06:35)
[2024-09-29] MEDS: AZITHROMYCIN 500 MG in SODIUM CHLORIDE 0.9% 250 ML IVPB STA (06:39)
[2024-09-29] MEDS ORDERED: LORazepam 0.5 MG TAB PO PRN (06:43)
[2024-09-29] MEDS ORDERED: LORazepam 1 MG TAB PO PRN ×2 (06:43)
[2024-09-29] MEDS ORDERED: NALOXONE 0.4 MG/ML 1 ML VIAL IV PRN (06:44)
[2024-09-29] MEDS ORDERED: MAG HYDROX/AL HYDROX/SIMETH 30 ML CUP PO PRN (06:44)
[2024-09-29] MEDS ORDERED: MORPHINE SULFATE 4 MG/ML SYRINGE IV PRN (06:44)
[2024-09-29] MEDS ORDERED: ACETAMINOPHEN TAB 325 MG TAB PO PRN (06:44)
[2024-09-29] MEDS ORDERED: CALCIUM CARBONATE 500 MG CHEWABLE PO PRN (06:44)
[2024-09-29] MEDS: DEXTROSE 5%-0.45% NACL 1,000 ML IV SCH (06:54)
[2024-09-29] MEDS: FAMOTIDINE 20 MG TAB PO SCH (09:34)
[2024-09-29] MEDS: ENOXAPARIN 40 MG/0.4 ML SYRINGE SQ SCH (09:34)
[2024-09-29] MEDS: LORazepam 1 MG TAB PO PRN ×2 (11:10→22:43)
[2024-09-29] MEDS: PANTOPRAZOLE 40 MG/10 ML VIAL IVP SCH (11:10)
[2024-09-29] MEDS: HYDROcodone/APAP 5-325MG 1 EACH TAB PO PRN (13:51)
--- NOTE | 2024-09-29 14:55 | P.HPIM ---
History of Present Illness H&P Date: 09/29/24 This is a 34-year-old male with medical history significant for AR, coronary artery disease, asthma, seizure disorder and other psychiatric disorders he is supposed to be on Abilify and other medications per the patient he has been not taking them and not following up. He was admitted 3 weeks ago for suicidal/homicidal ideations and depression. before that he was admitted in December to the psychiatric unit. He was recently incarcerated as well, and currently homeless. He reports to drinking 1/5 of alcohol +10-12 beers per day. He states that he has been drinking daily like this for the last 2 years. He was walking around outside when he developed left-sided chest pain with radiation to the arm jaw. States that the pain is sharp. He has also been feeling dizzy. Denies any burning like sensation. He states that this pain is coming and going. He is also having some shortness of breath states that he has felt fever and chills and is coughing up thick sputum. He admits to smoking 1 pack of cigarettes per day. He has gone through alcohol withdrawal in the past and states that he does want to quit alcohol at this time and would like to stay in the hospital for alcohol withdrawal. He has been started on IV ativan CIWA protocol. Chest xray is unremarkable. He does have a congested bronchospastic cough. He does state that the chest pain is worse with coughing. He likely has a tracheobronchitis. He reports a medical history of prior AR and coronary artery disease and for this reason cardiology will be consulted. During one of his last hospital stays he was evaluated by cardiology, had an echocardiogram done showing EF 55-60% with normal LV systolic function. At that time they had recommending outpatient stress testing if patient becomes sober. REVIEW OF SYSTEMS: CONSTITUTIONAL: No fever, no malaise, no fatigue. HEENT: No recent visual problems or hearing problems. Denied any sore throat. CARDIOVASCULAR: Reports chest pain, orthopnea, PND, no palpitations, no syncope. PULMONARY: Reports shortness of breath and cough with sputum production, no hemoptysis. GASTROINTESTINAL: No diarrhea, no nausea, no vomiting, no abdominal pain. NEUROLOGICAL: No headaches, no weakness, no numbness. HEMATOLOGICAL: Denies any bleeding or petechiae. GENITOURINARY: Denies any burning micturition, frequency, or urgency. MUSCULOSKELETAL/RHEUMATOLOGICAL: Denies any joint pain, swelling, or any muscle pain. ENDOCRINE: Denies any polyuria or polydipsia. The rest of the 14-point review of systems is negative. PHYSICAL EXAMINATION: GENERAL: The patient is alert and oriented x3, not in any acute distress. Well developed, well nourished. HEENT: Pupils are round and equally reacting to light. EOMI. No scleral icterus. No conjunctival pallor. Normocephalic, atraumatic. No pharyngeal erythema. No thyromegaly. CARDIOVASCULAR: S1 and S2 present. No murmurs, rubs, or gallops. PULMONARY: Scattered ronchi throughout. ABDOMEN: Soft, nontender, nondistended, normoactive bowel sounds. No palpable organomegaly. MUSCULOSKELETAL: No joint swelling or deformity. EXTREMITIES: No cyanosis, clubbing, or pedal edema. NEUROLOGICAL: Gross neurological examination did not reveal any focal deficits. SKIN: No rashes. Assessment and Plan Left sided chest pain with radiation to the arm and jaw, rule out ACS cardiology has been consulted Acute asthma exacerbation with tracheobronchitis. Will add systemic steroids and oral azithromycin. Check a procalcitonin level. Acute alcohol intoxication and alcohol withdrawal on ativan CIWA protocol. Hx of seizure disorder from alcohol withdrawal Anxiety/depression Chronic alcoholism Chronic and ongoing nicotine use, refused nicotine patch. Marijuana use /polysubtance use pending urine drug toxicology. GI prophylaxis IV protonix DVT prophylaxis Lovenox Full Code The impression and plan of care has been dictated by Kae Rodriguez, Nurse Practitioner as directed. Dr. Jj MD I have performed a history and physical examination and medical decision making of this patient, discussed the same with the dictator, and agree with the dictators assessment and plan as written, documented as a scribe. Based on total visit time, I have performed more than 50% of this visit. Past Medical History Past Medical History: Asthma, Myocardial Infarction (AR), Seizure Disorder Additional Past Medical History / Comment(s): ALCOHOLIC, withdrawal seizures History of Any Multi-Drug Resistant Organisms: None Reported Past Surgical History: No Surgical Hx Reported Past Anesthesia/Blood Transfusion Reactions: No Reported Reaction Past Psychological History: Anxiety, Depression Smoking Status: Current every day smoker Past Alcohol Use History: Abuse, Daily, Heavy Past Drug Use History: None Reported - Past Family History Mother History Unknown: Yes family Additional Family Medical History / Comment(s): no family hx of coronary artery disease Medications and Allergies Home Medications Medication Instructions Recorded Confirmed Type No Known Home Medications 09/29/24 09/29/24 History Allergies Allergy/AdvReac Type Severity Reaction Status Date / Time No Known Allergies Allergy Verified 09/29/24 07:29 Physical Exam Vitals: Vital Signs Temp Pulse Resp BP Pulse Ox 09/29/24 09:00 90 20 137/87 98 09/29/24 06:11 107 H 16 131/76 97 09/29/24 05:56 110 H 16 159/94 95 09/29/24 05:43 95 09/29/24 05:39 98 09/29/24 03:52 97.8 F 109 H 16 126/96 95 Intake and Output 09/28/24 09/29/24 09/29/24 22:59 06:59 14:59 Output Total 1100 Balance -1100 Output: Urine 1100 Other: Weight 81.647 kg Results CBC & Chem 7: 09/29/24 04:57 09/29/24 04:57 Labs: Abnormal Lab Results - Last 24 Hours (Table) 09/29/24 09/29/24 09/29/24 Range/Units 04:57 04:57 05:08 WBC 10.9 H (3.8-10.6) k/uL Hgb 17.7 H (13.0-17.5) gm/dL Sodium 136 L (137-145) mmol/L Carbon Dioxide 14 L (22-30) mmol/L Glucose 58 L (74-99) mg/dL POC Glucose (mg/dL) 62 L (70-110) mg/dL Phosphorus 5.1 H (2.5-4.5) mg/dL 09/29/24 Range/Units 05:48 WBC (3.8-10.6) k/uL Hgb (13.0-17.5) gm/dL Sodium (137-145) mmol/L Carbon Dioxide (22-30) mmol/L Glucose (74-99) mg/dL POC Glucose (mg/dL) 159 H (70-110) mg/dL Phosphorus (2.5-4.5) mg/dL Assessment and Plan Time with Patient: Less than 30
[2024-09-29 15:13] LABS: Amphetamine Screen,Urine Detected (NotDetected); Barbiturate Screen,Urine Not Detected (NotDetected); Benzodiazepines Screen,Urine Detected (NotDetected); Cocaine Screen,Urine Not Detected (NotDetected); Methadone Screen, Urine Not Detected (NotDetected); Opiate Screen,Urine Detected (NotDetected); Oxycodone Screen, Urine Not Detected (NotDetected); Phencyclidine Screen,Urine Not Detected (NotDetected); Tricyclic Antidepressant,Urine Not Detected (NotDetected); Urn Cannabinoid Scrn Detected (NotDetected)
[2024-09-29] MEDS: methylPREDNISolone SOD SUCCI 40 MG/ML 1 ML VIAL IV SCH (15:39)
[2024-09-29] MEDS: ALBUTEROL NEBULIZED 2.5 MG/3 ML INHALATION PRN (20:19)
[2024-09-29] MEDS: BUDESONIDE 0.5 MG/2 ML NEBU INHALATION SCH (20:19)
[2024-09-30 07:21] VITALS: RESP 16; TEMP 98.5
[2024-09-30] MEDS: AZITHROMYCIN 500 MG TAB PO SCH (09:17)
[2024-09-30] MEDS: THIAMINE 100 MG TAB PO SCH (09:17)
--- NOTE | 2024-09-30 10:13 | P.CRDCN ---
History of Present Illness History of present illness: HISTORY OF PRESENTING ILLNESS This is a pleasant 34-year-old with past medical history significant for reported CAD/AZ however nothing on file, psychiatric disorders, tobacco abuse, alcohol abuse, drug use who presents secondary to chest pain going down his left side. He states he was just sitting there and out of the blue he started having severe chest pain and short of breath. He felt his heart racing and then became lightheaded. He admits this is similar to some of his prior anxiety episodes. He states he actually lost consciousness. He denies any drug use however was positive for methamphetamine, marijuana, opiates, amphetamine, benzodiazepine. He has had a number of similar episodes in the past. EKG showed normal sinus rhythm with no significant ST or T wave abnormalities and troponin is normal 3. His prior echo from November 2023 showed no significant disease. He smokes daily, drinks over a fifth of alcohol a day. REVIEW OF SYSTEMS At the time of my exam: CONSTITUTIONAL: Denies fever or chills. CARDIOVASCULAR: +chest pain, +shortness of breath, no orthopnea, PND or palpitations. RESPIRATORY: Denies cough. GASTROINTESTINAL: Denies abdominal pain, diarrhea, constipation, nausea or vomiting. MUSCULOSKELETAL: Denies myalgias. NEUROLOGIC: Denies numbness, tingling or weakness. ENDOCRINE: Denies fatigue, weight change, polydipsia or polyurina. GENITOURINARY: Denies burning, hematuria or urgency with micturation. HEMATOLOGIC: Denies history of anemia or bleeding. PHYSICAL EXAMINATION Vital signs reviewed. CONSTITUTIONAL: No apparent distress. HEENT: Head is normocephalic. Pupils are equal, round. Sclerae anicteric. Mucous membranes of the mouth are moist. No JVD. No carotid bruit. CHEST EXAMINATION: Lungs are clear to auscultation. No chest wall tenderness is noted on palpation or with deep breathing. HEART EXAMINATION: Regular rate and rhythm. S1, S2 heard. No murmurs, gallops or rub. ABDOMEN: Soft, nontender. Positive bowel sounds. EXTREMITIES: 2+ peripheral pulses, no lower extremity edema and no calf tenderness. NEUROLOGIC EXAMINATION: Patient is awake, alert and oriented x3. ASSESSMENT Atypical chest pain Reported syncope Reported AZ/CAD from 2-3 years ago however none in file Polysubstance abuse positive for meth, amphetamines, opiates Tobacco abuse Alcohol abuse PLAN Patient with atypical symptoms. He has had recurrent admissions. We discussed stress testing however patient does not want to pursue this at this time in patient. Reasonable for outpatient workup with chest pain not appearing cardiac. Discussed alcohol and drug cessation as well as tobacco cessation. Questionable syncope however does have episodes of feeling his heart racing. Likely related to anxiety however check monitor for completeness. Okay for discharge home with outpatient follow-up. Past Medical History Past Medical History: Asthma, Myocardial Infarction (AZ), Seizure Disorder Additional Past Medical History / Comment(s): ALCOHOLIC over a fifth a day vodka and beer. withdrawal seizures Last Myocardial Infarction Date:: 2021 History of Any Multi-Drug Resistant Organisms: None Reported Past Surgical History: No Surgical Hx Reported Past Anesthesia/Blood Transfusion Reactions: No Reported Reaction Past Psychological History: Anxiety, Depression, PTSD Smoking Status: Current every day smoker Past Alcohol Use History: Abuse, Daily, Heavy Additional Past Alcohol Use History / Comment(s): smokes 1 pack a day. Patient states he drinks a couple beers a day. Past Drug Use History: Marijuana, Methamphetamine, Opiates Additional Drug Use History / Comment(s): patient states " I think someone gave me bad dope with other stuff in it, i dont normally take" - Past Family History Mother History Unknown: Yes family Additional Family Medical History / Comment(s): no family hx of coronary artery disease Medications and Allergies Home Medications Medication Instructions Recorded Confirmed Type No Known Home Medications 09/29/24 09/29/24 History Allergies Allergy/AdvReac Type Severity Reaction Status Date / Time No Known Allergies Allergy Verified 09/29/24 07:29 Physical Exam Vitals: Vital Signs Temp Pulse Pulse Resp BP BP BP 09/30/24 07:56 09/30/24 06:50 98.5 F 56 L 16 117/73 09/30/24 01:22 98.4 F 69 118/71 09/29/24 22:32 97.7 F 84 18 128/85 09/29/24 21:33 98.2 F 96 18 124/76 09/29/24 20:34 77 09/29/24 20:28 75 09/29/24 19:36 97.5 F L 71 17 120/77 09/29/24 15:26 87 17 122/77 09/29/24 14:50 83 18 133/81 Pulse Ox 09/30/24 07:56 96 09/30/24 06:50 97 09/30/24 01:22 94 L 09/29/24 22:32 96 09/29/24 21:33 99 09/29/24 20:34 09/29/24 20:28 09/29/24 19:36 96 09/29/24 15:26 96 09/29/24 14:50 Intake and Output 09/29/24 09/30/24 09/30/24 22:59 06:59 14:59 Output Total 1950 Balance -1949 Output: Urine 1950 Other: Weight 81.647 kg Results 09/29/24 04:57 09/29/24 04:57 Cardiac Enzymes 09/29/24 09/29/24 09/29/24 Range/Units 04:57 04:57 04:57 WBC 10.9 H (3.8-10.6) k/uL RBC 5.63 (4.30-5.90) m/uL Hgb 17.7 H (13.0-17.5) gm/dL Hct 52.4 (39.0-53.0) % MCV 93.1 (80.0-100.0) fL MCH 31.4 (25.0-35.0) pg MCHC 33.7 (31.0-37.0) g/dL RDW 13.5 (11.5-15.5) % Plt Count 355 (150-450) k/uL MPV 7.5 Neutrophils % 60 % Lymphocytes % 27 % Monocytes % 6 % Eosinophils % 5 % Basophils % 1 % Neutrophils # 6.5 (1.3-7.7) k/uL Lymphocytes # 2.9 (1.0-4.8) k/uL Monocytes # 0.6 (0-1.0) k/uL Eosinophils # 0.5 (0-0.7) k/uL Basophils # 0.1 (0-0.2) k/uL PT 11.2 (10.0-12.5) sec INR 1.0 (<1.2) APTT 23.8 (22.0-30.0) sec Sodium 136 L (137-145) mmol/L Potassium 4.3 (3.5-5.1) mmol/L Chloride 100 (98-107) mmol/L Carbon Dioxide 14 L (22-30) mmol/L Anion Gap 22 mmol/L BUN 11 (9-20) mg/dL Creatinine 0.75 (0.66-1.25) mg/dL Est GFR (CKD-EPI)AfAm >90 (>60 ml/min/1.73 sqM) Est GFR (CKD-EPI)NonAf >90 (>60 ml/min/1.73 sqM) Glucose 58 L (74-99) mg/dL POC Glucose (mg/dL) (70-110) mg/dL POC Glu Supervisor [employer] ID Calcium 9.3 (8.4-10.2) mg/dL Phosphorus 5.1 H (2.5-4.5) mg/dL Magnesium 2.0 (1.6-2.3) mg/dL Total Bilirubin 0.8 (0.2-1.3) mg/dL ALT 28 (4-49) U/L Alkaline Phosphatase 94 (38-126) U/L Troponin I (0.000-0.034) ng/mL NT-Pro-B Natriuret Pep <20 pg/mL Total Protein 8.2 (6.3-8.2) g/dL Albumin 5.0 (3.5-5.0) g/dL Lipase 62 (23-300) U/L Procalcitonin (0.02-0.50) ng/mL Urine Opiates Screen (NotDetected) Ur Oxycodone Screen (NotDetected) Urine Methadone Screen (NotDetected) Ur Barbiturates Screen (NotDetected) U Tricyclic Antidepress (NotDetected) Ur Phencyclidine Scrn (NotDetected) Ur Amphetamines Screen (NotDetected) U Methamphetamines Scrn (NotDetected) U Benzodiazepines Scrn (NotDetected) Urine Cocaine Screen (NotDetected) U Marijuana (THC) Screen (NotDetected) 09/29/24 09/29/24 09/29/24 Range/Units 04:57 05:08 05:48 WBC (3.8-10.6) k/uL RBC (4.30-5.90) m/uL Hgb (13.0-17.5) gm/dL Hct (39.0-53.0) % MCV (80.0-100.0) fL MCH (25.0-35.0) pg MCHC (31.0-37.0) g/dL RDW (11.5-15.5) % Plt Count (150-450) k/uL MPV Neutrophils % % Lymphocytes % % Monocytes % % Eosinophils % % Basophils % % Neutrophils # (1.3-7.7) k/uL Lymphocytes # (1.0-4.8) k/uL Monocytes # (0-1.0) k/uL Eosinophils # (0-0.7) k/uL Basophils # (0-0.2) k/uL PT (10.0-12.5) sec INR (<1.2) APTT (22.0-30.0) sec Sodium (137-145) mmol/L Potassium (3.5-5.1) mmol/L Chloride (98-107) mmol/L Carbon Dioxide (22-30) mmol/L Anion Gap mmol/L BUN (9-20) mg/dL Creatinine (0.66-1.25) mg/dL Est GFR (CKD-EPI)AfAm (>60 ml/min/1.73 sqM) Est GFR (CKD-EPI)NonAf (>60 ml/min/1.73 sqM) Glucose (74-99) mg/dL POC Glucose (mg/dL) 62 L 159 H (70-110) mg/dL POC Glu Supervisor [employer] ID [place] Calcium (8.4-10.2) mg/dL Phosphorus (2.5-4.5) mg/dL Magnesium (1.6-2.3) mg/dL Total Bilirubin (0.2-1.3) mg/dL ALT (4-49) U/L Alkaline Phosphatase (38-126) U/L Troponin I (0.000-0.034) ng/mL NT-Pro-B Natriuret Pep pg/mL Total Protein (6.3-8.2) g/dL Albumin (3.5-5.0) g/dL Lipase (23-300) U/L Procalcitonin 0.13 (0.02-0.50) ng/mL Urine Opiates Screen (NotDetected) Ur Oxycodone Screen (NotDetected) Urine Methadone Screen (NotDetected) Ur Barbiturates Screen (NotDetected) U Tricyclic Antidepress (NotDetected) Ur Phencyclidine Scrn (NotDetected) Ur Amphetamines Screen (NotDetected) U Methamphetamines Scrn (NotDetected) U Benzodiazepines Scrn (NotDetected) Urine Cocaine Screen (NotDetected) U Marijuana (THC) Screen (NotDetected) 09/29/24 09/29/24 Range/Units 10:58 14:50 WBC (3.8-10.6) k/uL RBC (4.30-5.90) m/uL Hgb (13.0-17.5) gm/dL Hct (39.0-53.0) % MCV (80.0-100.0) fL MCH (25.0-35.0) pg MCHC (31.0-37.0) g/dL RDW (11.5-15.5) % Plt Count (150-450) k/uL MPV Neutrophils % % Lymphocytes % % Monocytes % % Eosinophils % % Basophils % % Neutrophils # (1.3-7.7) k/uL Lymphocytes # (1.0-4.8) k/uL Monocytes # (0-1.0) k/uL Eosinophils # (0-0.7) k/uL Basophils # (0-0.2) k/uL PT (10.0-12.5) sec INR (<1.2) APTT (22.0-30.0) sec Sodium (137-145) mmol/L Potassium (3.5-5.1) mmol/L Chloride (98-107) mmol/L Carbon Dioxide (22-30) mmol/L Anion Gap mmol/L BUN (9-20) mg/dL Creatinine (0.66-1.25) mg/dL Est GFR (CKD-EPI)AfAm (>60 ml/min/1.73 sqM) Est GFR (CKD-EPI)NonAf (>60 ml/min/1.73 sqM) Glucose (74-99) mg/dL POC Glucose (mg/dL) (70-110) mg/dL POC Glu Supervisor [employer] ID Calcium (8.4-10.2) mg/dL Phosphorus (2.5-4.5) mg/dL Magnesium (1.6-2.3) mg/dL Total Bilirubin (0.2-1.3) mg/dL ALT (4-49) U/L Alkaline Phosphatase (38-126) U/L Troponin I <0.012 (0.000-0.034) ng/mL NT-Pro-B Natriuret Pep pg/mL Total Protein (6.3-8.2) g/dL Albumin (3.5-5.0) g/dL Lipase (23-300) U/L Procalcitonin (0.02-0.50) ng/mL Urine Opiates Screen Detected H (NotDetected) Ur Oxycodone Screen Not Detected (NotDetected) Urine Methadone Screen Not Detected (NotDetected) Ur Barbiturates Screen Not Detected (NotDetected) U Tricyclic Antidepress Not Detected (NotDetected) Ur Phencyclidine Scrn Not Detected (NotDetected) Ur Amphetamines Screen Detected H (NotDetected) U Methamphetamines Scrn Detected H (NotDetected) U Benzodiazepines Scrn Detected H (NotDetected) Urine Cocaine Screen Not Detected (NotDetected) U Marijuana (THC) Screen Detected H (NotDetected) Current Medications Generic Name Dose Route Start Last Admin Trade Name Freq PRN Reason Stop Dose Admin Acetaminophen 650 mg 09/29/24 06:44 Acetaminophen Tab 325 Mg Tab PO Q6HR PRN Mild Pain or Fever > 100.5 Hydrocodone Bitart/Acetaminophen 1 each 09/29/24 06:44 09/30/24 05:44 Hydrocodone/Apap 5-325mg 1 Each Tab PO 1 each Q6HR PRN Administration Moderate Pain (Scale 4 to 6) Al Hydroxide/Mg Hydroxide 15 ml 09/29/24 06:44 Mag Hydrox/Al Hydrox/Simeth 30 Ml Cup PO Q6HR PRN Indigestion Albuterol Sulfate 2.5 mg 09/29/24 14:28 09/29/24 20:19 Albuterol Nebulized 2.5 Mg/3 Ml INHALATION 2.5 mg RT-QID PRN Administration Shortness Of Breath Or Wheezing Azithromycin 250 mg 09/30/24 09:00 09/30/24 09:17 Azithromycin 500 Mg Tab PO 10/01/24 09:01 250 mg DAILY RUSSEL Administration Protocol Budesonide 0.5 mg 09/29/24 20:00 09/30/24 07:57 Budesonide 0.5 Mg/2 Ml Nebu INHALATION Not Given RT-BID RUSSEL Calcium Carbonate/Glycine 1,000 mg 09/29/24 06:44 Calcium Carbonate 500 Mg Chewable PO Q4HR PRN Dyspepsia Enoxaparin Sodium 40 mg 09/29/24 09:00 09/30/24 09:29 Enoxaparin 40 Mg/0.4 Ml Syringe SQ Not Given DAILY RUSSEL Lorazepam 0.5 mg 09/29/24 06:43 Lorazepam 0.5 Mg Tab PO Q4HR PRN Ciwa 4 To 5 Lorazepam 1 mg 09/29/24 06:43 09/29/24 19:51 Lorazepam 1 Mg Tab PO 1 mg Q4HR PRN Administration Ciwa 6 To 7 Lorazepam 2 mg 09/29/24 06:43 Lorazepam 1 Mg Tab PO Q2HR PRN Ciwa 10 or greater Lorazepam 2 mg 09/29/24 06:43 09/30/24 09:54 Lorazepam 1 Mg Tab PO 2 mg Q3HR PRN Administration Ciwa 8 To 9 Lorazepam 1 mg 09/29/24 06:43 Lorazepam 1 Mg Tab PO Q1HR PRN Alcohol Withdrawal Methylprednisolone Sodium Succinate 40 mg 09/29/24 14:30 09/30/24 09:17 Methylprednisolone Sod Succi 40 Mg/Ml 1 Ml Vial IV 40 mg Q12HR RUSSEL Administration Naloxone HCl 0.2 mg 09/29/24 06:44 Naloxone 0.4 Mg/Ml 1 Ml Vial IV Q2M PRN Opioid Reversal Pantoprazole Sodium 40 mg 09/29/24 10:00 09/30/24 09:17 Pantoprazole 40 Mg/10 Ml Vial IVP 40 mg BID RUSSEL Administration Thiamine HCl 100 mg 09/30/24 09:00 09/30/24 09:17 Thiamine 100 Mg Tab PO 100 mg DAILY RUSSEL Administration Intake and Output 09/29/24 09/30/24 09/30/24 22:59 06:59 14:59 Output Total 1950 Balance -1950 Output: Urine 1950 Other: Weight 81.647 kg 09/29/24 04:57 09/29/24 04:57
[2024-09-30] MEDS ORDERED: IPRATROPIUM-ALBUTEROL 3 ML NEB INHALATION PRN (11:57)
--- NOTE | 2024-09-30 13:00 | P.PN ---
Subjective Progress Note Date: 09/30/24 This is a 34-year-old male with medical history significant for WI, coronary artery disease, asthma, seizure disorder and other psychiatric disorders he is supposed to be on Abilify and other medications per the patient he has been not taking them and not following up. He was admitted 3 weeks ago for suic idal/homicidal ideations and depression. before that he was admitted in December to the psychiatric unit. He was recently incarcerated as well, and currently homeless. He reports to drinking 1/5 of alcohol +10-12 beers per day. He states that he has been drinking daily like this for the last 2 years. He was walking around outside when he developed left-sided chest pain with radiation to the arm jaw. States that the pain is sharp. He has also been feeling dizzy. Denies any burning like sensation. He states that this pain is coming and going. He is also having some shortness of breath states that he has felt fever and chills and is coughing up thick sputum. He admits to smoking 1 pack of cig arettes per day. He has gone through alcohol withdrawal in the past and states that he does want to quit alcohol at this time and would like to stay in the hospital for alcohol withdrawal. He has been started on IV ativan CIWA protocol. Chest xray is unremarkable. He does have a congested bronchospastic cough. He does state that the chest pain is worse with coughing. He likely has a tracheobronchitis. He reports a medical history of prior WI and coronary artery disease and for this reason cardiology will be consulted. During one of his last hospital stays he was evaluated by cardiology, had an echocardiogram done showing EF 55-60% with normal LV systolic function. At that time they had recom mending outpatient stress testing if patient becomes sober. 09/30/2024 Eval today in follow-up of medical floor. He continues to report shortness of breath with a congested cough. He has some scattered wheezing. We will continue the patient on IV Solu-Medrol we will also add DuoNebs scheduled and as needed. Patient is agreeable to this plan. He continues on room air. Cardiology has revealed the patient they recommending an event monitor on discharge. He is on Ativan CIWA protocol requiring Ativan about every 4-6 hours. His urine drug toxicology does come back positive for opiates amp hetamines methamphetamines benzodiazepines and marijuana. Although patient has received opiates and benzodiazepines while in the hospital. proCalcitonin level normal at 0.13. REVIEW OF SYSTEMS: CONSTITUTIONAL: No fever, no malaise, no fatigue. HEENT: No recent visual problems or hearing problems. Denied any sore throat. CARDIOVASCULAR: Reports chest pain, orthopnea, PND, no palpitations, no syncope. PULMONARY: Reports shortness of breath and cough with sputum production, no hemoptysis. GASTROINTESTINAL: No diarrhea, no nausea, no vomiting, no abdominal pain. NEUROLOGICAL: No headaches, no weakness, no numbness. PHYSICAL EXAMINATION: GENERAL: The patient is alert and oriented x3, not in any acute distress. Well developed, well nourished. HEENT: Pupils are round and equally reacting to light. EOMI. No scleral icterus. No conjunctival pallor. Normocephalic, atraumatic. No pharyngeal erythema. No thyromegaly. CARDIOVASCULAR: S1 and S2 present. No murmurs, rubs, or gallops. PULMONARY: Scattered ronchi throughout. ABDOMEN: Soft, nontender, nondistended, normoactive bowel sounds. No palpable organomegaly. MUSCULOSKELETAL: No joint swelling or deformity. EXTREMITIES: No cyanosis, clubbing, or pedal edema. NEUROLOGICAL: Gross neurological examination did not reveal any focal deficits. SKIN: No rashes. Assessment and Plan Left sided chest pain with radiation to the arm and jaw, rule out ACS cardiology has been consulted Acute asthma exacerbation with tracheobronchitis. Will add systemic steroids and oral azithromycin. Check a procalcitonin level. Acute alcohol intoxication and alcohol withdrawal on ativan CIWA protocol. Hx of seizure disorder from alcohol withdrawal Anxiety/depression Chronic alcoholism Chronic and ongoing nicotine use, refused nicotine patch. Marijuana use /polysubtance use pending urine drug toxicology. GI prophylaxis IV protonix DVT prophylaxis Lovenox Full Code Plan Continue IV Solu-Medrol 40 mg every 12 hours DuoNebs 4 times daily prn and scheduled Cardiology recommend event monitor on discharge Discharge home in the next 24 hours. The impression and plan of care has been dictated by Kae Rodriguez, Nurse Practitioner as directed. Dr. Jj MD I have performed a history and physical examination and medical decision making of this patient, discussed the same with the dictator, and agree with the dictators assessment and plan as written, documented as a scribe. Based on total visit time, I have performed more than 50% of this visit. Objective - Vital Signs Vital signs: Vital Signs Temp 98.5 F 09/30/24 06:50 Pulse 56 L 09/30/24 06:50 Resp 16 09/30/24 06:50 BP 117/73 09/30/24 06:50 Pulse Ox 96 09/30/24 07:56 FiO2 Intake & Output 09/29/24 09/30/24 09/30/24 18:59 06:59 18:59 Output Total 1400 550 Balance -1400 -550 Weight 81.647 kg Output: Urine 1400 550 - Labs CBC & Chem 7: 09/29/24 04:57 09/29/24 04:57 Labs: Abnormal Lab Results - Last 24 Hours (Table) 09/29/24 Range/Units 14:50 Urine Opiates Screen Detected H (NotDetected) Ur Amphetamines Screen Detected H (NotDetected) U Methamphetamines Scrn Detected H (NotDetected) U Benzodiazepines Scrn Detected H (NotDetected) U Marijuana (THC) Screen Detected H (NotDetected) Assessment and Plan Time with Patient: Less than 30
[2024-09-30 14:04] VITALS: BP 103/57; PULSE 86
[2024-09-30] MEDS: IPRATROPIUM-ALBUTEROL 3 ML NEB INHALATION SCH (15:29)
[2024-09-30] MEDS: IBUPROFEN 400 MG TAB PO PRN (16:51)
--- NOTE | 2024-10-02 12:26 | P.DS ---
Providers Date of admission: 09/29/24 06:44 Attending physician: Tejas Perez MD Consults: 09/29/24 14:21 Consult Physician Routine Consulting Provider: Kolton Ortiz Consult Reason/Comments: chest pain Do you want consulting provider notified?: Yes Primary care physician: Stated None Hospital Course: Final Diagnosis Left sided chest pain with radiation to the arm and jaw, rule out ACS cardiology has been consulted Acute asthma exacerbation with tracheobronchitis. Will add systemic steroids and oral azithromycin. Check a procalcitonin level. Acute alcohol intoxication and alcohol withdrawal on ativan CIWA protocol. Hx of seizure disorder from alcohol withdrawal Anxiety/depression Chronic alcoholism Chronic and ongoing nicotine use, refused nicotine patch. Marijuana use /polysubtance use pending urine drug toxicology. GI prophylaxis IV protonix Discharge Disposition Patient left against medical advice. Was caught vaping in the room searched by security. He then decided to leave AMA at 09/30/24 at 1700. He called his own cab. Hospital Course This is a 34-year-old male with medical history significant for HI, coronary artery disease, asthma, seizure disorder and other psychiatric disorders he is supposed to be on Abilify and other medications per the patient he has been not taking them and not following up. He was admitted 3 weeks ago for suicidal/homicidal ideations and depression. before that he was admitted in December to the psychiatric unit. He was recently incarcerated as well, and currently homeless. He reports to drinking 1/5 of alcohol +10-12 beers per day. He states that he has been drinking daily like this for the last 2 years. He was walking around outside when he developed left-sided chest pain with radiation to the arm jaw. States that the pain is sharp. He has also been feeling dizzy. Denies any burning like sensation. He states that this pain is coming and going. He is also having some shortness of breath states that he has felt fever and chills and is coughing up thick sputum. He admits to smoking 1 pack of cigarettes per day. He has gone through alcohol withdrawal in the past and states that he does want to quit alcohol at this time and would like to stay in the hospital for alcohol withdrawal. He has been started on IV ativan CIWA protocol. Chest xray is unremarkable. He does have a congested bronchospastic cough. He does state that the chest pain is worse with coughing. He likely has a tracheobronchitis. He reports a medical history of prior HI and coronary artery disease and for this reason cardiology will be consulted. During one of his last hospital stays he was evaluated by cardiology, had an echocardiogram done showing EF 55-60% with normal LV systolic function. At that time they had recommending outpatient stress testing if patient becomes sober. 09/30/2024 Eval today in follow-up of medical floor. He continues to report shortness of breath with a congested cough. He has some scattered wheezing. We will contin ue the patient on IV Solu-Medrol we will also add DuoNebs scheduled and as needed. Patient is agreeable to this plan. He continues on room air. Cardiology has revealed the patient they recommending an event monitor on discharge. He is on Ativan CIWA protocol requiring Ativan about every 4-6 hours. His urine drug toxicology does come back positive for opiates amphetamines methamphetamines benzodiazepines and marijuana. Although patient has received opiates and benzodiazepines while in the hospital. proCalcitonin level normal at 0.13. Please see medication reconciliation for a list of current medications. Thank you for allowing us to participate in the care of this patient. The impression and plan of care has been dictated by Kae Rodriguez, Nurse Practitioner as directed. Dr. Jj MD I have performed a history and physical examination and medical decision making of this patient, discussed the same with the dictator, and agree with the dictators assessment and plan as written, documented as a scribe. Based on total visit time, I have performed more than 50% of this visit. Patient Condition at Discharge: Fair Plan - Discharge Summary Discharge Rx Participant: No New Discharge Prescriptions: No Action No Known Home Medications Discharge Medication List No Known Home Medications 09/29/24 [History] Follow up Appointment(s)/Referral(s): [facility] [Outside] - As Needed None,Stated [Primary Care Provider] - 1-2 days Discharge/Stand Alone Forms: AA Meetings [address] - [facility], AA Meetings [facility], Who Do I Call?, Community Resources, Outpatient Counseling, Inp Substance Abuse Facilities, Area PCPs Discharge Disposition: LEFT AGAINST MEDICAL ADVICE
== END 2024-09-30 19:18 | disposition left against medical advice (07) ==
LOC: EC 03:50 → 6NMEDSUR 06:44
PROVIDERS: ADMIT Internal Medicine; ATTEND Internal Medicine
DX: R07.89 Other chest pain (principal); F10.239 Alcohol dependence with withdrawal, unspecified; J45.901 Unspecified asthma with (acute) exacerbation; F10.229 Alcohol dependence with intoxication, unspecified; F15.10 Other stimulant abuse, uncomplicated; F11.10 Opioid abuse, uncomplicated; T43.596A Underdosing of other antipsychotics and neuroleptics, initial encounter; T50.906A Underdosing of unspecified drugs, medicaments and biological substances, initial encounter; Z53.29 Procedure and treatment not carried out because of patient's decision for other reasons; E16.2 Hypoglycemia, unspecified; I25.10 Atherosclerotic heart disease of native coronary artery without angina pectoris; G40.909 Epilepsy, unspecified, not intractable, without status epilepticus; D72.829 Elevated white blood cell count, unspecified; R68.84 Jaw pain; M79.602 Pain in left arm; F41.9 Anxiety disorder, unspecified; F32.A Depression, unspecified; I25.2 Old myocardial infarction; F17.210 Nicotine dependence, cigarettes, uncomplicated; Z59.00 Homelessness unspecified; Z91.148 Patient's other noncompliance with medication regimen for other reason
CPT/HCPCS: 96376 ×2; 96361 ×3; 82075; 96365; 96366; 96375; 99291; 36415; 94640 ×2; 94760; 93005; 83880; 80053; 83690; 83735; 84100; 84484; 85025; 85610; 85730; 80306; 84145; 71046; G0378 ×2; J2060; J2270; J2405; J0456; J0696; J2919 ×2; J2470 ×2; 99285

== ENCOUNTER 2024-10-15 23:07 | Emergency (ER) | payer OTHER ==
[2024-10-15 23:28] VITALS: BP 125/70; PULSE 90; RESP 17; TEMP 98.3
== END 2024-10-16 00:54 | disposition left against medical advice (07) ==
LOC: EC 23:07
DX: Z53.21 Procedure and treatment not carried out due to patient leaving prior to being seen by health care provider (principal)
CPT/HCPCS: 93005; 99499

== ENCOUNTER 2024-10-16 02:25 | Inpatient (IN) | payer MEDICAID, OTHER ==
[2024-10-16] MEDS ORDERED: LORazepam 2 MG/ML INJ IV PRN ×2 (02:47)
[2024-10-16] MEDS: ASPIRIN 81 MG PO STA (03:06)
[2024-10-16] MEDS: LORazepam 2 MG/ML INJ IV STA (03:07)
[2024-10-16] MEDS: SODIUM CHLORIDE 0.9% 1,000 ML IV STA (03:07)
[2024-10-16 03:10] LABS: Basophils # (A) 0.1 k/uL (0-0.2); Basophils % (A) 1 %; Eosinophils # (A) 0.7 k/uL (0-0.7); Eosinophils % (A) 8 %; HCT 43.4 % (39.0-53.0); HGB 14.8 gm/dL (13.0-17.5); Lymphocytes # (A) 3.9 k/uL (1.0-4.8); Lymphocytes % (A) 43 %; MCHC 34.1 g/dL (31.0-37.0); MCV 90.9 fL (80.0-100.0); Mean Platelet Volume 7.1; Monocytes # (A) 0.3 k/uL (0-1.0); Monocytes % (A) 3 %; Neutrophils % (A) 43 %; Platelet Count 314 k/uL (150-450); RBC 4.77 m/uL (4.30-5.90); RDW 13.7 % (11.5-15.5); WBC 9.2 k/uL (3.8-10.6)
[2024-10-16 03:22] LABS: Partial Thromboplastin Time 23.3 sec (22.0-30.0); Prothrombin Time 10.9 sec (10.0-12.5)
--- NOTE | 2024-10-16 03:30 | ED ---
General Adult HPI - General Source: patient, RN notes reviewed, old records reviewed Mode of arrival: ambulatory Limitations: no limitations <Cayetano Olivares - Last Filed: 10/16/24 05:13> <Tomer Arevalo - Last Filed: 10/16/24 10:30> - General Chief complaint: Chest Pain Stated complaint: Chest Pain Time Seen by Provider: 10/16/24 02:40 - History of Present Illness Initial comments: Patient is a 34-year-old male who presents emergency department complaining of chest pain. Seems to be chronic. Also has a history of alcohol abuse. He is also complaining of suicidal ideations. Patient is answering yes to every question I ask. Patient states he gets pain over the left shoulder when I ask where the chest pain is located. Currently is asymptomatic. Patient states last had chest pain earlier this morning but also intermittently has it on a daily basis. Resting comfortably. States he also has nonspecific suicidal ideations, with idea of hurting himself using a firearm. Does endorse drinking alcohol tonight as well. Denies any other drug use. Denies any other illicit substance use. Endorses mild nausea. Denies any obvious injury. Presents for further evaluation at this time. States he does have a cardiac history. Has been seen here previously with no obvious documented evidence of this. Has experienced alcohol withdrawals with seizures in the past. He presented to the emergency department earlier this evening, however went to the bathroom and fell asleep in the bathroom. When he awoke, he came out to be checked it again. (Cayetano Olivares) - Related Data Home Medications Medication Instructions Recorded Confirmed No Known Home Medications 09/29/24 10/16/24 Allergies Allergy/AdvReac Type Severity Reaction Status Date / Time No Known Allergies Allergy Verified 10/16/24 08:26 Review of Systems ROS Other: All systems not noted in ROS Statement are negative. <Cayetano Olivares - Last Filed: 10/16/24 05:13> ROS Other: All systems not noted in ROS Statement are negative. <Tomer Arevalo - Last Filed: 10/16/24 10:30> ROS Statement: Those systems with pertinent positive or pertinent negative responses have been documented in the HPI. Review of Systems: CONST: Denies fever EYES: Denies blurry vision ENT: Denies nasal congestion C/V: Denies Chest pain RESP: Denies shortness of breath GI: Denies abdominal pain : Denies dysuria SKIN: Denies rash. MSK: Denies joint pain. NEURO: Denies headache (Cayetano Olivares) Past Medical History Past Medical History: Asthma, Myocardial Infarction (MD), Seizure Disorder Additional Past Medical History / Comment(s): ALCOHOLIC, withdrawal seizures Last Myocardial Infarction Date:: 2021 History of Any Multi-Drug Resistant Organisms: None Reported Past Surgical History: No Surgical Hx Reported Past Anesthesia/Blood Transfusion Reactions: No Reported Reaction Past Psychological History: Anxiety, Depression Smoking Status: Current every day smoker Past Alcohol Use History: Abuse, Daily, Heavy Past Drug Use History: None Reported - Past Family History Mother History Unknown: Yes family Additional Family Medical History / Comment(s): no family hx of coronary artery disease <Cayetano Olivares - Last Filed: 10/16/24 05:13> General Exam Limitations: no limitations <Cayetano Olivares - Last Filed: 10/16/24 05:13> - General Exam Comments Initial Comments: General: Appears intoxicated with alcohol. HEAD: Normal with no signs of head trauma. EYES: PERRLA, EOMI, conjunctiva normal, no discharge. ENT: Hearing grossly intact, normal oropharynx. RESPIRATORY: Clear breath sounds bilaterally. No wheezes, rales, or rhonchi. C/V: Regular rate and rhythm. S1 and S2 auscultated, no edema, peripheral pulses 2+ and intact throughout ABD: Abd is soft, nontender, nondistended EXT: Normal range of motion, no obvious deformity SKIN: No rashes or lesions observed on exposed skin. NEURO: Alert and oriented x 4. No focal deficits. (Cayetano Olivares) Course Vital Signs 10/16/24 10/16/24 02:27 07:09 Temperature 97.8 F 97.9 F Pulse Rate 80 76 Respiratory 18 18 Rate Blood Pressure 105/66 114/70 O2 Sat by Pulse 96 97 Oximetry Medical Decision Making - Lab Data Result diagrams: 10/16/24 03:01 10/16/24 03:01 - EKG Data -: EKG Interpreted by Wa <Cayetano Olivares - Last Filed: 10/16/24 05:13> - Lab Data Result diagrams: 10/16/24 03:01 10/16/24 03:01 <Tomer Arevalo N - Last Filed: 10/16/24 10:30> - Medical Decision Making Was pt. sent in by a medical professional or institution ([facility], [facility], urgent care, hospital, or fci...) When possible be specific @ -No Did you speak to anyone other than the patient for history (EMS, parent, family, police, friend...)? What history was obtained from this source @ -No Did you review nursing and triage notes (agree or disagree)? Why? @ -I reviewed and agree with nursing and triage notes Were old charts reviewed (outside hosp., previous admission, EMS record, old E KG, old radiological studies, urgent care reports/EKG's, fci records)? Report findings @ -Charts reviewed from August 2024 in September 2024, and patient presented with identical symptoms. Differential Diagnosis (chest pain, altered mental status, abdominal pain women, abdominal pain men, vaginal bleeding, weakness, fever, dyspnea, syncope, headache, dizziness, GI bleed, back pain, seizure, CVA, palpatations, mental health, musculoskeletal)? @ -Differential Mental Health Depression, anxiety, bipolar, psychosis, schizophrenia, borderline personality, situational depression, adjustment disorder, behavioral disorder, brain tumor, malingering, substance abuse, encephalopathy, medication reaction, dementia, hypothyroidism, degenerative neurologic disorder, lupus.... This is not meant to be all-inclusive list differential Chest Pain: Stable Angina, Unstable Angina, STEMI, NSTEMI Aortic Dissection, Pneumothorax, Musculoskeletal, Esophageal Spasm GERD, Cholecystitis, Pancreatitis, Zoster, this is not meant to be an all-inclusive list. EKG interpreted by me (3pts min.). @ -As above X-rays interpreted by me (1pt min.). @ -Chest x-ray reveals no obvious acute cardiopulmonary process. CT interpreted by me (1pt min.). @ -None done U/S interpreted by me (1pt. min.). @ -None done What testing was considered but not performed or refused? (CT, X-rays, U/S, labs)? Why? @ -None What meds were considered but not given or refused? Why? @ -None Did you discuss the management of the patient with other professionals (professionals i.e. Dr., PA, [facility], lab, RT, psych nurse, pediatric social worker, director of student services, teacher, corporate compliance officer, shoe parts caser)? Give summary @ -No Was smoking cessation discussed for >3mins.? @ -No Was critical care preformed (if so, how long)? @ -No Were there social determinants of health that impacted care today? How? (Homelessness, low income, unemployed, alcoholism, drug addiction, transportation, low edu. Level, literacy, decrease access to med. care, fdc, rehab)? @ -No Was there de-escalation of care discussed even if they declined (Discuss DNR or withdrawal of care, Hospice)? DNR status @ -No What co-morbidities impacted this encounter? (DM, HTN, Smoking, COPD, CAD, Cancer, CVA, ARF, Chemo, Hep., AIDS, mental health diagnosis, sleep apnea, morbi d obesity)? @ -None Was patient admitted / discharged? Hospital course, mention meds given and rout e, prescriptions, significant lab abnormalities, going to OR and other pertinent info. @ -Patient presents with multiple complaints, chest pain which she currently does not have and is a frequent occurrence per patient, suicidal ideations, as well as alcohol intoxication. We will obtain cardiac workup. Patient be symptomatically treat with a dose of Ativan, IV fluids and given 324 mg of aspirin. Patient was in agreement this plan. Questionable history of cardiac disease. He has chronic chest pain currently is asymptomatic. EKG shows no signs of acute ischemia. X-ray reveals no obvious acute cardiopulmonary process.Laboratory studies remarkable for alcohol intoxication with level of 124. Troponin is undetectable. Remainder the workup unremarkable. Chest x-ray shows no obvious acute cardiopulmonary process. On reevaluation, I updated the patient. No evidence of alcohol withdrawals at this time. I updated the patient.He is resting comfortably at this time in no acute distress. Patient is medically cleared for evaluation by psychiatry when sober. EPS notified of the consult. Disposition pending psychiatric evaluation. Undiagnosed new problem with uncertain prognosis? @ -No Drug Therapy requiring intensive monitoring for toxicity (Heparin, Nitro, Insulin, Cardizem)? @ -No Were any procedures done? @ -No (Cayetano Olivares) - Lab Data Lab Results 10/16/24 10/16/24 10/16/24 Range/Units 03:01 03:01 03:01 WBC 9.2 (3.8-10.6) k/uL RBC 4.77 (4.30-5.90) m/uL Hgb 14.8 (13.0-17.5) gm/dL Hct 43.4 (39.0-53.0) % MCV 90.9 (80.0-100.0) fL MCH 31.0 (25.0-35.0) pg MCHC 34.1 (31.0-37.0) g/dL RDW 13.7 (11.5-15.5) % Plt Count 314 (150-450) k/uL MPV 7.1 Neutrophils % 43 % Lymphocytes % 43 % Monocytes % 3 % Eosinophils % 8 % Basophils % 1 % Neutrophils # 4.0 (1.3-7.7) k/uL Lymphocytes # 3.9 (1.0-4.8) k/uL Monocytes # 0.3 (0-1.0) k/uL Eosinophils # 0.7 (0-0.7) k/uL Basophils # 0.1 (0-0.2) k/uL PT 10.9 (10.0-12.5) sec INR 1.0 (<1.2) APTT 23.3 (22.0-30.0) sec Sodium 137 (137-145) mmol/L Potassium 3.7 (3.5-5.1) mmol/L Chloride 109 H (98-107) mmol/L Carbon Dioxide 21 L (22-30) mmol/L Anion Gap 7 mmol/L BUN 6 L (9-20) mg/dL Creatinine 0.64 L (0.66-1.25) mg/dL Est GFR (CKD-EPI)AfAm >90 (>60 ml/min/1.73 sqM) Est GFR (CKD-EPI)NonAf >90 (>60 ml/min/1.73 sqM) Glucose 74 (74-99) mg/dL Calcium 8.5 (8.4-10.2) mg/dL Magnesium 2.2 (1.6-2.3) mg/dL Total Bilirubin 0.3 (0.2-1.3) mg/dL AST 21 (17-59) U/L ALT 15 (4-49) U/L Alkaline Phosphatase 54 (38-126) U/L Troponin I (0.000-0.034) ng/mL Total Protein 6.7 (6.3-8.2) g/dL Albumin 4.2 (3.5-5.0) g/dL Serum Alcohol 124 mg/dL 10/16/24 Range/Units 03:01 WBC (3.8-10.6) k/uL RBC (4.30-5.90) m/uL Hgb (13.0-17.5) gm/dL Hct (39.0-53.0) % MCV (80.0-100.0) fL MCH (25.0-35.0) pg MCHC (31.0-37.0) g/dL RDW (11.5-15.5) % Plt Count (150-450) k/uL MPV Neutrophils % % Lymphocytes % % Monocytes % % Eosinophils % % Basophils % % Neutrophils # (1.3-7.7) k/uL Lymphocytes # (1.0-4.8) k/uL Monocytes # (0-1.0) k/uL Eosinophils # (0-0.7) k/uL Basophils # (0-0.2) k/uL PT (10.0-12.5) sec INR (<1.2) APTT (22.0-30.0) sec Sodium (137-145) mmol/L Potassium (3.5-5.1) mmol/L Chloride (98-107) mmol/L Carbon Dioxide (22-30) mmol/L Anion Gap mmol/L BUN (9-20) mg/dL Creatinine (0.66-1.25) mg/dL Est GFR (CKD-EPI)AfAm (>60 ml/min/1.73 sqM) Est GFR (CKD-EPI)NonAf (>60 ml/min/1.73 sqM) Glucose (74-99) mg/dL Calcium (8.4-10.2) mg/dL Magnesium (1.6-2.3) mg/dL Total Bilirubin (0.2-1.3) mg/dL AST (17-59) U/L ALT (4-49) U/L Alkaline Phosphatase (38-126) U/L Troponin I <0.012 (0.000-0.034) ng/mL Total Protein (6.3-8.2) g/dL Albumin (3.5-5.0) g/dL Serum Alcohol mg/dL - EKG Data EKG Comments: 12-lead Electrocardiogram Interpretation Note EKG was reviewed and interpreted by myself. 12-lead ECG performed at 0240 is interpreted by me as revealing normal sinus rhythm at a rate of 69 beats per minute. [place] is normal. MD interval is 131 ms, QRS duration is 93 ms, QTc is 417 ms.. There were no ST or T wave abnormalities to suggest myocardial ischemia or injury. R wave progression across the precordium was satisfactory. By my interpretation this EKG is non-diagnostic for acute ischemia. (Cayetano Olivares) Disposition <Cayetano Olivares - Last Filed: 10/16/24 05:13> Is patient prescribed a controlled substance at d/c from ED?: No Time of Disposition: 10:30 <Tomer Arevalo - Last Filed: 10/16/24 10:30> Clinical Impression: Suicidal ideation, Depression Disposition: ADMITTED IP TO THIS HOSP Condition: Stable Referrals: None,Stated [Primary Care Provider] - 1-2 days
[2024-10-16 03:31] LABS: ALT 15 U/L (4-49); AST 21 U/L (17-59); African American GFR (CKD) >90 (>60 ml/min/1.73 sqM); Albumin 4.2 g/dL (3.5-5.0); Alkaline Phosphatase 54 U/L (38-126); Anion Gap 7 mmol/L; Blood Urea Nitrogen 6 mg/dL (9-20); Calcium 8.5 mg/dL (8.4-10.2); Carbon Dioxide 21 mmol/L (22-30); Chloride 109 mmol/L (98-107); Glucose 74 mg/dL (74-99); Magnesium 2.2 mg/dL (1.6-2.3); Non-African American GFR(CKD) >90 (>60 ml/min/1.73 sqM); Potassium 3.7 mmol/L (3.5-5.1); Sodium 137 mmol/L (137-145); Total Bilirubin 0.3 mg/dL (0.2-1.3); Total Protein 6.7 g/dL (6.3-8.2)
[2024-10-16 03:33] LABS: Alcohol 124 mg/dL
--- NOTE | 2024-10-16 05:33 | XR ---
EXAMINATION TYPE: XR chest 2V DATE OF EXAM: 10/16/2024 3:04 AM COMPARISON: Chest x-ray September 29, 2024 CLINICAL INDICATION: Male, 34 years old with history of Chest Pain, TECHNIQUE: Frontal and lateral views of the chest are obtained. FINDINGS: There is no focal air space opacity, pleural effusion, or pneumothorax seen. The cardiac silhouette size is stable and within normal limits. Overlying EKG leads are redemonstrated. The osse ous structures are intact. IMPRESSION: No acute process. No significant change from recent prior. [facility], , 10/16/2024 5:28 AM
[2024-10-16] MEDS: LORazepam 2 MG/ML INJ IV PRN (09:55)
[2024-10-16 10:55] LABS: Appearance,Urine Clear (Clear); Bilirubin,Urine Negative (Negative); Blood,Urine Negative (Negative); Color,Urine Colorless; Glucose,Urine (UA) Negative (Negative); Ketones,Urine Negative (Negative); Leukocyte Esterase,Urine Negative (Negative); Nitrite,Urine Negative (Negative); Protein,Urine Negative (Negative); Specific Gravity,Urine 1.004 (1.001-1.035); Urobilinogen,Urine <2.0 mg/dL (<2.0)
[2024-10-16 11:06] LABS: Amphetamine Screen,Urine Not Detected (NotDetected); Barbiturate Screen,Urine Not Detected (NotDetected); Benzodiazepines Screen,Urine Not Detected (NotDetected); Cocaine Screen,Urine Not Detected (NotDetected); Methadone Screen, Urine Not Detected (NotDetected); Opiate Screen,Urine Not Detected (NotDetected); Oxycodone Screen, Urine Not Detected (NotDetected); Phencyclidine Screen,Urine Not Detected (NotDetected); Tricyclic Antidepressant,Urine Not Detected (NotDetected); Urn Cannabinoid Scrn Detected (NotDetected)
[2024-10-16] MEDS ORDERED: HALOPERIDOL LACTATE 5 MG/ML 1 ML VIAL IM PRN (17:22)
[2024-10-16] MEDS ORDERED: MAGNESIUM HYDROXIDE 2,400 MG/30 ML CUP PO PRN (17:22)
[2024-10-16] MEDS ORDERED: ACETAMINOPHEN TAB 325 MG TAB PO PRN (17:22)
[2024-10-16] MEDS ORDERED: MAG HYDROX/AL HYDROX/SIMETH 355 ML BOTTLE PO PRN (17:22)
[2024-10-16] MEDS ORDERED: LORazepam 2 MG/ML INJ IM PRN (17:22)
[2024-10-16] MEDS: LORazepam 1 MG TAB PO PRN (18:30)
[2024-10-16] MEDS: traZODone HCL 50 MG TAB PO PRN (20:25)
[2024-10-16] MEDS: LORazepam 1 MG TAB PO SCH (23:51)
[2024-10-17] MEDS: MULTIVITAMINS, THERA 1 EACH TAB PO SCH (08:05)
[2024-10-17] MEDS: FOLIC ACID 1 MG TAB PO SCH (08:05)
[2024-10-17] MEDS: NICOTINE 14MG/24HR PATCH TRANSDERM SCH (08:05)
[2024-10-17] MEDS: THIAMINE 100 MG TAB PO SCH (08:05)
[2024-10-17] MEDS: SERTRALINE 25 MG TAB PO SCH (10:17)
[2024-10-17 10:50] LABS: ALT 17 U/L (4-49); AST 22 U/L (17-59); Albumin 4.5 g/dL (3.5-5.0); Alkaline Phosphatase 58 U/L (38-126); Bilirubin,Unconjugated 0.7 mg/dL (0.0-1.1); Total Bilirubin 0.7 mg/dL (0.2-1.3); Total Protein 7.3 g/dL (6.3-8.2)
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
[2024-10-17] MEDS: LORazepam 1 MG TAB PO PRN (13:22)
[2024-10-17] MEDS: haloperidoL 5 MG TAB PO PRN (13:25)
[2024-10-17 16:24] LABS: Chol/HDL Ratio 4.52 Ratio; LDL Cholesterol,Calculated 114.7 mg/dL (0.0-131.0)
--- NOTE | 2024-10-17 17:19 | P.CONS ---
History of Present Illness - Reason for Consult Consult date: 10/17/24 - History of Present Illness 34 year old M with PMH of EtOH abuse and nicotine dependence presents to [facility] for mental health concerns. He has been admitted to the MHU for further workup and management. [facility] consulted for medical management of this patient. Patient reports history of withdrawal seizures. Last drink was 2 days ago. Drinks 1/5th of liquor daily. CBC, Coag panel, CMP significant for Cl 109, bicarb 21, BUN 6, Cr 0.64. A1c 5.4. Mag 2.2. Trop < 0.012. Lipid panel T. Chol 185, LDL 114.7. TSH 0.941. UA neg. UDS + THC. EtOH 124. COVID, RSV, Flu neg. EKG sinus rhythm. CXR negative for acute process. General: non toxic, no distress, appears at stated age Derm: warm, dry Head: atraumatic, normocephalic, symmetric Eyes: EOMI, no lid lag, anicteric sclera Mouth: no lip lesion, mucus membranes moist Cardiovascular: S1S2 reg, no murmur Lungs: CTA bilateral, no rhonchi, no rales , no accessory muscle use Ext: no gross muscle atrophy, no edema, no contractures Neuro: no focal neuro deficits Psych: Alert, oriented, appropriate affect Based on my assessment of this patient, this patient meets a high complexity level of care. EtOH abuse: CIWA protocol with Ativan PRN. Start Librium 10 mg PO TID and wean as tolerated. Nicotine dependence: Nicotine patch 14 mg TRANSDERM QD. CODE STATUS: FULL CODE. DVT Prophylaxis: Early mobilization. GI Prophylaxis: Designated medical POA if patient is not able to make medical decisions for themselves: I have reviewed the following sap pp consultant notes: ED note. I have reviewed the results of the following tests: As above. I have ordered the following tests: As above. I have discussed the care of this patient with the following independent historian: CHAD. I have independently interpreted the following test below: I have discussed the management of this patient with the following physician: Past Medical History Past Medical History: Asthma, Myocardial Infarction ([place]), Seizure Disorder Additional Past Medical History / Comment(s): ALCOHOLIC, withdrawal seizures Last Myocardial Infarction Date:: 2021 History of Any Multi-Drug Resistant Organisms: None Reported Past Surgical History: No Surgical Hx Reported Past Anesthesia/Blood Transfusion Reactions: No Reported Reaction Past Psychological History: Anxiety, Depression Smoking Status: Current every day smoker Past Alcohol Use History: Abuse, Daily, Heavy Past Drug Use History: None Reported - Past Family History Mother History Unknown: Yes family Additional Family Medical History / Comment(s): no family hx of coronary artery disease Medications and Allergies Home Medications Medication Instructions Recorded Confirmed Type No Known Home Medications 09/29/24 10/16/24 History Allergies Allergy/AdvReac Type Severity Reaction Status Date / Time No Known Allergies Allergy Verified 10/16/24 08:26 Physical Exam Vitals: Vital Signs Temp Pulse Pulse Resp BP BP Pulse Ox 10/17/24 05:47 98.4 F 60 18 114/74 96 10/16/24 18:03 98.2 F 80 18 127/92 99 Results CBC & Chem 7: 10/16/24 03:01 10/16/24 03:01
[2024-10-17] MEDS: ARIPiprazole 5 MG TAB PO SCH (20:31)
[2024-10-17] MEDS: IBUPROFEN 600 MG TAB PO PRN (20:32)
--- NOTE | 2024-10-18 12:37 | P.PN ---
Progress Note - Text Progress Note Date: 10/18/24 Interval history: Patient was seen laying in bed today and was directable and agreeable to speak with display card writer. He was fairly focused on his Ativan and medications for withdrawal today. Does claim that he has minor shakes, has been drinking significantly before coming to the hospital. Claims that he is feeling bit better today with regards to his mood and anxiety. He was fairly superficial about his need for treatment, was focused on discharge before the holidays. Keeping himself, disheveled appearance. At this time patient denies any suicidal or homicidal ideations intent or plan. Denies any Auditory or visual hallucinations. Patient denies any side effects from the medications and has been compliant with meds. Mental status exam: General Appearance: Patient appears to be stated age is alert, directable, and cooperative. Shuffled appearance. Behavior: No agitated behavior. Patient is calm and directable superficial Speech: Patient's speech is fluent and nonpressured. Mood/Affect: Mood is improving mildly, affect is congruent Suicidality/Homicidality: Patient denies having any suicidal or homicidal ideation intent or plan. Perceptions: Patient denies any auditory or visual hallucinations. Though content/process: There is no evidence of any delusional thought content and thought process is linear and goal-directed. Focused on discharge, minimizing his substance use Memory and concentration: AOX3, grossly intact for the purposes of this session Judgment and insight: Poor, improving mildly Assessment/Plan: Continue with current diagnosis. Patient continues to meet criteria for inpatient psychiatric admission for symptom stabilization and safety. Patient will be maintained on current psychotropic medication regimen, will continue to taper both Librium and Ativan for alcohol withdrawal. Monitor for medication compliance and for any psychotropic medication side effects. Will continue to monitor ongoing response to treatment. Encouraged participation in milieu.
[2024-10-18] MEDS: LORazepam 1 MG TAB PO PRN (13:32)
[2024-10-18] MEDS: LORazepam 0.5 MG TAB PO SCH (20:22)
--- NOTE | 2024-10-19 11:21 | P.PN ---
Progress Note - Text Progress Note Date: 10/19/24 Interval history: Patient was seen laying in bed today and was directable and agreeable to speak with development writer. He remains fairly focused on discharge. Minimizing his symptoms at this time. Claims that his mood and anxiety have been mildly improving. Claims that he does feel a bit tired today. He was fairly superficial about his need for treatment, was focused on discharge before the holidays. At this time patient denies any suicidal or homicidal ideations intent or plan. Denies any Auditory or visual hallucinations. Patient denies any side effects from the medications and has been compliant with meds. Mental status exam: General Appearance: Patient appears to be stated age is alert, directable, and cooperative. Disheveled appearance Behavior: No agitated behavior. Patient is calm and directable superficial, improving mildly Speech: Patient's speech is fluent and nonpressured. Mood/Affect: Mood is improving mildly, affect is congruent affect is improving Suicidality/Homicidality: Patient denies having any suicidal or homicidal ideation intent or plan. Perceptions: Patient denies any auditory or visual hallucinations. Though content/process: There is no evidence of any delusional thought content and thought process is linear and goal-directed. Focused on discharge Memory and concentration: AOX3, grossly intact for the purposes of this session Judgment and insight: Poor, improving mildly Assessment/Plan: Continue with current diagnosis. Patient continues to meet criteria for inpatient psychiatric admission for symptom stabilization and safety. Patient will be maintained on current psychotropic medication regimen, will continue to taper both Librium and Ativan for alcohol withdrawal. Monitor for medication compliance and for any psychotropic medication side effects. Will continue to monitor ongoing response to treatment. Encouraged participation in milieu.
[2024-10-19] MEDS: traZODone HCL 100 MG TAB PO PRN (20:43)
[2024-10-20] MEDS: SERTRALINE 25 MG TAB PO ONE (12:20)
--- NOTE | 2024-10-20 13:23 | P.PN ---
Progress Note - Text Progress Note Date: 10/20/24 Interval History: Patient was seen wandering the hallways and was directable and agreeable to sp dann with typewriters functional tester in the office. He states feeling well today, expressing previously feeling depressed which she feels like is related to substance use. He states since detoxing from alcohol he is feeling much better and is motivated to continue to not drink once discharged however is not agreeable with rehab, stating his support system is strong. He is agreeable however with starting naltrexone for for cravings. He denied any withdrawal symptoms today. At this time patient denies any suicidal or homicidal ideations, intent or plan. Patient denies any auditory, visual hallucinations and denies any paranoia or delusions. Patient denies any side effects from the medications and has been compliant with meds. Mental Status Exam: General Appearance: Patient appears to be stated age is alert, directable, and cooperative. Behavior: Patient is calmly seated without any agitated behavior. Speech: Patient's speech is fluent and nonpressured. Mood/Affect: Mood is improving mildly, affect is congruent and blunted but reactive. Suicidality/Homicidality: Patient denies having any suicidal or homicidal ideation intent or plan. Perceptions: Patient denies any visual hallucinations and denies any auditory hallucinations Though content/process: There is no evidence of any delusional thought content and thought process is linear and goal-directed. Memory and concentration: AOX3, grossly intact for the purposes of this session Judgment and insight: Improving mildly Assessment Major depressive disorder, recurrent, severe with psychotic features Rule out substance-induced psychosis Alcohol use disorder, severe Nicotine dependence Plan: -Patient continues to meet criteria for inpatient psychiatric admission for symptom stabilization and safety. Patient has signed adult voluntary form and medication consent and was placed in patient's chart. -Medications: Increase Zoloft to 50 mg daily for depression, start naltrexone 50 mg at bedtime for alcohol cravings and continue Abilify 2.5 mg at bedtime for psychosis, trazodone 100 mg as needed at bedtime for insomnia -When necessary Ativan and Haldol for agitation/aggression. -Labs: Reviewed -NRT -nicotine patch -SW on board for discharge planning. Encouraged the patient to participate in milieu. Anticipate discharge home with friend tomorrow
[2024-10-20] MEDS: NALTREXONE HCL 50 MG TAB PO SCH (20:27)
[2024-10-21 07:14] VITALS: BP 114/66; PULSE 93; RESP 16; TEMP 97.9
[2024-10-21] MEDS: SERTRALINE 50 MG TAB PO SCH (08:56)
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
== END 2024-10-21 10:37 | disposition home or self-care (01) | DRG 751 ==
LOC: EC 02:25 → 3MHU 17:09
PROVIDERS: ADMIT Psychiatry & Neurology Psychiatry; ATTEND Psychiatry & Neurology Psychiatry
DX: F33.3 Major depressive disorder, recurrent, severe with psychotic symptoms (principal); F10.239 Alcohol dependence with withdrawal, unspecified; F17.210 Nicotine dependence, cigarettes, uncomplicated; R45.851 Suicidal ideations; R07.9 Chest pain, unspecified; J45.909 Unspecified asthma, uncomplicated; G40.909 Epilepsy, unspecified, not intractable, without status epilepticus; F41.9 Anxiety disorder, unspecified; Y90.6 Blood alcohol level of 120-199 mg/100 ml; I25.2 Old myocardial infarction; Z59.00 Homelessness unspecified; Z56.0 Unemployment, unspecified; Z79.899 Other long term (current) drug therapy
CPT/HCPCS: 36415; 71046; 80053; 80061; 80076; 80306; 80320; 81003; 82075; 83036; 83735; 84443; 84484; 85025; 85610; 85730; 87636; 93005; 96361; 96374; 96376; 99285